=== PATIENT | male | born 1950 | race Caucasian/White ===

== ENCOUNTER 2020-04-05 10:04 | Emergency (ER) | payer MEDICARE, MEDICAID, SELFPAY ==
[2020-04-05 10:24] VITALS: BP 106/60; PULSE 81; RESP 16; TEMP 36.2; O2SAT 96; BMI 33.3
--- NOTE | 2020-04-05 10:57 | XR_ITS ---
EXAMINATION: LUMBAR SPINE 3 VIEW, HIPS BILATERAL 3 VIEW, PELVIS 1 VIEW CLINICAL INFORMATION: Back and hip pain status post fall. COMPARISON: None TECHNIQUE: 3 views of the lumbar spine, 3 views of the hip and one view of the pelvis were obtained. FINDINGS: Lumbar spine: There is normal lumbar lordosis and spinal alignment. The vertebral bodies are intact. Mild disc space narrowing is seen at L4-5. Mild to moderate multilevel marginal osteophyte formation is seen most pronounced at T11-12 and L2-3. The soft tissues are unremarkable. Pelvis/hips: The bony pelvis and hips are intact. There is no acute fracture or dislocation. The hip joints are unremarkable. The soft tissues are unremarkable. XR/XR pelvis 1-2V IMPRESSION: Multilevel degenerative changes in the lumbar spine as detailed above. No acute fracture.
--- NOTE | 2020-04-05 10:57 | CT_ITS ---
EXAMINATION: CT HEAD WITHOUT CONTRAST CLINICAL INFORMATION: Status post fall, patient on Plavix, rule out intracranial abnormality. COMPARISON: Head CT scan dated 03/12/2018. TECHNIQUE: Contiguous axial imaging was performed from the skull base to vertex without intravenous administration of contrast. This CT examination was performed using dose optimization techniques as appropriate, variously including the following: *Automated exposure control *Adjustment of mA and/or kV according to patient size (this includes techniques or standardized protocols for targeted exams where dose is matched to indication/reason for exam; i.e. extremities or head) *Use of iterative reconstruction technique DLP: 763 mGy-cm FINDINGS: There is mild widening of the cortical sulci and associated ventriculomegaly. The lateral ventricles are symmetrical. The third and fourth ventricles are in their normal midline position. The basilar and prepontine cisterns are unremarkable. There is no acute intra or extracerebral abnormality. There is no mass effect or midline shift. Sections through the bony calvarium are unremarkable. The orbits are intact. The paranasal sinuses show mild mucosal thickening in the bilateral maxillary and ethmoid sinuses. Mild nasal septal deviation, apex of the right is seen with small right apical spur. The mastoid air cells are clear. CT/CT head/brain wo con IMPRESSION: 1. Mild age-related cortical atrophy without significant change. No acute intracranial abnormality. 2. Mild inflammatory changes in the paranasal sinuses as detailed above without significant interval change.
--- NOTE | 2020-04-05 10:57 | XR_ITS ---
EXAMINATION: LUMBAR SPINE 3 VIEW, HIPS BILATERAL 3 VIEW, PELVIS 1 VIEW CLINICAL INFORMATION: Back and hip pain status post fall. COMPARISON: None TECHNIQUE: 3 views of the lumbar spine, 3 views of the hip and one view of the pelvis were obtained. FINDINGS: Lumbar spine: There is normal lumbar lordosis and spinal alignment. The vertebral bodies are intact. Mild disc space narrowing is seen at L4-5. Mild to moderate multilevel marginal osteophyte formation is seen most pronounced at T11-12 and L2-3. The soft tissues are unremarkable. Pelvis/hips: The bony pelvis and hips are intact. There is no acute fracture or dislocation. The hip joints are unremarkable. The soft tissues are unremarkable. XR/XR hips FARIDEH min 3V IMPRESSION: Multilevel degenerative changes in the lumbar spine as detailed above. No acute fracture.
--- NOTE | 2020-04-05 10:57 | XR_ITS ---
EXAMINATION: LUMBAR SPINE 3 VIEW, HIPS BILATERAL 3 VIEW, PELVIS 1 VIEW CLINICAL INFORMATION: Back and hip pain status post fall. COMPARISON: None TECHNIQUE: 3 views of the lumbar spine, 3 views of the hip and one view of the pelvis were obtained. FINDINGS: Lumbar spine: There is normal lumbar lordosis and spinal alignment. The vertebral bodies are intact. Mild disc space narrowing is seen at L4-5. Mild to moderate multilevel marginal osteophyte formation is seen most pronounced at T11-12 and L2-3. The soft tissues are unremarkable. Pelvis/hips: The bony pelvis and hips are intact. There is no acute fracture or dislocation. The hip joints are unremarkable. The soft tissues are unremarkable. XR/XR lumbar spine 2-3V IMPRESSION: Multilevel degenerative changes in the lumbar spine as detailed above. No acute fracture.
--- NOTE | 2020-04-05 10:57 | US_ITS ---
EXAMINATION: US SCROTUM CLINICAL INFORMATION: fall, testicular pain, r/o torsion. COMPARISON: None TECHNIQUE: A sonogram of the scrotum was performed assessing copeland-scale appearance and color Doppler flow. Spectral Doppler analysis of the arterial and venous flow were performed in the testes bilaterally. FINDINGS: RIGHT: Right testicle measures 5.4 x 2.5 x 3.8 cm, volume 27 mL. No focal testicular parenchymal lesions are visualized. Spectral Doppler analysis of the arterial and venous flow is normal in the right testis. Right epididymal head is normal in size. There is a 5 mm cyst in the epididymal body. Trace hydrocele, likely physiologic. No varicocele is seen. Right epididymal Doppler flow is normal. LEFT: Left testicle measures 5.4 x 2.7 x 3.5 cm, volume 27 mL. No focal testicular parenchymal lesions are visualized. Spectral Doppler analysis of the arterial and venous flow is normal in the left testis. Left epididymal head is normal in size. Trace hydrocele, likely physiologic. No varicocele is seen. Left epididymal Doppler flow is normal. US/US scrotum doppler IMPRESSION: No acute scrotal abnormalities. No evidence of torsion.
--- NOTE | 2020-04-05 11:04 | US_ITS ---
EXAMINATION: US SCROTUM CLINICAL INFORMATION: fall, testicular pain, r/o torsion. COMPARISON: None TECHNIQUE: A sonogram of the scrotum was performed assessing copeland-scale appearance and color Doppler flow. Spectral Doppler analysis of the arterial and venous flow were performed in the testes bilaterally. FINDINGS: RIGHT: Right testicle measures 5.4 x 2.5 x 3.8 cm, volume 27 mL. No focal testicular parenchymal lesions are visualized. Spectral Doppler analysis of the arterial and venous flow is normal in the right testis. Right epididymal head is normal in size. There is a 5 mm cyst in the epididymal body. Trace hydrocele, likely physiologic. No varicocele is seen. Right epididymal Doppler flow is normal. LEFT: Left testicle measures 5.4 x 2.7 x 3.5 cm, volume 27 mL. No focal testicular parenchymal lesions are visualized. Spectral Doppler analysis of the arterial and venous flow is normal in the left testis. Left epididymal head is normal in size. Trace hydrocele, likely physiologic. No varicocele is seen. Left epididymal Doppler flow is normal. US/US scrotum IMPRESSION: No acute scrotal abnormalities. No evidence of torsion.
[2020-04-05] MEDS: Acetaminophen 325 MG TABLET 975 MG PO (11:07)
--- NOTE | 2020-04-05 11:20 | ED_ITS ---
HPI - Back Pain/Injury General Chief Complaint: Fall Stated Complaint: FALL Time Seen by Provider: 04/05/20 10:57 Source: patient Mode of arrival: ambulatory Limitations: no limitations and language barrier (aerial photograph interpreter used) History of Present Illness HPI Narrative: 70 yo male with past medical history of afib on plavix, asthma, HLD, HTN, solitary kidney, seizures, cardiac stent placement here with c/o back pain, pelvic pain, testicle pain s/p fall. Patient tells me yesterday he tripped going down the stairs falling approximately 6-8 steps landing on his buttocks. Denies hitting head or LOC. Here c/o low back pain with radiation to testicles and bilateral hip pain, abrasion to LLE. No chest/abdominal/neck pain. No STEIN, vomiting, photoiphobia. tetanus UTD MD elicited complaint: back pain, back injury and fall Pertinent past history: recent trauma Onset (ago): day(s) Timing: constant Severity: mild Similar Symptoms Previously: No Quality: sharp Location: lumbar spine Radiation: groin Exacerbating factors: movement Relieving factors: immobilization Context: fall Associated symptoms: denies other symptoms Work related injury: No Related Data Previous Rx's Medication Instructions Recorded cyclobenzaprine 10 mg PO TID PRN #10 tab 04/05/20 lidocaine [Lidoderm] 1 patch TOPICAL DAILY #15 ea 04/05/20 Allergies Allergy/AdvReac Type Severity Reaction Status Date / Time aspirin [ASPIRIN] Allergy Unknown ITCHING Unverified 02/27/20 15:42 fish oil Allergy Unknown Verified 11/19/19 00:00 Shellfish Allergy Mild SWELLING Uncoded 02/27/20 15:42 Review of Systems Review of Systems: Yes all other systems are reviewed and are negative Constitutional: Constitutional: Reports no additional constitutional complaints, Denies body ache(s), Denies chills, Denies fever(s), Denies headache(s) and Denies weakness Eyes: Eyes: Reports no additional eye complaints and Denies change in vision ENT: Reports system reviewed and no additional complaints, except as documented, Denies dizziness, Denies headache(s), Denies nasal congestion, Denies nasal discharge and Denies neck pain Cardiovascular: Cardiovascular: Reports no additional cardiovascular complaints, Denies chest pain, Denies leg edema and Denies dyspnea Respiratory: Respiratory: Reports no additional respiratory complaints, Denies cough and Denies dyspnea Gastrointestinal: Gastrointestinal: Reports no additional gastrointestinal complaints, Denies abdominal pain, Denies diarrhea, Denies nausea and Denies vomiting Genitourinary: Genitourinary: Reports no additional male genitourinary complaints, Denies difficulty urinating, Denies dysuria, Denies flank pain, Denies penile discharge, Denies scrotal swelling, Reports testicular pain, Denie s urinary frequency, Denies urinary hesitancy, Denies urinary incontinence and Denies urinary urgency Musculoskeletal: Musculoskeletal: Reports no additional musculoskeletal complaints, Reports back pain, Reports arthralgias, Denies joint swelling, Denies neck pain, Denies numbness and Denies tingling Integumentary/Breasts: Skin/Breast: Reports system reviewed and no additional complaints, except as docu and Denies rash Neurologic: Reports system reviewed and no additional complaints, except as documented, Denies Abnormal speech present, Denies dizziness, Denies headache(s), Denies numbness, Denies tingling and Denies weakness PMFSH Past Medical History Attestation statement: The following information was validated with the patient. Source: obtained from family and nursing notes reviewed Medical History Afib Asthma Heart attack High cholesterol Hypertension Kidney congenitally absent, left Seizures Surgical History H/O heart artery stent Social History Social History Alcohol intake: never Smoking Status: Never smoker Use of substances other than those prescribed or required for medical reasons: No Advance Directives: No Advance Directives Information Provided: No Physical Exam Vital Signs: Vital Signs: Vital Signs Temp Pulse Resp BP Pulse Ox 04/05/20 10:24 97.1 F 81 16 106/60 96 Body Mass Index 33.3 Const: General: cooperative, healthy appearing, comfortable and no acute distress Orientation/consciousness: patient oriented x3 Limitations: no limitations HENMT: Head: Yes normal to inspection Ears: hearing grossly normal bilaterally General nose exam: Normal external nose present Face and sinus: Yes normal facial exam Mouth: Normal oral and palatal mucosa present Throat: Yes posterior oropharynx normal Eyes: General: appearance normal, both eyes and all related structures Pupils: Equal, round and reactive pupils present Neck: Other: no midline tenderness/step offs or deformities. 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 General: Yes no CVA tenderness Male General Exam: Yes normal external exam, No ecchymosis, No edema and No lacerations Penis: normal penis and uncircumcised Meatus: meatus normal Scrotum: scrotum normal, cremasteric reflex present, no ecchymosis, not edematous, testes descended bilaterally and no scrotal swelling Testes: Testes normal, testicular lie normal, no epidiymal tenderness, no testicular swelling and testicular tenderness (mild ) bilateral Back/Spine/Pelvis: Back: no CVA tenderness Thoracic/Lumbar Spine: thoracic and lumbar spine normal to inspection and lumbar spinal tenderness at L3, at L4 and at L5 Pelvis: pain with anterior-posterior compression (mild tenderness over bilateral posterior hips/pelvis. FROM), no buttock ecchymosis, no buttock tenderness and no buttock swelling Skin: Other: small abrasion to LLE anterioally with no active bleeding/tenderness/crepitus or bony abnormality General skin exam: no rashes or lesions noted Neuro: General: patient oriented x3, Normal light touch and pain sensation, no focal motor deficits and normal sensation to monofilament Cranial nerves: Yes CN's II-XII intact bilaterally and Yes Equal, round and reactive pupils present Cognition (Neuro): normal cognition Speech: No Abnormal speech present Gait exam (Neuro): Normal gait present Motor exam (neuro): 5/5 motor strength present throughout Sensory Exam: Normal double simultaneous stimulation for sensation Coordination: [id number] test normal, [id number] test normal and tandem gait normal Extrem: General: Yes normal to inspection Course Course Course Narrative: 70 yo male here with bilateral hip pain, low back pain, bilateral testicular pain, abrasion to LLE s/p mechanical fall. On arrival no neuro deficits. Denies hitting head however on plavix and d/t age will check Ct head. Has midline lumbar tenderness and mild tenderness over posterior pelvis and bilateral hips. No instability. FROM. No deformity. Will check imaging. Also c/o testicular tenderness bilateral with no obvious ecchymosis/swelling. Will check testicular US. 1300- Imaging unremarkable. Likely contusions. Reviewed findings with the patient and his family. Reviewed worrisome signs and symptoms and when to return to the emergency department. Comfortable discharge home. MDM - Back Pain/Injury MDM Narrative Medical decision making narrative: Head contusion vs ICH, Hip fracture vs dislocation vs contusion, lumbar spine contusion vs strain vs fracture, testic ular contusion vs hematoma vs torision. 1200-Less likely ICH with negative Ct head. Less likely fracture or dislocation in hip/pelvis lumbar spine with negative imaging. Less likely testicular torsion or hematoma with negative US. Medical Records Attestation: I reviewed the patient's medical records. Imaging Data CT scan - head: Attestation: I personally reviewed and interpreted this imaging study as follows: My impression: unremarkable Radiologist's impression: EXAMINATION: CT HEAD WITHOUT CONTRAST CLINICAL INFORMATION: Status post fall, patient on Plavix, rule out intracranial abnormality. COMPARISON: Head CT scan dated 03/12/2018. TECHNIQUE: Contiguous axial imaging was performed from the skull base to vertex without intravenous administration of contrast. This CT examination was performed using dose optimization techniques as appropriate, variously including the following: *Automated exposure control *Adjustment of mA and/or kV according to patient size (this includes techniques or standardized protocols for targeted exams where dose is matched to indication/reason for exam; i.e. extremities or head) *Use of iterative reconstruction technique DLP: 763 mGy-cm FINDINGS: There is mild widening of the cortical sulci and associated ventriculomegaly. The lateral ventricles are symmetrical. The third and fourth ventricles are in their normal midline position. The basilar and prepontine cisterns are unremarkable. There is no acute intra or extracerebral abnormality. There is no mass effect or midline shift. Sections through the bony calvarium are unremarkable. The orbits are intact. The paranasal sinuses show mild mucosal thickening in the bilateral maxillary and ethmoid sinuses. Mild nasal septal deviation, apex of the right is seen with small right apical spur. The mastoid air cells are clear. CT/CT head/brain wo con IMPRESSION: 1. Mild age-related cortical atrophy without significant change. No acute intracranial abnormality. 2. Mild inflammatory changes in the paranasal sinuses as detailed above without significant interval change. hip/pelvis xray: Attestation: I personally reviewed and interpreted this imaging study as follows: My impression: unremarkable Radiologist's impression: Pelvis/hips: The bony pelvis and hips are intact. There is no acute fracture or dislocation. The hip joints are unremarkable. The soft tissues are unremarkable. lumbar spine: Attestation: I personally reviewed and interpreted this imaging study as follows: Radiologist's impression: FINDINGS: Lumbar spine: There is normal lumbar lordosis and spinal alignment. The vertebral bodies are intact. Mild disc space narrowing is seen at L4-5. Mild to moderate multilevel marginal osteophyte formation is seen most pronounced at T11-12 and L2-3. The soft tissues are unremarkable. testicular US: Attestation: I personally reviewed and interpreted this imaging study as follows: Radiologist's impression: EXAMINATION: US SCROTUM CLINICAL INFORMATION: fall, testicular pain, r/o torsion. COMPARISON: None TECHNIQUE: A sonogram of the scrotum was performed assessing copeland-scale appearance and color Doppler flow. Spectral Doppler analysis of the arterial and venous flow were performed in the testes bilaterally. FINDINGS: RIGHT: Right testicle measures 5.4 x 2.5 x 3.8 cm, volume 27 mL. No focal testicular parenchymal lesions are visualized. Spectral Doppler analysis of the arterial and venous flow is normal in the right testis. Right epididymal head is normal in size. There is a 5 mm cyst in the epididymal body. Trace hydrocele, likely physiologic. No varicocele is seen. Right epididymal Doppler flow is normal. LEFT: Left testicle measures 5.4 x 2.7 x 3.5 cm, volume 27 mL. No focal testicular parenchymal lesions are visualized. Spectral Doppler analysis of the arterial and venous flow is normal in the left testis. Left epididymal head is normal in size. Trace hydrocele, likely physiologic. No varicocele is seen. Left epididymal Doppler flow is normal. US/US scrotum IMPRESSION: No acute scrotal abnormalities. No evidence of torsion. Discharge Plan Discharge Clinical Impression: Fall Contusion Qualifiers: Encounter type: initial encounter Contusion area: lower back Qualified Code(s): S30.0XXA - Contusion of lower back and pelvis, initial encounter Patient Disposition: Home, Self-Care Instructions: Contusion in Adults (ED), Fall Prevention (ED) Additional Instructions: Ice to the affected area gentle stretching Prescriptions: New cyclobenzaprine 10 mg tablet 10 mg PO TID PRN (Reason: muscle spasm) Qty: 10 RF: 0 lidocaine [Lidoderm] 5 % adhesive patch,medicated 1 patch topical DAILY Qty: 15 RF: 0 Referrals: Deidre Hunter MD [Primary Care Provider] - 2 days Interventions: ED Discharge Assessment Last Done: 04/05/20 13:38 Discharge Date/Time: 04/05/20 13:15 Print Language: Khmer
== END 2020-04-05 13:15 | disposition home or self-care (01) ==
PROVIDERS: Emergency Provider Emergency Medicine; PCP Internal Medicine
DX: S30.0XXA Contusion of lower back and pelvis, initial encounter (principal); M25.552 Pain in left hip; M25.551 Pain in right hip; N50.812 Left testicular pain; N50.811 Right testicular pain; G44.309 Post-traumatic headache, unspecified, not intractable; S09.90XA Unspecified injury of head, initial encounter; S80.812A Abrasion, left lower leg, initial encounter; S80.811A Abrasion, right lower leg, initial encounter; W10.9XXA Fall (on) (from) unspecified stairs and steps, initial encounter; Y93.01 Activity, walking, marching and hiking; Y92.009 Unspecified place in unspecified non-institutional (private) residence as the place of occurrence of the external cause; Y99.9 Unspecified external cause status; Z79.899 Other long term (current) drug therapy
CPT/HCPCS: 70450; 72100; 72170; 73522; 76870; 93975; 99284

== ENCOUNTER 2020-04-15 08:53 | Outpatient (REF) | payer MEDICARE, MEDICAID, SELFPAY ==
--- NOTE | 2020-04-15 09:01 | XR_ITS ---
EXAMINATION: XR LUMBOSACRAL SPINE CLINICAL INFORMATION: Fall with pain COMPARISON: 04/05/[address] abdomen of 01/26/2018 TECHNIQUE: Three views of the lumbosacral spine. FINDINGS: There are 5 [id number] lumbar vertebra present. There is a stable appearance compared to study of 04/05/[address] scan of 01/26/2018 there has been a mild inferior endplate compression fracture of L2 with some degenerative spurring developing anteriorly. There is some mild narrowing of the L4-L5 and L5-S1 disc spaces. There is facet arthropathy right side of L4-L5 and L5-S1. No evidence of fusion or widening of the sacroiliac joints. XR/XR lumbar spine 2-3V IMPRESSION: No acute fracture, spondylolisthesis or spondylolysis of the lumbar spine. Degenerative change as described.
== END 2020-04-15 08:54 | disposition home or self-care (01) ==
LOC: HO.XRAY 08:53
PROVIDERS: PCP Internal Medicine; Visit Provider Nurse Practitioner Family
DX: M54.5 Low back pain (principal); W10.9XXA Fall (on) (from) unspecified stairs and steps, initial encounter
CPT/HCPCS: 72100

== ENCOUNTER 2020-07-01 08:58 | Outpatient (REF) | payer MEDICARE, MEDICAID, SELFPAY ==
[2020-07-01 10:22] LABS: MANUAL DIFF FLAG NO
[2020-07-01 10:28] LABS: Basophils Percent Auto 0.6 % (0-2); Eosinophils Absolute Auto 0.2 X10*3/uL (0.0-0.4); Eosinophils Percent Auto 4.4 % (0-4); Hematocrit 41.2 % (42-52); Hemoglobin 13.8 g/dl (14.0-18.0); Imm Gran Abs Auto 0.01 X10*3/uL (0.00-0.03); Imm Gran Pct Auto 0.2 % (0.0-0.4); Lymphocytes Absolute Auto 2.1 X10*3/uL (1.2-4.9); Lymphocytes Percent Auto 43.1 % (20-40); Mean Corpuscular HGB Conc 33.5 g/dl (31.0-36.0); Mean Corpuscular Hemoglobin 31.5 pg (27.0-33.0); Mean Corpuscular Volume 94.1 fL (80-98); Mean Platelet Volume 10.6 fL (9.4-12.4); Monocytes Absolute Auto 0.3 X10*3/uL (0.1-1.2); Monocytes Percent Auto 6.9 % (2-11); Neutrophils Absolute Auto 2.1 X10*3/uL (2.0-8.3); Neutrophils Percent Auto 44.8 % (45-73); Platelet Count 182 X10*3/uL (160-400); Red Blood Count 4.38 X10*6/uL (4.60-5.80); Red Cell Distribution Width 12.8 % (11.0-16.0); White Blood Count 4.8 X10*3/uL (4.8-10.8)
[2020-07-01 10:51] LABS: Alanine Aminotransferase 31 U/L (0-40); Albumin Level 3.9 g/dL (3.5-5.0); Alkaline Phosphatase 138 U/L (39-117); Anion Gap 13 (12-20); Aspartate Amino Transferase 25 U/L (5-37); Bilirubin Total 0.3 mg/dL (0.0-1.0); Blood Urea Nitrogen 20 mg/dL (9-16); Calcium 8.7 mg/dL (8.4-10.2); Carbon Dioxide 26 mmol/L (22-29); Chloride 107 mmol/L (96-108); Cholesterol 153 mg/dL; Estimated Glomerular Filt Rate > 60; Glucose Fasting 89 mg/dL (60-99); HDL Cholesterol 51 mg/dL; LDL Cholesterol Calculated 85 mg/dl; Potassium 4.4 mmol/l (3.3-5.1); Sodium 142 mmol/L (135-145); Triglycerides 88 mg/dL
[2020-07-01 10:56] LABS: Carbamazepine Tegretol 3.7 mcg/mL (5.0-12.0)
[2020-07-01 11:13] LABS: PSA,Total (Free>4and<10) 0.49 ng/mL (0.00-4.00); Vitamin D 25-OH Total 38.5 ng/mL (>30)
[2020-07-03 12:37] LABS: Phenytoin, Free/Unbound 0.8 mg/L (1.0-2.0)
== END 2020-07-01 08:59 | disposition home or self-care (01) ==
LOC: HO.LAB 08:58
PROVIDERS: PCP Internal Medicine; Visit Provider Internal Medicine
DX: E78.5 Hyperlipidemia, unspecified (principal); I12.9 Hypertensive chronic kidney disease with stage 1 through stage 4 chronic kidney disease, or unspecified chronic kidney disease; N18.30 Chronic kidney disease, stage 3 unspecified; I25.10 Atherosclerotic heart disease of native coronary artery without angina pectoris; R56.9 Unspecified convulsions; I48.91 Unspecified atrial fibrillation; N40.0 Benign prostatic hyperplasia without lower urinary tract symptoms; Z20.822 Contact with and (suspected) exposure to COVID-19
CPT/HCPCS: 36415; 80053; 80061; 80156; 80186; 82306; 84153; 85025; C9803; U0003

== ENCOUNTER 2021-07-21 07:48 | Outpatient (REF) | payer MEDICARE, MEDICAID, SELFPAY ==
[2021-07-21 08:13] LABS: MANUAL DIFF FLAG NO
[2021-07-21 09:01] LABS: Basophils Percent Auto 0.6 % (0-2); Eosinophils Absolute Auto 0.3 X10*3/uL (0.0-0.4); Eosinophils Percent Auto 6.3 % (0-4); Hematocrit 37.6 % (42.0-52.0); Hemoglobin 12.9 g/dl (14.0-18.0); Imm Gran Abs Auto 0.01 X10*3/uL (0.00-0.03); Imm Gran Pct Auto 0.2 % (0.0-0.4); Lymphocytes Absolute Auto 2.3 X10*3/uL (1.2-4.9); Lymphocytes Percent Auto 46.7 % (20-40); Mean Corpuscular HGB Conc 34.3 g/dl (31.0-36.0); Mean Corpuscular Volume 93.3 fL (80.0-98.0); Mean Platelet Volume 11.3 fL (9.4-12.4); Monocytes Absolute Auto 0.4 X10*3/uL (0.1-1.2); Monocytes Percent Auto 7.1 % (2-11); Neutrophils Absolute Auto 1.9 x10*3/uL (2.0-8.3); Neutrophils Percent Auto 39.1 % (45-73); Platelet Count 177 X10*3/uL (160-400); Red Blood Count 4.03 X10*6/uL (4.60-5.80); Red Cell Distribution Width 12.5 % (11.0-16.0); White Blood Count 4.9 X10*3/uL (4.8-10.8)
[2021-07-21 09:35] LABS: Alanine Aminotransferase 31 U/L (0-40); Albumin Level 3.8 g/dL (3.5-5.0); Alkaline Phosphatase 128 U/L (39-117); Anion Gap 10 (12-20); Aspartate Amino Transferase 25 U/L (5-37); Bilirubin Total 0.3 mg/dL (0.0-1.0); Blood Urea Nitrogen 16 mg/dL (9-16); Calcium 8.6 mg/dL (8.4-10.2); Carbon Dioxide 24 mmol/L (22-29); Chloride 110 mmol/L (96-108); Cholesterol 139 mg/dL; Estimated Glomerular Filt Rate 57; Glucose Fasting 99 mg/dL (60-99); HDL Cholesterol 46 mg/dL; LDL Cholesterol Calculated 77 mg/dl; Potassium 4.2 mmol/L (3.3-5.1); Sodium 140 mmol/L (135-145); Total Protein 6.8 g/dL (6.5-8.0); Triglycerides 80 mg/dL
[2021-07-21 09:57] LABS: PSA,Total (Free>4and<10) 0.59 ng/mL (0.00-4.00)
[2021-07-23 14:32] LABS: Phenytoin, Free/Unbound 0.6 mg/L (1.0-2.0)
[2021-07-26 13:27] LABS: Vitamin D 25-OH, D2 <4 ng/mL; Vitamin D 25-OH, D3 35 ng/mL; Vitamin D 25-OH, Total 35 ng/mL (30-100)
== END 2021-07-21 07:49 | disposition home or self-care (01) ==
LOC: HO.LAB 07:48
PROVIDERS: PCP Internal Medicine; Visit Provider Internal Medicine
DX: Z12.5 Encounter for screening for malignant neoplasm of prostate (principal); R56.9 Unspecified convulsions; E78.5 Hyperlipidemia, unspecified; N40.0 Benign prostatic hyperplasia without lower urinary tract symptoms; I10 Essential (primary) hypertension; E55.9 Vitamin D deficiency, unspecified; D64.9 Anemia, unspecified
CPT/HCPCS: 36415; 80053; 80061; 80156; 80186; 82306; 84153; 85025

== ENCOUNTER 2021-11-02 07:16 | Day surgery (SDC) | payer MEDICARE, MEDICAID, SELFPAY ==
[2021-10-27 14:27] VITALS: BMI 35.4
--- NOTE | 2021-10-28 10:33 | HO.ANESPROP2 ---
Documented by User: Mireya Franklin NP 10/28/21 10:40 HPI - Anesthesia Eval Consult details Narrative: 71yo M for Colonoscopy Optimized per cardiology - hold plavix, continue asa PMFSH Active Problems Active Problems: All Active Problems (Updated 08/06/21 @ 14:25 by Juliann Gaona, GORGE) Fall from stairs (Acute) Screening for colon cancer (Acute) Adult general medical exam (Acute) Solitary kidney, acquired (Acute) Mild recurrent major depression (Acute) Cough (Acute) Hypertension (Acute) BPH (benign prostatic hyperplasia) (Acute) Afib (Acute) Asthma (Acute) Seizures (Acute) CAD (coronary artery disease) (Acute) Lower back pain (Acute) Past Medical History Medical History Afib Asthma BPH (benign prostatic hyperplasia) CAD (coronary artery disease) Cardiac arrest due to underlying cardiac condition Cough Heart attack High cholesterol Hypertension Lower back pain Mild recurrent major depression Seizures Solitary kidney, acquired Family History Family History Father No problems noted. Mother Cancer Diabetes Surgical History Surgical History H/O heart artery stent History of colonoscopy History of left nephrectomy Social History Social History Housing: House Alcohol intake: never Patient Tobacco Use Status: Never used Tobacco e-Cigarette/Vaping Use: Never Used Second Hand Smoke Exposure: No Use of substances other than those prescribed or required for medical reasons: No Are you DNR?: No Advance Directives: No Advance Directives Information Provided: Yes Recently lost weight without trying: No Nutrition Risks: No Nutritional Risk service: No Current occupational status: retired Meds Allergies Allergy/AdvReac Type Severity Reaction Status Date / Time aspirin [ASPIRIN] Allergy Intermediate ITCHING Verified 07/06/21 09:19 fish oil Allergy Intermediate itchiness Verified 07/06/21 09:19 shellfish derived Allergy Mild Swelling Verified 08/06/21 13:45 Home Medications Medication Instructions Recorded Confirmed Last Taken Type carbamazepine 100 mg chewable 300 mg PO BID 04/13/20 10/27/21 11/02/21 History tablet citalopram 40 mg tablet 40 mg PO DAILY 04/13/20 10/27/21 11/02/21 History clonazepam 1 mg tablet 1 mg PO TID 04/13/20 10/27/21 11/02/21 History quetiapine 100 mg tablet 100 mg PO BEDTIME 04/13/20 10/27/21 Unknown History tramadol 50 mg tablet 50 mg PO BID PRN 04/13/20 10/27/21 Unknown History aspirin 81 mg tablet,delayed 81 mg PO DAILY 08/06/21 10/27/21 Unknown History release metoprolol succinate 25 mg 25 mg PO DAILY 08/06/21 10/27/21 11/02/21 History tablet,extended release 24 hr Exam Exam Date and Time: October 28, 2021 1033 Height,Weight and Vital Signs: Height 5 ft 5 in Weight 96.615 kg Pertinent Lab Results Pertinent Lab Results: Laboratory Tests 07/21/21 07/21/21 08:11 08:11 WBC 4.9 Hgb 12.9 L Hct 37.6 L Plt Count 177 Sodium 140 Potassium 4.2 Chloride 110 H Carbon Dioxide 24 BUN 16 Creatinine 1.24 Narrative Narrative: EKG 01/2021 Sinus manuelito @ 57 Nonspecific T wave abn No significant change from 11/2018 Nuc Stress 09/2021 1. Myocardial perfusion imaging is normal without any fixed or reversible perfusion defct after regadenosen infusion 2. LV function is normal at rest and after IV admin of regadenoson with normal wall motion and thickening 3. EKG portion of stress no ischemic ekg changes with pharm stress Assessment and Plan Assessment Anesthesia Assessment: Chart Reviewed Documented by User: Ines Landers MD 11/02/21 08:31 PMFSH Active Problems Active Problems: All Active Problems (Updated 08/06/21 @ 14:25 by Juliann Gaona RN) Fall from stairs (Acute) Screening for colon cancer (Acute) Adult general medical exam (Acute) Solitary kidney, acquired (Acute) Mild recurrent major depression (Acute) Cough (Acute) Hypertension (Acute) BPH (benign prostatic hyperplasia) (Acute) Afib -Paroxysmal Asthma (Acute) Seizures (Acute) CAD (coronary artery disease) (Acute). [place] years ago. Stents. On plavix. Last dose 7 days ago Lower back pain (Acute) Snores. ?DNIESH. Not using CPAP(States was given small machine but not using) Past Medical History Medical History Afib Asthma BPH (benign prostatic hyperplasia) CAD (coronary artery disease) Cardiac arrest due to underlying cardiac condition Cough Heart attack High cholesterol Hypertension Lower back pain Mild recurrent major depression Seizures Solitary kidney, acquired Family History Family History Father No problems noted. Mother Cancer Diabetes Family history of problems with anesthesia: No Surgical History Surgical History H/O heart artery stent History of colonoscopy History of left nephrectomy History of Problems with Anesthesia: No Social History Social History Housing: House Alcohol intake: never Patient Tobacco Use Status: Never used Tobacco e-Cigarette/Vaping Use: Never Used Second Hand Smoke Exposure: No Use of substances other than those prescribed or required for medical reasons: No Are you DNR?: No Advance Directives: No Advance Directives Information Provided: Yes Recently lost weight without trying: No Nutrition Risks: No Nutritional Risk service: No Current occupational status: retired Meds Allergies Allergy/AdvReac Type Severity Reaction Status Date / Time aspirin [ASPIRIN] Allergy Intermediate ITCHING Verified 07/06/21 09:19 fish oil Allergy Intermediate itchiness Verified 07/06/21 09:19 shellfish derived Allergy Mild Swelling Verified 08/06/21 13:45 Home Medications Medication Instructions Recorded Confirmed Last Taken Type carbamazepine 100 mg chewable 300 mg PO BID 04/13/20 10/27/21 11/02/21 History tablet citalopram 40 mg tablet 40 mg PO DAILY 04/13/20 10/27/21 11/02/21 History clonazepam 1 mg tablet 1 mg PO TID 04/13/20 10/27/21 11/02/21 History quetiapine 100 mg tablet 100 mg PO BEDTIME 04/13/20 10/27/21 Unknown History tramadol 50 mg tablet 50 mg PO BID PRN 04/13/20 10/27/21 Unknown History aspirin 81 mg tablet,delayed 81 mg PO DAILY 08/06/21 10/27/21 Unknown History release metoprolol succinate 25 mg 25 mg PO DAILY 08/06/21 10/27/21 11/02/21 History tablet,extended release 24 hr Exam Height,Weight and Vital Signs: Height 5 ft 5 in Weight 96.615 kg Vital Signs Temp Pulse Resp BP Pulse Ox 11/02/21 08:21 97.3 F 57 16 119/71 96 Airway Mallampati Class: III TM Dist: >3cm (Short neck, increased circumference) Neck ROM: Full Loose/Missing/Broken Teeth: Yes (Missing bottom front) Heart: RRR Lungs: CTAB Assessment and Plan Assessment Anesthesia Assessment: Anesthesia Plan Discussed Final Anesthetic Review Family History of Problems with Anesthesia: No History of Problems with Anesthesia: No NPO: Yes ASA Class: III Final Preanesthetic Review: No Changes in Pt Med Stat, Meds/Allgs Chart Reviewed, Consent Obtained/Reviewed and Anes Risks/Benef Reviewed Patient Risk: Intermediate Procedure Risk: Low Assessment/Block/Sedation in SS: Assess/Block/Sedation-SS Anesthetic Plan Anesthetic Plan: MAC: Disposition: Standard PACU
[2021-11-02 08:06] VITALS: BMI 33.3
[2021-11-02 08:21] VITALS: BP 119/71; PULSE 57; RESP 16; TEMP 36.3; O2SAT 96
[2021-11-02] MEDS: Lactated Ringers 1,000 ML 100 ML IVCONT (08:35)
--- NOTE | 2021-11-02 09:08 | MHC.SHP ---
Pre-Procedural Eval Section A Date of Service: 11/02/21 Section B Chief Complaint: screening Details of Present Illness: see H&P no changes Relevant Family History (Specify if Yes): No Relevant Social History: None Present Medications: see Short Stay Collaborative assessment Medical History: No relevant PMH History of Previous Operations: No relevant previous surgery Allergies: Allergies Allergy/AdvReac Type Severity Reaction Status Date / Time aspirin [ASPIRIN] Allergy Intermediate ITCHING Verified 07/06/21 09:19 fish oil Allergy Intermediate itchiness Verified 07/06/21 09:19 shellfish derived Allergy Mild Swelling Verified 08/06/21 13:45 Review of Systems Sugical H&P ROS: Negative: Constitution, Cardiovascular, Respiratory, Neurological, Psychiatric, Hem-Onc, Allergic/Immunologic, Gastrointestinal, Genitourinary, Musculoskeletal, Integumentary, Endocrine and Eyes/Ears/Nose/Throat Exam Surgical H&P Exam: Normal: HEENT, Normal: Heart, Normal: Lungs, Normal: Extremities, Normal: Abdomen, Normal: Skin and Normal: Neurological Plan Diagnosis/Plan: Unchanged I have reviewed the history and physical and performed a pertinent physical examination on my patient. No changes have occurred unless specified.
--- NOTE | 2021-11-02 09:44 | P.BOP_ITS ---
Brief Operative Note Date of Service: 11/02/21 Pre-op diagnosis: screening Procedure: colono polyps Surgeon: Ravin Crow Anesthesia: MAC Was an Operations Supervisor 2Nd Shift used for this Procedure?: No Estimated blood loss (mL): 0 Pathology: other (polyps x2) Condition: stable Disposition: PACU
[2021-11-02 09:48] VITALS: BP 87/50; PULSE 57; RESP 16; TEMP 36.5; O2SAT 97
[2021-11-02 10:03] VITALS: BP 129/76; PULSE 58; RESP 18; TEMP 36.5; O2SAT 100
--- NOTE | 2021-11-02 20:28 | OP_ITS ---
SURGEON: Ravin Crow MD INDICATIONS: Colon cancer screening. PREOPERATIVE DIAGNOSIS: POSTOPERATIVE DIAGNOSIS: PROCEDURE PERFORMED: Colonoscopy to the terminal ileum with snare polypectomy. ESTIMATED BLOOD LOSS: COMPLICATIONS: ANESTHESIA: ASSISTANTS: SPECIMENS: MEDICATIONS: Monitored anesthesia care. DESCRIPTION OF PROCEDURE: History and physical were performed. The risks and benefits of the procedure were explained to the patient. Informed consent was obtained. The patient was placed in the left lateral decubitus position. A digital rectal exam was performed and was found to be normal. The Olympus pediatric video colonoscope was introduced into the rectum and advanced to the cecum without difficulty. The cecum was identified by transillumination, palpation and identification of ileocecal valve. Examination was performed. The scope was removed. He tolerated the procedure well and was taken to recovery area in stable condition. FINDINGS: The terminal ileum was normal. The visualized colonic mucosa was normal. There was some liquid stool coating the mucosa mainly in the transverse colon and sigmoid, limiting the examination for detection of small polyps. This was washed and suctioned. Two polyps were identified. The largest measured approximately 8 mm and was located in the cecum on the ileocecal valve. The 2nd was located in the right colon measuring less than 5 mm. Both were removed with a hot snare. No other polyps were identified. Retroflexed examination showed internal hemorrhoids. IMPRESSION: Colon polyps. RECOMMENDATION: Follow up the biopsy results. MD SADIA Kee/DRE / [id number]
== END 2021-11-02 10:38 | disposition home or self-care (01) ==
PROVIDERS: PCP Internal Medicine; Visit Provider Internal Medicine Gastroenterology
PROC: 0DJD8ZZ Inspection of Lower Intestinal Tract, Via Natural or Artificial Opening Endoscopic (ICD-10-PCS; CPT 45378; principal; 2021-11-02 08:50)
DX: Z12.11 Encounter for screening for malignant neoplasm of colon (principal); Z86.010 Personal history of colon polyps; D12.0 Benign neoplasm of cecum; D12.2 Benign neoplasm of ascending colon; K64.8 Other hemorrhoids; K21.9 Gastro-esophageal reflux disease without esophagitis; I10 Essential (primary) hypertension; E78.5 Hyperlipidemia, unspecified; I25.10 Atherosclerotic heart disease of native coronary artery without angina pectoris; Z98.61 Coronary angioplasty status; I25.2 Old myocardial infarction; J45.909 Unspecified asthma, uncomplicated; G40.909 Epilepsy, unspecified, not intractable, without status epilepticus; Z90.5 Acquired absence of kidney; Z87.442 Personal history of urinary calculi; Z79.51 Long term (current) use of inhaled steroids; Z79.02 Long term (current) use of antithrombotics/antiplatelets; Z79.82 Long term (current) use of aspirin; Z79.899 Other long term (current) drug therapy
CPT/HCPCS: 45385; 88305

== ENCOUNTER 2022-02-18 09:21 | Outpatient (REF) | payer MEDICARE, MEDICAID, SELFPAY | END 2022-02-18 09:22 | disposition home or self-care (01) | LOC: HO.SH 09:21 | PROVIDERS: Visit Provider Internal Medicine | DX: Z13.89 Encounter for screening for other disorder (principal) ==

== ENCOUNTER 2022-03-31 08:39 | Outpatient (REF) | payer MEDICARE, MEDICAID, SELFPAY ==
[2022-03-31 11:26] LABS: Alanine Aminotransferase 33 U/L (0-40); Albumin Level 3.9 g/dL (3.5-5.0); Alkaline Phosphatase 141 U/L (39-117); Anion Gap 15 (12-20); Aspartate Amino Transferase 29 U/L (5-37); Bilirubin Total < 0.2 mg/dL (0.0-1.0); Blood Urea Nitrogen 12 mg/dL (9-16); Calcium 8.7 mg/dL (8.4-10.2); Carbon Dioxide 24 mmol/L (22-29); Chloride 107 mmol/L (96-108); Cholesterol 155 mg/dL; Estimated Glomerular Filt Rate > 60; Glucose Fasting 94 mg/dL (60-99); HDL Cholesterol 50 mg/dL; LDL Cholesterol Calculated 89 mg/dl; Sodium 142 mmol/L (135-145); Triglycerides 84 mg/dL
[2022-03-31 11:37] LABS: Vitamin D 25-OH Total 37.1 ng/mL (>30)
[2022-03-31 12:02] LABS: Carbamazepine Tegretol 4.5 mcg/mL (5.0-12.0)
[2022-04-01 15:22] LABS: Phenytoin, Free/Unbound 0.6 mg/L (1.0-2.0)
== END 2022-03-31 08:40 | disposition home or self-care (01) ==
LOC: HO.LAB 08:39
PROVIDERS: PCP Internal Medicine; Visit Provider Internal Medicine
DX: E55.9 Vitamin D deficiency, unspecified (principal); R56.9 Unspecified convulsions; E78.5 Hyperlipidemia, unspecified
CPT/HCPCS: 36415; 80053; 80061; 80156; 80186; 82306

== ENCOUNTER 2022-04-21 09:41 | Outpatient (REF) | payer MEDICARE, MEDICAID, SELFPAY ==
--- NOTE | 2022-04-21 12:47 | MHC.AU.HAS ---
Hearing Aid Evaluation Date of Visit: 04/21/22 Administrative Aide Used: Vietnamese- In Person Historical Information: Description of Hearing: Moderate sloping to severe sensorineural hearing loss in the left ear; Profound hearing loss in the right ear - No response at the limits of the audiometer Current personal amplification information: Left STEIN described as BTE from >6 years ago - LOST Summary: Discussed option to trial BiCROS; however, Domingo reported that he would prefer only a left-sided hearing aid. He was reportedly a successful unilateral hearing aid user prior to losing it and is motivated to pursue a new hearing aid with upgraded technology. Hearing Aid Prescription: Based on the individual?s shared listening needs, communication environments, dexterity, desire for connectivity, and personal preferences, the following prescription for amplification has been made: Left ear: Presetter Operator: NewGoTos Model: Your Energyeo P70-R Battery Size: Rechargeable Color: Sand Beige Internet Marketing Intern: 1P Type of Mold: c-shell Plan of Care: Patient wishes to purchase hearing aids as prescribed Action Taken/Action Needed: Earmold Impression Taken Medical Clearance to be requested from PCP/ENT Hearing Instrument Fitting to be scheduled when materials arrive Primary Diagnosis: H90.3 Bilateral Sensorineural Hearing Loss Signature: Provider: Katia Montez, [facility]
--- NOTE | 2022-04-21 12:49 | MHC.AU.MED ---
Medical Clearance for Hearing Instrumentation Date: 04/21/22 Patient Name: Domingo Francis Date of : 1950 Primary Care Provider: Deidre Zepeda MD We have seen your patient on 04/21/22 and have determined that they are a candidate for amplification (See accompanying report). Specifically, they would benefit from: Hearing aid use in the left ear There is a statute that addresses Medical Evaluation Requirements prior to fitting a patient with a hearing aid. According to [place] statute 265 CMR:6.03(1), (a) General. Except as provided in 265 CMR 6.03(1)(b), a director of assessment shall not sell a hearing aid unless the prospective user has presented to the director of assessment a written statement signed by a licensed physician that states that the patient's hearing loss has been medically evaluated and the patient may be considered a candidate for a hearing aid. The medical evaluation must have taken place within the preceding six months. Please note: Due to the [place] Statute referenced above, we cannot accept a signature other than that of a licensed physician. LEAF SIZE PICKER and PA signatures cannot be accepted. I am in agreement with the above recommendation. There is no medical contraindication for hearing instrumentation. Physician Signature Date Physician Name (Printed)
== END 2022-04-21 09:42 | disposition home or self-care (01) ==
LOC: HO.SH 09:41
PROVIDERS: Visit Provider Internal Medicine
DX: Z01.118 Encounter for examination of ears and hearing with other abnormal findings (principal); Z46.1 Encounter for fitting and adjustment of hearing aid; H90.3 Sensorineural hearing loss, bilateral
CPT/HCPCS: 92557; 92590

== ENCOUNTER 2022-05-27 13:43 | Outpatient (REF) | payer MEDICARE, MEDICAID, SELFPAY ==
--- NOTE | 2022-05-27 14:40 | MHC.AU.HA2 ---
Hearing Instrument Fitting- Adult- Binaural Date of Visit: 05/27/22 Hearing Instruments Dispensed: Left Ear: Make, Model, Color, Serial Number: Amita Guzmán P70-R SN: [id number] Color: Sand Beige Odd Job Laborer Repair Warranty: 08/08/2025 Odd Job Laborer Loss and Damage Warranty: 08/08/2025 [facility] Service Plan: 05/27/2023 Battery Size: Rechargeable Guest Services Agent/Slim Tube: 1P Earmold/Dome/CShell/SlimTip: c-shell SN: [id number] Service Warranty: 08/08/2022 Type of Wax Guard: CeruStop Accessories/Assistive Technology: Folder Stitcher Operator case Combi Summary of Fitting: Performed feedback manager sales and marketing and real ear measurements. Comfortable at real ear settings. Discussed care, use, and rechargeability including manually turning on/off, volume control use, and changing wax guards. Domingo has had a hearing aid before so was able to insert and remove the hearing aid easily. Did not pair to cell phone at this time as Domingo reported he rarely uses it. The otr flatbed company truck driver appears a bit too short; however, Domingo would like to try the fit as is. He will make note of any discomfort or if the hearing aid falls off of his pinna and update at the follow up (may need to send cshell and otr flatbed company truck driver wire to Amita to have it switched out for a length #2). Recommendations: A hearing instrument follow-up was scheduled. Diagnosis Code(s): Primary Diagnosis: H90.3 Bilateral Sensorineural Hearing Loss Signature: Provider: Katia Montez, [facility]
== END 2022-05-27 13:44 | disposition home or self-care (01) ==
LOC: HO.HAP 13:43
PROVIDERS: Visit Provider Internal Medicine
DX: Z46.1 Encounter for fitting and adjustment of hearing aid (principal); H90.3 Sensorineural hearing loss, bilateral
CPT/HCPCS: V5011; V5020; V5241; V5257; V5264

== ENCOUNTER 2022-06-14 08:14 | Emergency (ER) | payer MEDICARE, MEDICAID, SELFPAY ==
--- NOTE | ~2022-06-14 | XR_ITS ---
EXAMINATION: XR CHEST CLINICAL INFORMATION: Cough COMPARISON: 01/26/2018 TECHNIQUE: 2 views of the chest were obtained. FINDINGS: Lungs are well expanded and without evidence of acute disease compared to prior exam from 01/26/2018. The bronchial stark appear to be chronically thickened. Query if there is a history of asthma or bronchitis. No consolidation, mass or pleural effusion. Cardiac silhouette has normal size and contour. The visualized bones are intact. Diffuse idiopathic skeletal hyperostosis as manifest by presence of flowing anterior ligament ossification of the thoracic spine. XR/XR chest 2V IMPRESSION: The bronchial stark appear to be chronically thickened. No evidence of pneumonia. No acute cardiopulmonary findings compared to 01/26/2018.
[2022-06-14 08:42] VITALS: BP 110/61; PULSE 61; RESP 20; TEMP 36.2; O2SAT 96; BMI 34.2
[2022-06-14 10:11] LABS: Influenza A PCR NEGATIVE (Negative); Influenza B PCR NEGATIVE (Negative); Resp Syncy Virus RNA Qual PCR NEGATIVE (Negative); SARS COV2 PCR INHOUSE NEGATIVE (Negative)
[2022-06-14 10:14] VITALS: BP 117/68; PULSE 58; RESP 12; O2SAT 98
--- NOTE | 2022-06-14 10:17 | ED.URI ---
HPI - URI/Sore Throat General Chief Complaint: Upper Respiratory Symptoms Stated Complaint: Cough Time Seen by Provider: 06/14/22 09:56 Source: patient Mode of arrival: ambulatory Limitations: language barrier (Turkmen-speaking director of medical staff services utilized) History of Present Illness HPI Narrative: Patient is a 72-year-old male who presents to the emergency department for evaluation of a persistent cough. Initially he reported tactile fevers but these have subsided. Cough is productive, in the beginning noticed small tinges of blood to be present, currently mucus is overall clear/light yellow. Denies chills, sore throat, ear pain, chest pain, shortness of breath, difficulty breathing, nausea, vomiting, abdominal pain. Denies any swelling of the lower extremities. Denies any dyspnea on exertion. He reports that his ?made me come here? because she was concerned about possibility of COVID or pneumonia. Patient reports symptom onset to be 10 days ago, he became ill after his was ill with a similar upper respiratory infection. Related Data Home Medications Medication Instructions Recorded Confirmed carbamazepine 100 mg chewable 300 mg PO BID 04/13/20 04/06/22 tablet citalopram 40 mg tablet 40 mg PO DAILY 04/13/20 04/06/22 clonazepam 1 mg tablet 1 mg PO TID 04/13/20 04/06/22 quetiapine 100 mg tablet 100 mg PO BEDTIME 04/13/20 04/06/22 tramadol 50 mg tablet 50 mg PO BID PRN Pain 04/13/20 04/06/22 metoprolol succinate 25 mg 25 mg PO DAILY 08/06/21 04/06/22 tablet,extended release 24 hr phenytoin sodium extended 100 mg 100 mg PO BID 04/06/22 04/06/22 capsule Previous Rx's Medication Instructions Recorded fluticasone propionate 110 2 puff PO BID #12 ea 04/24/21 mcg/actuation HFA aerosol inhaler (Flovent HFA) nitroglycerin 0.4 mg sublingual 0.4 mg sublingual ONCE 30 days #30 10/26/21 tablet tabs alfuzosin 10 mg tablet,extended 10 mg PO DAILY 90 days #90 tabs 11/10/21 release 24 hr atorvastatin 80 mg tablet 80 mg PO BEDTIME #90 tabs 04/06/22 cholecalciferol (vitamin D3) 25 25 mcg PO DAILY 90 days #90 caps 04/06/22 mcg (1,000 unit) capsule clopidogrel 75 mg tablet 75 mg PO DAILY #90 tabs 04/06/22 ezetimibe 10 mg tablet 10 mg PO DAILY 90 days #90 tabs 04/06/22 sennosides 8.6 mg-docusate sodium 1 tab-cap PO BID #180 tabs 04/06/22 50 mg tablet (Senexon-S) amoxicillin 500 mg capsule 500 mg PO Q12H #10 caps 06/14/22 benzonatate 100 mg capsule 100 mg PO BID PRN cough #14 caps 06/14/22 Allergies Allergy/AdvReac Type Severity Reaction Status Date / Time aspirin [ASPIRIN] Allergy Intermediate ITCHING Verified 04/06/22 11:31 fish oil Allergy Intermediate itchiness Verified 04/06/22 11:31 shellfish derived Allergy Mild Swelling Verified 04/06/22 11:31 Review of Systems Review of Systems: Constitutional: No fever. Positive chills. No weakness. Positive fatigue. ENT/ Mouth: No Ear Pain, no Nasal Congestion, no sore throat, No Rhinorrhea, No Swallowing Difficulty Skin: No rash or itching. Cardiovascular: No chest pain. No palpitations. No edema. Respiratory: No shortness of breath. Positive cough. Positive sputum production. Gastrointestinal: No nausea. No vomiting. No diarrhea. No abdominal pain. Genitourinary: No burning micturition. No urinary frequency. Neurologic: No headache. No dizziness. No syncope. No numbness or tingling in the extremities. Musculoskeletal: No muscle pain. No back pain. No joint pain or stiffness. Yes all other systems are reviewed and are negative [facility] Past Medical History Attestation statement: The following information was validated with the patient. Source: old records reviewed Medical History Afib Asthma BPH (benign prostatic hyperplasia) CAD (coronary artery disease) Cardiac arrest due to underlying cardiac condition Cough Encounter for Medicare annual wellness exam Hearing loss Heart attack High cholesterol Hypertension Lower back pain Mild recurrent major depression Seizures Solitary kidney, acquired Surgical History H/O heart artery stent History of colonoscopy History of left nephrectomy Family History Family History Father No problems noted. Mother Cancer Diabetes Social History Social History Housing: House Alcohol intake: never Patient Tobacco Use Status: Never used Tobacco e-Cigarette/Vaping Use: Never Used Second Hand Smoke Exposure: No Advance Directives: Yes Advance Directives Information Provided: Yes Advance Directives on File: No service: No Current occupational status: retired Cognitive needs: No Hearing needs: Yes Vision needs: Yes Physical Exam Vital Signs: Vital Signs: Last Vital Signs Temp 97.2 F 06/14/22 08:42 Pulse 58 06/14/22 10:14 Resp 12 06/14/22 10:14 BP 117/68 06/14/22 10:14 Pulse Ox 98 06/14/22 10:14 O2 Del Method 06/14/22 10:14 BMI result Body Mass Index 34.2 Vital signs have been reviewed as normal and appeared to be correct. Blood pressure normal.? Heart rate normal.? Respiration rate normal. Temperature normal.? Oxygen saturation normal. Appearance: Alert.?Oriented to person, place and time. No acute distress.?Normal affect. Eyes: Pupils equal, round and reactive to light.? ENT: TM normal bilaterally. Pharynx normal.?? Neck: Normal inspection.? Neck supple.??No cervical adenopathy CVS: Heart sounds normal. Normal heart rate and rhythm.? Pulses normal.?? Respiratory: No respiratory distress.? Lung sounds clear to auscultation bilaterally?? Abdomen: Soft and non-tender. Normoactive bowel sounds. Skin: Skin warm and dry.? Normal skin color.? ? Extremities: No lower extremity edema.? Neuro: Moves all extremities spontaneously. Sensation intact bilaterally. No motor deficits. Ambulates with normal steady gait. Medical Decision Making Medical Decision Making MDM Narrative: Patient is a 72-year-old male with past medical history of atrial fibrillation, asthma, BPH, CAD, mi s/p stent x2, HLD, hypertension, seizure, presenting for evaluation of upper respiratory symptoms. COVID-19 testing is negative. Influenza testing is negative. Review of chest x-ray obtained from initial triage, findings concerning for a bronchitis. At this time history and physical exam not consistent with ACS/PE/pneumonia. Well-appearing, nontoxic, afebrile, no tachycardia or tachypnea/hypoxia. Speaking clear full sentences, ambulatory with steady gait. Prescription for amoxicillin and Tessalon sent to patient's pharmacy. Discussed conservative treatment including rest, hydration, Tylenol/ibuprofen as needed for fever and body aches, saline nasal spray, humidifier, [id number] cold medication. Advised to follow-up with primary care provider as needed, discussed reasons to return back to the emergency department. All questions were answered. Patient discharged home in stable condition. Differential Diagnosis Differential Diagnoses: The differential diagnosis associated with the presentation includes (Viral upper respiratory infection, bronchitis, pneumonia) Lab Data MDM Lab Attestation statement: I reviewed the patient's lab results. Labs: Lab Results 06/14/22 Range/Units 08:51 Influenza Type A (PCR) NEGATIVE (Negative) Influenza Type B (PCR) NEGATIVE (Negative) RSV RNA Qual (PCR) NEGATIVE (Negative) SARS-CoV-2 RNA (RT-PCR) NEGATIVE (Negative) Independent Interpretation I performed an independent interpretation of an: Plain X-Ray Interpretation: I personally interpreted chest x-ray and agree with radiologist impression, no evidence of pneumonia, no consolidation or infiltrate. Radiology Impression Discussion of test interpretation with radiology: I have reviewed the radiologist's reading. Radiologist Impression: XR/XR chest 2V IMPRESSION: The bronchial stark appear to be chronically thickened. No evidence of pneumonia. No acute cardiopulmonary findings compared to 01/26/2018. Independent Historian Clinical information obtained from an independent historian. History obtained from or confirmed by: Spouse (Patient's is present and she confirms information as provided in HPI.) Prescription Management I considered prescription management with: Antibiotic (Prescription for amoxicillin sent to patient's pharmacy) Discharge Plan Discharge Clinical Impression: Bronchitis Patient Disposition: Home, Self-Care Instructions: Acute Bronchitis (ED) Additional Instructions: As discussed, your testing for COVID in the flu are negative today. Your chest x-ray does not show evidence of pneumonia. Your cough is related to bronchitis. A prescription for amoxicillin and Tessalon were sent to your pharmacy. As discussed the cough associated with bronchitis for some people can last up to 6 weeks. Please follow-up with your primary care provider as needed for persistent symptoms. You may return to emergency department with any new or worsening symptoms or concerns. Prescriptions: New benzonatate 100 mg capsule 100 mg PO BID PRN (Reason: cough) Qty: 14 0RF amoxicillin 500 mg capsule 500 mg PO Q12H Qty: 10 0RF No Action Flovent HFA 110 mcg/actuation HFA aerosol inhaler 2 puff PO BID Qty: 12 0RF nitroglycerin 0.4 mg tablet, sublingual 0.4 mg sublingual ONCE 30 Days Qty: 30 5RF metoprolol succinate 25 mg tablet extended release 24 hr 25 mg PO DAILY alfuzosin 10 mg tablet extended release 24 hr 10 mg PO DAILY 90 Days Qty: 90 2RF carbamazepine 100 mg tablet,chewable 300 mg PO BID tramadol 50 mg tablet 50 mg PO BID PRN (Reason: Pain) clonazepam 1 mg tablet 1 mg PO TID quetiapine 100 mg tablet 100 mg PO BEDTIME citalopram 40 mg tablet 40 mg PO DAILY sennosides-docusate sodium [Senexon-S] 8.6-50 mg tablet 1 tab-cap PO BID Qty: 180 0RF atorvastatin 80 mg tablet 80 mg PO BEDTIME Qty: 90 3RF cholecalciferol (vitamin D3) 25 mcg (1,000 unit) capsule 25 mcg PO DAILY 90 Days Qty: 90 1RF clopidogrel 75 mg tablet 75 mg PO DAILY Qty: 90 1RF phenytoin sodium extended 100 mg capsule 100 mg PO BID ezetimibe 10 mg tablet 10 mg PO DAILY 90 Days Qty: 90 1RF Referrals: Deidre Hunetr MD [Primary Care Provider] -
== END 2022-06-14 10:49 | disposition home or self-care (01) ==
PROVIDERS: Emergency Provider Emergency Medicine; PCP Internal Medicine
DX: J40 Bronchitis, not specified as acute or chronic (principal); Z20.828 Contact with and (suspected) exposure to other viral communicable diseases; I10 Essential (primary) hypertension; E78.5 Hyperlipidemia, unspecified; I48.91 Unspecified atrial fibrillation; Z79.899 Other long term (current) drug therapy; Z79.02 Long term (current) use of antithrombotics/antiplatelets
CPT/HCPCS: 0241U; 71046; 99283

== ENCOUNTER 2022-06-24 11:01 | Outpatient (REF) | payer MEDICARE, MEDICAID, SELFPAY ==
--- NOTE | 2022-06-24 15:01 | MHC.AU.HA3 ---
Hearing Instrument Follow-Up- Binaural Date of Visit: 06/24/22 Left Ear: Make, Model, Color, Serial Number: Amita Guzmán [id number]-[id number] SN: [id number] Color: Sand Beige Respiratory Supervisor Repair Warranty: 08/08/2025 Respiratory Supervisor Loss and Damage Warranty: 08/08/2025 [facility] Service Plan: 05/27/2023 Battery Size: Rechargeable Time Piece Repairer/Slim Tube: 1P Earmold/Dome/CShell/SlimTip: c-shell SN: [id number] Service Warranty: 08/08/2022 Type of Wax Guard: CeruStop Dispensed By: [facility] Date of Fittin05/27/2022 Follow-Up Summary: Domingo reported that overall the sound quality of the hearing aid has been great and the cshell is comfortable. However, the case loader operator wire is too short causing the hearing aid to fall forward off his pinna or pulling the mold out of his ear causing feedback. Sent case loader operator and cshell to [facility] to be remade with length 2 wire. Domingo is using a 2P case loader operator with a large power dome connected to his hearing aid in the meantime. Comfortable and no feedback in office. Recommendations: Domingo will be contacted to schedule an appointment when his ear mold arrives. Diagnosis Code(s): Primary Diagnosis: H90.3 Bilateral Sensorineural Hearing Loss Signature: Provider: Katia Montez, [facility]
== END 2022-06-24 11:02 | disposition home or self-care (01) ==
LOC: HO.HAP 11:01
PROVIDERS: Visit Provider Internal Medicine
DX: Z13.89 Encounter for screening for other disorder (principal)

== ENCOUNTER 2022-07-08 09:15 | Outpatient (REF) | payer MEDICARE, MEDICAID, SELFPAY ==
--- NOTE | 2022-07-08 09:47 | MHC.AU.HA3 ---
Hearing Instrument Follow-Up- Binaural Date of Visit: 07/08/22 Left Ear: Make, Model, Color, Serial Number: Amita Ellisono P70-R SN: [id number] Color: Sand Beige Securities Counselor Repair Warranty: 08/08/2025 Securities Counselor Loss and Damage Warranty: 08/08/2025 [facility] Service Plan: 05/27/2023 Battery Size: Rechargeable Tax Intern/Slim Tube: 2P Earmold/Dome/CShell/SlimTip: c-shell SN: [id number] Service Warranty: 08/08/2022 Type of Wax Guard: CeruStop Dispensed By: [facility] Date of Fittin05/27/2022 Follow-Up Summary: Fit new cshell with longer cushion builder wire. Great improvement in comfort and fit of hearing aid on pinna. Reran feedback manager publishing. Domingo reported that he has no other issues or concerns with the hearing aid at this time. Recommendations: Hearing instrument maintenance in 6 months, or sooner if needed. Please contact our clinic with any questions or concerns. Diagnosis Code(s): Primary Diagnosis: H90.3 Bilateral Sensorineural Hearing Loss Signature: Provider: Katia Montez, [facility]
== END 2022-07-08 09:16 | disposition home or self-care (01) ==
LOC: HO.HAP 09:15
PROVIDERS: Visit Provider Internal Medicine
DX: Z13.89 Encounter for screening for other disorder (principal)

== ENCOUNTER 2022-12-29 10:35 | Outpatient (AMB) | payer MEDICARE, MEDICAID, SELFPAY ==
--- NOTE | 2022-12-29 10:42 | A.OFFPC_ITS ---
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 Required: No Accompanied by: Spouse Allergies aspirin [ASPIRIN] Allergy (Intermediate, Verified 12/29/22 10:53) ITCHING fish oil Allergy (Intermediate, Verified 12/29/22 10:53) itchiness shellfish derived Allergy (Mild, Verified 12/29/22 10:53) Swelling Medication List - Last Reconciled 12/29/22 by Deidre Zepeda MD alfuzosin ER 10 mg PO DAILY 90 days atorvastatin 80 mg PO BEDTIME carbamazepine 300 mg PO BID cholecalciferol (vitamin D3) 25 mcg PO DAILY 90 days citalopram 40 mg PO DAILY clonazepam 1 mg PO TID clopidogrel 75 mg PO DAILY ezetimibe 10 mg PO DAILY 90 days fluticasone propionate 110 mcg/actuation (Flovent HFA) 2 puffs PO BID metoprolol succinate ER 25 mg PO DAILY 90 days nitroglycerin 0.4 mg sublingual ONCE 30 days phenytoin sodium extended 100 mg PO BID quetiapine 100 mg PO BEDTIME sennosides-docusate sodium 8.6-50 mg (Senexon-S) 1 tab-cap PO BID tramadol 50 mg PO BID PRN Tobacco use date assessed: 08/11/22 Fall risk assessment: No Falls in past year Last assessed Fall Risk: 12/29/22 Dental Screening Dental Screen Date: 12/29/22 Did you have a dental visit in the last 12 months?: No Did you have a dental problem in the last 6 months where you did not have access to dental care?: No Was dental information given to patient?: Patient declined HPI HPI Comments History of Present Illness Details This is a 72-year-old male with atrial fibrillation, seizures, mild recurrent major depression and dyslipidemia that comes today for follow-up on his conditions. He is accompanied by partner. Atrial fibrillation is follow by cardiology and has been stable. Has had very mild seizures in the last 3 months and this is follow by Neurology. Depression stable on citalopram. Lipid panel was reorder and his compliant with medications. Has occasional chest pain relieved by nitroglycerin and this is follow by cardiology. [facility] Medical History (Updated 12/29/22 @ 11:06 by Deidre Zepeda MD) Afib Asthma BPH (benign prostatic hyperplasia) CAD (coronary artery disease) Cardiac arrest due to underlying cardiac condition Cough Encounter for Medicare annual wellness exam Hearing loss Heart attack High cholesterol Hypertension Lower back pain Mild recurrent major depression Seizures Solitary kidney, acquired Surgical History H/O heart artery stent History of colonoscopy History of left nephrectomy Family History Father No problems noted. Mother Cancer Diabetes Social History Housing: House Alcohol intake: never Patient Tobacco Use Status: Never used Tobacco e-Cigarette/Vaping Use: Never Used Second Hand Smoke Exposure: No service: No Current occupational status: retired Cognitive needs: No Hearing needs: Yes Vision needs: Yes Questionnaire Thrive Questionnaire Date Thrive assessed: 08/11/22 CARLOS A-7 AMB Questionnaire CARLOS A-7 Date CARLOS A - 7 assessed: 08/11/22 Source: Developed by Drs. Tony Sun, Shivani Diez, Anup Florez and colleagues, with an educational edwina from [employer]. Review of Systems Const All systems reviewed & are unremarkable except as noted in HPI and below Eyes Reports no additional complaints, Denies change in vision and Denies other visual disturbances Card Reports chest pain at rest, Reports chest pain with activity, Denies edema, Denies irregular heart rhythm, Denies claudication, Denies dyspnea, Denies dyspnea on exertion, Denies orthopnea, Denies paroxysmal nocturnal dyspnea and Denies slow heart rate Resp Denies cough, Denies dyspnea and Denies dyspnea on exertion GI Denies abdominal pain, Denies change in bowel habits, Denies excessive flatus, Denies nausea and Denies vomiting Denies urinary hesitancy, Denies urinary incontinence and Denies urinary urgency Musc Denies abnormal gait, Denies atrophy, Denies deformity and Denies limited range of motion Skin/Breast Denies bleeding lesions, Denies changing lesions and Denies rash Neuro Denies abnormal gait and Denies lack of coordination Physical exam (Primary Care) Vital Signs: Last Vital Signs BP 124/70 12/29/22 10:43 BMI result Body Mass Index 33.9 Tobacco/Smoking Status: Tobacco use Status Tobacco use date assessed 08/11/22 12/29/22 10:47 Patient Tobacco Use Status Never used Tobacco 12/29/22 10:47 e-Cigarette/Vaping Use Never Used 12/29/22 10:47 Thrive Assessment: Date of Thrive Assessment Date Thrive assessed 08/11/22 12/29/22 10:47 Eyes General: appearance normal, both eyes and all related structures Eyelids: Yes eyelids normal Conjunctivae: conjunctivae normal Neck Neck: Yes normal visual inspection and Yes supple Resp Effort & Inspection: normal respiratory effort Auscultation: clear to auscultation bilaterally Cardio Jugular venous distension: no JVD Rate: regular rate Rhythm: regular rhythm Heart sounds: S1 normal heart sound present and S2 normal heart sound present Extrem General: Yes full ROM Assessment and Plan Assessment & Plan (1) Mild recurrent major depression: Code(s): F33.0 - Major depressive disorder, recurrent, mild Plan: Continue citalopram. (2) Afib: Code(s): I48.91 - Unspecified atrial fibrillation Qualifiers: Atrial fibrillation type: longstanding persistent Qualified Code(s): I48.11 - Longstanding persistent atrial fibrillation Plan: Continue metoprolol. (3) Seizures: Comment: last 2020-sees Dr. Poole Code(s): R56.9 - Unspecified convulsions Plan: Continue phenytoin and carbamazepine. Follow-up with Neurology. (4) Dyslipidemia: Code(s): E78.5 - Hyperlipidemia, unspecified Plan: Continue statins and Zetia. Due to history of coronary artery disease his LDL goal is 70. Orders: Orders Comprehensive Prompton. Panel Fast Today R56.9 - Unspecified convulsions Lipid Panel Today E78.5 - Hyperlipidemia, unspecified Vitamin D 25-OH Total Today E55.9 - Vitamin D deficiency, unspecified Complete Blood Count Auto Diff Today D64.9 - Anemia, unspecified, R56.9 - Unspecified convulsions Medications: Refilled cholecalciferol (vitamin D3) 25 mcg PO DAILY 90 caps 1RF 90 days sennosides-docusate sodium 8.6-50 mg (Senexon-S) 1 tab-cap PO BID 180 tabs 0RF ezetimibe 10 mg PO DAILY 90 tabs 1RF 90 days clopidogrel 75 mg PO DAILY 90 tabs 1RF Coding Level of Care Code Est Pt Level 4 (17933) Diagnoses Mild recurrent major depression F33.0 Afib I48.11 Atrial fibrillation type: longstanding persistent Seizures R56.9 Dyslipidemia E78.5 Time Spent (min) 24
[2022-12-29 10:43] VITALS: BP 124/70; BMI 33.9
== END 2022-12-29 11:03 | disposition home or self-care (01) ==
PROVIDERS: Visit Provider Internal Medicine
DX: F33.0 Major depressive disorder, recurrent, mild (principal); I48.11 Longstanding persistent atrial fibrillation; R56.9 Unspecified convulsions; E78.5 Hyperlipidemia, unspecified
CPT/HCPCS: 99214

== ENCOUNTER 2023-01-12 08:33 | Outpatient (REF) | payer MEDICARE, MEDICAID, SELFPAY ==
[2023-01-12 08:56] LABS: MANUAL DIFF FLAG NO
[2023-01-12 09:43] LABS: Basophils Absolute Auto 0.1 X10*3/uL (0.0-0.2); Basophils Percent Auto 0.8 % (0-2); Eosinophils Absolute Auto 0.4 X10*3/uL (0.0-0.4); Eosinophils Percent Auto 5.9 % (0-4); Hematocrit 42.2 % (42.0-52.0); Imm Gran Abs Auto 0.01 X10*3/uL (0.00-0.03); Imm Gran Pct Auto 0.2 % (0.0-0.4); Lymphocytes Absolute Auto 3.4 X10*3/uL (1.2-4.9); Lymphocytes Percent Auto 52.4 % (20-40); Mean Corpuscular HGB Conc 33.2 g/dl (31.0-36.0); Mean Corpuscular Volume 96.3 fL (80.0-98.0); Mean Platelet Volume 11.4 fL (9.4-12.4); Monocytes Absolute Auto 0.5 X10*3/uL (0.1-1.2); Monocytes Percent Auto 7.2 % (2-11); Neutrophils Absolute Auto 2.2 x10*3/uL (2.0-8.3); Neutrophils Percent Auto 33.5 % (45-73); Platelet Count 183 X10*3/uL (160-400); Red Blood Count 4.38 X10*6/uL (4.60-5.80); Red Cell Distribution Width 12.8 % (11.0-16.0); White Blood Count 6.4 X10*3/uL (4.8-10.8)
[2023-01-12 10:30] LABS: Alanine Aminotransferase 41 U/L (0-40); Albumin Level 3.9 g/dL (3.5-5.0); Alkaline Phosphatase 141 U/L (39-117); Anion Gap 15 (12-20); Aspartate Amino Transferase 34 U/L (5-37); Bilirubin Total 0.3 mg/dL (0.0-1.0); Blood Urea Nitrogen 19 mg/dL (9-16); Carbon Dioxide 24 mmol/L (22-29); Chloride 108 mmol/L (96-108); Cholesterol 141 mg/dL; Estimated Glomerular Filt Rate 58; Glucose Fasting 86 mg/dL (60-99); HDL Cholesterol 56 mg/dL; LDL Cholesterol Calculated 71 mg/dl; Potassium 4.5 mmol/L (3.3-5.1); Sodium 142 mmol/L (135-145); Total Protein 7.3 g/dL (6.5-8.0); Triglycerides 71 mg/dL
[2023-01-12 10:36] LABS: Vitamin D 25-OH Total 48.4 ng/mL (>30)
== END 2023-01-12 08:34 | disposition home or self-care (01) ==
LOC: HO.LAB 08:33
PROVIDERS: PCP Internal Medicine; Visit Provider Internal Medicine
DX: E55.9 Vitamin D deficiency, unspecified (principal); R56.9 Unspecified convulsions; D64.9 Anemia, unspecified; E78.5 Hyperlipidemia, unspecified; I10 Essential (primary) hypertension
CPT/HCPCS: 36415; 80053; 80061; 80156; 80185; 82306; 85025

== ENCOUNTER 2023-07-03 10:39 | Outpatient (AMB) | payer MEDICARE, MEDICAID, SELFPAY ==
[2023-07-03 10:47] VITALS: BP 120/70; BMI 34.4
--- NOTE | 2023-07-03 10:47 | A.OFFPC_ITS ---
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 Accompanied by: Spouse Allergies aspirin [ASPIRIN] Allergy (Intermediate, Verified 07/03/23 11:01) ITCHING fish oil Allergy (Intermediate, Verified 07/03/23 11:01) itchiness shellfish derived Allergy (Mild, Verified 07/03/23 11:01) Swelling Medication List - Last Reconciled 07/03/23 by Deidre Zepeda MD albuterol sulfate 2.5 mg (3 mL) inhalation Q6H PRN 30 days alfuzosin ER 10 mg PO DAILY 90 days atorvastatin 80 mg PO BEDTIME carbamazepine 300 mg PO BID cholecalciferol (vitamin D3) 25 mcg PO DAILY 90 days citalopram 40 mg PO DAILY clonazepam 1 mg PO TID clopidogrel 75 mg PO DAILY ezetimibe 10 mg PO DAILY 90 days fluticasone propionate 110 mcg/actuation (Flovent HFA) 2 puffs PO BID 30 days metoprolol succinate ER 25 mg PO DAILY 90 days nitroglycerin 0.4 mg sublingual ONCE 30 days phenytoin sodium extended 100 mg PO BID quetiapine 100 mg PO BEDTIME sennosides-docusate sodium 8.6-50 mg (Senexon-S) 1 tab-cap PO BID Tobacco use date assessed: 07/03/23 Fall risk assessment: No Falls in past year Last assessed Fall Risk: 07/03/23 Dental Screening Dental Screen Date: 07/03/23 Did you have a dental visit in the last 12 months?: No Did you have a dental problem in the last 6 months where you did not have access to dental care?: No Was dental information given to patient?: Patient declined HPI HPI Comments History of Present Illness Details This is a 73-year-old male with seizures, chronic idiopathic constipation, mild recurrent major depression, atrial fibrillation and dyslipidemia that comes today accompanied by for follow-up on his conditions. Has not had a seizure in over a month and this is follow by Neurology. Last cholesterol was stable. Constipation well control with medications as needed. Depression stable with citalopram and he does not have a psychiatrist. Atrial fibrillation stable with metoprolol and this is follow by cardiology. No chest pain or shortness of breath. Complains of skin lesion in the back that has to different colors and irregular borders. Will be referred to Dermatology. [facility] Medical History (Updated 07/03/23 @ 11:58 by Deidre Zepeda MD) Hearing loss Encounter for Medicare annual wellness exam Cardiac arrest due to underlying cardiac condition Solitary kidney, acquired Mild recurrent major depression Cough BPH (benign prostatic hyperplasia) CAD (coronary artery disease) Lower back pain Asthma Hypertension Seizures Heart attack Afib High cholesterol Surgical History History of left nephrectomy History of colonoscopy H/O heart artery stent Family History Father No problems noted. Mother Cancer Diabetes Social History Housing: House Alcohol intake: never Patient Tobacco Use Status: Never used Tobacco e-Cigarette/Vaping Use: Never Used Second Hand Smoke Exposure: No service: No Current occupational status: retired Cognitive needs: No Hearing needs: Yes Vision needs: Yes Questionnaire PHQ-9 Over the last 2 weeks, how often have you been bothered by any of the following problems? 1. Little interest or pleasure in doing things: several days 2. Feeling down, depressed, or hopeless: several days 3. Trouble falling or staying asleep, or sleeping too much: several days 4. Feeling tired or having little energy: not at all 5. Poor appetite or overeating: several days 6. Feeling bad about yourself - or that you are a failure or have let yourself or your family down: not at all 7. Trouble concentrating on things, such as reading the newspaper or watching television: several days 8. Moving or speaking so slowly that other people could have noticed. Or the op posite - being so fidgety or restless that you have been moving around a lot more than usual: several days 9. Thoughts that you would be better off or of hurting yourself in some way: not at all Total score: 6 Depression Screening Interpretation: Positive Depression Screening Follow-up: Existing condition and In treatment Depression Screening Done: Yes 29015 - PHQ-9 Billing: Yes Source: Developed by Drs. Tony Sun, Shivani Diez, Anup Florez and colleagues, with an educational edwina from [employer]. Thrive Questionnaire Date Thrive assessed: 08/11/22 CARLOS A-7 AMB Questionnaire CARLOS A-7 Date CARLOS A - 7 assessed: 07/03/23 Feeling nervous, anxious, or on edge: 1 = Several days Not being able to stop or control worryin = Not at all Worrying too much about different things: 0 = Not at all Trouble relaxin = Not at all Being so restless that it is hard to sit still: 1 = Several days Becoming easily annoyed or irritable: 0 = Not at all Feeling afraid as if something awful might happen: 0 = Not at all Total CARLOS A-7 score (0-4 normal; 5-9 mild; 10-14 moderate; 15-21 severe): 2 Source: Developed by Drs. Tony Sun, Shivani Diez, Anup Florez and colleagues, with an educational edwina from [employer]. CARLOS A-7 Assessment Billing CARLOS A-7 Assessment Tool: CARLOS A-7 Assessment 89299 Review of Systems Const All systems reviewed & are unremarkable except as noted in HPI and below Eyes Reports no additional complaints, Denies change in vision and Denies other visual disturbances Card Denies chest pain at rest, Denies chest pain with activity, Denies edema, Denies irregular heart rhythm, Denies claudication, Denies dyspnea, Denies dyspnea on exertion, Denies orthopnea, Denies paroxysmal nocturnal dyspnea and Denies slow heart rate Resp Denies cough, Denies dyspnea and Denies dyspnea on exertion GI Denies abdominal pain, Denies change in bowel habits, Denies excessive flatus, Denies nausea and Denies vomiting Denies urinary hesitancy, Denies urinary incontinence and Denies urinary urgency Musc Denies abnormal gait, Denies atrophy, Denies deformity and Denies limited range of motion Skin/Breast Reports bleeding lesions and Reports lesions Neuro Denies abnormal gait, Denies behavioral changes, Denies confusion and Denies lack of coordination Psych Denies behavioral changes and Denies confusion Physical exam (Primary Care) Vital Signs: Last Vital Signs BP 120/70 07/03/23 10:47 BMI result Body Mass Index 34.4 Tobacco/Smoking Status: Tobacco use Status Tobacco use date assessed 07/03/23 07/03/23 10:58 Patient Tobacco Use Status Never used Tobacco 07/03/23 10:58 e-Cigarette/Vaping Use Never Used 07/03/23 10:58 PHQ-9: PHQ-9 Score PHQ-9: Total score 6 07/03/23 11:15 Depression Screening Interpretation: Positive Depression Screening Follow-up: Existing condition and In treatment Thrive Assessment: Date of Thrive Assessment Date Thrive assessed 08/11/22 07/03/23 10:58 Const General: No confusion Orientation/consciousness: patient oriented x3 and No confusion Neck Neck: Yes normal visual inspection and Yes supple Resp Effort & Inspection: normal respiratory effort Auscultation: clear to auscultation bilaterally Cardio Jugular venous distension: no JVD Rate: regular rate Rhythm: regular rhythm Heart sounds: S1 normal heart sound present and S2 normal heart sound present Skin Other: Macular skin lesions in back with 2 different colors and irregular borders Neuro General: patient oriented x3, no focal motor deficits and No confusion Extrem General: Yes full ROM Psych Appearance: grossly normal Office Procedures Flu Questionnaire Does the patient have a severe egg allergy?: No Does the patient have severe life threatening allergies?: No Does the patient have a fever or illness today?: No Has the patient ever had Guillain-[place] Syndrome?: No Has the patient ever had any past reaction to a flu shot?: No Immunizations flu vacc [id number] 6mos up(PF) 60 mcg(15 mcgx4)/0.5 mL IM syringe Performing Provider: Deidre Zepeda MD Performing Location: [facility] Administered by: MARK Zelaya on 07/03/23 11:20 Dose Route Admin Location Dispensed Lot Number Expiration Date NDC Armature Straightener 0.5 mL IM Left Deltoid 0.5 mL [id number] 12/10/23 32423-577-04 [employer] VIS Given Date VIS Provided VIS Publication Date 07/03/23 Single Vaccine 21 Eligibility Eligibility Date Funding Source Not [facility] Eligible 07/03/23 Private Assessment and Plan Assessment & Plan (1) Dyslipidemia: Code(s): E78.5 - Hyperlipidemia, unspecified Plan: Continue statins. (2) Mild recurrent major depression: Code(s): F33.0 - Major depressive disorder, recurrent, mild Plan: Continue citalopram. (3) Afib: Code(s): I48.91 - Unspecified atrial fibrillation Qualifiers: Atrial fibrillation type: longstanding persistent Qualified Code(s): I48.11 - Longstanding persistent atrial fibrillation Plan: Continue metoprolol. (4) Seizures: Comment: last 2020-sees Dr. Poole Code(s): R56.9 - Unspecified convulsions Plan: Continue Fycompa. (5) Chronic idiopathic constipation: Code(s): K59.04 - Chronic idiopathic constipation Plan: Continue senna as needed. Orders: Orders Influenza [id number] Immunization Today Z23 - Encounter for immunization Vitamin D 25-OH Total 6 Months E55.9 - Vitamin D deficiency, unspecified Comprehensive [place]. Panel Fast 6 Months E78.5 - Hyperlipidemia, unspecified Lipid Panel 6 Months E78.5 - Hyperlipidemia, unspecified Referrals Dermatology Referral L98.9 - Disorder of the skin and subcutaneous tissue, unspecified Medications: New fluticasone furoate 50 mcg/actuation (Arnuity Ellipta) 1 inh inhalation DAILY 30 days 30 ea 2RF J45.909 - Unspecified asthma, uncomplicated Refilled clopidogrel 75 mg PO DAILY 90 tabs 1RF sennosides-docusate sodium 8.6-50 mg (Senexon-S) 1 tab-cap PO BID 180 tabs 0RF atorvastatin 80 mg PO BEDTIME 90 tabs 3RF metoprolol succinate ER 25 mg PO DAILY 90 days 90 tabs 3RF ezetimibe 10 mg PO DAILY 90 days 90 tabs 1RF cholecalciferol (vitamin D3) 25 mcg PO DAILY 90 days 90 caps 1RF Coding Level of Care Code Est Pt Level 4 (70656) Diagnoses Dyslipidemia E78.5 Mild recurrent major depression F33.0 Longstanding persistent atrial fibrillation I48.11 Atrial fibrillation type: longstanding persistent Seizures R56.9 Chronic idiopathic constipation K59.04 Additional Codes CARLOS A-7 Assessment Billing - CARLOS A-7 Assessment Tool: CARLOS A-7 Assessment 61304 ([id number]) Time Spent (min) 23
== END 2023-07-03 11:24 | disposition home or self-care (01) ==
PROVIDERS: PCP Internal Medicine; Visit Provider Internal Medicine
DX: Z23 Encounter for immunization (principal); E78.5 Hyperlipidemia, unspecified; F33.0 Major depressive disorder, recurrent, mild; I48.11 Longstanding persistent atrial fibrillation; R56.9 Unspecified convulsions; K59.04 Chronic idiopathic constipation
CPT/HCPCS: 90471; 90686; 99214

== ENCOUNTER 2023-12-28 08:40 | Outpatient (REF) | payer MEDICARE, MEDICAID, SELFPAY ==
[2023-12-28 08:52] LABS: MANUAL DIFF FLAG NO
[2023-12-28 09:40] LABS: Basophils Percent Auto 0.6 % (0-2); Eosinophils Absolute Auto 0.5 X10*3/uL (0.0-0.4); Eosinophils Percent Auto 7.1 % (0-4); Hematocrit 39.3 % (42.0-52.0); Hemoglobin 13.3 g/dl (14.0-18.0); Imm Gran Abs Auto 0.02 X10*3/uL (0.00-0.03); Imm Gran Pct Auto 0.3 % (0.0-0.4); Lymphocytes Percent Auto 46.4 % (20-40); Mean Corpuscular HGB Conc 33.8 g/dl (31.0-36.0); Mean Corpuscular Hemoglobin 31.7 pg (27.0-33.0); Mean Corpuscular Volume 93.8 fL (80.0-98.0); Mean Platelet Volume 11.3 fL (9.4-12.4); Monocytes Absolute Auto 0.5 X10*3/uL (0.1-1.2); Monocytes Percent Auto 6.9 % (2-11); Neutrophils Absolute Auto 2.5 x10*3/uL (2.0-8.3); Neutrophils Percent Auto 38.7 % (45-73); Platelet Count 180 X10*3/uL (160-400); Red Blood Count 4.19 X10*6/uL (4.60-5.80); Red Cell Distribution Width 13.2 % (11.0-16.0); White Blood Count 6.5 X10*3/uL (4.8-10.8)
[2023-12-28 10:31] LABS: Alanine Aminotransferase 34 U/L (0-40); Albumin Level 3.8 g/dL (3.5-5.0); Alkaline Phosphatase 145 U/L (39-117); Anion Gap 14 (12-20); Aspartate Amino Transferase 28 U/L (5-37); Bilirubin Total 0.3 mg/dL (0.0-1.0); Blood Urea Nitrogen 18 mg/dL (9-16); Calcium 8.6 mg/dL (8.4-10.2); Carbon Dioxide 22 mmol/L (22-29); Chloride 109 mmol/L (96-108); Cholesterol 140 mg/dL (<200); Estimated Glomerular Filt Rate 59; Glucose Fasting 103 mg/dL (60-99); HDL Cholesterol 56 mg/dL (>40); LDL Cholesterol Calculated 70 mg/dL (<100); Potassium 4.1 mmol/L (3.3-5.1); Sodium 141 mmol/L (135-145); Triglycerides 74 mg/dL (<150); Vitamin D 25-OH Total 41.6 ng/mL (>30)
== END 2023-12-28 08:41 | disposition home or self-care (01) ==
LOC: HO.LAB 08:40
PROVIDERS: PCP Internal Medicine; Visit Provider Internal Medicine
DX: E55.9 Vitamin D deficiency, unspecified (principal); E78.5 Hyperlipidemia, unspecified; D64.9 Anemia, unspecified
CPT/HCPCS: 36415; 80053; 80061; 82306; 85025

== ENCOUNTER 2024-01-01 09:35 | Outpatient (AMB) | payer MEDICARE, MEDICAID, SELFPAY ==
[2024-01-01 09:55] VITALS: BP 110/60; BMI 33.4
--- NOTE | 2024-01-01 09:55 | MHC.PC.OV ---
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 Accompanied by: Spouse Allergies aspirin [ASPIRIN] Allergy (Intermediate, Verified 01/01/24 10:10) ITCHING fish oil Allergy (Intermediate, Verified 01/01/24 10:10) itchiness shellfish derived Allergy (Mild, Verified 01/01/24 10:10) Swelling Medication List - Last Reconciled 01/01/24 by Deidre Zepeda MD albuterol sulfate 2.5 mg (3 mL) inhalation Q6H PRN 30 days alfuzosin ER 10 mg PO DAILY 90 days atorvastatin 80 mg PO BEDTIME carbamazepine 300 mg PO BID cholecalciferol (vitamin D3) 25 mcg PO DAILY 90 days citalopram 40 mg PO DAILY clonazepam 1 mg PO TID clopidogrel 75 mg PO DAILY ezetimibe 10 mg PO DAILY 90 days fluticasone furoate 50 mcg/actuation (Arnuity Ellipta) 1 inh inhalation DAILY 30 days metoprolol succinate ER 25 mg PO DAILY 90 days nitroglycerin 0.4 mg sublingual ONCE 30 days phenytoin sodium extended 100 mg PO BID quetiapine 100 mg PO BEDTIME sennosides-docusate sodium 8.6-50 mg (Senexon-S) 1 tab-cap PO BID Tobacco use date assessed: 07/03/23 Fall risk assessment: No Falls in past year Last assessed Fall Risk: 01/01/24 Dental Screening Dental Screen Date: 07/03/23 HPI HPI Comments History of Present Illness Details This is a 73-year-old male with dyslipidemia, atrial fibrillation, seizures and mild recurrent major depression that comes today accompanied by for follow-up on his conditions. Cholesterol stable with statins. On metoprolol for atrial fibrillation. Depression well controlled with citalopram. As per patient had a seizure about a month ago and he follows with neurologist. Complains of wheezing and cough that started about 2 weeks ago. Will start him on prednisone and order antibiotic. [facility] Medical History Hearing loss Encounter for Medicare annual wellness exam Cardiac arrest due to underlying cardiac condition Solitary kidney, acquired Mild recurrent major depression Cough BPH (benign prostatic hyperplasia) CAD (coronary artery disease) Lower back pain Asthma Hypertension Seizures Heart attack Afib High cholesterol Surgical History History of left nephrectomy History of colonoscopy H/O heart artery stent Family History Father No problems noted. Mother Cancer Diabetes Social History Housing: House Alcohol intake: never Patient Tobacco Use Status: Never used Tobacco e-Cigarette/Vaping Use: Never Used Second Hand Smoke Exposure: No service: No Current occupational status: retired Cognitive needs: No Hearing needs: Yes Vision needs: Yes Questionnaire Thrive Questionnaire Date Thrive assessed: 08/11/22 CARLOS A-7 AMB Questionnaire CARLOS A-7 Date CARLOS A - 7 assessed: 07/03/23 Source: Developed by Drs. Tony Sun, Shivani Diez, Anup Florez and colleagues, with an educational edwina from [employer]. Review of Systems Const All systems reviewed & are unremarkable except as noted in HPI and below Card Denies chest pain at rest, Denies chest pain with activity, Denies edema, Denies irregular heart rhythm, Denies claudication, Denies dyspnea, Denies dyspnea on exertion, Denies orthopnea, Denies paroxysmal nocturnal dyspnea and Denies slow heart rate Resp Reports cough, Denies dyspnea, Denies dyspnea on exertion and Reports wheezing GI Denies abdominal pain, Denies change in bowel habits, Denies excessive flatus, Denies nausea and Denies vomiting Aller/Immun Reports wheezing Physical exam (Primary Care) Vital Signs: Last Vital Signs BP 110/60 01/01/24 09:55 BMI result Body Mass Index 33.4 BMI Assessment/Plan discussion: High BMI High, discussed plan: lifestyle, weight reduction, dietary and physical activity Tobacco/Smoking Status: Tobacco use Status Tobacco use date assessed 07/03/23 01/01/24 10:04 Patient Tobacco Use Status Never used Tobacco 01/01/24 10:04 e-Cigarette/Vaping Use Never Used 01/01/24 10:04 Thrive Assessment: Date of Thrive Assessment Date Thrive assessed 08/11/22 01/01/24 10:04 Resp Effort & Inspection: normal respiratory effort Auscultation: wheezes scattered wheezes Cardio Jugular venous distension: no JVD Rate: regular rate Rhythm: regular rhythm Heart sounds: S1 normal heart sound present and S2 normal heart sound present Extrem General: Yes full ROM Assessment and Plan Assessment & Plan (1) Dyslipidemia: Code(s): E78.5 - Hyperlipidemia, unspecified Plan: Continue statins and Zetia. (2) Mild recurrent major depression: Code(s): F33.0 - Major depressive disorder, recurrent, mild Plan: Continue citalopram. (3) Seizures: Comment: last 2020-sees Dr. Poole Code(s): R56.9 - Unspecified convulsions Plan: Continue phenytoin. Follow-up with Neurology. (4) Afib: Code(s): I48.91 - Unspecified atrial fibrillation Qualifiers: Atrial fibrillation type: longstanding persistent Qualified Code(s): I48.11 - Longstanding persistent atrial fibrillation Plan: Continue metoprolol. The goal is heart rate control. Medications: New doxycycline hyclate 100 mg PO BID 10 caps 0RF 5 days prednisone Take 4 tabs for 2 days, then 3 tabs for 2 days, then 2 tabs for 2 days, then 1 tab for 2 days 10 mg PO DIRECTED 20 tabs 0RF 8 days Refilled cholecalciferol (vitamin D3) 25 mcg PO DAILY 90 caps 1RF 90 days clopidogrel 75 mg PO DAILY 90 tabs 1RF sennosides-docusate sodium 8.6-50 mg (Senexon-S) 1 tab-cap PO BID 180 tabs 0RF ezetimibe 10 mg PO DAILY 90 tabs 1RF 90 days Coding Level of Care Code Est Pt Level 4 (32629) Complex EM visit Add On G2211 Diagnoses Dyslipidemia E78.5 Mild recurrent major depression F33.0 Seizures R56.9 Longstanding persistent atrial fibrillation I48.11 Atrial fibrillation type: longstanding persistent Time Spent (min) 23
== END 2024-01-01 10:20 | disposition home or self-care (01) ==
PROVIDERS: PCP Internal Medicine; Visit Provider Internal Medicine
DX: E78.5 Hyperlipidemia, unspecified (principal); F33.0 Major depressive disorder, recurrent, mild; R56.9 Unspecified convulsions; I48.11 Longstanding persistent atrial fibrillation
CPT/HCPCS: 99214; G2211

== ENCOUNTER 2024-02-18 06:06 | Emergency (ER) | payer MEDICARE, MEDICAID, SELFPAY ==
[2024-02-18] VITALS (7 sets, daily range): BP systolic 100–117; BP diastolic 53–84; PULSE 60–75; RESP 14–20; TEMP 36.7–36.8; O2SAT 94–98; BMI 35.2
--- NOTE | ~2024-02-18 | XR_ITS ---
EXAMINATION: XR CHEST CLINICAL INFORMATION: Cough. Shortness of breath. COMPARISON: Chest x-rays of 06/14/2022, 01/26/2018 TECHNIQUE: Frontal view of the chest was obtained. FINDINGS: Cardiomediastinal silhouette is stable and normal. No abnormal tracheal deviation. Lungs are symmetrically adequately expanded. No focal consolidation, changes of congestion or pleural effusions. No pneumothorax. XR/XR chest 1V IMPRESSION: No radiographic evidence of pneumonia or pulmonary edema. No acute pulmonary process. Electronically signed by: Devonte Abdul MD 02/18/2024 07:17 AM EDT RP
[2024-02-18 06:54] LABS: Basophils Absolute Auto 0.1 X10*3/uL (0.0-0.2); Basophils Percent Auto 0.9 % (0-2); Eosinophils Absolute Auto 0.5 X10*3/uL (0.0-0.4); Hemoglobin 11.9 g/dl (14.0-18.0); Imm Gran Abs Auto 0.01 X10*3/uL (0.00-0.03); Imm Gran Pct Auto 0.2 % (0.0-0.4); Lymphocytes Absolute Auto 2.3 X10*3/uL (1.2-4.9); Lymphocytes Percent Auto 43.6 % (20-40); MANUAL DIFF FLAG NO; Mean Corpuscular Hemoglobin 31.6 pg (27.0-33.0); Mean Corpuscular Volume 92.8 fL (80.0-98.0); Mean Platelet Volume 10.4 fL (9.4-12.4); Monocytes Absolute Auto 0.4 X10*3/uL (0.1-1.2); Monocytes Percent Auto 8.3 % (2-11); Platelet Count 175 X10*3/uL (160-400); Red Blood Count 3.77 X10*6/uL (4.60-5.80); Red Cell Distribution Width 12.9 % (11.0-16.0); White Blood Count 5.3 X10*3/uL (4.8-10.8)
[2024-02-18 07:10] LABS: Alanine Aminotransferase 32 U/L (0-40); Albumin Level 3.4 g/dL (3.5-5.0); Alkaline Phosphatase 130 U/L (39-117); Anion Gap 14 (12-20); Aspartate Amino Transferase 26 U/L (5-37); Bilirubin Total 0.1 mg/dL (0.0-1.0); Blood Urea Nitrogen 14 mg/dL (9-16); Calcium 8.4 mg/dL (8.4-10.2); Carbon Dioxide 20 mmol/L (22-29); Chloride 112 mmol/L (96-108); Creatinine Clr Calc Pharmacy 61.2; Estimated Glomerular Filt Rate > 60; Glucose Random 92 mg/dL (60-115); Sodium 142 mmol/L (135-145); Total Protein 6.4 g/dL (6.5-8.0)
[2024-02-18 07:30] LABS: Influenza A PCR NEGATIVE (Negative); Influenza B PCR NEGATIVE (Negative); Resp Syncy Virus RNA Qual PCR NEGATIVE (Negative); SARS COV2 PCR INHOUSE NEGATIVE (Negative)
[2024-02-18] MEDS: Albuterol Sulfate 2.5 MG, Albuterol/Iprat 2.5/0.5MG 3 ML 3 ML INHALE (07:41)
[2024-02-18 07:45] LABS: B Type Natriuretic Peptide 145 pg/mL (<100)
[2024-02-18] MEDS: Albuterol Sulfate 2.5 MG, Albuterol Sulfate (0.083%) 2.5 MG 5 MG INHALE (07:53)
[2024-02-18] MEDS: methylPREDNISolone Sod Succ 125 MG/2 ML VIAL 60 MG IVPUSH (08:07)
[2024-02-18] MEDS: Magnesium Sulfate/H2O 2 GM/50 ML PIGGYBACK IV (08:24)
--- NOTE | 2024-02-18 10:03 | ED.GENADULT ---
HPI - General Adult General Chief complaint: Upper Respiratory Symptoms Stated complaint: coughing fit led to seizure previous day Time Seen by Provider: 02/18/24 06:36 Source: patient and RN notes reviewed Mode of arrival: ambulatory Limitations: no limitations History of Present Illness ED Provider: Esmer Lees PA-C HPI narrative: This is a 73-year-old male, with a history of CAD, hypertension, BPH, AFib on plavix, asthma, seizure disorder, who presents emergency department with complaints of productive cough, shortness for breath, wheezing for the last month. Patient was seen by Dr. Vega approximately 1 month ago who prescribed him prednisone and amoxicillin. He states that he finished these courses however states that his symptoms did not resolve. He does admit that his symptoms did improve while he was on the prednisone and amoxicillin. Pt denies any fevers or chills. Family reports that several days ago he had a coughing fit which led to a seizure. He was seizing for approximately 1 minute, did not seek medical care at that time. He has been taking all of his medications as prescribed. He has been using his nebulizer and inhaler at home which has provided him with some relief. He states that he has not been wearing his hearing aids as the wheezing that he can hear in his chest keeps him up at night. He does report he gets intermittent chest pain, states that this has been occurring for the last 2 months. He does not have any active chest pain at this time. He denies any other complaints or concerns at this time. MD complaint: SOB, Cough Onset (ago): month(s) Relieving factors: none Exacerbating factors: none Associated symptoms: denies other symptoms Treatments prior to arrival: none Related Data Home Medications ?Medication ?Instructions ?Recorded ?Confirmed carbamazepine 100 mg chewable 300 mg PO BID 04/13/20 01/01/24 tablet citalopram 40 mg tablet 40 mg PO DAILY 04/13/20 01/01/24 clonazepam 1 mg tablet 1 mg PO TID 04/13/20 01/01/24 quetiapine 100 mg tablet 100 mg PO BEDTIME 04/13/20 01/01/24 phenytoin sodium extended 100 mg 200 mg PO BID 04/06/22 01/01/24 capsule nitroglycerin 0.4 mg sublingual 0.4 mg sublingual DAILY 02/18/24 tablet tramadol 50 mg tablet 50 mg PO Q8H PRN Pain 02/18/24 Previous Rx's ?Medication ?Instructions ?Recorded fluticasone furoate 50 1 inh inhalation DAILY 30 days #30 07/03/23 mcg/actuation blister powder for ea inhalation (Arnuity Ellipta) metoprolol succinate 25 mg 25 mg PO DAILY 90 days #90 tabs 07/03/23 tablet,extended release 24 hr alfuzosin 10 mg tablet,extended 10 mg PO DAILY 90 days #90 tabs 09/22/23 release 24 hr albuterol sulfate 2.5 mg/3 mL 2.5 mg (3 mL) inhalation Q6H PRN 10/05/23 (0.083 %) solution for nebulization shortness of breath or wheezing 30 days #180 mL atorvastatin 80 mg tablet 80 mg PO BEDTIME #90 tabs 10/08/23 sennosides 8.6 mg-docusate sodium 1 tab-cap PO BID #180 tabs 01/01/24 50 mg tablet (Senexon-S) cholecalciferol (vitamin D3) 25 25 mcg PO DAILY 90 days #90 caps 01/09/24 mcg (1,000 unit) capsule clopidogrel 75 mg tablet 75 mg PO DAILY #90 tabs 01/09/24 ezetimibe 10 mg tablet 10 mg PO DAILY 90 days #90 tabs 01/09/24 benzonatate 100 mg capsule 100 mg PO TID PRN cough #14 caps 02/18/24 doxycycline hyclate 100 mg capsule 100 mg PO BID 5 days #10 caps 02/18/24 prednisone 20 mg tablet 40 mg (2 x 20 mg) PO DAILY 4 days 02/18/24 #8 tabs Allergies Allergy/AdvReac Type Severity Reaction Status Date / Time aspirin [ASPIRIN] Allergy Intermediate ITCHING Verified 02/18/24 06:11 fish oil Allergy Intermediate itchiness Verified 02/18/24 06:11 shellfish derived Allergy Mild Swelling Verified 02/18/24 06:11 Review of Systems Review of Systems: Yes all other systems are reviewed and are negative Constitutional: Constitutional: Reports as per [facility] Past Medical History Attestation statement: The following information was validated with the patient. Medical History Hearing loss Encounter for Medicare annual wellness exam Cardiac arrest due to underlying cardiac condition Solitary kidney, acquired Mild recurrent major depression Cough BPH (benign prostatic hyperplasia) CAD (coronary artery disease) Lower back pain Asthma Hypertension Seizures Heart attack Afib High cholesterol Surgical History History of left nephrectomy History of colonoscopy H/O heart artery stent Family History Family History Father No problems noted. Mother Cancer Diabetes Social History Social History Housing: House Alcohol intake: former Patient Tobacco Use Status: Never used Tobacco Smoked in Last 30 Days: No e-Cigarette/Vaping Use: Never Used Second Hand Smoke Exposure: No Use of substances other than those prescribed or required for medical reasons: No Advance Directives: No Advance Directives Information Provided: No Do you have a plan to hurt others: No Plan service: No Current occupational status: retired Cognitive needs: No Hearing needs: Yes Vision needs: Yes Physical Exam ED Vital Signs: Vital Signs - 24 hr 02/18/24 06:11 02/18/24 07:42 02/18/24 07:53 Temperature 98.3 F Pulse Rate 62 60 63 Respiratory Rate 20 18 18 Blood Pressure 117/60 Pulse Oximetry 96 Oxygen Delivery Method Room Air 02/18/24 08:17 02/18/24 10:04 02/18/24 13:55 Temperature Pulse Rate 75 72 73 Respiratory Rate 20 14 18 Blood Pressure 100/53 L 100/56 L 108/54 L Pulse Oximetry 95 94 96 Oxygen Delivery Method Room Air Room Air Room Air 02/18/24 15:32 Temperature 98.1 F Pulse Rate 75 Respiratory Rate 18 Blood Pressure 108/84 Pulse Oximetry 98 Oxygen Delivery Method Room Air BMI result Body Mass Index 35.2 Const General: cooperative, comfortable and no acute distress Orientation/consciousness: patient oriented x3 Limitations: no limitations HENMT Head: Yes normal to inspection, Yes normocephalic and Yes atraumatic Ears: hearing grossly normal bilaterally General nose exam: Normal external nose present Face and sinus: Yes normal facial exam Mouth: Normal oral and palatal mucosa present, oropharynx normal and moist mucous membranes Throat: Yes posterior oropharynx normal Eyes General: appearance normal, both eyes and all related structures Eyelids: Yes eyelids normal Conjunctivae: conjunctivae normal Sclerae: sclerae normal Pupils: Equal, round and reactive pupils present EOM: EOMs intact bilaterally Neck Neck: Yes normal visual inspection, Yes full ROM and Yes no lymphadenopathy Lymphatic: no lymphadenopathy noted Chest Chest palpation & inspection: normal inspection of the chest Resp Other: Tight, inspiratory and expiratory wheezes noted throughout all lung mcallister Effort & Inspection: normal respiratory effort and able to speak in complete sentences Cardio Rate: regular rate Rhythm: regular rhythm Heart sounds: S1 normal heart sound present and S2 normal heart sound present GI Inspection: Yes normal to inspection Skin General skin exam: no rashes or lesions noted Trauma: no lacerations or abrasions Wounds: no wounds Neuro General: patient oriented x3 and moves all extremities Cranial nerves: Yes Equal, round and reactive pupils present Extrem General: Yes normal to inspection Right upper extremity: normal to inspection Left upper extremity: normal to inspection Right lower extremity: normal to inspection Left lower extremity: normal to inspection Course Reevaluation(s) Reevaluation #1: Workup returns, patient has no leukocytosis, slight normocytic anemia with an H&H of 11.9/35, lower than previous however around baseline. No evidence of DADA, chemistry revealing elevated alk phos, which is chronic for him, as well as a slightly elevated BNP at 145. Negative viral swabs. Patient had an episode where he coughed, turned bright red, and had a difficult time catching his breath this lasted for approximately 3 seconds. Partner and son report that this is what happened several days ago. Walking O2 saturation remained stable at 96-98%. Lungs diminished in bilateral lower lung mcallister however inspiratory and expiratory wheezes noted throughout. His symptoms have improved however family is concerned given apneic episode. Time: 12:25 Reevaluation #2: Patient re-evaluated after completing magnesium, he overall has had slight improvement however would benefit from hospital admission for continued treatments. Hospitalist saw patient, patient is feeling much better, lung sounds greatly improve, patient re-evaluated and feeling much better. Discharged on prednisone, doxycycline, and Tessalon. Time: 14:27 Medications Administered Discontinued Medications Generic Name Dose Route Start Last Admin Trade Name Freq PRN Reason Stop Dose Admin Albuterol Sulfate 2.5 mg/ 5 mg 02/18/24 07:49 02/18/24 07:53 Albuterol Sulfate 2.5 mg INHALE 02/18/24 07:50 5 mg ONCE ONE Administration Albuterol Sulfate 2.5 mg/ 0 mg 02/18/24 07:37 02/18/24 07:41 Albuterol/Ipratropium 3 ml INHALE 02/18/24 07:38 5 dose ONCE ONE Administration Magnesium Sulfate 2 gm in 50 mls @ 25 mls/hr 02/18/24 08:00 02/18/24 10:30 Magnesium Sulfate/H2o IV 02/18/24 09:59 Infused ONCE ONE Infusion Methylprednisolone Sodium Succinate 60 mg 02/18/24 07:37 02/18/24 08:07 Methylprednisolone Sod Succ 125 Mg/2 Ml Vial IVPUSH 02/18/24 07:38 60 mg ONCE ONE Administration Medical Decision Making Medical Decision Making [facility] Narrative: This is a 73-year-old male, with a history of CAD, hypertension, BPH, AFib on plavix, asthma, seizure disorder, who presents emergency department with complaints of productive cough, shortness for breath, wheezing for the last month. On arrival, vital signs within normal limits. Lungs are tight, with inspiratory and expiratory wheezes noted throughout all lung mcallister. Audible wheezing auscultated. Differential diagnoses include URI, asthma exacerbation, CHF, acute respiratory failure, bronchitis, pneumonia. Less likely pneumothorax, ACS. Plan: Labs, EKG, chest x-ray, ED bronch protocol Differential Diagnosis Differential Diagnoses: The differential diagnosis associated with the presentation includes Lab Data [facility] Lab Attestation statement: I reviewed the patient's lab results. See course comment 02/18/24 06:48 02/18/24 06:48 Labs: Lab Results 02/18/24 02/18/24 02/18/24 Range/Units 06:43 06:48 14:36 WBC 5.3 (4.8-10.8) X10*3/uL RBC 3.77 L (4.60-5.80) X10*6/uL Hgb 11.9 L (14.0-18.0) g/dl Hct 35.0 L (42.0-52.0) % MCV 92.8 (80.0-98.0) fL MCH 31.6 (27.0-33.0) pg MCHC 34.0 (31.0-36.0) g/dl RDW 12.9 (11.0-16.0) % Plt Count 175 (160-400) X10*3/uL MPV 10.4 (9.4-12.4) fL Immature Gran % (Auto) 0.2 (0.0-0.4) % Neut % (Auto) 37.0 L (45-73) % Lymph % (Auto) 43.6 H (20-40) % Greenlee % (Auto) 8.3 (2-11) % Eos % (Auto) 10.0 H (0-4) % Baso % (Auto) 0.9 (0-2) % Lymph # (Auto) 2.3 (1.2-4.9) X10*3/uL Greenlee # (Auto) 0.4 (0.1-1.2) X10*3/uL Eos # (Auto) 0.5 H (0.0-0.4) X10*3/uL Baso # (Auto) 0.1 (0.0-0.2) X10*3/uL Abs Immat Gran (auto) 0.01 (0.00-0.03) X10*3/uL Absolute Neuts (auto) 2.0 (2.0-8.3) x10*3/uL Absolute Nucleated RBC 0.000 (0.0-0.012) X10*3/uL Nucleated RBC % (auto) 0.0 (0.0-0.2) /100WBC Sodium 142 (135-145) mmol/L Potassium 4.0 (3.3-5.1) mmol/L Chloride 112 H (96-108) mmol/L Carbon Dioxide 20 L (22-29) mmol/L Anion Gap 14 (12-20) BUN 14 (9-16) mg/dL Creatinine 1.11 (0.5-1.4) mg/dL Estim Creat Clear Calc 61.2 Estimated GFR > 60 Random Glucose 92 (60-115) mg/dL Calcium 8.4 (8.4-10.2) mg/dL Total Bilirubin 0.1 (0.0-1.0) mg/dL AST 26 (5-37) U/L ALT 32 (0-40) U/L Alkaline Phosphatase 130 H (39-117) U/L Troponin I High Sens < 2.7 < 2.7 (<3.5-35.0) ng/L B-Natriuretic Peptide 145 H (<100) pg/mL Total Protein 6.4 L (6.5-8.0) g/dL Albumin 3.4 L (3.5-5.0) g/dL Influenza Type A (PCR) NEGATIVE (Negative) Influenza Type B (PCR) NEGATIVE (Negative) RSV RNA Qual (PCR) NEGATIVE (Negative) SARS-CoV-2 RNA (RT-PCR) NEGATIVE (Negative) Independent Interpretation I performed an independent interpretation of an: EKG Radiology Impression Discussion of test interpretation with radiology: I have reviewed the radiologist's reading. Radiologist Impression: XR/XR chest 1V IMPRESSION: No radiographic evidence of pneumonia or pulmonary edema. No acute pulmonary process. Electronically signed by: Devonte Abdul MD 02/18/2024 07:17 AM EDT RP Dictated By: Devonte Abdul MD Discharge Plan Discharge Clinical Impression: Asthma exacerbation, Bronchitis Patient Disposition: Home, Self-Care Instructions: Asthma (ED) Additional Instructions: You were seen in the emergency department due to ongoing cough. Please take prednisone at home as prescribed. Finish the entire course even if your symptoms improve. I am also prescribing you a medication to help with the cough, this is listed as benzonate. You may also take doxycycline, this is an antibiotic, finish the entire course even if your symptoms improve. Prednisone is a steroid, please take as prescribed, you already received your 1st dose today, please start this tomorrow. If any new or worsening symptoms occur including but not limited to worsening shortness of breath or chest pain, please return for re-evaluation. Please call your primary care physician, call tomorrow to make an appointment. Prescriptions: New prednisone 20 mg tablet 40 mg PO DAILY 4 Days Qty: 8 0RF benzonatate 100 mg capsule 100 mg PO TID PRN (Reason: cough) Qty: 14 0RF doxycycline hyclate 100 mg capsule 100 mg PO BID 5 Days Qty: 10 0RF No Action alfuzosin 10 mg tablet extended release 24 hr 10 mg PO DAILY 90 Days Qty: 90 2RF albuterol sulfate 2.5 mg /3 mL (0.083 %) solution for nebulization 2.5 mg inhalation Q6H PRN (Reason: shortness of breath or wheezing) 30 Days Qty: 180 0RF atorvastatin 80 mg tablet 80 mg PO BEDTIME Qty: 90 3RF ezetimibe 10 mg tablet 10 mg PO DAILY 90 Days Qty: 90 1RF clopidogrel 75 mg tablet 75 mg PO DAILY Qty: 90 1RF cholecalciferol (vitamin D3) 25 mcg (1,000 unit) capsule 25 mcg PO DAILY 90 Days Qty: 90 1RF tramadol 50 mg tablet 50 mg PO Q8H PRN (Reason: Pain) nitroglycerin 0.4 mg tablet, sublingual 0.4 mg sublingual DAILY carbamazepine 100 mg tablet,chewable 300 mg PO BID clonazepam 1 mg tablet 1 mg PO TID quetiapine 100 mg tablet 100 mg PO BEDTIME citalopram 40 mg tablet 40 mg PO DAILY phenytoin sodium extended 100 mg capsule 200 mg PO BID sennosides-docusate sodium [Senexon-S] 8.6-50 mg tablet 1 tab-cap PO BID Qty: 180 0RF metoprolol succinate 25 mg tablet extended release 24 hr 25 mg PO DAILY 90 Days Qty: 90 3RF Arnuity Ellipta 50 mcg/actuation blister with device 1 inh inhalation DAILY 30 Days Qty: 30 2RF Interventions: ED Discharge Assessment Last Done: 02/18/24 15:32 Print Language: Montserratian
--- NOTE | 2024-02-18 12:37 | ECG_ITS ---
Test Reason : DYSPNEA Blood Pressure : / mmHG Vent. Rate : 073 BPM Atrial Rate : 073 BPM P-R Int : 208 ms QRS Dur : 078 ms QT Int : 406 ms P-R-T Axes : 037 024 022 degrees QTc Int : 447 ms Normal sinus rhythm Nonspecific T wave abnormality Abnormal ECG When compared with ECG of 04-JUL-2017 23:17, No significant change was found Referred By: Esmer Lees Electronically Signed By:MARY BALL
[2024-02-18 13:04] LABS: Troponin-I High Sensitivity < 2.7 ng/L (<3.5-35.0)
[2024-02-18 15:05] LABS: Troponin-I High Sensitivity < 2.7 ng/L (<3.5-35.0)
== END 2024-02-18 16:00 | disposition home or self-care (01) ==
PROVIDERS: Physician Assistant Medical; Emergency Provider Emergency Medicine Emergency Medical Services; PCP Internal Medicine
DX: J40 Bronchitis, not specified as acute or chronic (principal); R06.02 Shortness of breath; I25.10 Atherosclerotic heart disease of native coronary artery without angina pectoris; R05.9 Cough, unspecified; I48.91 Unspecified atrial fibrillation; Z79.01 Long term (current) use of anticoagulants; Z79.899 Other long term (current) drug therapy; Z03.818 Encounter for observation for suspected exposure to other biological agents ruled out
CPT/HCPCS: 0241U; 36415; 71045; 80053; 83880; 84484; 85025; 93005; 94640; 96365; 99284; 99285; J2919; J3475

== ENCOUNTER 2024-03-10 00:55 | Emergency (ER) | payer MEDICARE, MEDICAID, SELFPAY ==
--- NOTE | ~2024-03-10 | XR_ITS ---
EXAMINATION: XR CHEST CLINICAL INFORMATION: Cough. COMPARISON: February 18, 2024. TECHNIQUE: 2 views of the chest were obtained. FINDINGS: The cardiomediastinal silhouette is stable. There is no focal lung consolidation or pleural effusion. The bony structures and the soft tissues are unremarkable. XR/XR chest 2V IMPRESSION: No acute cardiopulmonary process. Electronically signed by: Lam Garcia MD 03/10/2024 01:58 AM EDT
[2024-03-10 01:03] VITALS: BP 107/56; PULSE 73; RESP 18; TEMP 37.2; O2SAT 95; BMI 36.6
[2024-03-10 01:52] LABS: Basophils Percent Auto 0.4 % (0-2); Eosinophils Absolute Auto 0.3 X10*3/uL (0.0-0.4); Eosinophils Percent Auto 3.1 % (0-4); Hematocrit 35.7 % (42.0-52.0); Hemoglobin 12.5 g/dl (14.0-18.0); Imm Gran Abs Auto 0.01 X10*3/uL (0.00-0.03); Imm Gran Pct Auto 0.1 % (0.0-0.4); Lymphocytes Absolute Auto 2.5 X10*3/uL (1.2-4.9); Lymphocytes Percent Auto 28.9 % (20-40); MANUAL DIFF FLAG NO; Mean Corpuscular Hemoglobin 31.6 pg (27.0-33.0); Mean Corpuscular Volume 90.4 fL (80.0-98.0); Mean Platelet Volume 10.5 fL (9.4-12.4); Monocytes Absolute Auto 0.9 X10*3/uL (0.1-1.2); Monocytes Percent Auto 10.2 % (2-11); Neutrophils Absolute Auto 4.9 x10*3/uL (2.0-8.3); Neutrophils Percent Auto 57.3 % (45-73); Platelet Count 164 X10*3/uL (160-400); Red Blood Count 3.95 X10*6/uL (4.60-5.80); Red Cell Distribution Width 12.8 % (11.0-16.0); White Blood Count 8.5 X10*3/uL (4.8-10.8)
--- NOTE | 2024-03-10 01:59 | ED_ITS ---
HPI - General Adult General Chief complaint: Upper Respiratory Symptoms Stated complaint: coughing, asthma, fever Time Seen by Provider: 03/10/24 01:59 History of Present Illness ED Provider: Isabel RIVERS narrative: The patient is a 73-year-old male who lives at home with his . He has a history of asthma. He also has a history of a seizure disorder. The patient has been having problems with a cough for the last 2 months. The patient was seen here 3 weeks ago on February 17 and diagnosed with an asthma exacerbation. The patient was treated with prednisone and doxycycline and benzonatate. The patient's says that despite treatment he continues to have episodes of bad cough and that sometimes he seems like he will stop breathing because of an episode of severe coughing. He had such an episode tonight and so she drove him to the emergency room. She says that he had taken a sleeping pill so was hard to move him around because he seemed under the effects of the sleeping pill. No definite fever. Related Data Home Medications ?Medication ?Instructions ?Recorded ?Confirmed carbamazepine 100 mg chewable 300 mg PO BID 04/13/20 01/01/24 tablet citalopram 40 mg tablet 40 mg PO DAILY 04/13/20 01/01/24 clonazepam 1 mg tablet 1 mg PO TID 04/13/20 01/01/24 quetiapine 100 mg tablet 100 mg PO BEDTIME 04/13/20 01/01/24 phenytoin sodium extended 100 mg 200 mg PO BID 04/06/22 01/01/24 capsule nitroglycerin 0.4 mg sublingual 0.4 mg sublingual DAILY 02/18/24 tablet tramadol 50 mg tablet 50 mg PO Q8H PRN Pain 02/18/24 Previous Rx's ?Medication ?Instructions ?Recorded fluticasone furoate 50 1 inh inhalation DAILY 30 days #30 07/03/23 mcg/actuation blister powder for ea inhalation (Arnuity Ellipta) metoprolol succinate 25 mg 25 mg PO DAILY 90 days #90 tabs 07/03/23 tablet,extended release 24 hr alfuzosin 10 mg tablet,extended 10 mg PO DAILY 90 days #90 tabs 09/22/23 release 24 hr albuterol sulfate 2.5 mg/3 mL 2.5 mg (3 mL) inhalation Q6H PRN 10/05/23 (0.083 %) solution for nebulization shortness of breath or wheezing 30 days #180 mL atorvastatin 80 mg tablet 80 mg PO BEDTIME #90 tabs 10/08/23 sennosides 8.6 mg-docusate sodium 1 tab-cap PO BID #180 tabs 01/01/24 50 mg tablet (Senexon-S) cholecalciferol (vitamin D3) 25 25 mcg PO DAILY 90 days #90 caps 01/09/24 mcg (1,000 unit) capsule clopidogrel 75 mg tablet 75 mg PO DAILY #90 tabs 01/09/24 ezetimibe 10 mg tablet 10 mg PO DAILY 90 days #90 tabs 01/09/24 benzonatate 100 mg capsule 100 mg PO TID PRN cough #14 caps 02/18/24 doxycycline hyclate 100 mg capsule 100 mg PO BID 5 days #10 caps 02/18/24 prednisone 20 mg tablet 40 mg (2 x 20 mg) PO DAILY 4 days 02/18/24 #8 tabs azithromycin 250 mg tablet 250 mg PO DAILY 4 days #4 tabs 03/10/24 prednisone 20 mg tablet 20 mg PO DAILY #12 tabs 03/10/24 Allergies Allergy/AdvReac Type Severity Reaction Status Date / Time aspirin [ASPIRIN] Allergy Intermediate ITCHING Verified 03/10/24 01:04 fish oil Allergy Intermediate itchiness Verified 03/10/24 01:04 shellfish derived Allergy Mild Swelling Verified 03/10/24 01:04 [facility] Past Medical History Medical History Hearing loss Encounter for Medicare annual wellness exam Cardiac arrest due to underlying cardiac condition Solitary kidney, acquired Mild recurrent major depression Cough BPH (benign prostatic hyperplasia) CAD (coronary artery disease) Lower back pain Asthma Hypertension Seizures Heart attack Afib High cholesterol Surgical History History of left nephrectomy History of colonoscopy H/O heart artery stent Family History Family History Father No problems noted. Mother Cancer Diabetes Social History Social History Housing: House Alcohol intake: former Patient Tobacco Use Status: Never used Tobacco Smoked in Last 30 Days: No e-Cigarette/Vaping Use: Never Used Second Hand Smoke Exposure: No Use of substances other than those prescribed or required for medical reasons: No Advance Directives: No Advance Directives Information Provided: No Do you have a plan to hurt others: No Plan service: No Current occupational status: retired Cognitive needs: No Hearing needs: Yes Vision needs: Yes Physical Exam ED Vital Signs: Vital Signs - 24 hr 03/10/24 01:03 03/10/24 02:30 03/10/24 02:38 Temperature 98.9 F Pulse Rate 73 66 Respiratory Rate 18 20 Blood Pressure 107/56 L Pulse Oximetry 95 92 Oxygen Delivery Method Room Air Room Air 03/10/24 02:38 03/10/24 03:23 03/10/24 03:50 Temperature 97.9 F 97.9 F Pulse Rate 70 68 68 Respiratory Rate 20 13 13 Blood Pressure 120/81 111/67 111/67 Pulse Oximetry 92 94 94 Oxygen Delivery Method Room Air Room Air Room Air BMI result Body Mass Index 36.6 Const Other: The patient is a chronically ill 73-year-old male. He looks tired but not in distress. For the most part he was not coughing but he had one fit of coughing where he turned red and looked uncomfortable but this did not last very long. HENMT Other: Face is symmetrical. Mucous membranes moist. Eyes General: appearance normal, both eyes and all related structures Neck Neck: Yes no JVD Resp Other: No increased work of breathing. Slight wheezing bilaterally. Cardio Rate: regular rate Rhythm: regular rhythm Heart sounds: S1 normal heart sound present and S2 normal heart sound present GI Other: Abdomen is soft and nontender Skin Other: skin is pale and dry Neuro Other: the patient is awake but seems mildly sleepy. Face is symmetrical. speech is clear. Eye movements normal. He moves his extremities symmetrically. No focal findings. Extrem Other: No calf swelling or tenderness. No asymmetry. No edema. Medications Administered Discontinued Medications Generic Name Dose Route Start Last Admin Trade Name Christoph PRN Reason Stop Dose Admin Albuterol/Ipratropium 3 ml 03/10/24 02:22 03/10/24 02:29 Albuterol/Iprat 2.5/0.5mg 3 Ml Ampul.Neb INHALE 03/10/24 02:23 3 ml ONCE ONE Administration Azithromycin 500 mg 03/10/24 03:15 03/10/24 03:36 Azithromycin 500 Mg Tablet PO 03/10/24 03:16 500 mg ONCE ONE Administration Prednisone 60 mg 03/10/24 03:15 03/10/24 03:36 Prednisone 20 Mg Tablet PO 03/10/24 03:16 60 mg ONCE ONE Administration Medical Decision Making Medical Decision Making [facility] Narrative: The patient is a 73-year-old male with a history of asthma who returns to the emergency room because of coughing. I think he is having occasional fits of coughing during which he looks like he has some in distress and I imagine this is difficult for his . He does not seem particularly ill otherwise. Vital signs are stable and he did not seem uncomfortable when he was not coughing. he was given a bronchodilator treatment in the emergency room. I think another course of prednisone and An antibiotic might be helpful in this case. he was previously given a course of doxycycline with prednisone. I will prescribe azithromycin with prednisone. He does not seem to require hospitalization. Lab Data 03/10/24 01:45 03/10/24 01:45 Labs: Lab Results 03/10/24 Range/Units 01:45 WBC 8.5 (4.8-10.8) X10*3/uL RBC 3.95 L (4.60-5.80) X10*6/uL Hgb 12.5 L (14.0-18.0) g/dl Hct 35.7 L (42.0-52.0) % MCV 90.4 (80.0-98.0) fL MCH 31.6 (27.0-33.0) pg MCHC 35.0 (31.0-36.0) g/dl RDW 12.8 (11.0-16.0) % Plt Count 164 (160-400) X10*3/uL MPV 10.5 (9.4-12.4) fL Immature Gran % (Auto) 0.1 (0.0-0.4) % Neut % (Auto) 57.3 (45-73) % Lymph % (Auto) 28.9 (20-40) % [place] % (Auto) 10.2 (2-11) % Eos % (Auto) 3.1 (0-4) % Baso % (Auto) 0.4 (0-2) % Lymph # (Auto) 2.5 (1.2-4.9) X10*3/uL [place] # (Auto) 0.9 (0.1-1.2) X10*3/uL Eos # (Auto) 0.3 (0.0-0.4) X10*3/uL Baso # (Auto) 0.0 (0.0-0.2) X10*3/uL Abs Immat Gran (auto) 0.01 (0.00-0.03) X10*3/uL Absolute Neuts (auto) 4.9 (2.0-8.3) x10*3/uL Absolute Nucleated RBC 0.000 (0.0-0.012) X10*3/uL Nucleated RBC % (auto) 0.0 (0.0-0.2) /100WBC Sodium 139 (135-145) mmol/L Potassium 3.6 (3.3-5.1) mmol/L Chloride 108 (96-108) mmol/L Carbon Dioxide 21 L (22-29) mmol/L Anion Gap 14 (12-20) BUN 15 (9-16) mg/dL Creatinine 1.20 (0.5-1.4) mg/dL Estim Creat Clear Calc 57.7 Estimated GFR 59 Random Glucose 112 (60-115) mg/dL Calcium 9.0 D (8.4-10.2) mg/dL Total Bilirubin 0.4 (0.0-1.0) mg/dL AST 21 (5-37) U/L ALT 31 (0-40) U/L Alkaline Phosphatase 123 H (39-117) U/L Total Protein 7.2 (6.5-8.0) g/dL Albumin 3.7 (3.5-5.0) g/dL Influenza Type A (PCR) NEGATIVE (Negative) Influenza Type B (PCR) NEGATIVE (Negative) RSV RNA Qual (PCR) NEGATIVE (Negative) SARS-CoV-2 RNA (RT-PCR) NEGATIVE (Negative) Discharge Plan Discharge Clinical Impression: Acute asthmatic bronchitis, Cough Patient Disposition: Home, Self-Care Additional Instructions: His testing in the emergency room today is reassuring. I have prescribed another course of prednisone which I hope will help with his symptoms. I have also prescribed an antibiotic, azithromycin, which I also hope will help with his symptoms. Please take each of these medications once a day as prescribed. Continue albuterol at home. Please follow up with Dr. Gary pryor. Call on Monday morning for an appointment. Return to the emergency room if significantly worse. Prescriptions: New prednisone 20 mg tablet 20 mg PO DAILY Qty: 12 0RF Rx Instructions: Take 3 tablets by mouth daily for 2 days then 2 tablets daily by mouth for 3 days. azithromycin 250 mg tablet 250 mg PO DAILY 4 Days Qty: 4 0RF Rx Instructions: start on day 2 of therapy No Action alfuzosin 10 mg tablet extended release 24 hr 10 mg PO DAILY 90 Days Qty: 90 2RF albuterol sulfate 2.5 mg /3 mL (0.083 %) solution for nebulization 2.5 mg inhalation Q6H PRN (Reason: shortness of breath or wheezing) 30 Days Qty: 180 0RF atorvastatin 80 mg tablet 80 mg PO BEDTIME Qty: 90 3RF ezetimibe 10 mg tablet 10 mg PO DAILY 90 Days Qty: 90 1RF clopidogrel 75 mg tablet 75 mg PO DAILY Qty: 90 1RF cholecalciferol (vitamin D3) 25 mcg (1,000 unit) capsule 25 mcg PO DAILY 90 Days Qty: 90 1RF prednisone 20 mg tablet 40 mg PO DAILY 4 Days Qty: 8 0RF benzonatate 100 mg capsule 100 mg PO TID PRN (Reason: cough) Qty: 14 0RF doxycycline hyclate 100 mg capsule 100 mg PO BID 5 Days Qty: 10 0RF tramadol 50 mg tablet 50 mg PO Q8H PRN (Reason: Pain) nitroglycerin 0.4 mg tablet, sublingual 0.4 mg sublingual DAILY carbamazepine 100 mg tablet,chewable 300 mg PO BID clonazepam 1 mg tablet 1 mg PO TID quetiapine 100 mg tablet 100 mg PO BEDTIME citalopram 40 mg tablet 40 mg PO DAILY phenytoin sodium extended 100 mg capsule 200 mg PO BID sennosides-docusate sodium [Senexon-S] 8.6-50 mg tablet 1 tab-cap PO BID Qty: 180 0RF metoprolol succinate 25 mg tablet extended release 24 hr 25 mg PO DAILY 90 Days Qty: 90 3RF Arnuity Ellipta 50 mcg/actuation blister with device 1 inh inhalation DAILY 30 Days Qty: 30 2RF Interventions: ED Discharge Assessment Last Done: 03/10/24 03:50 Discharge Date/Time: 03/10/24 03:52 Print Language: Persian
[2024-03-10 02:09] LABS: Alanine Aminotransferase 31 U/L (0-40); Albumin Level 3.7 g/dL (3.5-5.0); Alkaline Phosphatase 123 U/L (39-117); Anion Gap 14 (12-20); Aspartate Amino Transferase 21 U/L (5-37); Bilirubin Total 0.4 mg/dL (0.0-1.0); Blood Urea Nitrogen 15 mg/dL (9-16); Carbon Dioxide 21 mmol/L (22-29); Chloride 108 mmol/L (96-108); Creatinine Clr Calc Pharmacy 57.7; Estimated Glomerular Filt Rate 59; Glucose Random 112 mg/dL (60-115); Potassium 3.6 mmol/L (3.3-5.1); Sodium 139 mmol/L (135-145); Total Protein 7.2 g/dL (6.5-8.0)
--- NOTE | 2024-03-10 02:21 | ECG_ITS ---
Test Reason : SOB Blood Pressure : / mmHG Vent. Rate : 068 BPM Atrial Rate : 068 BPM P-R Int : 186 ms QRS Dur : 082 ms QT Int : 392 ms P-R-T Axes : -09 042 018 degrees QTc Int : 416 ms Normal sinus rhythm T wave abnormality, consider lateral ischemia Abnormal ECG When compared with ECG of 18-FEB-2024 13:30, Inverted T waves have replaced nonspecific T wave abnormality in Anterolateral leads Referred By: Donavan Hall Electronically Signed By:MARY BALL
[2024-03-10 02:28] LABS: Influenza A PCR NEGATIVE (Negative); Influenza B PCR NEGATIVE (Negative); Resp Syncy Virus RNA Qual PCR NEGATIVE (Negative); SARS COV2 PCR INHOUSE NEGATIVE (Negative)
[2024-03-10] MEDS: Albuterol/Iprat 2.5/0.5MG 3 ML AMPUL.NEB INHALE (02:29)
[2024-03-10 02:30] VITALS: PULSE 66; RESP 20; O2SAT 94
[2024-03-10 02:38] VITALS: BP 120/81; PULSE 70; RESP 20; O2SAT 92
[2024-03-10 03:23] VITALS: BP 111/67; PULSE 68; RESP 13; TEMP 36.6; O2SAT 94
[2024-03-10] MEDS: predniSONE 20 MG TABLET 60 MG PO (03:36)
[2024-03-10] MEDS: Azithromycin 500 MG TABLET PO (03:36)
[2024-03-10 03:50] VITALS: BP 111/67; PULSE 68; RESP 13; TEMP 36.6; O2SAT 94
== END 2024-03-10 03:52 | disposition home or self-care (01) ==
PROVIDERS: Emergency Provider Emergency Medicine; PCP Internal Medicine
DX: J20.9 Acute bronchitis, unspecified (principal); R05.9 Cough, unspecified; J45.909 Unspecified asthma, uncomplicated; R50.9 Fever, unspecified; Z03.818 Encounter for observation for suspected exposure to other biological agents ruled out; Z79.899 Other long term (current) drug therapy
CPT/HCPCS: 0241U; 36415; 71046; 80053; 85025; 93005; 94640; 99284; 99285

== ENCOUNTER 2024-03-13 08:28 | Emergency (ER) | payer MEDICARE, MEDICAID, SELFPAY ==
--- NOTE | ~2024-03-13 | XR_ITS ---
EXAMINATION: XR CHEST CLINICAL INFORMATION: Cough COMPARISON: Prior chest radiograph 03/10/2024 TECHNIQUE: 2 views of the chest were obtained. FINDINGS: Lungs clear. No pleural effusions. Heart and pulmonary vessels normal. XR/XR chest 2V IMPRESSION: No active disease. Electronically signed by: Mikael Dooley MD 03/13/2024 11:37 AM EDT
--- NOTE | 2024-03-13 08:31 | ECG_ITS ---
Test Reason : sob cp Blood Pressure : / mmHG Vent. Rate : 073 BPM Atrial Rate : 073 BPM P-R Int : 166 ms QRS Dur : 082 ms QT Int : 388 ms P-R-T Axes : 014 017 -26 degrees QTc Int : 427 ms Normal sinus rhythm ST & T wave abnormality, consider anterolateral ischemia Abnormal ECG When compared with ECG of 10-MAR-2024 02:19, T wave inversion more evident in Anterior leads Referred By: Generic ED Physician Electronically Signed By:MARY BALL
--- NOTE | 2024-03-13 08:37 | ED_ITS ---
HPI - SOB/Dyspnea General Chief Complaint: Upper Respiratory Symptoms Stated Complaint: [id number] Time Seen by Provider: 03/13/24 08:36 Source: patient and family Mode of arrival: ambulatory Limitations: no limitations History of Present Illness HPI Narrative: 73 year old male PMH: Seizures, asthma vs COPD, CAD status post stent, nephrectomy o the left, afib, HLD, HTN who was here 03/10 treated with prednisone and azithromycin. He was non toxic at that time and here for coughing fits. He returns today with complaints of shortness of breath cough. Patient is here with his and son who are speaking for him. They have rapid almost pressured speech and changing all the time stating that he is not sleeping that he has a cough cough is worse at night and he coughs all night. They also state that he is not eating because he has a sore throat this is his 3rd visit but they have not seen the primary care doctor if you do have an appointment on the . MD elicited complaint: shortness of breath, cough and chest pain Related Data Home Medications ?Medication ?Instructions ?Recorded ?Confirmed carbamazepine 100 mg chewable 300 mg PO BID 04/13/20 01/01/24 tablet citalopram 40 mg tablet 40 mg PO DAILY 04/13/20 01/01/24 clonazepam 1 mg tablet 1 mg PO TID 04/13/20 01/01/24 quetiapine 100 mg tablet 100 mg PO BEDTIME 04/13/20 01/01/24 phenytoin sodium extended 100 mg 200 mg PO BID 04/06/22 01/01/24 capsule nitroglycerin 0.4 mg sublingual 0.4 mg sublingual DAILY 02/18/24 tablet tramadol 50 mg tablet 50 mg PO Q8H PRN Pain 02/18/24 Previous Rx's ?Medication ?Instructions ?Recorded fluticasone furoate 50 1 inh inhalation DAILY 30 days #30 07/03/23 mcg/actuation blister powder for ea inhalation (Arnuity Ellipta) metoprolol succinate 25 mg 25 mg PO DAILY 90 days #90 tabs 07/03/23 tablet,extended release 24 hr alfuzosin 10 mg tablet,extended 10 mg PO DAILY 90 days #90 tabs 09/22/23 release 24 hr albuterol sulfate 2.5 mg/3 mL 2.5 mg (3 mL) inhalation Q6H PRN 10/05/23 (0.083 %) solution for nebulization shortness of breath or wheezing 30 days #180 mL atorvastatin 80 mg tablet 80 mg PO BEDTIME #90 tabs 10/08/23 sennosides 8.6 mg-docusate sodium 1 tab-cap PO BID #180 tabs 01/01/24 50 mg tablet (Senexon-S) cholecalciferol (vitamin D3) 25 25 mcg PO DAILY 90 days #90 caps 01/09/24 mcg (1,000 unit) capsule clopidogrel 75 mg tablet 75 mg PO DAILY #90 tabs 01/09/24 ezetimibe 10 mg tablet 10 mg PO DAILY 90 days #90 tabs 01/09/24 benzonatate 100 mg capsule 100 mg PO TID PRN cough #14 caps 02/18/24 doxycycline hyclate 100 mg capsule 100 mg PO BID 5 days #10 caps 02/18/24 prednisone 20 mg tablet 40 mg (2 x 20 mg) PO DAILY 4 days 02/18/24 #8 tabs azithromycin 250 mg tablet 250 mg PO DAILY 4 days #4 tabs 03/10/24 prednisone 20 mg tablet 20 mg PO DAILY #12 tabs 03/10/24 benzonatate 100 mg capsule 100 mg PO BID PRN cough #20 caps 03/13/24 Allergies Allergy/AdvReac Type Severity Reaction Status Date / Time aspirin [ASPIRIN] Allergy Intermediate ITCHING Verified 03/13/24 08:48 fish oil Allergy Intermediate itchiness Verified 03/13/24 08:48 shellfish derived Allergy Mild Swelling Verified 03/13/24 08:48 Review of Systems 2 Review of Systems: Review of systems: General: Patient denies any fever chills recent illness or falls Musculoskeletal: Denies back pain or body aches or other injuries HEENT: sore throat denies headache, runny nose, ear pain Respiratory: shortness of breath, cough Cardiovascular: no chest pain or palpitations : denies dysuria, frequency Abdomen: no nausea vomiting denies abdominal pain Extremities: no swelling, no pain Skin: no diaphoresis Yes all other systems are reviewed and are negative PMFSH Past Medical History Medical History Hearing loss Encounter for Medicare annual wellness exam Cardiac arrest due to underlying cardiac condition Solitary kidney, acquired Mild recurrent major depression Cough BPH (benign prostatic hyperplasia) CAD (coronary artery disease) Lower back pain Asthma Hypertension Seizures Heart attack Afib High cholesterol Surgical History History of left nephrectomy History of colonoscopy H/O heart artery stent Family History Family History Father No problems noted. Mother Cancer Diabetes Social History Social History Housing: House Alcohol intake: former Patient Tobacco Use Status: Never used Tobacco e-Cigarette/Vaping Use: Never Used Second Hand Smoke Exposure: No Advance Directives: No Advance Directives Information Provided: No service: No Current occupational status: retired Cognitive needs: No Hearing needs: Yes Vision needs: Yes Physical Exam 2 Vital Signs: Vital Signs: Last Vital Signs Temp 98 F 03/13/24 08:42 Pulse 82 03/13/24 08:42 Resp 14 03/13/24 08:42 BP 124/55 L 03/13/24 08:42 Pulse Ox 97 03/13/24 08:42 O2 Del Method Room Air 03/13/24 08:42 BMI result Body Mass Index 32.3 Neurological exam: CN II- XII tested. Patient is alert and oriented to person place and time. Patient has no dysphagia or dysarthia, denies good vision in all four vision mcallister no nystagmus on exam, good strength to upper and lower extremities with normal reflexes to brachioradialis, wrist, patella and achilles. Negative romberg, good finger to nose and heel to chambers. General: Well-appearing well-nourished in no signs of distress HEENT: Normocephalic atraumatic Neck: No signs of JVD, no masses no tenderness or lymphadenopathy Cardiovascular: Regular rate and rhythm Respiratory: Clear to auscultation bilaterally Abdomen: Soft nontender no masses Extremities: Normal pedal pulses no signs of edema Skin: Dry warm no rashes Back: No tenderness full ROM Course Reevaluation(s) Reevaluation #1: Family is at the bedside excellent labs and negative strep test still waiting for COVID flu RSV and chest x-ray. Patient looks well he states he is feeling better he is much more animated and talking to me I will wait for his x-ray I do think the patient likely safe to go home. Time: 10:05 Reevaluation #2: X-ray COVID flu RSV are all negative. Patient was again educated on the need to continue eating I will discharge home at this time. Time: 11:12 Medications Administered Discontinued Medications Generic Name Dose Route Start Last Admin Trade Name Christoph PRN Reason Stop Dose Admin Benzonatate 100 mg 03/13/24 08:50 03/13/24 09:08 Benzonatate 100 Mg Capsule PO 03/13/24 08:51 100 mg ONCE ONE Administration Sodium Chloride 1,000 mls @ 999 mls/hr 03/13/24 09:00 03/13/24 09:08 Ns IV 03/13/24 10:00 999 mls/hr .Q1H1M KATIE Administration Ketorolac Tromethamine 15 mg 03/13/24 08:50 03/13/24 09:08 Ketorolac Tromethamine 15 Mg/Ml Vial IVPUSH 03/13/24 08:51 15 mg ONCE ONE Administration Medical Decision Making Medical Decision Making [facility] Narrative: I think the patient looks well I will give prednisone benzonatate repeat x-ray and labs give the patient some fluids and reassess Differential Diagnosis Differential Diagnoses: The differential diagnosis associated with the presentation includes In the here with multiple complaints including dizziness cough shortness of breath and insomnia patient is able to ambulate here has no signs of dizziness has no chest pain in his lungs are clear concern for pneumonia COPD exacerbation bronchitis Lab Data [facility] Lab Attestation statement: I reviewed the patient's lab results. 03/13/24 09:06 03/13/24 09:07 Labs: Lab Results 03/13/24 03/13/24 Range/Units 09:06 09:07 WBC 6.7 (4.8-10.8) X10*3/uL RBC 3.88 L (4.60-5.80) X10*6/uL Hgb 12.3 L (14.0-18.0) g/dl Hct 35.4 L (42.0-52.0) % MCV 91.2 (80.0-98.0) fL MCH 31.7 (27.0-33.0) pg MCHC 34.7 (31.0-36.0) g/dl RDW 12.5 (11.0-16.0) % Plt Count 208 D (160-400) X10*3/uL MPV 10.6 (9.4-12.4) fL Immature Gran % (Auto) 0.1 (0.0-0.4) % Neut % (Auto) 54.1 (45-73) % Lymph % (Auto) 35.1 (20-40) % Corson % (Auto) 9.6 (2-11) % Eos % (Auto) 0.7 (0-4) % Baso % (Auto) 0.4 (0-2) % Lymph # (Auto) 2.3 (1.2-4.9) X10*3/uL Corson # (Auto) 0.6 (0.1-1.2) X10*3/uL Eos # (Auto) 0.1 (0.0-0.4) X10*3/uL Baso # (Auto) 0.0 (0.0-0.2) X10*3/uL Abs Immat Gran (auto) 0.01 (0.00-0.03) X10*3/uL Absolute Neuts (auto) 3.6 (2.0-8.3) x10*3/uL Absolute Nucleated RBC 0.000 (0.0-0.012) X10*3/uL Nucleated RBC % (auto) 0.0 (0.0-0.2) /100WBC Sodium 141 (135-145) mmol/L Potassium 3.5 (3.3-5.1) mmol/L Chloride 109 H (96-108) mmol/L Carbon Dioxide 20 L (22-29) mmol/L Anion Gap 16 (12-20) BUN 14 (9-16) mg/dL Creatinine 1.19 (0.5-1.4) mg/dL Estim Creat Clear Calc 54.7 Estimated GFR 60 Random Glucose 111 (60-115) mg/dL Calcium 9.4 (8.4-10.2) mg/dL Magnesium 2.1 (1.6-2.6) mg/dL Total Bilirubin 0.3 (0.0-1.0) mg/dL Direct Bilirubin 0.2 (0.0-0.5) mg/dL AST 32 (5-37) U/L ALT 33 (0-40) U/L Alkaline Phosphatase 109 (39-117) U/L Total Protein 7.5 (6.5-8.0) g/dL Albumin 3.8 (3.5-5.0) g/dL Lipase 38 (8-78) U/L Influenza Type A (PCR) NEGATIVE (Negative) Influenza Type B (PCR) NEGATIVE (Negative) RSV RNA Qual (PCR) NEGATIVE (Negative) SARS-CoV-2 RNA (RT-PCR) NEGATIVE (Negative) S. pyogenes GrpA NEELA Negative (Negative) Independent Interpretation I performed an independent interpretation of an: EKG and Plain X-Ray Radiology Impression Discussion of test interpretation with radiology: I discussed test interpretation with the radiologist and I have reviewed the radiologist's reading. Independent Historian Clinical information obtained from an independent historian. History obtained from or confirmed by: Spouse and Other External Record Review External record reviewed: Inpatient record, Office record, Outpatient record, Prior outpatient labs and Prior outpatient radiology Prescription Management I will add tessalon perles to other medications they have been giving. Chronic Conditions Patient?s care impacted by: Hypertension CAD, HLD and seizures Core Measures AMI core measures followed: Yes Discharge Plan Discharge Clinical Impression: Anorexia, Cough, Bronchitis Patient Disposition: Home, Self-Care Instructions: Dehydration (ED), Acute Bronchitis (ED), Chronic Cough (ED) Additional Instructions: You were seen today for cough and not eating. You had x-ray and labs as well as swabs for COVID flu RSV and strep which were all negative. Please call follow up with your doctor you do need to eat and drink plenty of fluids. Prescriptions: New benzonatate 100 mg capsule 100 mg PO BID PRN (Reason: cough) Qty: 20 0RF No Action alfuzosin 10 mg tablet extended release 24 hr 10 mg PO DAILY 90 Days Qty: 90 2RF albuterol sulfate 2.5 mg /3 mL (0.083 %) solution for nebulization 2.5 mg inhalation Q6H PRN (Reason: shortness of breath or wheezing) 30 Days Qty: 180 0RF atorvastatin 80 mg tablet 80 mg PO BEDTIME Qty: 90 3RF ezetimibe 10 mg tablet 10 mg PO DAILY 90 Days Qty: 90 1RF clopidogrel 75 mg tablet 75 mg PO DAILY Qty: 90 1RF cholecalciferol (vitamin D3) 25 mcg (1,000 unit) capsule 25 mcg PO DAILY 90 Days Qty: 90 1RF prednisone 20 mg tablet 40 mg PO DAILY 4 Days Qty: 8 0RF benzonatate 100 mg capsule 100 mg PO TID PRN (Reason: cough) Qty: 14 0RF doxycycline hyclate 100 mg capsule 100 mg PO BID 5 Days Qty: 10 0RF tramadol 50 mg tablet 50 mg PO Q8H PRN (Reason: Pain) nitroglycerin 0.4 mg tablet, sublingual 0.4 mg sublingual DAILY prednisone 20 mg tablet 20 mg PO DAILY Qty: 12 0RF Rx Instructions: Take 3 tablets by mouth daily for 2 days then 2 tablets daily by mouth for 3 days. azithromycin 250 mg tablet 250 mg PO DAILY 4 Days Qty: 4 0RF Rx Instructions: start on day 2 of therapy carbamazepine 100 mg tablet,chewable 300 mg PO BID clonazepam 1 mg tablet 1 mg PO TID quetiapine 100 mg tablet 100 mg PO BEDTIME citalopram 40 mg tablet 40 mg PO DAILY phenytoin sodium extended 100 mg capsule 200 mg PO BID sennosides-docusate sodium [Senexon-S] 8.6-50 mg tablet 1 tab-cap PO BID Qty: 180 0RF metoprolol succinate 25 mg tablet extended release 24 hr 25 mg PO DAILY 90 Days Qty: 90 3RF Arnuity Ellipta 50 mcg/actuation blister with device 1 inh inhalation DAILY 30 Days Qty: 30 2RF Print Language: Burkinan
[2024-03-13 08:42] VITALS: BP 124/55; PULSE 82; RESP 14; TEMP 36.6; O2SAT 97; BMI 32.3
[2024-03-13] MEDS: Ketorolac Tromethamine 15 MG/ML VIAL IVPUSH (09:08)
[2024-03-13] MEDS: Benzonatate 100 MG CAPSULE PO (09:08)
[2024-03-13] MEDS: 0.9 % Sodium Chloride 1,000 ML 999 ML IV (09:08)
[2024-03-13 09:11] LABS: MANUAL DIFF FLAG NO
[2024-03-13 09:20] LABS: Basophils Percent Auto 0.4 % (0-2); Eosinophils Absolute Auto 0.1 X10*3/uL (0.0-0.4); Eosinophils Percent Auto 0.7 % (0-4); Hematocrit 35.4 % (42.0-52.0); Hemoglobin 12.3 g/dl (14.0-18.0); Imm Gran Abs Auto 0.01 X10*3/uL (0.00-0.03); Imm Gran Pct Auto 0.1 % (0.0-0.4); Lymphocytes Absolute Auto 2.3 X10*3/uL (1.2-4.9); Lymphocytes Percent Auto 35.1 % (20-40); Mean Corpuscular HGB Conc 34.7 g/dl (31.0-36.0); Mean Corpuscular Hemoglobin 31.7 pg (27.0-33.0); Mean Corpuscular Volume 91.2 fL (80.0-98.0); Mean Platelet Volume 10.6 fL (9.4-12.4); Monocytes Absolute Auto 0.6 X10*3/uL (0.1-1.2); Monocytes Percent Auto 9.6 % (2-11); Neutrophils Absolute Auto 3.6 x10*3/uL (2.0-8.3); Neutrophils Percent Auto 54.1 % (45-73); Platelet Count 208 X10*3/uL (160-400); Red Blood Count 3.88 X10*6/uL (4.60-5.80); Red Cell Distribution Width 12.5 % (11.0-16.0); White Blood Count 6.7 X10*3/uL (4.8-10.8)
[2024-03-13 09:31] LABS: IDNOW Serial# 08D9AD1C; Strep A Nucleic Acid Negative (Negative)
[2024-03-13 09:33] LABS: Alanine Aminotransferase 33 U/L (0-40); Albumin Level 3.8 g/dL (3.5-5.0); Alkaline Phosphatase 109 U/L (39-117); Anion Gap 16 (12-20); Aspartate Amino Transferase 32 U/L (5-37); Bilirubin Direct 0.2 mg/dL (0.0-0.5); Bilirubin Total 0.3 mg/dL (0.0-1.0); Blood Urea Nitrogen 14 mg/dL (9-16); Calcium 9.4 mg/dL (8.4-10.2); Carbon Dioxide 20 mmol/L (22-29); Chloride 109 mmol/L (96-108); Creatinine Clr Calc Pharmacy 54.7; Estimated Glomerular Filt Rate 60; Glucose Random 111 mg/dL (60-115); Lipase 38 U/L (8-78); Magnesium 2.1 mg/dL (1.6-2.6); Potassium 3.5 mmol/L (3.3-5.1); Sodium 141 mmol/L (135-145); Total Protein 7.5 g/dL (6.5-8.0)
[2024-03-13 10:00] VITALS: BP 117/49; PULSE 70; RESP 16; TEMP 37.1; O2SAT 96
[2024-03-13 10:04] LABS: Influenza A PCR NEGATIVE (Negative); Influenza B PCR NEGATIVE (Negative); Resp Syncy Virus RNA Qual PCR NEGATIVE (Negative); SARS COV2 PCR INHOUSE NEGATIVE (Negative)
[2024-03-13 11:46] VITALS: BP 126/62; PULSE 67; RESP 20; TEMP 37; O2SAT 97
== END 2024-03-13 11:46 | disposition home or self-care (01) ==
PROVIDERS: Emergency Provider Student in an Organized Health Care Education/Training Program; PCP Internal Medicine
DX: J40 Bronchitis, not specified as acute or chronic (principal); R05.9 Cough, unspecified; R63.0 Anorexia; Z68.32 Body mass index [BMI] 32.0-32.9, adult; R07.9 Chest pain, unspecified; R06.02 Shortness of breath; Z03.818 Encounter for observation for suspected exposure to other biological agents ruled out; I10 Essential (primary) hypertension; E78.5 Hyperlipidemia, unspecified; I48.0 Paroxysmal atrial fibrillation; Z79.02 Long term (current) use of antithrombotics/antiplatelets; Z79.899 Other long term (current) drug therapy
CPT/HCPCS: 0241U; 36415; 71046; 80048; 80076; 83690; 83735; 85025; 87651; 93005; 96361; 96374; 99284; J1885

== ENCOUNTER 2024-03-22 09:36 | Outpatient (AMB) | payer MEDICARE, MEDICAID, SELFPAY ==
[2024-03-22 09:46] VITALS: BP 132/60; PULSE 67; O2SAT 95; BMI 33.6
--- NOTE | 2024-03-22 09:46 | A.OFFPC_ITS ---
Vital Signs 03/22/24 09:46 Height 5 ft 5 in Weight 202 lb BMI 33.6 BP 132/60 Blood Pressure Location Lt brachial Position Sitting Pulse 67 Pulse Source Pulse Oximeter Pulse Oximetry (%) 95 Oxygen Delivery Method Room Air Intake Visit Reasons: EDF 03/10 Bronchitis Intake Note: Pt reports that he did not finish taking the antibiotics prescribed to him at the ED because they made him not feel good. Docket Clerk Required: No Accompanied by: Self / Same As Patient Allergies aspirin [ASPIRIN] Allergy (Intermediate, Verified 03/22/24 09:48) ITCHING fish oil Allergy (Intermediate, Verified 03/22/24 09:48) itchiness shellfish derived Allergy (Mild, Verified 03/22/24 09:48) Swelling Tobacco use date assessed: 07/03/23 Fall risk assessment: No Falls in past year Last assessed Fall Risk: 03/22/24 Dental Screening Dental Screen Date: 07/03/23 HPI HPI Comments History of Present Illness Details 74 y/o male patient who presents to the clinic for EDF. he was admitted at [facility] [place] [place] on 03/13/24 for URI symptoms. He was discharged home the same day on stable condition. Chest Xray and SARs results negative. Today denies Fevers, chills, nausea or vomiting. He does endorse some coughing still. Patient asking for Flu Vaccine today. [facility] Medical History Hearing loss Encounter for Medicare annual wellness exam Cardiac arrest due to underlying cardiac condition Solitary kidney, acquired Mild recurrent major depression Cough BPH (benign prostatic hyperplasia) CAD (coronary artery disease) Lower back pain Asthma Hypertension Seizures Heart attack Afib High cholesterol Surgical History History of left nephrectomy History of colonoscopy H/O heart artery stent Family History Father No problems noted. Mother Cancer Diabetes Social History Housing: House Alcohol intake: former Patient Tobacco Use Status: Never used Tobacco Tobacco use type: Cigarette e-Cigarette/Vaping Use: Never Used Second Hand Smoke Exposure: No service: No Current occupational status: retired Cognitive needs: No Hearing needs: Yes Vision needs: Yes Questionnaire PHQ-9 Over the last 2 weeks, how often have you been bothered by any of the following problems? 1. Little interest or pleasure in doing things: several days 2. Feeling down, depressed, or hopeless: several days 3. Trouble falling or staying asleep, or sleeping too much: several days 4. Feeling tired or having little energy: not at all 5. Poor appetite or overeating: several days 6. Feeling bad about yourself - or that you are a failure or have let yourself or your family down: not at all 7. Trouble concentrating on things, such as reading the newspaper or watching television: several days 8. Moving or speaking so slowly that other people could have noticed. Or the opposite - being so fidgety or restless that you have been moving around a lot more than usual: several days 9. Thoughts that you would be better off or of hurting yourself in some way: not at all Total score: 6 Depression Screening Interpretation: Positive Depression Screening Follow-up: Existing condition and In treatment Depression Screening Done: Yes 36757 - PHQ-9 Billing: Yes Source: Developed by Drs. Tony Sun, Shivani Diez, Anup Florez and colleagues, with an educational edwina from [employer] Thrive Questionnaire Date Thrive assessed: 03/22/24 I am a: Patient What is your living situation today?: I have a steady place to live Within the past 12 months, did the food you bought not last and you didn't have the money to get more?: Never true Within the past 12 months, did you worry whether your food would run out before you got money to buy more?: Never true THRIVE Score: 0 AUDIT C Alcohol Use Questionnaire (AUDIT-C) 1. How often do you have a drink containing alcohol?: Never Total Score: 0 CARLOS A-7 AMB Questionnaire CARLOS A-7 Date CARLOS A - 7 assessed: 07/03/23 Source: Developed by Drs. Tony Sun, Shivani Diez, Anup Florez and colleagues, with an educational edwina from [employer]. Review of Systems Const All systems reviewed & are unremarkable except as noted in HPI and below Physical exam (Primary Care) Vital Signs: Last Vital Signs Pulse 67 03/22/24 09:46 BP 132/60 03/22/24 09:46 Pulse Ox 95 03/22/24 09:46 Oxygen Delivery Method Room Air 03/22/24 09:46 BMI result Body Mass Index 33.6 Tobacco/Smoking Status: Tobacco use Status Tobacco use date assessed 07/03/23 03/22/24 09:48 Patient Tobacco Use Status Never used Tobacco 03/22/24 09:48 Tobacco use type Cigarette 03/22/24 09:53 e-Cigarette/Vaping Use Never Used 03/22/24 09:48 PHQ-9: PHQ-9 Score PHQ-9: Total score 6 03/22/24 09:53 Depression Screening Interpretation: Positive Depression Screening Follow-up: Existing condition and In treatment Thrive Assessment: Date of Thrive Assessment Date Thrive assessed 03/22/24 03/22/24 09:53 Const General: cooperative and no acute distress Nutritional Appearance: obese Orientation/consciousness: patient oriented x3 Resp Effort & Inspection: normal respiratory effort, able to speak in complete sentences, no audible wheezes and no cough Auscultation: clear to auscultation bilaterally, no crackles, no rales, no rhonchi and no wheezes Cardio Heart sounds: S1 normal heart sound present and S2 normal heart sound present Neuro General: patient oriented x3 Coding Level of Care Code Est Pt Level 4 (51497) Diagnoses Acute cough R05.1 Cough type: acute Time Spent (min) 20 Comment Spent reviewing Hospital notes Assessment & Plan Assessment & Plan (1) Cough: Code(s): R05 - Cough Category: Medical Qualifiers: Cough type: acute Qualified Code(s): R05.1 - Acute cough Plan: Cough improved. RTC if symptoms return. Pt received Flu Vaccine in office.
== END 2024-03-22 10:45 | disposition home or self-care (01) ==
PROVIDERS: PCP Internal Medicine; Visit Provider Nurse Practitioner Family
DX: R05.1 Acute cough (principal)

== ENCOUNTER → 2024-03-22 09:36 | Outpatient (BNVA) | payer MEDICARE, MEDICAID, SELFPAY | PROVIDERS: PCP Internal Medicine; Visit Provider Nurse Practitioner Family | DX: R05.1 Acute cough (principal) | CPT/HCPCS: 96127; 99212 ==

== ENCOUNTER 2024-04-22 04:45 | Inpatient (IN) | payer MEDICARE, MEDICAID, SELFPAY ==
[2024-04-22] VITALS (8 sets, daily range): BP systolic 115–139; BP diastolic 54–73; PULSE 60–68; RESP 16–20; TEMP 36.3–37.1; O2SAT 94–98; BMI 33.4
--- NOTE | 2024-04-22 | ECG_ITS ---
Test Reason : EPIGASTRIC PAIN Blood Pressure : / mmHG Vent. Rate : 060 BPM Atrial Rate : 060 BPM P-R Int : 200 ms QRS Dur : 076 ms QT Int : 428 ms P-R-T Axes : 028 032 048 degrees QTc Int : 428 ms Normal sinus rhythm Nonspecific T wave abnormality Abnormal ECG When compared with ECG of 13-MAR-2024 08:26, Nonspecific T wave abnormality no longer evident in Inferior leads T wave inversion no longer evident in Anterior leads Referred By: Generic ED Physician Electronically Signed By:Rm Pinto
--- NOTE | ~2024-04-22 | CT_ITS ---
EXAMINATION: CT ABDOMEN AND PELVIS WITH CONTRAST CLINICAL INFORMATION: Abdominal pain COMPARISON: CT abdomen pelvis 01/26/2018 TECHNIQUE: Multidetector volumetric imaging was performed from the superior aspect of the liver through the pubic symphysis with intravenous contrast. A total of 85 mL of Omnipaque 350 was utilized for the study. Sagittal and coronal reformatted images were obtained on the technologist's workstation. This CT examination was performed using dose optimization techniques as appropriate, variously including the following: *Automated exposure control *Adjustment of mA and/or kV according to patient size (this includes techniques or standardized protocols for targeted exams where dose is matched to indication/reason for exam; i.e. extremities or head) *Use of iterative reconstruction technique DLP: 654 mGy-cm FINDINGS: LUNG BASES: The visualized lung bases are unremarkable. LIVER, GALLBLADDER, AND BILIARY TREE: The liver is normal in size, shape, and attenuation. No focal hepatic lesion or biliary ductal dilatation is present. The gallbladder is unremarkable with no evidence of radiopaque gallstones, gallbladder wall thickening, or obvious pericholecystic inflammatory changes. PANCREAS: Unremarkable. SPLEEN: Unremarkable. ADRENAL GLANDS: Unremarkable. KIDNEYS AND URETERS: The right kidney appears normal. The left kidney is absent BLADDER: There is a symmetrically thickened bladder wall. GASTROINTESTINAL TRACT: There is a high-grade small bowel obstruction with dilatation of the proximal small bowel beginning at the level of the ligament of Treitz with a transition point noted in the left mid to lower abdomen (3:52 and 8:41) where there is marked fecalization. The distal small bowel is completely decompressed. The colon is decompressed and unremarkable. The appendix is normal. At the time of the prior 01/26/2018 study, small bowel obstruction was seen in a similar location. Again seen is an irregular rim calcified mass in the left lower quadrant measuring 3.7 x 3.4 x 2.1 cm (3:69), unchanged from 01/26/2018. ABDOMINAL WALL: No significant hernia is appreciated. LYMPH NODES: No retroperitoneal lymphadenopathy. There is some collette changes seen in the mesentery, unchanged from prior with no adenopathy. VASCULAR: Unremarkable. PELVIC VISCERA: There is mild BPH. Seminal vesicles appear normal. No free pelvic fluid is seen. OSSEOUS STRUCTURES: Some mild degenerative changes are seen in the spine. There is mild compression fracture of the inferior endplate of L2. No bony destructive lesions. Again seen are changes in the right iliac bone consistent with Paget's disease. CT/CT abdomen pelvis w IV con IMPRESSION: 1. Recurrent High-grade small bowel obstruction with transition point in the left mid to lower abdomen. 2. Other incidental findings as described above including a stable rim calcified mass in the left lower quadrant, absent left kidney, Paget's disease right iliac bone and mild BPH. Fleischner guidelines were followed. Electronically signed by: Luis Manuel Valdes MD 04/22/2024 02:52 PM [facility]
--- NOTE | ~2024-04-22 | XR_ITS ---
EXAMINATION: XR ABDOMEN KUB CLINICAL INDICATION: PSBO COMPARISON: CT abdomen/pelvis 04/22/2024 TECHNIQUE: AP view of the abdomen. FINDINGS: There are mildly dilated loops of small bowel in the left mid abdomen measuring up to 3 cm, improving from prior. The redundant sigmoid colon overlying the pelvis is normal in caliber. No unusual soft tissue calcifications are noted. The bones are unremarkable. The visualized lung bases are clear. XR/XR KUB IMPRESSION: Mildly dilated loops of small bowel in the left mid abdomen measuring up to 3 cm, improving from prior. Electronically signed by: Mckenna Cole DO 04/23/2024 09:47 AM [facility] [place]
[2024-04-22 05:18] LABS: MANUAL DIFF FLAG NO
[2024-04-22 05:19] LABS: Basophils Percent Auto 0.5 % (0-2); Eosinophils Absolute Auto 0.3 X10*3/uL (0.0-0.4); Eosinophils Percent Auto 4.3 % (0-4); Hematocrit 38.8 % (42.0-52.0); Hemoglobin 13.5 g/dl (14.0-18.0); Imm Gran Abs Auto 0.01 X10*3/uL (0.00-0.03); Imm Gran Pct Auto 0.1 % (0.0-0.4); Lymphocytes Absolute Auto 2.6 X10*3/uL (1.2-4.9); Lymphocytes Percent Auto 34.7 % (20-40); Mean Corpuscular HGB Conc 34.8 g/dl (31.0-36.0); Mean Corpuscular Hemoglobin 31.7 pg (27.0-33.0); Mean Corpuscular Volume 91.1 fL (80.0-98.0); Mean Platelet Volume 10.4 fL (9.4-12.4); Monocytes Absolute Auto 0.5 X10*3/uL (0.1-1.2); Monocytes Percent Auto 6.7 % (2-11); Neutrophils Percent Auto 53.7 % (45-73); Platelet Count 183 X10*3/uL (160-400); Red Blood Count 4.26 X10*6/uL (4.60-5.80); Red Cell Distribution Width 12.7 % (11.0-16.0); White Blood Count 7.4 X10*3/uL (4.8-10.8)
[2024-04-22 05:21] LABS: Appearance Urine Clear; Color Urine Yellow; Glucose Urine UA Negative (Negative); Leukocyte Esterase Urine Negative (Negative); Nitrite Urine Negative (Negative); Urine Blood Negative (Negative); Urine Ketones Negative (Negative); Urine Protein Negative (Neg-Trace)
[2024-04-22 05:41] LABS: Albumin Level 3.9 g/dL (3.5-5.0); Alkaline Phosphatase 163 U/L (39-117); Anion Gap 13 (12-20); Aspartate Amino Transferase 33 U/L (5-37); Bilirubin Direct 0.1 mg/dL (0.0-0.5); Bilirubin Total 0.3 mg/dL (0.0-1.0); Blood Urea Nitrogen 15 mg/dL (9-16); Calcium 8.6 mg/dL (8.4-10.2); Carbon Dioxide 23 mmol/L (22-29); Chloride 106 mmol/L (96-108); Creatinine Clr Calc Pharmacy 55.2; Estimated Glomerular Filt Rate > 60; Glucose Random 121 mg/dL (60-115); Lipase 49 U/L (8-78); Potassium 4.3 mmol/L (3.3-5.1); Sodium 138 mmol/L (135-145); Total Protein 7.4 g/dL (6.5-8.0); Troponin-I High Sensitivity < 2.7 ng/L (<3.5-35.0)
[2024-04-22 05:59] LABS: Alanine Aminotransferase 41 U/L (0-40)
--- NOTE | 2024-04-22 09:51 | ED_ITS ---
HPI - Abdominal Pain General Chief Complaint: Abdominal Pain Stated Complaint: abd pain Time Seen by Provider: 04/22/24 09:47 Source: patient Limitations: no limitations History of Present Illness HPI narrative: This is a 74 years old male presented to the emergency department with a chief complaint of abdominal pain pain is localized in the upper abdomen without any radiation pain started yesterday. Patient as history of left nephrectomy in the past, he has history of CAD MD elicited complaint: abdominal pain Pertinent past history: myocardial infarction Onset (ago): day(s) (1) Pain Consistency: constant Location: periumbilical Severity: moderate Quality: aching Exacerbating factors: nothing Relieving factors: nothing Associated symptoms: denies other symptoms Related Data Home Medications ?Medication ?Instructions ?Recorded ?Confirmed carbamazepine 100 mg chewable 300 mg PO BID 04/13/20 01/01/24 tablet citalopram 40 mg tablet 40 mg PO DAILY 04/13/20 01/01/24 clonazepam 1 mg tablet 1 mg PO TID 04/13/20 01/01/24 quetiapine 100 mg tablet 100 mg PO BEDTIME 04/13/20 01/01/24 phenytoin sodium extended 100 mg 200 mg PO BID 04/06/22 01/01/24 capsule nitroglycerin 0.4 mg sublingual 0.4 mg sublingual DAILY 02/18/24 tablet tramadol 50 mg tablet 50 mg PO Q8H PRN Pain 02/18/24 Previous Rx's ?Medication ?Instructions ?Recorded fluticasone furoate 50 1 inh inhalation DAILY 30 days #30 07/03/23 mcg/actuation blister powder for ea inhalation (Arnuity Ellipta) albuterol sulfate 2.5 mg/3 mL 2.5 mg (3 mL) inhalation Q6H PRN 10/05/23 (0.083 %) solution for nebulization shortness of breath or wheezing 30 days #180 mL atorvastatin 80 mg tablet 80 mg PO BEDTIME #90 tabs 10/08/23 cholecalciferol (vitamin D3) 25 25 mcg PO DAILY 90 days #90 caps 01/09/24 mcg (1,000 unit) capsule clopidogrel 75 mg tablet 75 mg PO DAILY #90 tabs 01/09/24 ezetimibe 10 mg tablet 10 mg PO DAILY 90 days #90 tabs 01/09/24 metoprolol succinate 25 mg 25 mg PO DAILY 90 days #90 tabs 04/03/24 tablet,extended release 24 hr alfuzosin 10 mg tablet,extended 10 mg PO DAILY 90 days #90 tabs 04/17/24 release 24 hr sennosides 8.6 mg-docusate sodium 1 tab-cap PO BID #180 tabs 04/17/24 50 mg tablet (Senexon-S) Allergies Allergy/AdvReac Type Severity Reaction Status Date / Time aspirin [ASPIRIN] Allergy Intermediate ITCHING Verified 04/22/24 05:00 fish oil Allergy Intermediate itchiness Verified 04/22/24 05:00 shellfish derived Allergy Mild Swelling Verified 04/22/24 05:00 Review of Systems Eyes: Reports no additional eye complaints Cardiovascular: Reports no additional cardiovascular complaints Reports system reviewed and no additional complaints, except as documented PMFSH Past Medical History Attestation statement: The following information was validated with the patient. Medical History Hearing loss Encounter for Medicare annual wellness exam Cardiac arrest due to underlying cardiac condition Solitary kidney, acquired Mild recurrent major depression Cough BPH (benign prostatic hyperplasia) CAD (coronary artery disease) Lower back pain Asthma Hypertension Seizures Heart attack Afib High cholesterol Surgical History History of left nephrectomy History of colonoscopy H/O heart artery stent Family History Family History Father No problems noted. Mother Cancer Diabetes Social History Social History Housing: House Alcohol intake: former Patient Tobacco Use Status: Never used Tobacco Tobacco use type: Cigarette Smoked in Last 30 Days: No e-Cigarette/Vaping Use: Never Used Second Hand Smoke Exposure: No Use of substances other than those prescribed or required for medical reasons: No Advance Directives: No Advance Directives Information Provided: Yes Do you have a plan to hurt others: No Plan service: No Current occupational status: retired Cognitive needs: No Hearing needs: Yes Vision needs: Yes Physical Exam ED Vital Signs: Vital Signs - 24 hr 04/22/24 04:59 04/22/24 07:21 04/22/24 10:16 Temperature 97.3 F 97.7 F 98.8 F Pulse Rate 61 62 60 Respiratory Rate 20 18 18 Blood Pressure 122/63 139/66 120/64 Pulse Oximetry 97 98 96 Oxygen Delivery Method Room Air Room Air Room Air 04/22/24 10:17 04/22/24 14:21 04/22/24 14:22 Temperature Pulse Rate 68 Respiratory Rate 19 16 16 Blood Pressure 135/73 Pulse Oximetry 95 Oxygen Delivery Method Room Air BMI result Body Mass Index 33.4 Const General: cooperative, well developed and alert Nutritional Appearance: average body habitus Orientation/consciousness: patient oriented x3 Limitations: no limitations HENMT Head: Yes normal to inspection General nose exam: Normal external nose present Face and sinus: Yes normal facial exam Mouth: Normal oral and palatal mucosa present Neck Neck: Yes normal visual inspection Chest Chest palpation & inspection: normal inspection of the chest Resp Effort & Inspection: normal respiratory effort Auscultation: clear to auscultation bilaterally Cardio Jugular venous distension: no JVD Rate: regular rate Rhythm: regular rhythm GI Inspection: Yes normal to inspection Palpation (GI): Soft to palpation and Tenderness to palpation present (GI) Auscultation: normal bowel sounds Skin General skin exam: no rashes or lesions noted Lesions: no lesions Rashes: no rashes Neuro General: patient oriented x3 Cranial nerves: Yes CN's II-XII intact bilaterally Course Reevaluation(s) Reevaluation #1: WORKUP SHOWED SMALL BOWEL OBSTRUCTION, CASE WAS DISCUSSED WITH SURGERY PATIENT WILL BE ADMITTED TO THE SURGICAL SERVICE Time: 15:31 Medical Decision Making Medical Decision Making [facility] Narrative: he presented complaining of abdominal pain, will obtain labs CT provide analgesia Differential Diagnosis Differential Diagnoses: The differential diagnosis associated with the presentation includes Acute pancreatitis/small bowel obstruction/colitis/diverticulitis Admission/Observation Consideration of admission/observation: Escalation of care including admission/observation considered Consult Healthcare Provider Management of the patient was discussed with: Physics Instructor dR CASTILLO Lab Data [facility] Lab Attestation statement: I reviewed the patient's lab results. 04/22/24 05:13 04/22/24 05:13 Labs: Lab Results 04/22/24 Range/Units 05:13 WBC 7.4 (4.8-10.8) X10*3/uL RBC 4.26 L (4.60-5.80) X10*6/uL Hgb 13.5 L (14.0-18.0) g/dl Hct 38.8 L (42.0-52.0) % MCV 91.1 (80.0-98.0) fL MCH 31.7 (27.0-33.0) pg MCHC 34.8 (31.0-36.0) g/dl RDW 12.7 (11.0-16.0) % Plt Count 183 (160-400) X10*3/uL MPV 10.4 (9.4-12.4) fL Immature Gran % (Auto) 0.1 (0.0-0.4) % Neut % (Auto) 53.7 (45-73) % Lymph % (Auto) 34.7 (20-40) % [place] % (Auto) 6.7 (2-11) % Eos % (Auto) 4.3 H (0-4) % Baso % (Auto) 0.5 (0-2) % Lymph # (Auto) 2.6 (1.2-4.9) X10*3/uL [place] # (Auto) 0.5 (0.1-1.2) X10*3/uL Eos # (Auto) 0.3 (0.0-0.4) X10*3/uL Baso # (Auto) 0.0 (0.0-0.2) X10*3/uL Abs Immat Gran (auto) 0.01 (0.00-0.03) X10*3/uL Absolute Neuts (auto) 4.0 (2.0-8.3) x10*3/uL Absolute Nucleated RBC 0.000 (0.0-0.012) X10*3/uL Nucleated RBC % (auto) 0.0 (0.0-0.2) /100WBC Sodium 138 (135-145) mmol/L Potassium 4.3 D (3.3-5.1) mmol/L Chloride 106 (96-108) mmol/L Carbon Dioxide 23 (22-29) mmol/L Anion Gap 13 (12-20) BUN 15 (9-16) mg/dL Creatinine 1.18 (0.5-1.4) mg/dL Estim Creat Clear Calc 55.2 Estimated GFR > 60 Random Glucose 121 H (60-115) mg/dL Calcium 8.6 D (8.4-10.2) mg/dL Total Bilirubin 0.3 (0.0-1.0) mg/dL Direct Bilirubin 0.1 (0.0-0.5) mg/dL AST 33 (5-37) U/L ALT 41 H (0-40) U/L Alkaline Phosphatase 163 H (39-117) U/L Troponin I High Sens < 2.7 (<3.5-35.0) ng/L Total Protein 7.4 (6.5-8.0) g/dL Albumin 3.9 (3.5-5.0) g/dL Lipase 49 (8-78) U/L Urine Color Yellow Urine Appearance Clear Urine pH 6.0 (5.0-9.0) Ur Specific [place] 1.020 (1.005-1.025) Urine Protein Negative (Neg-Trace) mg/dL Urine Glucose (UA) Negative (Negative) mg/dL Urine Ketones Negative (Negative) mg/dL Urine Blood Negative (Negative) Urine Nitrite Negative (Negative) Ur Leukocyte Esterase Negative (Negative) Independent Interpretation I performed an independent interpretation of an: CT Scan Interpretation: CT WAS REVIEWED INTERPRETED BY ME SBO Radiology Impression Discussion of test interpretation with radiology: I have reviewed the radiologist's reading. External Record Review External record reviewed: Inpatient record Prescription Management I considered prescription management with: Pain Medication Medications Administered Discontinued Medications Generic Name Dose Route Start Last Admin Trade Name Christoph PRN Reason Stop Dose Admin Fentanyl 50 mcg 04/22/24 09:54 04/22/24 10:17 Fentanyl Citrate/Pf 100 Mcg/2 Ml Vial IVPUSH 04/22/24 09:55 50 mcg ONCE ONE Administration Protocol Hydromorphone HCl 0.5 mg 04/22/24 14:12 04/22/24 14:22 Hydromorphone Hcl 0.5 Mg/0.5 Ml Syringe IVPUSH 04/22/24 14:13 0.5 mg ONCE ONE Administration Protocol Sodium Chloride 1,000 mls @ 999 mls/hr 04/22/24 10:00 04/22/24 11:11 Ns IVCONT 04/22/24 11:00 Infused .Q1H1M KATIE Infusion Iohexol 85 ml 04/22/24 10:31 04/22/24 10:31 Iohexol 350 Mg/Ml 100 Ml Infus..Btl IV 04/22/24 10:32 85 ml ONCE ONE Administration Ondansetron HCl 4 mg 04/22/24 09:54 04/22/24 10:17 Ondansetron Hcl 4 Mg/2 Ml Vial IVPUSH 04/22/24 09:55 4 mg ONCE ONE Administration Discharge Plan Discharge Clinical Impression: SBO (small bowel obstruction) Patient Disposition: Admitted As Inpatient Print Language: Eritrean
--- NOTE | 2024-04-22 10:07 | PC.NURSE ---
20G to L wrist. Tolerated well
[2024-04-22] MEDS: 0.9 % Sodium Chloride 1,000 ML 999 ML IVCONT ×2 (10:09→15:35)
[2024-04-22] MEDS: fentaNYL citrate/PF 100 MCG/2 ML VIAL 50 MCG IVPUSH (10:17)
[2024-04-22] MEDS: ondansetron HCL 4 MG/2 ML VIAL IVPUSH ×2 (10:17→19:39)
[2024-04-22] MEDS: iohexoL 350 MG/ML 100 ML INFUS..BTL 85 ML IV (10:31)
[2024-04-22] MEDS: HYDROmorphone HCl 0.5 MG/0.5 ML SYRINGE IVPUSH (14:22)
--- NOTE | 2024-04-22 15:38 | PM.HPGS ---
History of Present Illness History of Present Illness Date of Service: 04/24/24 Chief complaint: partial small bowel obstruction Narrative: Domingo Francis is a 74 year old male here in the ER for abdominal pain. He says that this started around after dinner last night. He describes this as all over his abdomen bowels mostly on the left side. He denies any vomiting He says he had a bowel movement yesterday and does not recall having flatus or bowel movements today Review of his records show that he had been admitted in 2018 for a similar episode. At that time, he had high-grade small-bowel obstruction and had an NG tube placed. He was discharged after 2 days. He is only abdominal surgery is for left nephrectomy for kidney stones about 15 years ago. This was apparently done as a transabdominal approach. He had a history of an OK more than 10 years ago and had stenting at that time. He has been on Plavix since then. Review of Systems Constitutional: Constitutional: Denies chills and Denies fever(s) Cardiovascular: Cardiovascular: Denies chest pain, Denies dyspnea and Denies dyspnea on exertion Respiratory: Respiratory: Denies cough, Denies dyspnea and Denies dyspnea on exertion Gastrointestinal: Gastrointestinal: Denies hematochezia and Denies change in bowel habits Genitourinary: Genitourinary: Denies hematuria and Denies difficulty urinating Musculoskeletal: Musculoskeletal: Denies back pain and Denies limited range of motion Neurologic: Denies focal weakness and Denies convulsions Psychiatric: Psychiatric: Denies depression and Denies mood swings PMFSH Past Medical History Medical History Partial small bowel obstruction Hearing loss Encounter for Medicare annual wellness exam Cardiac arrest due to underlying cardiac condition Solitary kidney, acquired Mild recurrent major depression Cough BPH (benign prostatic hyperplasia) CAD (coronary artery disease) Lower back pain Asthma Hypertension Seizures Heart attack Afib High cholesterol Family History Family History Father No problems noted. Mother Cancer Diabetes Surgical History Surgical History History of left nephrectomy History of colonoscopy H/O heart artery stent Social History Social History Household Members: Spouse and Children Housing: Apartment Do you presently have visiting nurse or other home services: No Alcohol intake: former Patient Tobacco Use Status: Never used Tobacco Tobacco use type: Cigarette e-Cigarette/Vaping Use: Never Used Second Hand Smoke Exposure: No service: No Current occupational status: retired Cognitive needs: No Hearing needs: Yes Vision needs: Yes Meds Allergies Allergy/AdvReac Type Severity Reaction Status Date / Time aspirin [ASPIRIN] Allergy Intermediate ITCHING Verified 04/22/24 05:00 fish oil Allergy Intermediate itchiness Verified 04/22/24 05:00 shellfish derived Allergy Mild Swelling Verified 04/22/24 05:00 Active Medications: Current Medications Sodium Chloride (Ns) 1,000 mls @ 999 mls/hr IVCONT .Q1H1M KATIE Stop: 04/22/24 16:30 Last Admin: 04/22/24 15:35 Dose: 999 mls/hr Home Medications ?Medication ?Instructions ?Recorded ?Confirmed ?Last Taken ?Type carbamazepine 100 mg chewable 300 mg PO BID 04/13/20 04/22/24 04/21/24 History tablet citalopram 40 mg tablet 40 mg PO DAILY 04/13/20 04/22/24 04/21/24 History clonazepam 1 mg tablet 1 mg PO TID 04/13/20 04/22/24 04/21/24 History quetiapine 100 mg tablet 100 mg PO BEDTIME 04/13/20 04/22/24 04/21/24 History phenytoin sodium extended 100 mg 200 mg PO BID 04/06/22 04/22/24 04/21/24 History capsule nitroglycerin 0.4 mg sublingual 0.4 - 0.8 mg sublingual DAILY PRN 02/18/24 04/22/24 04/21/24 History tablet Chest Pain tramadol 50 mg tablet 50 mg PO Q8H PRN Pain 02/18/24 04/22/24 04/21/24 History Physical Exam Vital Signs: Vital Signs: Last Vital Signs Temp 98.8 F 04/22/24 10:16 Pulse 68 04/22/24 14:21 Resp 16 04/22/24 14:22 BP 135/73 04/22/24 14:21 Pulse Ox 95 04/22/24 14:21 O2 Del Method Room Air 04/22/24 14:21 BMI result Body Mass Index 33.4 Const: General: comfortable and no acute distress Orientation/consciousness: patient oriented x3 Neck: Neck: Yes no lymphadenopathy Resp: Auscultation: clear to auscultation bilaterally Cardio: Rhythm: regular rhythm GI: Other: Some [id number] tenderness diffusely, mostly on the left side, with no guarding or rebound Palpation (GI): Soft to palpation, Tenderness to palpation present (GI) and no guarding Neuro: General: patient oriented x3 Results Results Labs: Short CBC 04/22/24 Range/Units 05:13 WBC 7.4 (4.8-10.8) X10*3/uL Hgb 13.5 L (14.0-18.0) g/dl Hct 38.8 L (42.0-52.0) % Plt Count 183 (160-400) X10*3/uL BMP 04/22/24 05:13 Sodium 138 Potassium 4.3 D Chloride 106 Carbon Dioxide 23 BUN 15 Creatinine 1.18 Calcium 8.6 D Liver Function 04/22/24 Range/Units 05:13 Total Bilirubin 0.3 (0.0-1.0) mg/dL Direct Bilirubin 0.1 (0.0-0.5) mg/dL AST 33 (5-37) U/L ALT 41 H (0-40) U/L Alkaline Phosphatase 163 H (39-117) U/L Albumin 3.9 (3.5-5.0) g/dL Urine 04/22/24 Range/Units 05:13 Urine Color Yellow Urine Appearance Clear Urine pH 6.0 (5.0-9.0) Ur Specific [place] 1.020 (1.005-1.025) Urine Protein Negative (Neg-Trace) mg/dL Urine Glucose (UA) Negative (Negative) mg/dL Assessment and Plan (1) Partial small bowel obstruction: Status: Acute He has had abdominal pain since last night. His CAT scan shows what appears to be a high-grade small-bowel obstruction on the left lower abdomen. He had a history of left nephrectomy via transabdominal approach in the past He has had similar episodes of this. He was admitted by Dr. Albrecht in 2018 and had an NG tube placed at that time but his symptoms had resolved quickly. I will admit him because of this CT scan findings of partial small-bowel obstruction. He will be kept NPO. I will hold off on an NG tube placement as he has had no vomiting. His abdominal exam is otherwise benign. I repeat a KUB tomorrow. His Plavix should be held in case he will require surgery. I will therefore consult the hospitalist service in view of his history of coronary disease His exam is otherwise benign. He is hemodynamically stable. His family was with him during the discussion. Quality Stroke Does the patient have a stroke diagnosis?: No VTE Prior VTE?: No VTE Risk Level:: Medical - moderate - high VTE Device Contraindication: N/A - Device Ordered VTE Drug Contraindication: N/A - Med Ordered Procedures Date of Service Date of Service: 04/24/24
[2024-04-22] MEDS: Lactated Ringers 1,000 ML 100 ML IVCONT (16:47)
[2024-04-22] MEDS: Phenytoin Sodium Extended 100 MG CAPSULE 200 MG PO ×2 (16:47→22:54)
--- NOTE | 2024-04-22 16:52 | PHA.MEDREC ---
Addendum entered by Chyna Walsh [facility] 04/22/24 18:13: Med rec reviewed by this [facility]. Addendum entered by Chinedu Miller 04/22/24 17:53: Went and confirmed Nitroglycerin 0.4mg tabs and the confirmed the patient is taking 1-2 tabs daily as needed for his chest pain and states he does not take more then 2 tablets or they know to take him to the hospital. Addendum entered by Lynne Maza [facility] 04/22/24 17:05: reviewed by [facility]. Original Note: Pharmacy Consult ? Medication Reconciliation Pharmacy has completed the medication reconciliation. Spoke with patient and daughter at bedside and patient daughter was able to translate. Patient confirmed his medications by reading down my list and confirmed that her husbands stopped the Clopidogrel 75mg tab today and states he is no longer taking the Fluticasone Furoate. They were able to confirm the patient last took his medications yesterday.
--- NOTE | 2024-04-22 17:56 | PM.IMCN ---
History of Present Illness Data of Consult Service Date: 04/22/24 Primary Care Provider: Deidre Zepeda MD HPI Reason for consult: abd pain 74M PMH epilepsy, CAD, hld, bph, pafib, mild intermittent asthma, s/p left nephrectomy, presented with abd pain. started about 1 day ptp, left sided, no vomiting, in ED CT showed SBO. admitted to surgical service. medical consult requested to manage comorbidities. Review of Systems Review of Systems: Yes all other systems are reviewed and are negative [facility], [facility] Medical History Partial small bowel obstruction Hearing loss Encounter for Medicare annual wellness exam Cardiac arrest due to underlying cardiac condition Solitary kidney, acquired Mild recurrent major depression Cough BPH (benign prostatic hyperplasia) CAD (coronary artery disease) Lower back pain Asthma Hypertension Seizures Heart attack Afib High cholesterol Family History Father No problems noted. Mother Cancer Diabetes Surgical History History of left nephrectomy History of colonoscopy H/O heart artery stent Social History Housing: House Alcohol intake: former Patient Tobacco Use Status: Never used Tobacco Tobacco use type: Cigarette Smoked in Last 30 Days: No e-Cigarette/Vaping Use: Never Used Second Hand Smoke Exposure: No Use of substances other than those prescribed or required for medical reasons: No Advance Directives: No Advance Directives Information Provided: Yes Do you have a plan to hurt others: No Plan service: No Current occupational status: retired Cognitive needs: No Hearing needs: Yes Vision needs: Yes Meds Allergies Allergy/AdvReac Type Severity Reaction Status Date / Time aspirin [ASPIRIN] Allergy Intermediate ITCHING Verified 04/22/24 05:00 fish oil Allergy Intermediate itchiness Verified 04/22/24 05:00 shellfish derived Allergy Mild Swelling Verified 04/22/24 05:00 Active Medications: Current Medications Acetaminophen (Acetaminophen 325 Mg Tablet) 650 mg PO Q6H PRN PRN Reason: Pain, Mild (Pain Scale 1-3), fever or headache Heparin Sodium (Porcine) (Heparin Sodium,Porcine 5,000 Unit/Ml Vial) 5,000 unit SUBCUT Q8H [facility] Lactated Ringer's (Lr) 1,000 mls @ 100 mls/hr IVCONT .Q10H [facility] Last Admin: 04/22/24 16:47 Dose: 100 mls/hr Metoprolol Succinate (Metoprolol Succinate Er 25 Mg Tab.Er.24h) 25 mg PO DAILY [facility]; Protocol Morphine Sulfate (Morphine Sulfate 4 Mg/Ml Cartridge) 3 mg IVPUSH Q4H PRN; Protocol PRN Reason: Pain, Severe (Pain Scale 7-10) Ondansetron HCl (Ondansetron Hcl 4 Mg/2 Ml Vial) 4 mg IVPUSH Q8H PRN PRN Reason: Nausea and Vomiting Phenytoin Sodium (Phenytoin Sodium Extended 100 Mg Capsule) 200 mg PO BID [facility] Last Admin: 04/22/24 16:47 Dose: 200 mg Sodium Chloride (0.9 % Sodium Chloride Flush 3 Ml Syringe) 3 ml IVFLUSH QSHIFT [facility] Last Admin: 04/22/24 17:00 Dose: Not Given Home Medications ?Medication ?Instructions ?Recorded ?Confirmed ?Last Taken ?Type carbamazepine 100 mg chewable 300 mg PO BID 04/13/20 04/22/24 04/21/24 History tablet citalopram 40 mg tablet 40 mg PO DAILY 04/13/20 04/22/24 04/21/24 History clonazepam 1 mg tablet 1 mg PO TID 04/13/20 04/22/24 04/21/24 History quetiapine 100 mg tablet 100 mg PO BEDTIME 04/13/20 04/22/24 04/21/24 History phenytoin sodium extended 100 mg 200 mg PO BID 04/06/22 04/22/24 04/21/24 History capsule nitroglycerin 0.4 mg sublingual 0.4 - 0.8 mg sublingual DAILY PRN 02/18/24 04/22/24 04/21/24 History tablet Chest Pain tramadol 50 mg tablet 50 mg PO Q8H PRN Pain 02/18/24 04/22/24 04/21/24 History Physical Exam Vital Signs and Narrative: Vital Signs: Last Vital Signs Temp 98.8 F 04/22/24 10:16 Pulse 68 04/22/24 14:21 Resp 16 04/22/24 14:22 BP 135/73 04/22/24 14:21 Pulse Ox 95 04/22/24 14:21 O2 Del Method Room Air 04/22/24 14:21 BMI result Body Mass Index 33.4 General: AO X 3, no acute distress Resp: CTA bilateral, no accessory muscles used CVS: S1,S2,RRR GI: soft, distended Neuro: motor grossly intact, alert Psych: appropriate affect, appropriate insight Results Labs 04/22/24 05:13 04/22/24 05:13 Labs: Laboratory Results - last 24 hr 04/22/24 04/22/24 05:13 17:44 MCV 91.1 MCH 31.7 MCHC 34.8 RDW 12.7 Plt Count 183 MPV 10.4 Immature Gran % (Auto) 0.1 Neut % (Auto) 53.7 Lymph % (Auto) 34.7 [place] % (Auto) 6.7 Eos % (Auto) 4.3 H Baso % (Auto) 0.5 Lymph # (Auto) 2.6 [place] # (Auto) 0.5 Eos # (Auto) 0.3 Baso # (Auto) 0.0 Abs Immat Gran (auto) 0.01 Absolute Neuts (auto) 4.0 Absolute Nucleated RBC 0.000 Nucleated RBC % (auto) 0.0 Hold Purple Top SEE NOTE Anion Gap 13 Estim Creat Clear Calc 55.2 Estimated GFR > 60 Random Glucose 121 H Calcium 8.6 D Total Bilirubin 0.3 Direct Bilirubin 0.1 AST 33 ALT 41 H Alkaline Phosphatase 163 H Troponin I High Sens < 2.7 Total Protein 7.4 Albumin 3.9 Lipase 49 Hold Yellow Top See Note Urine Color Yellow Urine Appearance Clear Urine pH 6.0 Ur Specific [place] 1.020 Urine Protein Negative Urine Glucose (UA) Negative Urine Ketones Negative Urine Blood Negative Urine Nitrite Negative Ur Leukocyte Esterase Negative Imaging Radiologist's Impressions: Impressions Abdomen/Pelvis CT 04/22/24 10:25 IMPRESSION: 1. Recurrent High-grade small bowel obstruction with transition point in the left mid to lower abdomen. 2. Other incidental findings as described above including a stable rim calcified mass in the left lower quadrant, absent left kidney, Paget's disease right iliac bone and mild BPH. Fleischner guidelines were followed. Electronically signed by: Luis Manuel Valdes MD 04/22/2024 02:52 PM [facility] [place] and Plan (1) CAD (coronary artery disease): Qualifiers: Associated angina: angina presence unspecified Coronary Disease-Associated Artery/Lesion type: [place] artery [place] vs. transplanted heart: [place] heart Qualified Code(s): I25.10 - Atherosclerotic heart disease of [place] coronary artery without angina pectoris Status: Acute Plan 74M PMH epilepsy, CAD, hld, bph, pafib, mild intermittent asthma, s/p left nephrectomy, presented with abd pain found to have SBO SBO management per surgery CAD holding antiplatelet continue statin epilepsy carbamazepime, phenytoin bph alpha judith pafib metoprolol mild intermittent asthma albuterol prn dvt prophylaxis - hep sq full code
[2024-04-22 19:02] LABS: Phenytoin Dilantin 7.5 ug/mL (10.0-20.0)
[2024-04-22] MEDS: Morphine Sulfate 4 MG/ML CARTRIDGE 3 MG IVPUSH ×2 (19:39→22:55)
[2024-04-22] MEDS: Atorvastatin Calcium 80 MG TABLET PO (22:54)
[2024-04-22] MEDS: QUEtiapine Fumarate 100 MG TABLET PO (22:55)
[2024-04-22] MEDS: carBAMazepine 100 MG TAB.CHEW 300 MG PO (22:55)
[2024-04-22] MEDS: clonazePAM 1 MG TABLET PO (22:55)
[2024-04-22] MEDS: 0.9 % Sodium Chloride Flush 3 ML SYRINGE IVFLUSH (22:56)
[2024-04-23] MEDS: Lactated Ringers 1,000 ML 100 ML IVCONT ×3 (02:30→19:33)
[2024-04-23 04:00] VITALS: BP 102/54; PULSE 71; RESP 16; TEMP 37.1; O2SAT 91
[2024-04-23 06:17] LABS: Hematocrit 40.3 % (42.0-52.0); Hemoglobin 13.4 g/dl (14.0-18.0); Mean Corpuscular HGB Conc 33.3 g/dl (31.0-36.0); Mean Corpuscular Hemoglobin 32.1 pg (27.0-33.0); Mean Corpuscular Volume 96.6 fL (80.0-98.0); Mean Platelet Volume 10.9 fL (9.4-12.4); Platelet Count 179 X10*3/uL (160-400); Red Blood Count 4.17 X10*6/uL (4.60-5.80); White Blood Count 9.4 X10*3/uL (4.8-10.8)
[2024-04-23 06:32] LABS: Anion Gap 13 (12-20); Blood Urea Nitrogen 10 mg/dL (9-16); Calcium 9.1 mg/dL (8.4-10.2); Carbon Dioxide 25 mmol/L (22-29); Chloride 106 mmol/L (96-108); Creatinine Clr Calc Pharmacy 67.1; Estimated Glomerular Filt Rate > 60; Glucose Random 128 mg/dL (60-115); Potassium 4.4 mmol/L (3.3-5.1); Sodium 140 mmol/L (135-145)
[2024-04-23 07:00] VITALS: BP 114/59; PULSE 71; RESP 16; TEMP 37; O2SAT 92
--- NOTE | 2024-04-23 08:19 | PM.PNGS ---
Subjective Subjective Date of Service: 04/23/24 <Mary Robles PA-C - Last Filed: 04/23/24 08:21> 04/23/24 <John Rao MD - Last Filed: 04/23/24 08:35> Interval history: Feels improved this morning. No further nausea, vomiting, abd pain. Passing flatus. Feels hungry. <Mary Robles PA-C - Last Filed: 04/23/24 08:21> Physical Exam Vital Signs: Vital Signs: Last Vital Signs Temp 98.6 F 04/23/24 07:00 Pulse 71 04/23/24 07:00 Resp 16 04/23/24 07:00 BP 114/59 L 04/23/24 07:00 Pulse Ox 92 04/23/24 07:00 O2 Del Method Room Air 04/23/24 07:00 BMI result Body Mass Index 33.4 <Mary Robles PA-C - Last Filed: 04/23/24 08:21> Const: General: comfortable, no acute distress and alert <Mary Robles PA-C - Last Filed: 04/23/24 08:21> Orientation/consciousness: patient oriented x3 <MATTHEW Robles Last Filed: 04/23/24 08:21> Resp: Effort & Inspection: normal respiratory effort <MATTHEW Robles Last Filed: 04/23/24 08:21> GI: Inspection: Yes distended (softly) <Mary Robles PA-C - Last Filed: 04/23/24 08:21> Palpation (GI): Soft to palpation, nontender and no guarding <Mary Robles PA-C - Last Filed: 04/23/24 08:21> Skin: General skin exam: no rashes or lesions noted <AMTTHEW Robles Last Filed: 04/23/24 08:21> Neuro: General: patient oriented x3 and moves all extremities <MATTHEW Robles Last Filed: 04/23/24 08:21> Objective Data Active Medications Acetaminophen (Acetaminophen 325 Mg Tablet) 650 mg PO Q6H PRN PRN Reason: Pain, Mild (Pain Scale 1-3), fever or headache Albuterol Sulfate (Albuterol Sulfate (0.083%) 2.5 Mg/3 Ml Vial.Neb) 2.5 mg INHALE Q6H PRN PRN Reason: shortness of breath or wheezing Atorvastatin Calcium (Atorvastatin Calcium 80 Mg Tablet) 80 mg PO BEDTIME [facility] Last Admin: 04/22/24 22:54 Dose: 80 mg Documented By: SAIRA Carbamazepine (Carbamazepine 100 Mg Tab.Chew) 300 mg PO BID [facility] Last Admin: 04/22/24 22:55 Dose: 300 mg Documented By: SAIRA Clonazepam (Clonazepam 1 Mg Tablet) 1 mg PO TID [facility] Last Admin: 04/22/24 22:55 Dose: 1 mg Documented By: SAIRA Ezetimibe (Ezetimibe 10 Mg Tablet) 10 mg PO DAILY [facility] Escitalopram Oxalate (Escitalopram Oxalate 20 Mg Tablet) 20 mg PO DAILY [facility] Heparin Sodium (Porcine) (Heparin Sodium,Porcine 5,000 Unit/Ml Vial) 5,000 unit SUBCUT Q8H [facility] Lactated Ringer's (Lr) 1,000 mls @ 100 mls/hr IVCONT .Q10H [facility] Last Admin: 04/23/24 02:30 Dose: 100 mls/hr Documented By: SAIRA Metoprolol Succinate (Metoprolol Succinate Er 25 Mg Tab.Er.24h) 25 mg PO DAILY [facility]; Protocol Morphine Sulfate (Morphine Sulfate 4 Mg/Ml Cartridge) 3 mg IVPUSH Q4H PRN; Protocol PRN Reason: Pain, Severe (Pain Scale 7-10) Last Admin: 04/22/24 22:55 Dose: 3 mg Documented By: SAIRA Ondansetron HCl (Ondansetron Hcl 4 Mg/2 Ml Vial) 4 mg IVPUSH Q8H PRN PRN Reason: Nausea and Vomiting Last Admin: 04/22/24 19:39 Dose: 4 mg Documented By: RENETTA Phenytoin Sodium (Phenytoin Sodium Extended 100 Mg Capsule) 200 mg PO BID [facility] Last Admin: 04/22/24 22:54 Dose: 200 mg Documented By: SAIRA Quetiapine Fumarate (Quetiapine Fumarate 100 Mg Tablet) 100 mg PO BEDTIME [facility] Last Admin: 04/22/24 22:55 Dose: 100 mg Documented By: SAIRA Sodium Chloride (0.9 % Sodium Chloride Flush 3 Ml Syringe) 3 ml IVFLUSH QSHIFT [facility] Last Admin: 04/23/24 07:17 Dose: Not Given Documented By: EMETERIO Non-Admin Reason: Previously Administered Tamsulosin HCl (Tamsulosin Hcl 0.4 Mg Capsule) 0.4 mg PO DAILY [facility] Vitamin D (Cholecalciferol (Vitamin D3) 25 Mcg Tablet) 25 mcg PO DAILY [facility] <Mary Robles PA-C - Last Filed: 04/23/24 08:21> Labs CBC & Chem 7: 04/23/24 05:46 04/23/24 05:45 <Mary Robles PA-C - Last Filed: 04/23/24 08:21> Labs: Laboratory Results - last 24 hr 04/22/24 04/23/24 04/23/24 17:44 05:45 05:46 MCV 96.6 D MCH 32.1 MCHC 33.3 RDW 13.0 Plt Count 179 MPV 10.9 Absolute Nucleated RBC 0.000 Nucleated RBC % (auto) 0.0 Hold Purple Top SEE NOTE Anion Gap 13 Estim Creat Clear Calc 67.1 Estimated GFR > 60 Random Glucose 128 H Calcium 9.1 Hold Yellow Top See Note Phenytoin 7.5 L* <Mary Robles PA-C - Last Filed: 04/23/24 08:21> Procedures Date of Service Date of Service: 04/23/24 <Mary Robles PA-C - Last Filed: 04/23/24 08:21> 04/23/24 <John Rao MD - Last Filed: 04/23/24 08:35> Progress Note: A&P Assessment and plan (1) Partial small bowel obstruction: Status: Acute <Mary Robles PA-C - Last Filed: 04/23/24 08:21> Assessment and Plan: Feels much better this morning Says he is passing flatus Abdomen is soft and benign Looks well and comfortable Okay to have clear liquids and advance as tolerated Seen and examined independently <John Rao MD - Last Filed: 04/23/24 08:35> Assessment and Plan: Improved with supportive measures. Abd benign, soft and nontender. Will advance to clear liquids and then further as tolerated. Encouraged to ambulate. Home when tolerating solid diet. <Mary Robles PA-C - Last Filed: 04/23/24 08:21> Time Spent With Patient Time: Total time managing care of this patient today ____ minutes. <Mary Robles PA-C - Last Filed: 04/23/24 08:21> Quality Stroke Does the patient have a stroke diagnosis?: No <Mary Robles PA-C - Last Filed: 04/23/24 08:21> VTE Prior VTE?: No <Mary Robles PA-C - Last Filed: 04/23/24 08:21> VTE Risk Level:: Medical - moderate - high <Mary Robles PA-C - Last Filed: 04/23/24 08:21> VTE Device Contraindication: N/A - Device Ordered <MATTHEW Robles Last Filed: 04/23/24 08:21> VTE Drug Contraindication: N/A - Med Ordered <Mary Robles PA-C - Last Filed: 04/23/24 08:21>
[2024-04-23] MEDS: carBAMazepine 100 MG TAB.CHEW 300 MG PO ×2 (09:22→21:22)
[2024-04-23] MEDS: Phenytoin Sodium Extended 100 MG CAPSULE 200 MG PO ×2 (09:22→21:22)
[2024-04-23] MEDS: Ezetimibe 10 MG TABLET PO (09:22)
[2024-04-23] MEDS: Metoprolol Succinate ER 25 MG TAB.ER.24H PO (09:23)
[2024-04-23] MEDS: Heparin Sodium,Porcine 5,000 UNIT/ML VIAL 5000 UNIT SUBCUT ×2 (09:23→17:45)
[2024-04-23] MEDS: Cholecalciferol (Vitamin D3) 25 MCG TABLET PO (09:23)
[2024-04-23] MEDS: clonazePAM 1 MG TABLET PO ×3 (09:23→21:22)
[2024-04-23] MEDS: Tamsulosin HCL 0.4 MG CAPSULE PO (09:23)
[2024-04-23] MEDS: Escitalopram Oxalate 20 MG TABLET PO (09:23)
--- NOTE | 2024-04-23 12:53 | MHC.CM.PN ---
IMM DELIVERED CM MET WITH PT AND FAMILY WITH [employer]. PT LIVES WITH SPOUSE/FAMILY. INDEPENDENT WITH MOBILITY. PT HAS [employer] (33.5 EVERY 2 WEEKS) THROUGH [facility]. +HCP AT HOME, COPY REQUESTED. PT BELIEVES HE HAS NAMED HIS DAUGHTER GIOVANNI. PCP DR. DENIS AT [facility]. DP: HOME WITH RESUMPTION OF [employer] SERVICES IS THE GOAL. FAMILY WILL TRANSPORT. CM WILL CONTINUE TO FOLLOW FOR ANY CHANGE TO DC PLAN/NEEDS
--- NOTE | 2024-04-23 14:00 | PM.EVENT ---
Event Note Date of Service: 04/23/24 Event Note: He says he continues to feel better No abdominal pain at this time No nausea or vomiting Abdomen soft, nontender Tolerating clear liquids We will start on regular diet in the morning If tolerating, possible DC home Time Spent With Patient Time: Total time managing care of this patient today ____ minutes.
[2024-04-23 15:14] VITALS: BP 110/58; PULSE 61; RESP 16; TEMP 36.7; O2SAT 96
[2024-04-23 19:33] VITALS: BP 126/58; PULSE 67; RESP 14; TEMP 36.2; O2SAT 97
[2024-04-23] MEDS: Atorvastatin Calcium 80 MG TABLET PO (21:22)
[2024-04-23] MEDS: QUEtiapine Fumarate 100 MG TABLET PO (21:22)
[2024-04-24] MEDS: Heparin Sodium,Porcine 5,000 UNIT/ML VIAL 5000 UNIT SUBCUT ×2 (02:17→10:30)
[2024-04-24 04:00] VITALS: BP 142/63; PULSE 62; RESP 20; TEMP 36.8; O2SAT 95
[2024-04-24] MEDS: Lactated Ringers 1,000 ML 100 ML IVCONT (05:35)
[2024-04-24 07:31] VITALS: BP 130/61; PULSE 65; RESP 16; TEMP 36.2; O2SAT 96
[2024-04-24] MEDS: Escitalopram Oxalate 20 MG TABLET PO (08:59)
[2024-04-24] MEDS: Tamsulosin HCL 0.4 MG CAPSULE PO (08:59)
[2024-04-24] MEDS: Cholecalciferol (Vitamin D3) 25 MCG TABLET PO (08:59)
[2024-04-24] MEDS: carBAMazepine 100 MG TAB.CHEW 300 MG PO (08:59)
[2024-04-24] MEDS: Ezetimibe 10 MG TABLET PO (08:59)
[2024-04-24] MEDS: Phenytoin Sodium Extended 100 MG CAPSULE 200 MG PO (09:00)
[2024-04-24] MEDS: clonazePAM 1 MG TABLET PO (09:00)
[2024-04-24 09:02] VITALS: BP 132/60
[2024-04-24] MEDS: Metoprolol Succinate ER 25 MG TAB.ER.24H PO (09:02)
[2024-04-24] MEDS: 0.9 % Sodium Chloride Flush 3 ML SYRINGE IVFLUSH (09:02)
--- NOTE | 2024-04-24 09:25 | P.PNGS_ITS ---
Subjective Subjective Date of Service: 04/24/24 Interval history: He says he feels well this morning Very minimal abdominal pain Passing flatus and has had BMs No events overnight No nausea or vomiting Physical Exam 2 Vital Signs: Vital Signs: Last Vital Signs Temp 97.2 F 04/24/24 07:31 Pulse 65 04/24/24 07:31 Resp 16 04/24/24 07:31 BP 132/60 04/24/24 09:02 Pulse Ox 96 04/24/24 07:31 O2 Del Method Room Air 04/24/24 07:31 BMI result Body Mass Index 33.4 Const: General: comfortable and no acute distress Resp: Effort & Inspection: normal respiratory effort Cardio: Rate: regular rate GI: Palpation (GI): Soft to palpation, not firm, nontender and no guarding Objective Data Active Medications Acetaminophen (Acetaminophen 325 Mg Tablet) 650 mg PO Q6H PRN PRN Reason: Pain, Mild (Pain Scale 1-3), fever or headache Albuterol Sulfate (Albuterol Sulfate (0.083%) 2.5 Mg/3 Ml Vial.Neb) 2.5 mg INHALE Q6H PRN PRN Reason: shortness of breath or wheezing Atorvastatin Calcium (Atorvastatin Calcium 80 Mg Tablet) 80 mg PO BEDTIME [facility] Last Admin: 04/23/24 21:22 Dose: 80 mg Documented By: DARIN Carbamazepine (Carbamazepine 100 Mg Tab.Chew) 300 mg PO BID [facility] Last Admin: 04/24/24 08:59 Dose: 300 mg Documented By: YENI Clonazepam (Clonazepam 1 Mg Tablet) 1 mg PO TID [facility] Last Admin: 04/24/24 09:00 Dose: 1 mg Documented By: YENI Ezetimibe (Ezetimibe 10 Mg Tablet) 10 mg PO DAILY [facility] Last Admin: 04/24/24 08:59 Dose: 10 mg Documented By: YENI Escitalopram Oxalate (Escitalopram Oxalate 20 Mg Tablet) 20 mg PO DAILY [facility] Last Admin: 04/24/24 08:59 Dose: 20 mg Documented By: YENI Heparin Sodium (Porcine) (Heparin Sodium,Porcine 5,000 Unit/Ml Vial) 5,000 unit SUBCUT Q8H [facility] Last Admin: 04/24/24 02:17 Dose: 5,000 unit Documented By: DARIN Lactated Ringer's (Lr) 1,000 mls @ 100 mls/hr IVCONT .Q10H [facility] Last Admin: 04/24/24 05:35 Dose: 100 mls/hr Documented By: DARIN Metoprolol Succinate (Metoprolol Succinate Er 25 Mg Tab.Er.24h) 25 mg PO DAILY [facility]; Protocol Last Admin: 04/24/24 09:02 Dose: 25 mg Documented By: YENI Morphine Sulfate (Morphine Sulfate 4 Mg/Ml Cartridge) 3 mg IVPUSH Q4H PRN; Protocol PRN Reason: Pain, Severe (Pain Scale 7-10) Last Admin: 04/22/24 22:55 Dose: 3 mg Documented By: SAIRA Ondansetron HCl (Ondansetron Hcl 4 Mg/2 Ml Vial) 4 mg IVPUSH Q8H PRN PRN Reason: Nausea and Vomiting Last Admin: 04/22/24 19:39 Dose: 4 mg Documented By: RENETTA Phenytoin Sodium (Phenytoin Sodium Extended 100 Mg Capsule) 200 mg PO BID [facility] Last Admin: 04/24/24 09:00 Dose: 200 mg Documented By: YENI Quetiapine Fumarate (Quetiapine Fumarate 100 Mg Tablet) 100 mg PO BEDTIME [facility] Last Admin: 04/23/24 21:22 Dose: 100 mg Documented By: DARIN Sodium Chloride (0.9 % Sodium Chloride Flush 3 Ml Syringe) 3 ml IVFLUSH QSHIFT [facility] Last Admin: 04/24/24 09:02 Dose: 3 ml Documented By: YENI Tamsulosin HCl (Tamsulosin Hcl 0.4 Mg Capsule) 0.4 mg PO DAILY [facility] Last Admin: 04/24/24 08:59 Dose: 0.4 mg Documented By: YENI Vitamin D (Cholecalciferol (Vitamin D3) 25 Mcg Tablet) 25 mcg PO DAILY [facility] Last Admin: 04/24/24 08:59 Dose: 25 mcg Documented By: YENI Labs 04/23/24 05:46 04/23/24 05:45 Procedures Date of Service Date of Service: 04/24/24 Progress Note: A&P Assessment and plan (1) Partial small bowel obstruction: Status: Acute Assessment and Plan: Symptoms seem resolved He looks well Abdomen is soft and benign Has flatus and BMs Started on regular diet this morning We will re-evaluate later on - if he continues to do well, possible DC home Time Spent With Patient Time: Total time managing care of this patient today ____ minutes. Quality Stroke Does the patient have a stroke diagnosis?: No VTE Prior VTE?: No VTE Risk Level:: Medical - moderate - high VTE Device Contraindication: N/A - Device Ordered VTE Drug Contraindication: N/A - Med Ordered
--- NOTE | 2024-04-24 12:29 | P.DS_ITS ---
DS: Providers Provider Date of Service: 04/24/24 Date of admission: 04/22/24 15:52 Date of discharge: 04/24/24 Primary care physician: Deidre Zepeda MD Attending physician on admission: John Rao Consults: 04/22/24 15:43 Consult to Hospitalist Routine Comment: Consulting Provider: Hospitalist Reason For Exam: hx of CAD, stenting Attending physician on discharge: John Rao DS: Diagnosis Discharge Diagnosis (1) Partial small bowel obstruction: Status: Acute DS: Summary Hospital Course Hospital Course: HPI AT ADMISSION: Domingo Francis is a 74 year old male here in the ER for abdominal pain. He says that this started around after dinner last night. He describes this as all over his abdomen bowels mostly on the left side. He denies any vomiting. He says he had a bowel movement yesterday and does not recall having flatus or bowel movements today. His CAT scan shows what appears to be a high-grade small-bowel obstruction on the left lower abdomen. Review of his records show that he had been admitted in 2018 for a similar episode. At that time, he had high-grade small-bowel obstruction and had an NG tube placed. He was discharged after 2 days. He is only abdominal surgery is for left nephrectomy for kidney stones about 15 years ago. This was apparently done as a transabdominal approach. He had a history of an OH more than 10 years ago and had stenting at that time. He has been on Plavix since then. HOSPITAL COURSE: He was admitted to the surgical service for further treatment of the SBO. He has had similar episodes of this. with previous admission in 2018 with NG tube placement at that time and quick resolution of his symptoms. His abdominal exam was otherwise benign. He will be kept NPO, on IVF. NG tube placement was helf as he has had no vomiting. His Plavix should be held in case he will require surgery. Hospitalist service was consulted in view of his history of coronary disease. His symptoms resolved. He began to pass flatus. His diet was slowly advanced to clear liquids and then solids as tolerated. He began to have bowel movements. On the day of discharge, he was tolerating a solid diet without any abd pain, nausea or vomiting. He had good GI function. He was discharged to home on 04/24/24 in stable condition. He is to follow up with his PCP upon discharge. Status at Discharge Functional status at discharge: independent ambulation Overall status at discharge: patient is progressing back to baseline Time Attestation Discharge Coordination Time (in mins): 30 Quality: Safe Use of Opioids Does Pt have an Active Cancer Diagnosis on the Problem List?: No Quality: Stroke Does the patient have a stroke diagnosis?: No Physical Exam Vital Signs: Vital Signs: Last Vital Signs Temp 97.2 F 04/24/24 07:31 Pulse 65 04/24/24 07:31 Resp 16 04/24/24 07:31 BP 132/60 04/24/24 09:02 Pulse Ox 96 04/24/24 07:31 O2 Del Method Room Air 04/24/24 07:31 BMI result Body Mass Index 33.4 Const: General: comfortable, no acute distress and alert Orientation/consciousness: patient oriented x3 Resp: Effort & Inspection: normal respiratory effort GI: Inspection: No distended Palpation (GI): Soft to palpation and nontender Skin: General skin exam: no rashes or lesions noted Neuro: General: patient oriented x3 and moves all extremities Discharge Plan Discharge Anticipated Discharge Date/Time: 04/24/24 10:40 Patient Disposition: Home, Self-Care Discharge Diagnosis: PSBO Referrals: Deidre Hunter MD [Primary Care Provider] - 1 Week Discharge Medications: Continued albuterol sulfate 2.5 mg /3 mL (0.083 %) solution for nebulization 2.5 mg inhalation Q6H PRN (Reason: shortness of breath or wheezing) 30 Days Qty: 180 0RF atorvastatin 80 mg tablet 80 mg PO BEDTIME Qty: 90 3RF ezetimibe 10 mg tablet 10 mg PO DAILY 90 Days Qty: 90 1RF cholecalciferol (vitamin D3) 25 mcg (1,000 unit) capsule 25 mcg PO DAILY 90 Days Qty: 90 1RF metoprolol succinate 25 mg tablet extended release 24 hr 25 mg PO DAILY 90 Days Qty: 90 3RF sennosides-docusate sodium [Senexon-S] 8.6-50 mg tablet 1 tab-cap PO BID Qty: 180 0RF alfuzosin 10 mg tablet extended release 24 hr 10 mg PO DAILY 90 Days Qty: 90 2RF tramadol 50 mg tablet 50 mg PO Q8H PRN (Reason: Pain) nitroglycerin 0.4 mg tablet, sublingual 0.4 - 0.8 mg sublingual DAILY PRN (Reason: Chest Pain) carbamazepine 100 mg tablet,chewable 300 mg PO BID clonazepam 1 mg tablet 1 mg PO TID quetiapine 100 mg tablet 100 mg PO BEDTIME citalopram 40 mg tablet 40 mg PO DAILY phenytoin sodium extended 100 mg capsule 200 mg PO BID Discharge Orders: Discharge Order (Routine); Ordered 04/24/24 Ordered By: John Rao Diet: Advance to usual diet Activity on Discharge: As tolerated Stand Alone Forms: Patient Portal Discharge page Print Language: Citizen Of [place] Activity Restrictions/Additional Instructions: Follow up with your PCP. Call Your Doctor If: ? ? -Your temperature exceeds 101.5? F? ? ? -You experience excessive pain or swelling ? ? -You have an unexpected reaction to medication ? ? -You experience continued vomiting/nausea Care Plan Goals: Return to baseline health and resume normal activities. Health Concerns: PSBO Plan of Treatment: supportive with IVF, bowel rest, pain management f/u with PCP Assessment: Improved. Discharge Date/Time: 04/24/24 14:15
--- NOTE | 2024-04-24 13:44 | MHC.CM.PN ---
DP: PT HAS BEEN MEDICALLY CLEARED FOR DC HOME, NO SERVICES. FAMILY WILL TRANSPORT.
--- NOTE | 2024-04-24 14:09 | PM.EVENT ---
Event Note Date of Service: 04/24/24 Event Note: Seen on afternoon rounds He tolerated breakfast and lunch Feels well No nausea or vomiting Denies abdominal pain Passing flatus Abdomen is soft and very benign Okay to DC home Time Spent With Patient Time: Total time managing care of this patient today ____ minutes.
== END 2024-04-24 14:15 | disposition home or self-care (01) | DRG 390 ==
LOC: HO.ED 15:30 → HO.EDOVER 15:52 → HO.S3 19:42
PROVIDERS: Admitting Provider Surgery; Emergency Provider Emergency Medicine; PCP Internal Medicine; Visit Provider Surgery
DX: K56.600 Partial intestinal obstruction, unspecified as to cause (principal); I25.10 Atherosclerotic heart disease of native coronary artery without angina pectoris; I48.0 Paroxysmal atrial fibrillation; J45.20 Mild intermittent asthma, uncomplicated; G40.909 Epilepsy, unspecified, not intractable, without status epilepticus; N40.0 Benign prostatic hyperplasia without lower urinary tract symptoms; Z90.5 Acquired absence of kidney; Z79.899 Other long term (current) drug therapy
CPT/HCPCS: 36415; 74018; 74177; 80048; 80076; 80185; 81003; 83690; 84484; 85025; 85027; 93005; 99285; J1171; J1644; J2270; J2405; J3010; J7120; Q9967

== ENCOUNTER → 2024-04-22 05:11 | Outpatient (BNV) | payer MEDICARE, MEDICAID, SELFPAY | PROVIDERS: Admitting Provider Surgery; Emergency Provider Emergency Medicine; PCP Internal Medicine; Visit Provider Internal Medicine Cardiovascular Disease | DX: R94.31 Abnormal electrocardiogram [ECG] [EKG] (principal) | CPT/HCPCS: 93010 ==

== ENCOUNTER → 2024-04-22 15:52 | Outpatient (BNV) | payer MEDICARE, MEDICAID, SELFPAY | PROVIDERS: Admitting Provider Surgery; Emergency Provider Emergency Medicine; PCP Internal Medicine; Visit Provider Internal Medicine | DX: I25.10 Atherosclerotic heart disease of native coronary artery without angina pectoris (principal) | CPT/HCPCS: 99222 ==

== ENCOUNTER → 2024-04-22 15:52 | Outpatient (BNV) | payer MEDICARE, MEDICAID, SELFPAY | PROVIDERS: Admitting Provider Surgery; Emergency Provider Emergency Medicine; PCP Internal Medicine; Visit Provider Physician Assistant Surgical | DX: K56.600 Partial intestinal obstruction, unspecified as to cause (principal) | CPT/HCPCS: 99222; 99232; 99238; 99499 ==

== ENCOUNTER 2024-05-01 10:32 | Outpatient (AMB) | payer MEDICARE, MEDICAID, SELFPAY ==
[2024-05-01 10:48] VITALS: BP 110/60; BMI 33.6
--- NOTE | 2024-05-01 10:48 | MHC.PC.OV ---
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: No Accompanied by: Self / Same As Patient Allergies aspirin [ASPIRIN] Allergy (Intermediate, Verified 05/01/24 11:01) ITCHING fish oil Allergy (Intermediate, Verified 05/01/24 11:01) itchiness shellfish derived Allergy (Mild, Verified 05/01/24 11:01) Swelling Medication List - Last Reconciled 05/01/24 by Deidre Zepeda MD albuterol sulfate 2.5 mg (3 mL) inhalation Q6H PRN 30 days alfuzosin ER 10 mg PO DAILY 90 days atorvastatin 80 mg PO BEDTIME carbamazepine 300 mg PO BID cholecalciferol (vitamin D3) 25 mcg PO DAILY 90 days citalopram 40 mg PO DAILY clonazepam 1 mg PO TID clopidogrel 75 mg PO DAILY ezetimibe 10 mg PO DAILY 90 days metoprolol succinate ER 25 mg PO DAILY 90 days nitroglycerin 0.4 - 0.8 mg sublingual DAILY PRN phenytoin sodium extended 200 mg PO BID quetiapine 100 mg PO BEDTIME sennosides-docusate sodium 8.6-50 mg (Senexon-S) 1 tab-cap PO BID tramadol 50 mg PO Q8H PRN Tobacco use date assessed: 07/03/23 Fall risk assessment: No Falls in past year Last assessed Fall Risk: 05/01/24 Dental Screening Dental Screen Date: 05/01/24 Did you have a dental visit in the last 12 months?: No Did you have a dental problem in the last 6 months where you did not have access to dental care?: No Was dental information given to patient?: Patient has dentist HPI TCM TCM Information Date of Discharge 04/24/24 Discharged From [facility] Interactive Contact Date (Reference documentation from this date) 04/25/24 HPI Comments History of Present Illness Details The patient is a 74-year-old male presenting with a follow-up consultation after being discharged from the hospital due to abdominal pain and a diagnosis of a small bowel obstruction on April 22. The symptoms began with severe abdominal pain, which prompted emergency care. Imaging studies revealed a small bowel obstruction. This condition was managed conservatively without surgery, and no nasogastric tube was placed during the recent hospitalization. The patient has a history of similar abdominal episodes, with hospitalization in 2018, during which a nasogastric tube was utilized to relieve symptoms effectively without requiring surgical intervention. The patient reports symptom amelioration following the recent hospital discharge and experiences bowel movements without complications. During his hospital stay, it was noted that he has a history of coronary artery disease with two stent placements in 2006 and 2007, and he does not consume alcohol presently after cessation many years ago. On Plavix for secondary prophylaxis of coronary artery disease due to being allergic to aspirin. He does have history of seizures that has been stable with phenytoin and is follow by Neurology. Constipation has also been well control with medications and was advised a high-fiber diet. Also has dyslipidemia and lipid panel will be order for the next office visit. He also has mild major depression and anxiety well controlled with citalopram and today is accompanied by . [facility] Medical History Partial small bowel obstruction Hearing loss Encounter for Medicare annual wellness exam Cardiac arrest due to underlying cardiac condition Solitary kidney, acquired Mild recurrent major depression Cough BPH (benign prostatic hyperplasia) CAD (coronary artery disease) Lower back pain Asthma Hypertension Seizures Heart attack Afib High cholesterol Surgical History History of left nephrectomy History of colonoscopy H/O heart artery stent Family History Father No problems noted. Mother Cancer Diabetes Social History Household Members: Spouse and Children Housing: Apartment Do you presently have visiting nurse or other home services: No Alcohol intake: former Patient Tobacco Use Status: Never used Tobacco Tobacco use type: Cigarette e-Cigarette/Vaping Use: Never Used Second Hand Smoke Exposure: No service: No Current occupational status: retired Cognitive needs: No Hearing needs: Yes Vision needs: Yes Questionnaire Thrive Questionnaire Date Thrive assessed: 04/23/24 CARLOS A-7 AMB Questionnaire CARLOS A-7 Date CARLOS A - 7 assessed: 07/03/23 Source: Developed by Drs. Tony Sun, Shivani Diez, Anup Florez and colleagues, with an educational edwina from [employer]. Review of Systems Const All systems reviewed & are unremarkable except as noted in HPI and below Card Denies chest pain at rest, Denies chest pain with activity, Denies edema, Denies irregular heart rhythm, Denies claudication, Denies dyspnea, Denies dyspnea on exertion, Denies orthopnea, Denies paroxysmal nocturnal dyspnea and Denies slow heart rate Resp Denies cough, Denies dyspnea and Denies dyspnea on exertion GI Denies abdominal pain, Denies change in bowel habits, Denies excessive flatus, Denies nausea and Denies vomiting Neuro Denies behavioral changes, Denies confusion and Denies lack of coordination Psych Denies behavioral changes and Denies confusion Physical exam (Primary Care) Vital Signs: Last Vital Signs BP 110/60 05/01/24 10:48 BMI result Body Mass Index 33.6 BMI Assessment/Plan discussion: High BMI High, discussed plan: lifestyle, weight reduction, dietary and physical activity Tobacco/Smoking Status: Tobacco use Status Tobacco use date assessed 07/03/23 05/01/24 10:53 Patient Tobacco Use Status Never used Tobacco 05/01/24 10:53 Tobacco use type Cigarette 05/01/24 10:53 e-Cigarette/Vaping Use Never Used 05/01/24 10:53 Thrive Assessment: Date of Thrive Assessment Date Thrive assessed 04/23/24 05/01/24 10:53 Const General: No confusion Orientation/consciousness: No confusion Resp Effort & Inspection: normal respiratory effort Auscultation: clear to auscultation bilaterally Cardio Jugular venous distension: no JVD Rate: regular rate Rhythm: regular rhythm Heart sounds: S1 normal heart sound present and S2 normal heart sound present GI Inspection: Yes normal to inspection Palpation (GI): Soft to palpation and nontender Auscultation: normal bowel sounds Neuro General: no focal motor deficits and No confusion Extrem General: Yes full ROM Psych Appearance: grossly normal Coding Level of Care Code TCM Mod MDM <= 14 Days Diagnoses Partial small bowel obstruction K56.600 Dyslipidemia E78.5 CAD (coronary artery disease) I25.10 Mild recurrent major depression F33.0 Seizures R56.9 Chronic idiopathic constipation K59.04 Time Spent (min) 26 Assessment & Plan Assessment & Plan (1) Partial small bowel obstruction: Code(s): K56.600 - Partial intestinal obstruction, unspecified as to cause Category: Medical (2) Dyslipidemia: Code(s): E78.5 - Hyperlipidemia, unspecified Category: Medical (3) CAD (coronary artery disease): Code(s): I25.10 - Atherosclerotic heart disease of [place] coronary artery without angina pectoris Category: Medical (4) Mild recurrent major depression: Code(s): F33.0 - Major depressive disorder, recurrent, mild Category: Medical (5) Seizures: Comment: last 2020-sees Dr. Poole Code(s): R56.9 - Unspecified convulsions Category: Medical (6) Chronic idiopathic constipation: Code(s): K59.04 - Chronic idiopathic constipation Category: Medical Plan - Address allergic reactions by avoiding aspirin, fish oil, and shellfish. - Continue prescribed inhaler for respiratory support. - Monitor for recurrence of small bowel obstruction; recommend returning to emergency care if severe abdominal pain occurs. - Maintain current seizure prophylaxis regimen as convulsions have not occurred while on medication. - No immediate intervention for coronary artery disease indicated; monitor cardiovascular status. - Scheduled follow-up appointment in June, with lab work planned to assess general health and monitor existing conditions. Patient was informed and verbally consented to the use of an ambient scribe for clinic note documentation during this visit. I thoroughly discussed with the patient the management options for small bowel obstruction, emphasizing that surgery was deemed unnecessary based on the improvement seen after conservative treatment. I explained the importance of closely monitoring for any recurrent abdominal pain or change in bowel habits due to the historical propensity for obstruction without surgical intervention. The benefits and risks of avoiding invasive procedures are noted, particularly given the patient?s age and history. Follow-up care is scheduled, with emphasis on preventative care and ongoing management of existing conditions, including cardiovascular and neurological monitoring. Orders: Orders Lipid Panel Today E78.5 - Hyperlipidemia, unspecified Comprehensive [place]. Panel Fast Today I25.10 - Atherosclerotic heart disease of [place] coronary artery without angina pectoris Medications: New clopidogrel 75 mg PO DAILY 90 tabs 0RF 90 days I25.10 - Atherosclerotic heart disease of [place] coronary artery without angina pectoris Refilled sennosides-docusate sodium 8.6-50 mg (Senexon-S) 1 tab-cap PO BID 180 tabs 0RF metoprolol succinate ER 25 mg PO DAILY 90 tabs 3RF 90 days cholecalciferol (vitamin D3) 25 mcg PO DAILY 90 caps 1RF 90 days alfuzosin ER 10 mg PO DAILY 90 tabs 2RF 90 days ezetimibe 10 mg PO DAILY 90 tabs 1RF 90 days Patient Instructions: - Avoid substances that trigger allergic reactions such as aspirin, fish oil, and shellfish. - Utilize prescribed inhalers as needed to manage respiratory symptoms. - Seek immediate medical attention if severe abdominal pain recurs. - Continue current medications for seizure management. - Attend the scheduled follow-up appointment in June for further evaluation and lab tests.
== END 2024-05-01 11:17 | disposition home or self-care (01) ==
PROVIDERS: PCP Internal Medicine; Visit Provider Internal Medicine
DX: K56.600 Partial intestinal obstruction, unspecified as to cause (principal); F33.0 Major depressive disorder, recurrent, mild; R56.9 Unspecified convulsions; E78.5 Hyperlipidemia, unspecified; I25.10 Atherosclerotic heart disease of native coronary artery without angina pectoris; K59.04 Chronic idiopathic constipation

== ENCOUNTER → 2024-05-01 10:32 | Outpatient (BNVA) | payer MEDICARE, MEDICAID, SELFPAY | PROVIDERS: PCP Internal Medicine; Visit Provider Internal Medicine | DX: K56.600 Partial intestinal obstruction, unspecified as to cause (principal); E78.5 Hyperlipidemia, unspecified; I25.10 Atherosclerotic heart disease of native coronary artery without angina pectoris; F33.0 Major depressive disorder, recurrent, mild; R56.9 Unspecified convulsions; K59.04 Chronic idiopathic constipation | CPT/HCPCS: 99495 ==

== ENCOUNTER 2024-07-02 09:38 | Outpatient (REF) | payer MEDICARE, MEDICAID, SELFPAY ==
--- OUTSIDE RECORDS SUMMARY | 2024-07-02 10:33 | XMS_ITS | Clinical Summary ---
Author Organization [facility] Facility Address [address] [place] [id number] Care Team Providers Care Quality Improvement Specialist Name Role Phone Deidre Hunter MD Primary Care Provider [phone] Allergies Active Allergy Reactions Criticality Noted Date Comments Aspirin 08/03/2020 Iodine 08/03/2020 Medications albuterol HFA (PROVENTIL HFA;VENTOLIN HFA) 108 (90 Base) MCG/ACT inhaler Inhale 2 puffs every 4 (four) hours 4 Active alfuzosin (UROXATRAL) 10 MG 24 hr tablet Take 1 tablet by mouth 1 (one) time each day 0 Active atorvastatin (LIPITOR) 80 MG tablet Take 1 tablet by mouth at bed time 5 Active carBAMazepine (TEGretol) 100 MG chewable tablet Chew 3 tablets 2 (two) times a day 4 Active cholecalciferol (VITAMIN D-3) 25 MCG (1000 UT) capsule Take 1 capsule by mouth 1 (one) time each day Active citalopram (CeleXA) 40 MG tablet Take 1 tablet by mouth 1 (one) time each day 4 Active clonazePAM (KlonoPIN) 1 MG dispersible tablet Take 1 tablet by mouth 3 (three) times a day Active clopidogrel (PLAVIX) 75 MG tablet Take 1 tablet by mouth 1 (one) time each day Active Flovent HFA 110 MCG/ACT inhaler Inhale 2 puffs twice a day 0 Active metoprolol tartrate (LOPRESSOR) 25 MG tablet Take 1 tablet by mouth 1 (one) time each day 4 Active nitroglycerin (NITROSTAT) 0.[address] 1 tablet under the tongue if needed For chest pain 10/11/201 4 Active phenytoin (DILANTIN) 100 MG ER capsule Take 2 capsules by mouth 2 (two) times a day 4 Active QUEtiapine (SEROquel) 100 MG tablet Take 1 tablet by mouth at bed time Active senna-docusate (PERICOLACE) 8.6-50 MG per tablet Take 1 tablet by mouth 2 (two) times a day 5 Active traMADol (ULTRAM) 50 MG tablet Take 1 tablet by mouth Active ezetimibe (ZETIA) 10 MG tablet Take 10 mg by mouth 1 (one) time each day Active Active Problems Problem Noted Date Diagnosed Date Chronic kidney disease stage 2 08/03/2020 Compensatory hypertrophy of single kidney 2020 History of calculus of kidney 08/03/2020 Low blood pressure 08/03/2020 Resolved Problems Problem Noted Date Diagnosed Date Resolved Date Chronic glomerulonephritis 08/03/2020 1 Immunizations Name Administration Dates Next Due Pneumococcal Polysaccharide 04/06/2014 Family History Medical History Relation Comments Heart disease Child Heart disease Father Cancer Mother ovarian Diabetes Mother Heart disease Mother Kidney disease Mother Heart disease Sibling 1 Cancer Sibling 2 sister(chest) Diabetes Sibling 3 sisters and brot her Relation Status Comments Child Father Mother Sibling 1 Sibling 2 Sibling 3 Social History Tobacco Use Types Packs/Day Years Used Date Smoking Tobacco: Never Smokeless Tobacco: Never Alcohol Use Standard Drinks/Week Comments No 0 (1 standard drink = 0.6 oz pur e alcohol) Sex and Gender Information Value Date Recorded Sex Assigned at Not on file Legal Sex Male 5:15 PM EST Gender Identity Not on file Sexual Orientation Not on file Last Filed Vital Signs Vital Sign Reading Time Taken Comments Blood Pressure 120/60 11/07/2023 11:28 AM EDT Pulse 55 11/07/2023 11:28 AM EDT Temperature - - Respiratory Rate - - Oxygen Saturation 94% 11/02/2022 3:00 PM EDT Inhaled Oxygen Concentration - - Weight 92.5 kg (204 lb) 11/07/2023 11:28 AM EDT Height 165.1 cm (5' 5 ) 11/02/2022 3:00 PM EDT Body Mass Index 33.95 11/02/2022 3:00 PM EDT Plan of Treatment Upcoming Encounters Date Type Department Care Team (Late st Contact Info) Description 11/06/2024 11:30 AM EDT Office Visit [facility] P.CAmanda [address] [facility] [address] [place] [address] Denise Moreno ARNP [address] [place] [phone] Health Maintenance Due Date Last Done Comments Pneumococcal Vaccine: 65+ Years (3 of 3 - PCV) 04/06/2015 04/06/2014, 12/31/2006 Influenza Vaccine (#1) 2024 03/26/2014 Hepatitis B Vaccine Aged Out No longe r eligible based on patient's age to complete this topic Insurance [place] Care Teams Quality Improvement Specialist Relationship Specialty Start Date End Date Deidre Hunter MD [address] [place], [place] PCP - General 06/22/20
[2024-07-02 11:48] LABS: Alanine Aminotransferase 42 U/L (0-40); Albumin Level 3.8 g/dL (3.5-5.0); Alkaline Phosphatase 143 U/L (39-117); Anion Gap 10 (12-20); Aspartate Amino Transferase 34 U/L (5-37); Bilirubin Total 0.2 mg/dL (0.0-1.0); Blood Urea Nitrogen 17 mg/dL (9-16); Calcium 8.4 mg/dL (8.4-10.2); Carbon Dioxide 26 mmol/L (22-29); Chloride 109 mmol/L (96-108); Cholesterol 141 mg/dL (<200); Estimated Glomerular Filt Rate > 60; Glucose Fasting 93 mg/dL (60-99); HDL Cholesterol 61 mg/dL (>40); LDL Cholesterol Calculated 67 mg/dL (<100); Potassium 4.3 mmol/L (3.3-5.1); Sodium 141 mmol/L (135-145); Total Protein 7.4 g/dL (6.5-8.0); Triglycerides 66 mg/dL (<150); Vitamin D 25-OH Total 44.7 ng/mL (>30)
== END 2024-07-02 09:39 | disposition home or self-care (01) ==
LOC: HO.LAB 09:38
PROVIDERS: PCP Internal Medicine; Visit Provider Internal Medicine
DX: I25.10 Atherosclerotic heart disease of native coronary artery without angina pectoris (principal); I10 Essential (primary) hypertension; R56.9 Unspecified convulsions; E78.5 Hyperlipidemia, unspecified; E55.9 Vitamin D deficiency, unspecified
CPT/HCPCS: 36415; 80053; 80061; 82306

== ENCOUNTER 2024-07-04 09:48 | Outpatient (AMB) | payer MEDICARE, MEDICAID, SELFPAY ==
--- NOTE | 2024-07-04 09:51 | A.OFFPC_ITS ---
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 Casting Machine Setter Language: Hadoop Java Developer Name: Deidre Zepeda MD Information Interpreted: non-clinical & clinical Accompanied by: Spouse Allergies aspirin [ASPIRIN] Allergy (Intermediate, Verified 07/04/24 10:16) ITCHING fish oil Allergy (Intermediate, Verified 07/04/24 10:16) itchiness shellfish derived Allergy (Mild, Verified 07/04/24 10:16) Swelling Medication List - Last Reconciled 07/04/24 by Deidre Zepeda MD albuterol sulfate 2.5 mg (3 mL) inhalation Q6H PRN 30 days alfuzosin ER 10 mg PO DAILY 90 days atorvastatin 80 mg PO BEDTIME carbamazepine 300 mg PO BID cholecalciferol (vitamin D3) 25 mcg PO DAILY 90 days citalopram 40 mg PO DAILY clonazepam 1 mg PO TID clopidogrel 75 mg PO DAILY 90 days ezetimibe 10 mg PO DAILY 90 days metoprolol succinate ER 25 mg PO DAILY 90 days nitroglycerin 0.4 - 0.8 mg sublingual DAILY PRN phenytoin sodium extended 200 mg PO BID quetiapine 100 mg PO BEDTIME sennosides-docusate sodium 8.6-50 mg (Senexon-S) 1 tab-cap PO BID tramadol 50 mg PO Q8H PRN Tobacco use date assessed: 07/04/24 Fall risk assessment: 1 Fall in past year Last assessed Fall Risk: 07/04/24 Dental Screening Dental Screen Date: 07/04/24 Did you have a dental visit in the last 12 months?: No Did you have a dental problem in the last 6 months where you did not have access to dental care?: No Was dental information given to patient?: Patient has dentist HPI HPI Comments History of Present Illness Details The patient is a 74-year-old male presenting with multiple chronic conditions for follow-up. He has a history of well-controlled hypertension with current management being effective. His hyperlipidemia is managed with atorvastatin 80 mg, which is reportedly effective at maintaining cholesterol levels. He reports a history of epilepsy, with past episodes being notably strong, but recently he has not experienced seizures. The neurologist is aware and had previously conducted an examination that indicated nerve issues in the right arm. The patient suffers from depression, currently under treatment with citalopram 40 mg. The PHQ-9 score was 5, indicating minimal depressive symptoms, and he is not under the care of a psychiatrist. Furthermore, he reports allergies to aspirin and fish oil. Also has some chronic idiopathic cons tipation stable with medications. He has been having asthma and declines the use of rescue inhaler. He does not know how to use it and handle it. He has always wheezing and will be referred to pulmonology. I will add Anoro and give him nebulizer solution also prn. [facility] Medical History (Updated 07/04/24 @ 12:45 by Deidre Zepeda MD) Partial small bowel obstruction Hearing loss Encounter for Medicare annual wellness exam Cardiac arrest due to underlying cardiac condition Solitary kidney, acquired Mild recurrent major depression Cough BPH (benign prostatic hyperplasia) CAD (coronary artery disease) Lower back pain Asthma Hypertension Seizures Heart attack Afib High cholesterol Surgical History History of left nephrectomy History of colonoscopy H/O heart artery stent Family History Father No problems noted. Mother Cancer Diabetes Social History Household Members: Spouse and Children Housing: Apartment Do you presently have visiting nurse or other home services: No Alcohol intake: former Patient Tobacco Use Status: Never used Tobacco Tobacco use type: Cigarette e-Cigarette/Vaping Use: Never Used Second Hand Smoke Exposure: No service: No Current occupational status: retired Cognitive needs: No Hearing needs: Yes Vision needs: Yes Questionnaire PHQ-9 Over the last 2 weeks, how often have you been bothered by any of the following problems? 1. Little interest or pleasure in doing things: several days 2. Feeling down, depressed, or hopeless: several days 3. Trouble falling or staying asleep, or sleeping too much: several days 4. Feeling tired or having little energy: several days 5. Poor appetite or overeating: several days 6. Feeling bad about yourself - or that you are a failure or have let yourself or your family down: not at all 7. Trouble concentrating on things, such as reading the newspaper or watching television: not at all 8. Moving or speaking so slowly that other people could have noticed. Or the opposite - being so fidgety or restless that you have been moving around a lot more than usual: not at all 9. Thoughts that you would be better off or of hurting yourself in some way: not at all Total score: 5 Depression Screening Interpretation: Positive Depression Screening Follow-up: Existing condition and Follow-up Visit Requested Depression Screening Done: Yes 88980 - PHQ-9 Billing: Yes Source: Developed by Drs. Tony Sun, Shivani Diez, Anup Florez and colleagues, with an educational edwina from [employer]. Thrive Questionnaire Date Thrive assessed: 07/04/24 I am a: Patient What is your living situation today?: I have a steady place to live Within the past 12 months, did the food you bought not last and you didn't have the money to get more?: Never true Within the past 12 months, did you worry whether your food would run out before you got money to buy more?: Never true Do you have trouble paying for medicines?: No Do you have trouble getting transportation to medical appointments?: No Do you have trouble paying your heating and electricity bill?: No Do you have trouble taking care of your child, family member or friend?: No Do you have trouble with day-to-day activities such as bathing, preparing meals, shopping, managing finances, etc.?: No Are you currently unemployed and looking for a job?: No Are you interested in more education?: No Please select the resources that you would like help with: None Currently or been in a relationship where the following occur: No concerns reported THRIVE Score: 0 AUDIT C Alcohol Use Questionnaire (AUDIT-C) 1. How often do you have a drink containing alcohol?: Never Total Score: 0 Score Reviewed/Action Taken: No CARLOS A-7 AMB Questionnaire CARLOS A-7 Date CARLOS A - 7 assessed: 07/04/24 Feeling nervous, anxious, or on edge: 1 = Several days Not being able to stop or control worryin = Not at all Worrying too much about different things: 1 = Several days Trouble relaxin = Several days Being so restless that it is hard to sit still: 0 = Not at all Becoming easily annoyed or irritable: 0 = Not at all Feeling afraid as if something awful might happen: 0 = Not at all Total CARLOS A-7 score (0-4 normal; 5-9 mild; 10-14 moderate; 15-21 severe): 3 Source: Developed by Drs. Tony Sun, Shivani Diez, Anup Florez and colleagues, with an educational edwina from [employer]. CARLOS A-7 Assessment Billing CARLOS A-7 Assessment Tool: CARLOS A-7 Assessment 32438 Review of Systems Const All systems reviewed & are unremarkable except as noted in HPI and below Card Denies chest pain at rest, Denies chest pain with activity, Denies edema, Denies irregular heart rhythm, Denies claudication, Denies dyspnea, Denies dyspnea on exertion, Denies orthopnea, Denies paroxysmal nocturnal dyspnea and Denies slow heart rate Resp Denies cough, Denies dyspnea and Denies dyspnea on exertion GI Denies abdominal pain, Denies change in bowel habits, Denies excessive flatus, Denies nausea and Denies vomiting Physical exam (Primary Care) Vital Signs: Last Vital Signs BP 110/80 07/04/24 09:54 BMI result Body Mass Index 34.1 BMI Assessment/Plan discussion: High BMI High, discussed plan: lifestyle, weight reduction, dietary and physical activity Tobacco/Smoking Status: Tobacco use Status Tobacco use date assessed 07/04/24 07/04/24 09:59 Patient Tobacco Use Status Never used Tobacco 07/04/24 09:59 Tobacco use type Cigarette 07/04/24 09:59 e-Cigarette/Vaping Use Never Used 07/04/24 09:59 PHQ-9: PHQ-9 Score PHQ-9: Total score 5 07/04/24 10:56 Depression Screening Interpretation: Positive Depression Screening Follow-up: Existing condition and Follow-up Visit Requested Thrive Assessment: Date of Thrive Assessment Date Thrive assessed 07/04/24 07/04/24 09:59 Currently or been in a relationship where the following occur: No concerns reported Resp Effort & Inspection: normal respiratory effort Auscultation: clear to auscultation bilaterally Cardio Jugular venous distension: no JVD Rate: regular rate Rhythm: regular rhythm Heart sounds: S1 normal heart sound present and S2 normal heart sound present Extrem General: Yes full ROM Office Procedures Flu Questionnaire Does the patient have a severe egg allergy?: No Immunizations Fluarix Triv [id number] (PF) 45 mcg (15 mcg x 3)/0.5 mL IM syringe Performing Provider: Deidre Zepeda MD [facility] Documented (not given) by: Deidregalileaharris Wagoner MARK on 07/04/24 10:56 Reason Not Given: Patient Refused Coding Level of Care Code Est Pt Level 4 (93559) Complex EM visit Add On G2211 Diagnoses Moderate asthma J45.909 Chronic idiopathic constipation K59.04 Mild recurrent major depression F33.0 Seizures R56.9 Additional Codes CARLOS A-7 Assessment Billing - CARLOS A-7 Assessment Tool: CARLOS A-7 Assessment 68647 ([id number]) PHQ-9 - 51375 - PHQ-9 Billing: Yes ([id number]) Time Spent (min) 23 Assessment & Plan Assessment & Plan (1) Moderate asthma: Code(s): J45.909 - Unspecified asthma, uncomplicated Category: Medical (2) Chronic idiopathic constipation: Code(s): K59.04 - Chronic idiopathic constipation Category: Medical (3) Mild recurrent major depression: Code(s): F33.0 - Major depressive disorder, recurrent, mild Category: Medical (4) Seizures: Comment: last 2020-sees Dr. Poole Code(s): R56.9 - Unspecified convulsions Category: Medical Plan - Hypertension and Hyperlipidemia remain under control, continue current medication regimen. - Follow-up with neurologist for epilepsy and nerve issues; continue current antiseizure medication. - Continue citalopram 40 mg for depression; monitor symptoms. - Allergy management to avoid aspirin and fish oil products. Patient was informed and verbally consented to the use of an ambient scribe for clinic note documentation during this visit. During the visit, we discussed the management of the patient's chronic conditions, including hypertension, cholesterol, and epilepsy. I emphasized the importance of continuing current medications that have been effective in maintaining control over these conditions. We addressed the patient's allergy concerns, specifically avoiding aspirin and fish oil. The patient was reminded to utilize the rescue inhaler sparingly and to follow up with any necessary specialists, particularly the neurologist regarding the nerve issues in his arm. Health maintenance strategies were reinforced, with the patient being instructed to continue regular medication usage. Orders: Orders Lipid Panel 5 Months E78.5 - Hyperlipidemia, unspecified Comprehensive [place]. Panel Fast 5 Months J4590 - Unspecified asthma, uncomplicated Influenza [id number] Immunization Today Z23 - Encounter for immunization Vitamin D 25-OH Total 5 Months E55.9 - Vitamin D deficiency, unspecified Referrals Pulmonology Referral J45.90 - Unspecified asthma, uncomplicated Medications: New nebulizers (AeroEclipse II Nebulizer) As directed 1 ea 0RF J45 - Unspecified asthma, uncomplicated umeclidinium-vilanterol 62.5-25 mcg/actuation (Anoro Ellipta) 1 inh inhalation DAILY 60 ea 0RF 60 days Refilled clopidogrel 75 mg PO DAILY 90 tabs 0RF 90 days I25.10 - Atherosclerotic heart disease of [place] coronary artery without angina pectoris alfuzosin ER 10 mg PO DAILY 90 tabs 2RF 90 days sennosides-docusate sodium 8.6-50 mg (Senexon-S) 1 tab-cap PO BID 180 tabs 0RF albuterol sulfate 2.5 mg (3 mL) inhalation Q6H PRN 180 mL 0RF shortness of breath or wheezing 30 days J45 - Unspecified asthma, uncomplicated ezetimibe 10 mg PO DAILY 90 tabs 1RF 90 days cholecalciferol (vitamin D3) 25 mcg PO DAILY 90 caps 1RF 90 days atorvastatin 80 mg PO BEDTIME 90 tabs 3RF Patient Instructions: - Continue taking prescribed medications including atorvastatin and citalopram. - Avoid substances you are allergic to, particularly aspirin and fish oil. - Use the rescue inhaler as needed, but aim to minimize usage to once monthly. - Return for follow-up or contact if experiencing any significant changes in seizure activity, breathing difficulties, or mood disturbances.
[2024-07-04 09:54] VITALS: BP 110/80; BMI 34.1
== END 2024-07-04 10:31 | disposition home or self-care (01) ==
PROVIDERS: PCP Internal Medicine; Visit Provider Internal Medicine
DX: J45.909 Unspecified asthma, uncomplicated (principal); K59.04 Chronic idiopathic constipation; F33.0 Major depressive disorder, recurrent, mild; R56.9 Unspecified convulsions; Z23 Encounter for immunization

== ENCOUNTER → 2024-07-04 09:48 | Outpatient (BNVA) | payer MEDICARE, MEDICAID, SELFPAY | PROVIDERS: PCP Internal Medicine; Visit Provider Internal Medicine | DX: J45.909 Unspecified asthma, uncomplicated (principal); K59.04 Chronic idiopathic constipation; F33.0 Major depressive disorder, recurrent, mild; R56.9 Unspecified convulsions | CPT/HCPCS: 90471; 96127; 99212 ==

== ENCOUNTER 2024-08-08 08:19 | Outpatient (REF) | payer MEDICARE, MEDICAID, SELFPAY ==
[2024-08-08 09:25] LABS: MANUAL DIFF FLAG NO
[2024-08-08 09:58] LABS: Basophils Percent Auto 0.7 % (0-2); Eosinophils Absolute Auto 0.3 X10*3/uL (0.0-0.4); Hemoglobin 14.1 g/dl (14.0-18.0); Imm Gran Abs Auto 0.01 X10*3/uL (0.00-0.03); Imm Gran Pct Auto 0.2 % (0.0-0.4); Lymphocytes Absolute Auto 2.4 X10*3/uL (1.2-4.9); Lymphocytes Percent Auto 43.9 % (20-40); Mean Corpuscular HGB Conc 35.3 g/dl (31.0-36.0); Mean Corpuscular Hemoglobin 31.8 pg (27.0-33.0); Mean Corpuscular Volume 90.3 fL (80.0-98.0); Mean Platelet Volume 10.7 fL (9.4-12.4); Monocytes Absolute Auto 0.4 X10*3/uL (0.1-1.2); Monocytes Percent Auto 7.6 % (2-11); Neutrophils Absolute Auto 2.3 x10*3/uL (2.0-8.3); Neutrophils Percent Auto 41.6 % (45-73); Platelet Count 192 X10*3/uL (160-400); Red Blood Count 4.43 X10*6/uL (4.60-5.80); Red Cell Distribution Width 12.7 % (11.0-16.0); White Blood Count 5.5 X10*3/uL (4.8-10.8)
[2024-08-08 10:42] LABS: Erythrocyte Sedimentation Rate 7 MM/HR (0-15)
[2024-08-09 19:18] LABS: IgA 316 mg/dL (70-320); IgG 1387 mg/dL (600-1540); IgM 93 mg/dL (50-300)
[2024-08-14 01:03] LABS: Class Alternaria alternata 0; Class Aspergillus fumigatus 0; Class Bermuda Grass 0; Class Birch 0; Class Cat Dander 0; Class Cladosporium herbarum 0; Class Cockroach 0/1; Class Common Ragweed 0; Class Cottonwood 0; Class Derm. pterony 0; Class Dermatophagoides farinae 0; Class Dog Dander 0; Class Elm 0; Class Maple Box Elder 0; Class Mountain Cedar 0; Class Mouse Urine Protein 0; Class Mugwort 0; Class Oak 0; Class Penicillium crysogenum 0; Class Rough Pigweed 0; Class Sheep Sorrel 0; Class Sycamore 0; Class Timothy Grass 0; Class Walnut Tree 0; Class White Ash 0; Class White Mulberry 0; D001 IgE D pteronyssinus <0.10 kU/L; D002 - IgE D farinae <0.10 kU/L; E001 - IgE Cat Dander <0.10 kU/L; E005 - IgE Dog Dander <0.10 kU/L; E072-IgE Mouse Urine <0.10 kU/L; G002 IgE Bermuda Grass <0.10 kU/L; G006 - IgE Timothy Grass <0.10 kU/L; I006-IgE Cockroach, German 0.12 kU/L; Immunoglobulin E 61 kU/L (<OR=114); M001 IgE Penicillium chrysogen <0.10 kU/L; M002 - IgE Cladosporium herbar <0.10 kU/L; M003 - IgE Aspergillus fumigat <0.10 kU/L; M006 - IgE Alternaria alternat <0.10 kU/L; T001 IgE Maple/Box Elder <0.10 kU/L; T003 IgE Common Silver Birch <0.10 kU/L; T006 - IgE Cedar, Mountain <0.10 kU/L; T007 - IgE Oak, White <0.10 kU/L; T008 IgE Elm, American <0.10 kU/L; T010 - IgE Walnut <0.10 kU/L; T011 - IgE Maple Leaf Sycamore <0.10 kU/L; T014 - IgE Cottonwood <0.10 kU/L; T015 - IgE Ash, White <0.10 kU/L; T070 - IgE White Mulberry <0.10 kU/L; W001 - IgE Ragweed, Short <0.10 kU/L; W006 - IgE Mugwort <0.10 kU/L; W014 IgE Pigweed, Common <0.10 kU/L; W018 IgE Sheep Sorrel <0.10 kU/L
[2024-08-15 14:18] LABS: Asperg fumigatus Precip Abs NEGATIVE (NEGATIVE); Micropoly faeni Abs NEGATIVE (NEGATIVE); Pigeon serum Abs NEGATIVE (NEGATIVE); Saccharo pora viridis Abs NEGATIVE (NEGATIVE); Thermo candidus Abs NEGATIVE (NEGATIVE); Thermoa vulgaris #1 NEGATIVE (NEGATIVE)
== END 2024-08-08 08:20 | disposition home or self-care (01) ==
LOC: HO.LAB 08:19
PROVIDERS: PCP Internal Medicine; Visit Provider Hospitalist
DX: R91.8 Other nonspecific abnormal finding of lung field (principal); R91.1 Solitary pulmonary nodule; J45.50 Severe persistent asthma, uncomplicated
CPT/HCPCS: 36415; 82784; 82785; 85025; 85652; 86003; 86331; 86606; 86609; 99202

== ENCOUNTER 2024-08-08 08:19 | Outpatient (AMB) | payer MEDICARE, MEDICAID, SELFPAY ==
[2024-08-08 08:23] VITALS: BP 118/62; PULSE 61; O2SAT 96; BMI 34.3
--- NOTE | 2024-08-08 08:23 | A.OFFVIS_ITS ---
Vital Signs 08/08/24 08:23 Height 5 ft 5 in Weight 206 lb 2.115 oz BMI 34.3 BP 118/62 Blood Pressure Location Lt brachial Position Sitting Pulse 61 Pulse Source Pulse Oximeter Pulse Oximetry (%) 96 Oxygen Delivery Method Room Air Intake Visit Reasons: asthma Allergies aspirin [ASPIRIN] Allergy (Intermediate, Verified 08/08/24 08:28) ITCHING fish oil Allergy (Intermediate, Verified 08/08/24 08:28) itchiness shellfish derived Allergy (Mild, Verified 08/08/24 08:28) Swelling HPI Comments Details: The patient is here for pulmonary evaluation. The patient is a 74-year-old gentleman with the cardiac history status post PCI presenting with worsening respiratory symptoms. A few years ago she was given a diagnosis of asthma. He has been on multiple inhalers. He has had multiple evaluations in the ER and also at urgent care for his asthma symptoms. The been hard to control. He has a nebulizer machine that he uses daily for symptoms. Was also placed on Anoro. He has never had allergy testing. He has a dog at home. Denies any other allergic exposures that he is aware of. The patient does have some ongoing wheezing right now on exam. In addition to the wheezing he does have cough. The cough episodes can be dramatic to the point of syncope. Moderate to severe. Right now he is feeling a little better after going to an urgent care and getting a prescription for prednisone. The patient also been having sleep apnea symptoms. Significant daytime drowsiness with an Delaplaine score 11/24. His is concerned because of significant snoring. He needs to have a sleep study. Specially with cardiac history. He will undergo PFTs sleep study and blood work including allergy testing. Will follow-up after the studies. [facility] Medical History (Updated 08/08/24 @ 08:57 by Brandon Lopez MD) Partial small bowel obstruction Hearing loss Encounter for Medicare annual wellness exam Cardiac arrest due to underlying cardiac condition Solitary kidney, acquired Mild recurrent major depression Cough BPH (benign prostatic hyperplasia) CAD (coronary artery disease) Lower back pain Asthma Hypertension Seizures Heart attack Afib High cholesterol Surgical History History of left nephrectomy History of colonoscopy H/O heart artery stent Family History Father No problems noted. Mother Cancer Diabetes Social History Household Members: Spouse and Children Housing: Apartment Do you presently have visiting nurse or other home services: No Alcohol intake: former Patient Tobacco Use Status: Never used Tobacco Tobacco use type: Cigarette e-Cigarette/Vaping Use: Never Used Second Hand Smoke Exposure: No service: No Current occupational status: retired Cognitive needs: No Hearing needs: Yes Vision needs: Yes Review of Systems Const Reports daytime sleepiness, Denies fever(s), Reports snoring and Reports stops breathing during sleep Eyes Reports no additional complaints ENT Reports nasal congestion Card Reports chest pain Resp Reports cough, Reports snoring and Reports wheezing GI Denies abdominal pain, Denies change in bowel habits, Denies excessive flatus, Denies nausea and Denies vomiting Musc Reports myalgias Skin/Breast Denies rash Endo Reports no additional complaints Melvin/Lymph Reports no additional complaints Aller/Immun Reports wheezing Physical Exam Vital Signs: Last Vital Signs Pulse 61 08/08/24 08:23 BP 118/62 08/08/24 08:23 Pulse Ox 96 08/08/24 08:23 Oxygen Delivery Method Room Air 08/08/24 08:23 BMI result Body Mass Index 34.3 Last Vital Signs Temp 97.2 F 04/24/24 07:31 Pulse 65 04/24/24 07:31 Resp 16 04/24/24 07:31 BP 132/60 04/24/24 09:02 Pulse Ox 96 04/24/24 07:31 O2 Del Method Room Air 04/24/24 07:31 BMI result Body Mass Index 33.4 Const General: comfortable, no acute distress and alert Orientation/consciousness: patient oriented x3 HEENT Head: Yes normocephalic Neck Neck: Yes supple Chest Chest palpation & inspection: normal inspection of the chest Resp Effort & Inspection: normal respiratory effort Auscultation: wheezes and diminished lung sounds Cardio Heart sounds: S1 normal heart sound present and S2 normal heart sound present GI Palpation (GI): Soft to palpation Skin General skin exam: no rashes or lesions noted Neuro General: patient oriented x3 and moves all extremities Extrem General: No cyanosis Assessment & Plan Assessment & Plan (1) Asthma: Code(s): J45.909 - Unspecified asthma, uncomplicated Category: Medical Qualifiers: Asthma complication type: uncomplicated Asthma persistence: persistent Asthma severity: severe Qualified Code(s): J45.50 - Severe persistent asthma, uncomplicated (2) DINESH (obstructive sleep apnea): Code(s): G47.33 - Obstructive sleep apnea (adult) (pediatric) Category: Medical Plan Stop Anoro, needs Trelegy 200 daily CEE as needed switched Albuterol to Xopenex nebs start Singulair at night Bloodwork/allergy testing PFTs home PSG F/U 2-3 months Orders: Orders Immunoglobulins,IgG IgA IgM Today J45.909 - Unspecified asthma, uncomplicated Immunoglobulin E Today J45.909 - Unspecified asthma, uncomplicated Hypersensitive Pneumonitis Prf Today J45.909 - Unspecified asthma, uncomplicated, R91.8 - Other nonspecific abnormal finding of lung field Complete Blood Count Auto Diff Today J45.909 - Unspecified asthma, uncomplicated Resp Allergy Profile Region I Today J45.909 - Unspecified asthma, uncomplicated, R91.1 - Solitary pulmonary nodule Erythrocyte Sedimentation Rate Today J45.909 - Unspecified asthma, uncomplicated PFT pulmonary function test Today J45.909 - Unspecified asthma, uncomplicated RT home sleep study Today G47.33 - Obstructive sleep apnea (adult) (pediatric) Medications: New levalbuterol HCl 1.25 mg (3 mL) inhalation BID 180 mL 0RF 30 days J44.9 - Chronic obstructive pulmonary disease, unspecified montelukast (Singulair) 10 mg PO BEDTIME 30 tabs 11RF 30 days J45.909 - Unspecified asthma, uncomplicated tmxvvanpvcd-dwiltpcsc-fxuqepgn 200-62.5-25 mcg (Trelegy Ellipta) 1 inh inhalation DAILY 60 ea 12RF 30 days Coding Level of Care Code New Pt Level 4 (85888) Diagnoses Severe persistent asthma without complication J45.50 Asthma complication type: uncomplicated Asthma persistence: persistent Asthma severity: severe DINESH (obstructive sleep apnea) G47.33 Time Spent (min) 40
--- OUTSIDE RECORDS SUMMARY | 2024-08-08 08:45 | XMS_ITS | Clinical Summary ---
Author Organization [facility] Facility Address [address] [place] [id number] Care Team Providers Care Button Maker Name Role Phone Deidre Hunter MD Primary Care Provider Allergies Active Allergy Reactions Criticality Noted Date [...] Visit [facility] P.CAmanda [address] [facility] [address] [place] [address] Denise Moreno ARNP [address] [facility] [address] [place] [id number] Health Maintenance Due Date Last Done Comments Pneumococcal Vaccine: 65+ Years (3 of 3 - PCV) 04/06/2015 04/06/2014, 12/31/2006 Influenza Vaccine (#1) 2024 03/26/2014 Hepatitis B Vaccine Aged Out No longe r eligible based on patient's age to complete this topic [place] Care Teams Button Maker Relationship Specialty Start Date End Date Deidre Hunter MD [address] [place], [place] PCP - General 06/22/20
--- OUTSIDE RECORDS SUMMARY | 2024-08-08 08:45 | XMS_ITS | Patient Health Record ---
Author Organization [facility] Address [address] [place] [address] Care Team Providers Care Route Sales Representative Name Role Phone Deidre Hunter Primary Care Provider Ravin Bañuelos Jr Unavailable [phone] ALLERGIES Allergen (clinical drug ingredient) Drug/Non Drug Allergy documented on EMR Reaction Allergy Type Onset Date Status Fish Oil Unknown Drug Allergy Active aspirin Aspirin Unknown Drug Allergy Active REASON FOR REFERRAL No Information MEDICATIONS Medication SIG (Take, Route, Frequency, Duration) Notes Start Date End Date Status Vitamin D 1000 UNIT TOME PETER TABLETA POR VIA ORAL A DIARIO Oral for 30 Active carBAMazepine 100 MG CHEW 3 TABLETS BY M OUTH TWICE A DAY Oral for 30 Active Metoprolol Tartrate 25 MG 1 TABLET TWICE A DAY ORALLY 30 DAYS Oral for 30 Active ProAir HFA 108 (90 Base) MCG/ACT TAKE 2 PUFFS BY MOUTH EVERY 4 HOURS INHALED Inhalation for 17 Active traMADol HCl 50 MG TOME PETER TABLETA POR VIA ORAL CADA DOCE HORAS CUANDO SEA NECESARIO FOR HEADACHE Oral for 15 Active Atorvastatin Calcium 80 MG 1 TABLET BY M OUTH DAILY AT BEDTIME,X30 DAYS Oral for 30 Active Phenytoin Sodium Extended 100 MG TAKE 2 CAPSULES BY MOUTH TWICE A DAY ORALLY 30 DAYS Oral for 30 Active Aspirin 81 MG TAKE 1 TABLET ONCE A DAY ORALLY 30 DAYS Oral for 30 Active levoFLOXacin 500 MG TOME PETER TABLETA POR VIA ORAL ONCE A DAY FOR 7 DAYS Oral for 7 Active QUEtiapine Fumarate 100 MG 1 TABLET AT B EDTIME ONCE A DAY ORALLY 30 DAY(S) Oral for 30 Active Flovent HFA 44 MCG/ACT 2 puffs Inhalatio n Twice a day Active MiraLax (colon prep) 17 GM/SCOOP mixed with Gatorade or Crystal Light Orally begin at 5:00 p.m. the day before the procedure for 1 day 07/19/2021 Active Nitroglycerin 0.4 MG as directed Sublingual Active Senexon-S 8.6-50 MG 1 tablet in the even ing as needed Orally Once a day for 30 day(s) Active [facility] Senna Plus 8.6-50 MG TAKE 1 TABLET I N THE EVENING NEEDED TWICE A DAY ORALLY 30 DAY(S) Oral for 30 Active clonazePAM 1 MG TOME DOS TABLETAS PO R VIA ORAL DOS VECES AL NICOLE Oral for 30 Active Alfuzosin HCl ER 10 MG 1 tablet immediat anderson after the same meal Orally Once a day for 30 day(s) Active Omeprazole 20 MG 1 capsule Orally Onc e a day Active Qvar 40 MCG/ACT 1 puff Inhalation Tw ice a day Active Mapap Arthritis Pain 650 MG TAKE 1 TABLE T NEEDED EVERY 8 HRS ORALLY 30 DAYS Oral for 30 Active Fluticasone Propionate (Inhal) 50 MCG/BLIST 1 puff Inhalation Twice a day Active Furosemide 20 MG TAKE 1 TABLET BY CARMEN TH DAILY,X30 DAYS,INSTR:TAKE ONLY WHEN HANDS, LEGS SWOLLEN Oral for 30 Active Clopidogrel Bisulfate 75 MG TAKE 1 TABLE T ONCE A DAY ORALLY Oral for 30 Active Nitrostat 0.4 MG TOME PETER TABLETA POR VIA ORAL UNDER TONGUE EVERY 3 MINUTES NEEDED FOR CHEST PAIN Sublingual for 7 Active Citalopram Hydrobromide 40 MG TOME PETER TABLETA POR VIA ORAL TODOS LOS JUSTIN Oral for 30 Active Tylenol 8 Hour 650 MG 1 tablet as needed Orally every 8 hrs Active IMMUNIZATIONS Vaccine Route Administration Date Status Comme nts Flu vaccine no Preserv 3 and > Unknown 03/26/2014 Admin istered Influenza Unknown 07/15/2021 Administered SOCIAL HISTORY Sex Assigned At : Social History Observation Description Sex Assigned At Unknown PROBLEMS Problem Type ICD Code Onset Dates Problem Status W/U Status Risk SNOMED Code Notes Problem Colon cancer screening (Z12.11) Active confirmed 184671097 Problem Encounter for current long term care administrator use of antiplatelet drug (Z79.02) Active confirmed [id number] PLAN OF TREATMENT Future Test Test Name Order Date COLONOSCOPY 10/08/2014 COLONOSCOPY 07/19/2021 Insurance Providers Payer Name Payer Address Payer Phone Subscriber Number Group Number Insured Name Patient Relationship to Insured Coverage Start Date Coverage End Date MEDICARE OF [place] [address] [place] [id number] FORMANERYN MONTEMAYORNATALYYORDAN Self - patient is the insured MEDICAID OF [facility] [address] [place] [phone] [id number] YORDAN MAKI Self - patient is the insured MEDICAL (GENERAL) HISTORY Medical History History ICD Code coronary artery disease with history of OR 2006 and stent placement. Chronic kidney disease, left nephrectomy for nonfunctioning left kidney due to stones asthma hypertension seizure disorder anxiety/depression esophageal reflux hyperlipidemia Surgical History Surgery Date(Month/Year) left nephrectomy stent placement
== END 2024-08-08 09:12 | disposition home or self-care (01) ==
PROVIDERS: PCP Internal Medicine; Visit Provider Hospitalist
DX: J45.50 Severe persistent asthma, uncomplicated (principal); G47.33 Obstructive sleep apnea (adult) (pediatric)
CPT/HCPCS: 99204

== ENCOUNTER 2024-09-04 07:52 | Emergency (ER) | payer MEDICARE, MEDICAID, SELFPAY ==
--- NOTE | ~2024-09-04 | XR_ITS ---
EXAMINATION: XR CHEST CLINICAL INFORMATION: flu like sxs COMPARISON: March 2024. TECHNIQUE: 2 views of the chest were obtained. FINDINGS: Pulmonary reticular pattern. Patchy opacity right lower lung lobe extending from the posterior pulmonary hilum. No pleural effusion. No pneumothorax. No hyperinflation. Cardiomediastinal silhouette size is mildly prominent. Multilevel thoracic and upper lumbar spondylosis. XR/XR chest 2V IMPRESSION: Acute on chronic airspace disease with likely acute airspace disease in the right lung base. Electronically signed by: Carmelo Small MD 09/04/2024 08:43 AM EDT
[2024-09-04 07:56] VITALS: BP 126/32; PULSE 75; RESP 18; TEMP 36.6; O2SAT 96; BMI 33.7
--- NOTE | 2024-09-04 08:08 | ECG_ITS ---
Test Reason : sob, afib hx Blood Pressure : */* mmHG Vent. Rate : 71 BPM Atrial Rate : 71 BPM P-R Int : 162 ms QRS Dur : 86 ms QT Int : 394 ms P-R-T Axes : * 30 -21 degrees QTcB Int : 428 ms Normal sinus rhythm T wave abnormality, consider anterolateral ischemia Abnormal ECG When compared with ECG of 22-Apr-2024 05:11, T wave inversion now evident in Inferior leads T wave inversion now evident in Lateral leads Referred By: Generic ED Physician Electronically Signed By: RUCHI SIHN MD
--- NOTE | 2024-09-04 08:33 | ED.GENADULT ---
HPI - General Adult General Chief complaint: Upper Respiratory Symptoms Stated complaint: cough, difficulty Breathing Time Seen by Provider: 09/04/24 08:32 Source: patient, RN notes reviewed and old records reviewed Mode of arrival: ambulatory Limitations: no limitations History of Present Illness ED Provider: Eli HPI narrative: Patient is a 74-year-old Mongolian speaking male with history of asthma, CAD, seizures, HTN, BPH, dyslipidemia, DINESH presenting to the emergency department complaining of worsening productive cough and shortness of breath over the past 2 days as well as headache, generalized body aches. states that initially they are grandchildren were sick, then her son, then she became sick at the same time as the patient. States that the patient had started to feel better, then became worse again. She reports subjective fevers but did not check with temperature. Patient denies any hemoptysis. Denies any chest or abdominal pain. Patient currently denies any depression or suicidal ideation. MD complaint: cough Onset (ago): day(s) Related Data Home Medications ?Medication ?Instructions ?Recorded ?Confirmed carbamazepine 100 mg chewable 300 mg PO BID 04/13/20 07/04/24 tablet citalopram 40 mg tablet 40 mg PO DAILY 04/13/20 07/04/24 clonazepam 1 mg tablet 1 mg PO TID 04/13/20 07/04/24 quetiapine 100 mg tablet 100 mg PO BEDTIME 04/13/20 07/04/24 phenytoin sodium extended 100 mg 200 mg PO BID 04/06/22 07/04/24 capsule nitroglycerin 0.4 mg sublingual 0.4 - 0.8 mg sublingual DAILY PRN 02/18/24 07/04/24 tablet Chest Pain tramadol 50 mg tablet 50 mg PO Q8H PRN Pain 02/18/24 07/04/24 Previous Rx's ?Medication ?Instructions ?Recorded metoprolol succinate 25 mg 25 mg PO DAILY 90 days #90 tabs 05/01/24 tablet,extended release 24 hr albuterol sulfate 2.5 mg/3 mL 2.5 mg (3 mL) inhalation Q6H PRN 07/04/24 (0.083 %) solution for nebulization shortness of breath or wheezing 30 days #180 mL alfuzosin 10 mg tablet,extended 10 mg PO DAILY 90 days #90 tabs 07/04/24 release 24 hr clopidogrel 75 mg tablet 75 mg PO DAILY 90 days #90 tabs 07/04/24 ezetimibe 10 mg tablet 10 mg PO DAILY 90 days #90 tabs 07/04/24 sennosides 8.6 mg-docusate sodium 1 tab-cap PO BID #180 tabs 07/04/24 50 mg tablet (Senexon-S) Aeromist Nebulizer #1 ea 07/17/24 nebulizers (AeroEclipse II #1 ea 07/19/24 Nebulizer) umeclidinium 62.5 mcg-vilanterol 1 inh inhalation DAILY 60 days #60 08/01/24 25 mcg/actuation powdr for ea inhalation (Anoro Ellipta) fluticasone fur. 200 mcg-umeclid 1 inh inhalation DAILY 30 days #60 08/08/24 62.5 mcg-vilant 25 mcg ea inhalat.powder (Trelegy Ellipta) montelukast 10 mg tablet 10 mg PO BEDTIME 30 days #30 tabs 08/08/24 (Singulair) levalbuterol HCl 1.25 mg/3 mL 1.25 mg (3 mL) inhalation BID 90 08/30/24 solution for nebulization days #540 mL atorvastatin 80 mg tablet 80 mg PO BEDTIME #90 tabs 09/02/24 cholecalciferol (vitamin D3) 25 25 mcg PO DAILY 90 days #90 caps 09/02/24 mcg (1,000 unit) capsule amoxicillin 875 mg-potassium 1 tab PO BID #13 tabs 09/04/24 clavulanate 125 mg tablet azithromycin 250 mg tablet 250 mg PO DAILY 4 days #4 tabs 09/04/24 Allergies Allergy/AdvReac Type Severity Reaction Status Date / Time aspirin [ASPIRIN] Allergy Intermediate ITCHING Verified 09/04/24 07:57 fish oil Allergy Intermediate itchiness Verified 09/04/24 07:57 shellfish derived Allergy Mild Swelling Verified 09/04/24 07:57 Review of Systems Review of Systems: As per HPI Yes all other systems are reviewed and are negative Constitutional: Constitutional: Reports as per HPI [facility] Past Medical History Medical History (Updated 09/04/24 @ 12:59 by Mary Benitez NP) Partial small bowel obstruction Hearing loss Encounter for Medicare annual wellness exam Cardiac arrest due to underlying cardiac condition Solitary kidney, acquired Mild recurrent major depression Cough BPH (benign prostatic hyperplasia) CAD (coronary artery disease) Lower back pain Asthma Hypertension Seizures Heart attack Afib High cholesterol Surgical History History of left nephrectomy History of colonoscopy H/O heart artery stent Family History Family History Father No problems noted. Mother Cancer Diabetes Social History Social History Household Members: Spouse and Children Housing: Apartment Do you presently have visiting nurse or other home services: No Alcohol intake: former Patient Tobacco Use Status: Never used Tobacco Tobacco use type: Cigarette Smoked in Last 30 Days: No e-Cigarette/Vaping Use: Never Used Second Hand Smoke Exposure: No Use of substances other than those prescribed or required for medical reasons: No Advance Directives: No Advance Directives Information Provided: Yes Do you have a plan to hurt others: No Plan service: No Current occupational status: retired Cognitive needs: No Hearing needs: Yes Vision needs: Yes Physical Exam ED Vital Signs: Vital Signs - 24 hr 09/04/24 07:56 09/04/24 09:47 09/04/24 09:47 Temperature 98 F 98.3 F Pulse Rate 75 69 Respiratory Rate 18 18 Blood Pressure 126/32 L 124/62 Pulse Oximetry 96 94 94 Oxygen Delivery Method Room Air Room Air Room Air 09/04/24 11:32 Temperature 98.1 F Pulse Rate 66 Respiratory Rate 18 Blood Pressure Pulse Oximetry 95 Oxygen Delivery Method Room Air BMI result Body Mass Index 33.7 Vital signs have been reviewed and appear to be correct. Blood pressure normal. Heart rate normal. Respiratory rate normal. Temperature normal. Oxygen saturation normal. Const General: cooperative, healthy appearing and no acute distress Orientation/consciousness: oriented to person, oriented to place, oriented to time and patient oriented x3 Limitations: no limitations HENMT Head: Yes normocephalic and Yes atraumatic Ears: external ears normal General nose exam: Normal external nose present Face and sinus: Yes face symmetric Mouth: oropharynx normal and moist mucous membranes Throat: Yes uvula midline Eyes Pupils: Equal, round and reactive pupils present Neck Neck: Yes normal visual inspection and Yes supple Resp Effort & Inspection: normal respiratory effort and able to speak in complete sentences Auscultation: clear to auscultation bilaterally and wheezes inspiratory wheezes and right lower Cardio Rate: regular rate Rhythm: regular rhythm Heart sounds: S1 normal heart sound present and S2 normal heart sound present GI Palpation (GI): Soft to palpation and nontender Auscultation: normoactive bowel sounds General: Yes no CVA tenderness Back/Spine/Pelvis Back: no CVA tenderness Skin General skin exam: elasticity normal and turgor normal Neuro General: oriented to person, oriented to place, oriented to time, patient oriented x3, moves all extremities, no focal motor deficits and CN's II-XI intact bilaterally Cranial nerves: Yes Equal, round and reactive pupils present Cognition (Neuro): normal cognition Extrem General: Yes full ROM, Yes no pedal edema and Yes no calf tenderness Psych Mental Status: mental status grossly normal Affect: normal affect Thought process: Normal thought process present Course Reevaluation(s) Reevaluation #1: Patient now complaining of chest pain, troponin ordered. Time: 09:31 Reevaluation #2: Initial troponin of 10.2, no delta on repeat trop. Feel patient is stable for discharge home. Will discharge on Augmentin and azithromycin. Instructed patient to follow up with PCP for repeat CXR. Return precautions discussed with patient and . Patient verbalized understanding of and agreement with plan. In-person historic interpreter was utilized for all interactions, assessments, and discussions. Time: 12:39 Medications Administered Discontinued Medications Generic Name Dose Route Start Last Admin Trade Name Freq PRN Reason Stop Dose Admin Amoxicillin/Clavulanate Potassium 875 mg 09/04/24 09:22 09/04/24 09:47 Amoxicillin/Potassium Clav 875 Mg Tablet PO 09/04/24 09:23 875 mg ONCE ONE Administration Azithromycin 500 mg 09/04/24 09:22 09/04/24 09:47 Azithromycin 500 Mg Tablet PO 09/04/24 09:23 500 mg ONCE ONE Administration Medical Decision Making Medical Decision Making [facility] Narrative: Patient is a 74-year-old Mongolian speaking male with history of asthma, CAD, seizures, HTN, BPH, dyslipidemia, DINESH presenting to the emergency department complaining of worsening productive cough and shortness of breath over the past 2 days as well as headache, generalized body aches. On exam patient is awake, A+Ox3, VS WNL, afebrile, normal neurological exam without focal deficits, physical exam findings as above. Given reported symptoms and physical exam findings, initial differential includes but is not limited to viral illness, covid, flu, bronchitis, pneumonia, asthma exacerbation. Labs notable for no leukocytosis, slight anemia. Viral panel negative. EKG shows normal sinus rhythm with T-wave inversion in leads v1-v6 which are present on previous EKGs. X-ray chest notable for right lower lobe pneumonia. My interpretation is in agreement with the radiologist's interpretation. See course for remaining clinical decision making. Differential Diagnosis Differential Diagnoses: The differential diagnosis associated with the presentation includes As per [facility] Admission/Observation Consideration of admission/observation: Escalation of care including admission/observation considered Patient would have been admitted to the hospital had their work up had any findings where hospital admission was appropriate and their clinical presentation warranted hospital admission. Lab Data [facility] Lab Attestation statement: I reviewed the patient's lab results. As per [facility] 09/04/24 08:16 09/04/24 08:16 Labs: Lab Results 09/04/24 09/04/24 Range/Units 08:16 11:31 WBC 5.0 (4.8-10.8) X10*3/uL RBC 3.74 L (4.60-5.80) X10*6/uL Hgb 12.3 L (14.0-18.0) g/dl Hct 34.4 L (42.0-52.0) % MCV 92.0 (80.0-98.0) fL MCH 32.9 (27.0-33.0) pg MCHC 35.8 (31.0-36.0) g/dl RDW 13.1 (11.0-16.0) % Plt Count 151 L (160-400) X10*3/uL MPV 11.1 (9.4-12.4) fL Immature Gran % (Auto) 0.2 (0.0-0.4) % Neut % (Auto) 58.9 (45-73) % Lymph % (Auto) 22.8 (20-40) % Harper % (Auto) 15.7 H (2-11) % Eos % (Auto) 1.8 (0-4) % Baso % (Auto) 0.6 (0-2) % Lymph # (Auto) 1.1 L (1.2-4.9) X10*3/uL Harper # (Auto) 0.8 (0.1-1.2) X10*3/uL Eos # (Auto) 0.1 (0.0-0.4) X10*3/uL Baso # (Auto) 0.0 (0.0-0.2) X10*3/uL Abs Immat Gran (auto) 0.01 (0.00-0.03) X10*3/uL Absolute Neuts (auto) 2.9 (2.0-8.3) x10*3/uL Absolute Nucleated RBC 0.000 (0.0-0.012) X10*3/uL Nucleated RBC % (auto) 0.0 (0.0-0.2) /100WBC Sodium 138 (135-145) mmol/L Potassium 3.3 D (3.3-5.1) mmol/L Chloride 113 H (96-108) mmol/L Carbon Dioxide 20 L (22-29) mmol/L Anion Gap 8 L (12-20) BUN 14 (9-16) mg/dL Creatinine 1.15 (0.5-1.4) mg/dL Estim Creat Clear Calc 56.9 Estimated GFR > 60 Random Glucose 156 H (60-115) mg/dL Calcium 8.3 L (8.4-10.2) mg/dL Total Bilirubin 0.2 (0.0-1.0) mg/dL AST 34 (5-37) U/L ALT 35 (0-40) U/L Alkaline Phosphatase 146 H (39-117) U/L Troponin I High Sens 10.2 D 10.6 (<3.5-35.0) ng/L Total Protein 6.7 (6.5-8.0) g/dL Albumin 3.6 (3.5-5.0) g/dL Influenza Type A (PCR) NEGATIVE (Negative) Influenza Type B (PCR) NEGATIVE (Negative) RSV RNA Qual (PCR) NEGATIVE (Negative) SARS-CoV-2 RNA (RT-PCR) NEGATIVE (Negative) Independent Interpretation I performed an independent interpretation of an: EKG (normal sinus rhythm with T wave inversion in leads V1-V6, rate 71bpm, normal ME interval, no significant change from prior) and Plain X-Ray Interpretation: chest xray notable for RLL pneumonia Radiology Impression Discussion of test interpretation with radiology: I have reviewed the radiologist's reading. Radiologist Impression: XR/XR chest 2V IMPRESSION: Acute on chronic airspace disease with likely acute airspace disease in the right lung base. External Record Review External record reviewed: Inpatient record, Office record and Outpatient record Prescription Management I considered prescription management with: Antibiotic Discharge Plan Discharge Clinical Impression: Right lower lobe pneumonia Patient Disposition: Home, Self-Care Instructions: Amoxicillin/Clavulanate Potassium (By mouth), Azithromycin (By mouth), Community Acquired Pneumonia (DC) Additional Instructions: You were evaluated in the emergency department today for cough and shortness of breath. Your chest x-ray shows evidence of pneumonia. You are being treated with two different antibiotics, please complete the full course of both as prescribed. For the Augmentin (amoxicillin-clavulanate potassium), take another dose tonight. The azithromycin is once daily so your next dose is due tomorrow. Please call your primary care provider within the next 2-3 days to schedule a follow-up appointment. You will need a repeat chest x-ray to confirm resolution of your pneumonia. Return to the emergency department if you develop worsening shortness of breath, chest pain, palpitations, fever 100.4? F or greater, or any other concerning symptoms. Prescriptions: New amoxicillin-pot clavulanate 875-125 mg tablet 1 tab PO BID Qty: 13 0RF azithromycin 250 mg tablet 250 mg PO DAILY 4 Days Qty: 4 0RF No Action (DME) Aeromist Nebulizer See Rx Instructions .Route .MEDSUPPLY Qty: 1 0RF Rx Instructions: As directed (DME) nebulizers [AeroEclipse II Nebulizer] [facility] [place] Rx Instructions .Route Qty: 1 0RF Rx Instructions: As directed Anoro Ellipta 62.5-25 mcg/actuation blister with device 1 inh inhalation DAILY 60 Days Qty: 60 0RF levalbuterol HCl 1.25 mg/3 mL solution for nebulization 1.25 mg inhalation BID 90 Days Qty: 540 0RF atorvastatin 80 mg tablet 80 mg PO BEDTIME Qty: 90 3RF cholecalciferol (vitamin D3) 25 mcg (1,000 unit) capsule 25 mcg PO DAILY 90 Days Qty: 90 1RF tramadol 50 mg tablet 50 mg PO Q8H PRN (Reason: Pain) nitroglycerin 0.4 mg tablet, sublingual 0.4 - 0.8 mg sublingual DAILY PRN (Reason: Chest Pain) carbamazepine 100 mg tablet,chewable 300 mg PO BID clonazepam 1 mg tablet 1 mg PO TID quetiapine 100 mg tablet 100 mg PO BEDTIME citalopram 40 mg tablet 40 mg PO DAILY phenytoin sodium extended 100 mg capsule 200 mg PO BID ezetimibe 10 mg tablet 10 mg PO DAILY 90 Days Qty: 90 1RF clopidogrel 75 mg tablet 75 mg PO DAILY 90 Days Qty: 90 0RF alfuzosin 10 mg tablet extended release 24 hr 10 mg PO DAILY 90 Days Qty: 90 2RF sennosides-docusate sodium [Senexon-S] 8.6-50 mg tablet 1 tab-cap PO BID Qty: 180 0RF albuterol sulfate 2.5 mg /3 mL (0.083 %) solution for nebulization 2.5 mg inhalation Q6H PRN (Reason: shortness of breath or wheezing) 30 Days Qty: 180 0RF Trelegy Ellipta 200-62.5-25 mcg blister with device 1 inh inhalation DAILY 30 Days Qty: 60 12RF montelukast [Singulair] 10 mg tablet 10 mg PO BEDTIME 30 Days Qty: 30 11RF metoprolol succinate 25 mg tablet extended release 24 hr 25 mg PO DAILY 90 Days Qty: 90 3RF Print Language: Mongolian
[2024-09-04 08:47] LABS: MANUAL DIFF FLAG NO
[2024-09-04 08:56] LABS: Basophils Percent Auto 0.6 % (0-2); Eosinophils Absolute Auto 0.1 X10*3/uL (0.0-0.4); Eosinophils Percent Auto 1.8 % (0-4); Hematocrit 34.4 % (42.0-52.0); Hemoglobin 12.3 g/dl (14.0-18.0); Imm Gran Abs Auto 0.01 X10*3/uL (0.00-0.03); Imm Gran Pct Auto 0.2 % (0.0-0.4); Lymphocytes Absolute Auto 1.1 X10*3/uL (1.2-4.9); Lymphocytes Percent Auto 22.8 % (20-40); Mean Corpuscular HGB Conc 35.8 g/dl (31.0-36.0); Mean Corpuscular Hemoglobin 32.9 pg (27.0-33.0); Mean Platelet Volume 11.1 fL (9.4-12.4); Monocytes Absolute Auto 0.8 X10*3/uL (0.1-1.2); Monocytes Percent Auto 15.7 % (2-11); Neutrophils Absolute Auto 2.9 x10*3/uL (2.0-8.3); Neutrophils Percent Auto 58.9 % (45-73); Platelet Count 151 X10*3/uL (160-400); Red Blood Count 3.74 X10*6/uL (4.60-5.80); Red Cell Distribution Width 13.1 % (11.0-16.0)
[2024-09-04 09:03] LABS: Alanine Aminotransferase 35 U/L (0-40); Albumin Level 3.6 g/dL (3.5-5.0); Alkaline Phosphatase 146 U/L (39-117); Anion Gap 8 (12-20); Aspartate Amino Transferase 34 U/L (5-37); Bilirubin Total 0.2 mg/dL (0.0-1.0); Blood Urea Nitrogen 14 mg/dL (9-16); Calcium 8.3 mg/dL (8.4-10.2); Carbon Dioxide 20 mmol/L (22-29); Chloride 113 mmol/L (96-108); Creatinine Clr Calc Pharmacy 56.9; Estimated Glomerular Filt Rate > 60; Glucose Random 156 mg/dL (60-115); Potassium 3.3 mmol/L (3.3-5.1); Sodium 138 mmol/L (135-145); Total Protein 6.7 g/dL (6.5-8.0)
--- NOTE | 2024-09-04 09:06 | PC.NURSE ---
Pt denying SI or HI. at bedside. Alert and oriented, breathing even and unlabored with frequent episodes of coughing. Reporting headache.
[2024-09-04 09:46] LABS: Influenza A PCR NEGATIVE (Negative); Influenza B PCR NEGATIVE (Negative); Resp Syncy Virus RNA Qual PCR NEGATIVE (Negative); SARS COV2 PCR INHOUSE NEGATIVE (Negative)
[2024-09-04 09:47] VITALS: BP 124/62; PULSE 69; RESP 18; TEMP 36.8; O2SAT 94
[2024-09-04] MEDS: Azithromycin 500 MG TABLET PO (09:47)
[2024-09-04] MEDS: Amoxicillin/Potassium Clav 875 MG TABLET PO (09:47)
[2024-09-04 09:58] LABS: Troponin-I High Sensitivity 10.2 ng/L (<3.5-35.0)
--- NOTE | 2024-09-04 10:52 | PC.NURSE ---
Report received from GORGE Jara.
[2024-09-04 11:32] VITALS: PULSE 66; RESP 18; TEMP 36.7; O2SAT 95
[2024-09-04 12:06] LABS: Troponin-I High Sensitivity 10.6 ng/L (<3.5-35.0)
[2024-09-04 13:23] VITALS: BP 130/80; PULSE 85; RESP 18; TEMP 36.9; O2SAT 95
== END 2024-09-04 13:24 | disposition home or self-care (01) ==
PROVIDERS: Registered Nurse Emergency; Emergency Provider Emergency Medicine; PCP Internal Medicine
DX: J18.8 Other pneumonia, unspecified organism (principal); R06.02 Shortness of breath; Z03.818 Encounter for observation for suspected exposure to other biological agents ruled out; J45.909 Unspecified asthma, uncomplicated; Z79.899 Other long term (current) drug therapy
CPT/HCPCS: 0241U; 36415; 71046; 80053; 84484; 85025; 93005; 99283; 99285

== ENCOUNTER → 2024-09-04 08:05 | Outpatient (BNV) | payer MEDICARE, MEDICAID, SELFPAY | PROVIDERS: Emergency Provider Emergency Medicine; PCP Internal Medicine; Visit Provider Radiology Diagnostic Radiology | DX: J96.20 Acute and chronic respiratory failure, unspecified whether with hypoxia or hypercapnia (principal) | CPT/HCPCS: 71046 ==

== ENCOUNTER → 2024-09-04 08:08 | Outpatient (BNV) | payer MEDICARE, MEDICAID, SELFPAY | PROVIDERS: Emergency Provider Emergency Medicine; PCP Internal Medicine; Visit Provider Internal Medicine Cardiovascular Disease | DX: R94.31 Abnormal electrocardiogram [ECG] [EKG] (principal); R06.02 Shortness of breath | CPT/HCPCS: 93010 ==

== ENCOUNTER 2024-09-11 09:02 | Outpatient (REF) | payer MEDICARE, MEDICAID, SELFPAY ==
--- NOTE | 2024-09-11 09:04 | PFT_ITS ---
Flows: FEV1: 80 % of predicted at 2.03 L FVC: 71 % of predicted at 2.39 L FEV1/FVC: 85 % Bronchodilator response: Present Volumes: Total lung capacity: 75 % of predicted at 4.50 L Residual volume: 100 % of predicted at 2.28 L Slow vital capacity: 62 % of predicted at 2.21 L Expiratory reserve volume: 0 % of predicted at 0 L Diffusion capacity: Normal Impression: [id number]-[id number] restrictive ventilatory defect with positive bronchodilator response. Decreased expiratory reserve volume suggests extrathoracic restriction likely secondary to abdominal obesity. MTDD
[2024-09-11 09:47] VITALS: PULSE 63; O2SAT 97
--- OUTSIDE RECORDS SUMMARY | 2024-09-11 09:52 | XMS_ITS | Clinical Summary ---
Author Organization [facility] Facility Address [address] [place] [address] Care Team Providers Care Shop Steward Name Role Phone Deidre Hunter MD Primary Care Provider [phone] Allergies Active Allergy Reactions Criticality Noted Date [...] Visit [facility] P.CAmanda [address] [facility] [address] [place] [address] Denise Moreno ARNP [address] [facility] [address] [place] [id number] Health Maintenance Due Date Last Done Comments Pneumococcal Vaccine: 65+ Years (3 of 3 - PCV) 04/06/2015 04/06/2014, 12/31/2006 Influenza Vaccine (#1) 2024 03/26/2014 Hepatitis B Vaccine Aged Out No longe r eligible based on patient's age to complete this topic [place] Care Teams Shop Steward Relationship Specialty Start Date End Date Deidre Hunter MD [address] [place], [place] PCP - General 06/22/20
--- OUTSIDE RECORDS SUMMARY | 2024-09-11 09:52 | XMS_ITS | Patient Health Record ---
Author Organization [facility] Address [address] [place] [address] Care Team Providers Care Pin Machine Operator Name Role Phone Deidre Hunter Primary Care Provider Ravin Bañuelos Jr Unavailable Allergies Allergen (clinical drug ingredient) Drug/Non Drug Allergy documented on EMR Reaction Allergy Type Onset Date Status Fish Oil Unknown Drug Allergy Active aspirin Aspirin Unknown Drug Allergy Active Reason For Referral No Information Medications Medication SIG (Take, Route, Frequency, Duration) Notes [...] as needed Orally every 8 hrs Active Immunizations Vaccine Route Administration Date Status Comme nts Flu vaccine no Preserv 3 and > Unknown 03/26/2014 Admin istered Influenza Unknown 07/15/2021 Administered Problems Problem Type SNOMED Code ICD Code Onset Dates Problem Status W/U Status Risk Notes Problem [id number] Colon cancer screening (Z12.11) Active confirmed Problem [id number] 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 (Z79.02) Active confirmed Plan Of Treatment Future Test Test Name Order Date COLONOSCOPY 10/08/2014 COLONOSCOPY 07/19/2021 Insurance Providers Payer Name Payer Address Payer Phone Subscriber Number Group Number Insured Name Patient Relationship to Insured Coverage Start Date Coverage End Date MEDICARE OF [place] [address] [place] [id number] YORDAN MAKI Self - patient is the insured MEDICAID OF [facility] [address] [place] [phone] [id number] YORDAN MAKI Self - patient is the insured Medical (General) History Medical History History ICD Code coronary artery disease with history of [place] 2006 and stent placement. Chronic kidney disease, left nephrectomy for nonfunctioning left kidney due to stones asthma hypertension seizure disorder anxiety/depression esophageal reflux hyperlipidemia Surgical History Surgery Date(Month/Year) left nephrectomy stent placement
== END 2024-09-11 09:03 | disposition home or self-care (01) ==
LOC: HO.RESP 09:02
PROVIDERS: PCP Internal Medicine; Visit Provider Hospitalist
DX: J45.909 Unspecified asthma, uncomplicated (principal)
CPT/HCPCS: 94010; 94640; 94727; 94729

== ENCOUNTER → 2024-09-11 09:04 | Outpatient (BNV) | payer MEDICARE, MEDICAID, SELFPAY | PROVIDERS: PCP Internal Medicine; Visit Provider Internal Medicine Pulmonary Disease | DX: J45.909 Unspecified asthma, uncomplicated (principal) | CPT/HCPCS: 94060; 94727; 94729 ==

== ENCOUNTER 2024-10-04 09:00 | Outpatient (AMB) | payer MEDICARE, MEDICAID, SELFPAY ==
--- NOTE | 2024-10-04 09:05 | A.OFFVIS_ITS ---
Vital Signs 10/04/24 09:06 Height 5 ft 5 in Weight 206 lb 2.115 oz BMI 34.3 BP 110/52 L Blood Pressure Location Rt brachial Position Sitting Pulse 58 Pulse Source Pulse Oximeter Pulse Oximetry (%) 96 Oxygen Delivery Method Room Air Intake Visit Reasons: 2mo F/U Asthma Allergies aspirin [ASPIRIN] Allergy (Intermediate, Verified 10/04/24 09:08) ITCHING fish oil Allergy (Intermediate, Verified 10/04/24 09:08) itchiness shellfish derived Allergy (Mild, Verified 10/04/24 09:08) Swelling HPI Comments Details: The patient is a 74-year-old gentleman with the cardiac history status post PCI presenting with worsening respiratory symptoms. A few years ago she was given a diagnosis of asthma. He has been on multiple inhalers. He has had multiple evaluations in the ER and also at urgent care for his asthma symptoms. The been hard to control. He has a nebulizer machine that he uses daily for symptoms. Was also placed on Anoro. He has never had allergy testing. He has a dog at home. Denies any other allergic exposures that he is aware of. The patient does have some ongoing wheezing right now on exam. In addition to the wheezing he does have cough. The cough episodes can be dramatic to the point of syncope. Moderate to severe. Right now he is feeling a little better after going to an urgent care and getting a prescription for prednisone. The patient also been having sleep apnea symptoms. Significant daytime drowsiness with an [place] score 11/24. His is concerned because of significant snoring. He needs to have a sleep study. Specially with cardiac history. He will undergo PFTs sleep study and blood work including allergy testing. Will follow-up after the studies. 10/04/2024 the patient is here for pulmonary follow-up visit. Overall the patient is doing better. He did have a chest x-ray demonstrating a opacity in the right lung suggesting bronchopneumonia. He was treated with antibiotics. He also switch Trelegy. The patient overall is feeling better. He is no longer requiring his rescue inhaler. He is still having some sleep apnea symptoms. Has an elevated [place] score of 11/24 we daytime drowsiness. Positive snoring. He is scheduled to undergo a sleep study soon. Will follow-up with the results. For now he will continue with current therapy. We did review vaccines which she will have to update. In the meantime he will return in 4-6 months with a chest x-ray and also if he does have sleep apnea and needs to be treated he will bring CPAP with him. 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 Mother Cancer Diabetes Social History Household Members: Spouse and Children Housing: Apartment Do you presently have visiting nurse or other home services: No Alcohol intake: former Patient Tobacco Use Status: Never used Tobacco Tobacco use type: Cigarette e-Cigarette/Vaping Use: Never Used Second Hand Smoke Exposure: No service: No Current occupational status: retired Cognitive needs: No Hearing needs: Yes Vision needs: Yes Review of Systems Const Denies chills, Denies fatigue, Denies fever(s), Denies weight gain and Denies weight loss Eyes Reports no additional complaints ENT Denies dizziness Card Denies chest pain, Denies leg edema, Denies lightheadedness, Denies palpitations, Denies dyspnea on exertion, Denies orthopnea and Denies other Resp Denies cough, Denies dyspnea on exertion and Reports wheezing GI Denies hematochezia and Denies change in stool character Musc Denies muscle weakness, Denies numbness, Denies radiating pain into limb and Denies tingling Skin/Breast Denies rash Neuro Denies dizziness, Denies numbness and Denies tingling Endo Denies fatigue and Denies palpitations Melvin/Lymph Reports no additional complaints Aller/Immun Reports wheezing Physical Exam Vital Signs: Last Vital Signs Pulse 58 10/04/24 09:06 BP 110/52 L 10/04/24 09:06 Pulse Ox 96 10/04/24 09:06 Oxygen Delivery Method Room Air 10/04/24 09:06 BMI result Body Mass Index 34.3 Last Vital Signs Temp 97.2 F 04/24/24 07:31 Pulse 65 04/24/24 07:31 Resp 16 04/24/24 07:31 BP 132/60 04/24/24 09:02 Pulse Ox 96 04/24/24 07:31 O2 Del Method Room Air 04/24/24 07:31 BMI result Body Mass Index 33.4 Const General: comfortable, no acute distress and alert Orientation/consciousness: patient oriented x3 HEENT Head: Yes normocephalic Neck Neck: Yes supple Chest Chest palpation & inspection: normal inspection of the chest Resp Effort & Inspection: normal respiratory effort Auscultation: no wheezes and diminished lung sounds Cardio Heart sounds: S1 normal heart sound present and S2 normal heart sound present GI Palpation (GI): Soft to palpation Skin General skin exam: no rashes or lesions noted Neuro General: patient oriented x3 and moves all extremities Extrem General: No cyanosis Assessment & Plan Assessment & Plan (1) Asthma: Code(s): J45.909 - Unspecified asthma, uncomplicated Category: Medical Qualifiers: Asthma complication type: uncomplicated Asthma persistence: persistent Asthma severity: severe Qualified Code(s): J45.50 - Severe persistent asthma, uncomplicated (2) DINESH (obstructive sleep apnea): Code(s): G47.33 - Obstructive sleep apnea (adult) (pediatric) Category: Medical (3) Bronchopneumonia: Comment: better Code(s): J18.0 - Bronchopneumonia, unspecified organism Category: Medical Plan Trelegy 200 daily CEE as needed Xopenex nebs Singulair at night home PSG pending CXR F/U 6 months Orders: Orders XR chest 2V 10/04/24 J18.0 - Bronchopneumonia, unspecified organism Coding Level of Care Code Est Pt Level 4 (84108) Complex EM visit Add On G2211 Diagnoses Severe persistent asthma without complication J45.50 Asthma complication type: uncomplicated Asthma persistence: persistent Asthma severity: severe DINESH (obstructive sleep apnea) G47.33 Bronchopneumonia J18.0 Time Spent (min) 17
[2024-10-04 09:06] VITALS: BP 110/52; PULSE 58; O2SAT 96; BMI 34.3
--- OUTSIDE RECORDS SUMMARY | 2024-10-04 09:09 | XMS_ITS | Clinical Summary ---
Author Organization [facility] Address [address] [place] [address] Care Team Providers Care Kennel Hand Name Role Phone Deidre Hunter MD Primary Care Provider [phone] Allergies Active Allergy Reactions Criticality Noted Date [...] Resolved Date Chronic glomerulonephritis 08/03/2020 1 Immunizations Immunization Administration Dates Next Due Pneumococcal Polysaccharide 04/06/2014 [...] Visit [facility] P.CAmanda [address] [place] [phone] Denise Moreno ARNP [address] [place] [address] Health Maintenance Due Date Last Done Comments Pneumococcal Vaccine: 50+ Years (3 of 3 - PCV) 04/06/2015 04/06/2014, 12/31/2006 Influenza Vaccine (Season Ended) 2025 03/26/2014 Pneumococcal Vaccine: Peds (0 to 5 Years) and At-Risk Patients (6 to 49 Years) Discontinued 04/06/2014, 12/31/2006 Hepatitis B Vaccine Aged Out No longe r eligible based on patient's age to complete this topic Insurance Medicaid [place] Medicare Medicaid [place] Medicare Care Teams Kennel Hand Relationship Specialty Start Date End Date Deidre Hunter MD [address] [place] PCP - General 06/22/20
== END 2024-10-04 09:23 | disposition home or self-care (01) ==
LOC: HO.HPS 09:01
PROVIDERS: PCP Internal Medicine; Visit Provider Hospitalist
DX: J45.50 Severe persistent asthma, uncomplicated (principal); G47.33 Obstructive sleep apnea (adult) (pediatric); J18.0 Bronchopneumonia, unspecified organism
CPT/HCPCS: 99214; G2211

== ENCOUNTER → 2024-10-04 09:00 | Outpatient (BNVA) | payer MEDICARE, MEDICAID, SELFPAY | PROVIDERS: PCP Internal Medicine; Visit Provider Hospitalist | DX: J45.50 Severe persistent asthma, uncomplicated (principal); J18.0 Bronchopneumonia, unspecified organism; G47.33 Obstructive sleep apnea (adult) (pediatric) | CPT/HCPCS: 99212 ==

== ENCOUNTER → 2024-10-07 08:48 | Outpatient (REF) | payer MEDICARE, MEDICAID, SELFPAY ==
--- OUTSIDE RECORDS SUMMARY | 2024-10-07 09:26 | XMS_ITS | Clinical Summary ---
Author Organization [facility] Address [address] [place] [address] Care Team Providers Care Applications System Analyst Name Role Phone Deidre Hunter MD Primary Care Provider [phone] Allergies Active Allergy Reactions Criticality Noted Date [...] Visit [facility] P.CAmanda [address] [place] [phone] Denise Moreno ARNP [address] [place] [address] Health Maintenance Due Date Last [...] this topic Insurance Medicaid [place] Medicare Medicaid [place] Medicare Care Teams Applications System Analyst Relationship Specialty Start Date End Date Deidre Hunter MD [address] [place] PCP - General 06/22/20
== END ==
LOC: HO.SL 08:48
PROVIDERS: PCP Internal Medicine; Visit Provider Hospitalist
DX: G47.33 Obstructive sleep apnea (adult) (pediatric) (principal)
CPT/HCPCS: 95806

== ENCOUNTER → 2024-10-07 09:00 | Outpatient (BNV) | payer MEDICARE, MEDICAID, SELFPAY | PROVIDERS: PCP Internal Medicine; Visit Provider Internal Medicine | DX: G47.33 Obstructive sleep apnea (adult) (pediatric) (principal) | CPT/HCPCS: 95806 ==

== ENCOUNTER 2024-12-03 10:18 | Outpatient (REF) | payer MEDICARE, MEDICAID, SELFPAY ==
[2024-12-03 11:13] LABS: Alanine Aminotransferase 52 U/L (0-40); Albumin Level 3.9 g/dL (3.5-5.0); Alkaline Phosphatase 148 U/L (39-117); Anion Gap 11 (12-20); Aspartate Amino Transferase 41 U/L (5-37); Bilirubin Total 0.3 mg/dL (0.0-1.0); Blood Urea Nitrogen 28 mg/dL (9-16); Calcium 8.8 mg/dL (8.4-10.2); Carbon Dioxide 23 mmol/L (22-29); Chloride 112 mmol/L (96-108); Cholesterol 149 mg/dL (<200); Estimated Glomerular Filt Rate 59; Glucose Fasting 109 mg/dL (60-99); HDL Cholesterol 56 mg/dL (>40); LDL Cholesterol Calculated 79 mg/dL (<100); Potassium 4.2 mmol/L (3.3-5.1); Sodium 142 mmol/L (135-145); Triglycerides 70 mg/dL (<150)
--- OUTSIDE RECORDS SUMMARY | 2024-12-03 11:26 | XMS_ITS | Clinical Summary ---
Author Organization [facility] Address [address] [address] Phone Care Team Providers Care Mower Operator Name Role Phone Deidre Hunter MD Primary Care Provider [phone] Allergies Active Allergy Reactions Criticality Noted Date [...] the tongue if needed For chest pain 4 Active phenytoin (DILANTIN) 100 MG ER [...] Date Resolved Date Chronic glomerulonephritis 08/03/2020 1 Encounters Date Type Department Care Team Description 11/06/2024 11:30 AM EDT Office Visit [facility] [address] [address] Denise Moreno ARNP Chronic kidney disease stage 2 (Primary Dx); History of calculus of kidney from Last 3 Months Immunizations Immunization Administration Dates Next Due Pneumococcal [...] Sign Reading Time Taken Comments Blood Pressure 108/62 11/06/2024 11:18 AM EDT Pulse 59 11/06/2024 11:18 AM EDT Temperature - - Respiratory Rate - - Oxygen Saturation 94% 11/02/2022 3:00 PM EDT Inhaled Oxygen Concentration - - Weight 93.9 kg (207 lb) 11/06/2024 11:18 AM EDT Height 165.1 cm (5' 5 ) 11/02/2022 3:00 PM EDT Body Mass Index 34.45 11/02/2022 3:00 PM EDT Plan of Treatment Upcoming Encounters Date Type Department Care Team (Late st Contact Info) Description 11/06/2025 10:00 AM EDT Office Visit [facility] [address] [address] Denise Moreno ARNP [address] [address] Health Maintenance Due Date Last Done Comments Pneumococcal Vaccine: 50+ Years (3 of 3 - PCV) 04/06/2015 04/06/2014, 12/31/2006 Influenza Vaccine (Season Ended) 2025 03/26/2014 Pneumococcal Vaccine: Peds (0 to 5 Years) and At-Risk Patients (6 to 49 Years) Discontinued 04/06/2014, 12/31/2006 Hepatitis B Vaccine Aged Out No longe r eligible based on patient's age to complete this topic Procedures Procedure Name Priority Date/Time Associated Diagnosis Comments CBC Routine 11/08/2024 9:00 AM EDT PROTEIN / CREATININE RATIO, URINE Routine 11/08/2024 9:00 AM EDT Chronic kidney disease stage 2 History of calculus of kidney URINE ALBUMIN / CREATININE RATIO Routine 11/08/2024 9:00 AM EDT Chronic kidney disease stage 2 History of calculus of kidney RENAL FUNCTION PANEL Routine 11/08/2024 9:00 AM EDT Chronic kidney disease stage 2 History of calculus of kidney PTH, INTACT Routine 11/08/2024 9:00 AM EDT Chronic kidney disease stage 2 History of calculus of kidney from Last 3 Months Results * Urine Protein / creatinine ratio (11/08/2024 9:00 AM EDT) Creatinine, Ur 99.1 Not Estab. mg/dL [facility] Protein, Ur 16.2 Not Estab. mg/dL [facility] Urine Protein/Creatin ine Ratio 163 0 - 200 mg/g creat [facility] Urine Urine specimen obtained by clean catch procedure / Unknown 11/08/2024 9:00 AM EDT 11/08/2024 [facility] Moreno [facility] LAB URINE ORDERABLES Final Result Performing Organization Address City/[facility] Co de Phone Number [facility] [address] [place] [address] * Urine Albumin / Creatinine Ratio (11/08/2024 9:00 AM EDT) Albumin, Urine <3.0 Not Estab. ug/mL [facility] Albumin/Creatin ine Ratio <3 0 - 29 mg/g creat [facility] Comment: Normal: 0 - 29 Moderately increased: 30 - 300 Severely increased: >300 Urine Urine specimen obtained by clean catch procedure / Unknown 11/08/2024 9:00 AM EDT 11/08/2024 Denise Moreno [facility] LAB URINE ORDERABLES Final Result Performing Organization Address City/[facility]/ZIP Co de Phone Number [facility] [address] [place] [address] * (ABNORMAL) CBC (11/08/2024 9:00 AM EDT) WBC 5.8 3.4 - 10.8 x10E3/uL [facility] RBC 4.11(L) 4.14 - 5.80 x10E6/uL [facility] Hemoglobin 12.9(L) 13.0 - 17.7 g/dL [facility] Hematocrit 39.2 37.5 - 51.0 % [facility] MCV 95 79 - 97 fL [facility] MCH 31.4 26.6 - 33.0 pg [facility] MCHC 32.9 31.5 - 35.7 g/dL [facility] RDW 13.6 11.6 - 15.4 % [facility] Platelets 162 150 - 450 x10E3/uL [facility] 11/08/2024 9:00 AM EDT 11/08/2024 [facility] LAB BLOOD ORDERABLES Final Result [facility] [address] [place] [address] * PTH, intact (11/08/2024 9:00 AM EDT) PTH 50 15 - 65 pg/mL [facility] Blood Venous blood / Unknown 11/08/2024 9:00 AM EDT 11/08/20[facility] Final Result [facility] [address] [place] [address] * (ABNORMAL) Renal function panel (11/08/2024 9:00 AM EDT) Glucose 98 70 - 99 mg/dL [facility] BUN 27 8 - 27 mg/dL [facility] Creatinine 1.18 0.76 - 1.27 mg/dL [facility] eGFR CKD-EPI CR 2020 64 >59 mL/min/1.7 3 [facility] BUN/Creatinine Ratio 23 10 - 24 [facility] Sodium 140 134 - 144 mmol/L [facility] Potassium 4.4 3.5 - 5.2 mmol/L [facility] Chloride 108(H) 96 - 106 mmol/L [facility] Bicarbonate (CO2) 18(L) 20 - 29 mmol/L [facility] Calcium 8.5(L) 8.6 - 10.2 mg/dL [facility] Albumin 4.0 3.8 - 4.8 g/dL [facility] Phosphorus 4.0 2.8 - 4.1 mg/dL [facility] Blood Venous blood / Unknown 11/08/2024 9:00 AM EDT 11/08/2024 Denise Moreno [facility] LAB BLOOD ORDERABLES Final Result [facility] [address] [place] [address] from Last 3 Months [place] [id number] Medicaid [place] Medicare Care Teams Mower Operator Relationship Specialty Start Date End Date Deidre Hunter MD [address] [place], [place] PCP - General 06/22/20
[2024-12-03 11:30] LABS: Vitamin D 25-OH Total 42.3 ng/mL (>30)
[2024-12-06 02:28] LABS: Immunoglobulin E 53 kU/L (<OR=114)
== END 2024-12-03 10:19 | disposition home or self-care (01) ==
LOC: HO.LAB 10:18
PROVIDERS: Hospitalist; PCP Internal Medicine; Visit Provider Internal Medicine
DX: E55.9 Vitamin D deficiency, unspecified (principal); R56.9 Unspecified convulsions; E78.5 Hyperlipidemia, unspecified; J45.909 Unspecified asthma, uncomplicated
CPT/HCPCS: 36415; 80053; 80061; 82306; 82785

== ENCOUNTER 2024-12-12 10:03 | Outpatient (AMB) | payer MEDICARE, MEDICAID, SELFPAY ==
[2024-12-12 10:09] VITALS: BP 112/68; BMI 33.9
--- NOTE | 2024-12-12 10:09 | A.OFFPC_ITS ---
Vital Signs 12/12/24 10:09 Height 5 ft 5 in Weight 204 lb BMI 33.9 BP 112/68 Blood Pressure Location Lt brachial Position Sitting Intake Visit Reasons: seizures Charge Hand Required: No Accompanied by: Spouse Allergies aspirin (ASPIRIN) Allergy (Intermediate, Verified 12/12/24 10:20) ITCHING fish oil Allergy (Intermediate, Verified 12/12/24 10:20) itchiness shellfish derived Allergy (Mild, Verified 12/12/24 10:20) Swelling Medication List - Last Reconciled 12/12/24 by Deidre Zepeda MD [Aeromist Nebulizer As directed] albuterol sulfate 2.5 mg (3 mL) inhalation Q6H PRN 30 days alfuzosin ER 10 mg PO DAILY 90 days atorvastatin 80 mg PO BEDTIME carbamazepine 300 mg PO BID cholecalciferol (vitamin D3) 25 mcg PO DAILY 90 days citalopram 40 mg PO DAILY clonazepam 1 mg PO TID clopidogrel 75 mg PO DAILY 90 days ezetimibe 10 mg PO DAILY 90 days jklgypwkopt-wbubulfsq-sjwvjrdk 200-62.5-25 mcg (Trelegy Ellipta) 1 inh inhalation DAILY 30 days levalbuterol HCl 1.25 mg (3 mL) inhalation BID 90 days metoprolol succinate ER 25 mg PO DAILY 90 days montelukast (Singulair) 10 mg PO BEDTIME 30 days nebulizers (AeroEclipse II Nebulizer) As directed nitroglycerin 0.4 - 0.8 mg sublingual DAILY PRN phenytoin sodium extended 200 mg PO BID quetiapine 100 mg PO BEDTIME sennosides-docusate sodium 8.6-50 mg (Senexon-S) 1 tab-cap PO BID tramadol 50 mg PO Q8H PRN umeclidinium-vilanterol 62.5-25 mcg/actuation (Anoro Ellipta) 1 inh inhalation DAILY 60 days Tobacco use date assessed: 07/04/24 Dental Screening Dental Screen Date: 07/04/24 HPI HPI Comments History of Present Illness Details The patient is a 74-year-old male presenting for follow-up on chronic conditions. He has a history of seizure disorder, with no seizures reported in the past six months, and this condition is managed by neurology. The patient has coronary artery disease and is currently on atorvastatin for hypercholesterolemia, which is well controlled. He also has transaminitis, likely due to statin use, and this will be monitored with repeat labs in six months. He suffers from major depressive disorder, which is stable on citalopram, and also experiences anxiety. The patient has moderate asthma and is advised to follow up with pulmonology for management. He has impaired glucose tolerance and is following a low carbohydrate diet. [facility] Medical History (Updated 12/12/24 @ 10:39 by Deidre Zepeda MD) Partial small bowel obstruction Hearing loss Encounter for Medicare annual wellness exam Cardiac arrest due to underlying cardiac condition Solitary kidney, acquired Mild recurrent major depression Cough BPH (benign prostatic hyperplasia) CAD (coronary artery disease) Lower back pain Asthma Hypertension Seizures Heart attack Afib High cholesterol Surgical History History of left nephrectomy History of colonoscopy H/O heart artery stent Family History Father No problems noted. Mother Cancer Diabetes Social History Household Members: Spouse and Children Housing: Apartment Do you presently have visiting nurse or other home services: No Alcohol intake: former Patient Tobacco Use Status: Never used Tobacco e-Cigarette/Vaping Use: Never Used Second Hand Smoke Exposure: No service: No Current occupational status: retired Cognitive needs: No Hearing needs: Yes Vision needs: Yes Questionnaire PHQ-9 Over the last 2 weeks, how often have you been bothered by any of the following problems? 1. Little interest or pleasure in doing things: not at all 2. Feeling down, depressed, or hopeless: not at all 3. Trouble falling or staying asleep, or sleeping too much: not at all 4. Feeling tired or having little energy: not at all 5. Poor appetite or overeating: not at all 6. Feeling bad about yourself - or that you are a failure or have let yourself or your family down: not at all 7. Trouble concentrating on things, such as reading the newspaper or watching television: not at all 8. Moving or speaking so slowly that other people could have noticed. Or the opposite - being so fidgety or restless that you have been moving around a lot more than usual: not at all 9. Thoughts that you would be better off or of hurting yourself in some way: not at all Total score: 0 Depression Screening Interpretation: Negative Depression Screening Done: Yes 06513 - PHQ-9 Billing: Yes Source: Developed by Drs. Tony Sun, Shivani Diez, Anup Florez and colleagues, with an educational edwina from [employer]. Thrive Questionnaire Date Thrive assessed: 07/04/24 I am a: Patient What is your living situation today?: I have a steady place to live Within the past 12 months, did the food you bought not last and you didn't have the money to get more?: I choose not to answer this question Within the past 12 months, did you worry whether your food would run out before you got money to buy more?: I choose not to answer this question Do you have trouble paying for medicines?: No Do you have trouble getting transportation to medical appointments?: No Do you have trouble paying your heating and electricity bill?: No Do you have trouble taking care of your child, family member or friend?: No Do you have trouble with day-to-day activities such as bathing, preparing meals, shopping, managing finances, etc.?: No Are you currently unemployed and looking for a job?: I choose not to answer this question Are you interested in more education?: I choose not to answer this question Please select the resources that you would like help with: None Currently or been in a relationship where the following occur: I choose not to answer THRIVE Score: 0 AUDIT C Alcohol Use Questionnaire (AUDIT-C) 1. How often do you have a drink containing alcohol?: Never Total Score: 0 Score Reviewed/Action Taken: No CARLOS A-7 AMB Questionnaire CARLOS A-7 Date CARLOS A - 7 assessed: 07/04/24 Feeling nervous, anxious, or on edge: 0 = Not at all Not being able to stop or control worryin = Not at all Worrying too much about different things: 0 = Not at all Trouble relaxin = Not at all Being so restless that it is hard to sit still: 0 = Not at all Becoming easily annoyed or irritable: 0 = Not at all Feeling afraid as if something awful might happen: 0 = Not at all Total CARLOS A-7 score (0-4 normal; 5-9 mild; 10-14 moderate; 15-21 severe): 0 Source: Developed by Drs. Tony Sun, Shivani Diez, Anup Florez and colleagues, with an educational edwina from [employer]. CARLOS A-7 Assessment Billing CARLOS A-7 Assessment Tool: CARLOS A-7 Assessment 07377 Review of Systems Const All systems reviewed & are unremarkable except as noted in HPI and below Card Denies chest pain at rest, Denies chest pain with activity, Denies edema, Denies irregular heart rhythm, Denies claudication, Denies dyspnea, Denies dyspnea on exertion, Denies orthopnea, Denies paroxysmal nocturnal dyspnea and Denies slow heart rate Resp Denies cough, Denies dyspnea and Denies dyspnea on exertion Neuro Denies confusion Psych Denies confusion Physical exam (Primary Care) Vital Signs: Last Vital Signs BP 112/68 12/12/24 10:09 BMI result Body Mass Index 33.9 BMI Assessment/Plan discussion: High BMI High, discussed plan: lifestyle, weight reduction, dietary and physical activity Tobacco/Smoking Status: Tobacco use Status Tobacco use date assessed 07/04/24 12/12/24 10:15 Patient Tobacco Use Status Never used Tobacco 12/12/24 10:15 Tobacco use type 12/12/24 10:15 e-Cigarette/Vaping Use Never Used 12/12/24 10:15 PHQ-9: PHQ-9 Score PHQ-9: Total score 0 12/12/24 10:15 Depression Screening Interpretation: Negative Thrive Assessment: Date of Thrive Assessment Date Thrive assessed 07/04/24 12/12/24 10:15 Currently or been in a relationship where the following occur: I choose not to answer Const General: No confusion Orientation/consciousness: patient oriented x3 and No confusion Resp Effort & Inspection: normal respiratory effort Auscultation: clear to auscultation bilaterally Cardio Jugular venous distension: no JVD Rate: regular rate Rhythm: regular rhythm Heart sounds: S1 normal heart sound present and S2 normal heart sound present Neuro General: patient oriented x3, no focal motor deficits and No confusion Extrem General: Yes full ROM Psych Appearance: grossly normal Coding Level of Care Code Est Pt Level 4 (77522) Complex EM visit Add On G2211 Diagnoses Mild recurrent major depression F33.0 Coronary artery disease involving sh[place]necock coronary artery of sh[place]necock heart, angina presence unspecified I25.10 Coronary Disease-Associated Artery/Lesion type: sh[place]cock artery [place] vs. transplanted heart: sh[place]necock heart Associated angina: angina presence unspecified Dyslipidemia E78.5 Impaired glucose tolerance R73.02 Seizures R56.9 Moderate asthma J45.909 Transaminitis R74.01 Additional Codes PHQ-9 - 85026 - PHQ-9 Billing: Yes ([id number]) CARLOS A-7 Assessment Billing - CARLOS A-7 Assessment Tool: CARLOS A-7 Assessment 15321 ([id number]) Time Spent (min) 24 Assessment & Plan Assessment & Plan (1) Mild recurrent major depression: Code(s): F33.0 - Major depressive disorder, recurrent, mild Category: Medical (2) CAD (coronary artery disease): Comment: sees BS Cardiology Code(s): I25.10 - Atherosclerotic heart disease of sh[place]necock coronary artery without angina pectoris Category: Medical Qualifiers: Coronary Disease-Associated Artery/Lesion type: sh[place] artery [place] vs. transplanted heart: shinnecock heart Associated angina: angina presence unspecified Qualified Code(s): I25.10 - Atherosclerotic heart disease of [place] coronary artery without angina pectoris (3) Dyslipidemia: Code(s): E78.5 - Hyperlipidemia, unspecified Category: Medical (4) Impaired glucose tolerance: Code(s): R73.02 - Impaired glucose tolerance (oral) Category: Medical (5) Seizures: Comment: last 2020-sees Dr. Poole Code(s): R56.9 - Unspecified convulsions Category: Medical (6) Moderate asthma: Code(s): J45.909 - Unspecified asthma, uncomplicated Category: Medical (7) Transaminitis: Code(s): R74.01 - Elevation of levels of liver transaminase levels Category: Medical Plan The patient will continue to follow up with neurology for his seizure disorder, as he has not experienced any seizures in the past six months. For coronary artery disease and hypercholesterolemia, the patient will remain on atorvastatin, and liver function tests will be repeated in six months to monitor transaminitis. His major depressive disorder remains stable on citalopram, and no changes to his medication are planned. The patient is advised to continue following a low carbohydrate diet for impaired glucose tolerance, and blood work will be repeated in six months. Asthma management will be coordinated with pulmonology, and regular follow-ups are recommended. Patient was informed and verbally consented to the use of an ambient scribe for clinic note documentation during this visit. Orders: Orders Comprehensive [place]. Panel Fast 6 Months R73.02 - Impaired glucose tolerance (oral) Medications: Refilled clopidogrel 75 mg PO DAILY 90 tabs 0RF 90 days I25.10 - Atherosclerotic heart disease of shinnecock coronary artery without angina pectoris cholecalciferol (vitamin D3) 25 mcg PO DAILY 90 caps 1RF 90 days ezetimibe 10 mg PO DAILY 90 tabs 1RF 90 days sennosides-docusate sodium 8.6-50 mg (Senexon-S) 1 tab-cap PO BID 180 tabs 0RF
--- OUTSIDE RECORDS SUMMARY | 2024-12-12 10:43 | XMS_ITS | Clinical Summary ---
Author Organization [facility] Address [address] [address] Phone Care Team Providers Care Stem Lead Former Name Role Phone Deidre Hunter MD Primary Care Provider [phone] Allergies Active Allergy Reactions Criticality Noted Date [...] Office Visit [facility] [address] [address] Denise Moreno ARNP Chronic kidney [...] Office Visit [facility] [address] [address] Denise Moreno ARNP [address] [address] Health Maintenance Due Date Last [...] Creatinine, Ur 99.1 Not Estab. mg/dL [facility] Protein, Ur 16.2 Not Estab. mg/dL [facility] Urine Protein/Creatin ine Ratio 163 0 - 200 mg/g creat [facility] Urine Urine specimen obtained by clean catch procedure / Unknown 11/08/2024 9:00 AM EDT 11/08/2024 [facility] Moreno [facility] LAB URINE ORDERABLES Final Result Performing Organization Address City/[facility] Co de Phone Number [facility] [facility] [address] [place] [address] * Urine Albumin / Creatinine Ratio (11/08/2024 9:00 AM EDT) Albumin, Urine <3.0 Not Estab. ug/mL [facility] Albumin/Creatin ine Ratio <3 0 - 29 mg/g creat [facility] Comment: Normal: 0 - 29 Moderately increased: 30 - 300 Severely increased: >300 Urine Urine specimen obtained by clean catch procedure / Unknown 11/08/2024 9:00 AM EDT 11/08/2024 Denise Moreno [facility] LAB URINE ORDERABLES Final Result Performing Organization Address City/[facility]/ZIP Co de Phone Number [facility] [address] [place] [address] * (ABNORMAL) CBC (11/08/2024 9:00 AM EDT) WBC 5.8 3.4 - 10.8 x10E3/uL [facility] RBC 4.11(L) 4.14 - 5.80 x10E6/uL [facility] Hemoglobin 12.9(L) 13.0 - 17.7 g/dL [facility] Hematocrit 39.2 37.5 - 51.0 % [facility] MCV 95 79 - 97 fL [facility] MCH 31.4 26.6 - 33.0 pg [facility] MCHC 32.9 31.5 - 35.7 g/dL [facility] RDW 13.6 11.6 - 15.4 % [facility] Platelets 162 150 - 450 x10E3/uL [facility] 11/08/2024 9:00 AM EDT 11/08/2024 [facility] LAB BLOOD ORDERABLES Final Result [facility] [place] [address] [place] [address] * PTH, intact (11/08/2024 9:00 AM EDT) PTH 50 15 - 65 pg/mL [facility] Blood Venous blood / Unknown 11/08/2024 9:00 AM EDT [facility] [address] [place] [address] * (ABNORMAL) Renal function panel (11/08/2024 9:00 AM EDT) Glucose 98 70 - 99 mg/dL [facility] BUN 27 8 - 27 mg/dL [facility] Creatinine 1.18 0.76 - 1.27 mg/dL [facility] eGFR CKD-EPI CR 2020 64 >59 mL/min/1.7 3 [facility] BUN/Creatinine Ratio 23 10 - 24 [facility] Sodium 140 134 - 144 mmol/L [facility] Potassium 4.4 3.5 - 5.2 mmol/L [facility] Chloride 108(H) 96 - 106 mmol/L [facility] Bicarbonate (CO2) 18(L) 20 - 29 mmol/L [facility] Calcium 8.5(L) 8.6 - 10.2 mg/dL [facility] Albumin 4.0 3.8 - 4.8 g/dL [facility] Phosphorus 4.0 2.8 - 4.1 mg/dL [facility] Blood Venous blood / Unknown 11/08/2024 9:00 AM EDT 11/08/2024 Denise Moreno [facility] LAB BLOOD ORDERABLES Final Result [facility] [address] [place] [address] from Last 3 Months Insurance [place] [id number] [place] Medicare Care Teams Stem Lead Former Relationship Specialty Start Date End Date Deidre Hunter MD [address] [place], [place] PCP - General 06/22/20
== END 2024-12-12 10:35 | disposition home or self-care (01) ==
LOC: HO.HMCH 10:04
PROVIDERS: PCP Internal Medicine; Visit Provider Internal Medicine
DX: R56.9 Unspecified convulsions (principal); F33.0 Major depressive disorder, recurrent, mild; I25.10 Atherosclerotic heart disease of native coronary artery without angina pectoris; E78.5 Hyperlipidemia, unspecified; R73.02 Impaired glucose tolerance (oral); J45.909 Unspecified asthma, uncomplicated; R74.01 Elevation of levels of liver transaminase levels

== ENCOUNTER → 2024-12-12 10:03 | Outpatient (BNVA) | payer MEDICARE, MEDICAID, SELFPAY | PROVIDERS: PCP Internal Medicine; Visit Provider Internal Medicine | DX: F33.0 Major depressive disorder, recurrent, mild (principal); I25.10 Atherosclerotic heart disease of native coronary artery without angina pectoris; E78.5 Hyperlipidemia, unspecified; R73.02 Impaired glucose tolerance (oral); R74.01 Elevation of levels of liver transaminase levels; R56.9 Unspecified convulsions; J45.909 Unspecified asthma, uncomplicated | CPT/HCPCS: 96127; 99212 ==

== ENCOUNTER 2024-12-17 10:56 | Emergency (ER) | payer MEDICARE, MEDICAID, SELFPAY ==
--- NOTE | ~2024-12-17 | XR_ITS ---
EXAMINATION: XR CHEST CLINICAL INFORMATION: chest pain COMPARISON: 09/04/2024, 03/13/2024. TECHNIQUE: Frontal view of the chest was obtained. FINDINGS: Borderline cardiac enlargement. Mediastinal and hilar contours are normal. The lungs are clear bilaterally. No pneumothorax or effusion. No focal osseous or soft tissue abnormality. There are degenerative changes in the right greater than left shoulder joints and spine. XR/XR chest 1V IMPRESSION: No active pulmonary disease. Electronically signed by: Marcial Mills MD 12/17/2024 12:09 PM EDT
--- NOTE | 2024-12-17 10:59 | ECG_ITS ---
Test Reason : chest pain Blood Pressure : */* mmHG Vent. Rate : 60 BPM Atrial Rate : 60 BPM P-R Int : 196 ms QRS Dur : 80 ms QT Int : 418 ms P-R-T Axes : 34 29 42 degrees QTcB Int : 418 ms Normal sinus rhythm Nonspecific T wave abnormality Abnormal ECG When compared with ECG of 04-Sep-2024 08:10, T wave inversion no longer evident in Inferior leads T wave inversion no longer evident in Lateral leads Referred By: Generic ED Physician Electronically Signed By: Rm Pinto
[2024-12-17 11:05] VITALS: BP 114/69; PULSE 64; O2SAT 96
--- NOTE | 2024-12-17 11:09 | ED.CHESTPAIN ---
HPI - Chest Pain General Chief Complaint: Chest Pain Stated Complaint: CP RAD BOTH ARMS,TOOK 1 HOME NITRO PER EMS Time Seen by Provider: 12/17/24 11:07 History of Present Illness ED Provider: Dmitry Mathur MD HPI narrative: 74-year-old male presents with chest pain. Relevant medical history: Coronary disease, Bare metal stent LAD 2006, STEMI 2010 with patent LAD and RCA stents. Mild nonobstructive LAD disease 50% at that time. Nuclear perfusion December 2012 no perfusion defects, EF at that time 67%, solitary kidney, hypertension hyperlipidemia kidney stones seizure disorder TBI Related Data Home Medications ?Medication ?Instructions ?Recorded ?Confirmed carbamazepine 100 mg chewable 300 mg PO BID 04/13/20 12/12/24 tablet citalopram 40 mg tablet 40 mg PO DAILY 04/13/20 12/12/24 clonazepam 1 mg tablet 1 mg PO TID 04/13/20 12/12/24 quetiapine 100 mg tablet 100 mg PO BEDTIME 04/13/20 12/12/24 phenytoin sodium extended 100 mg 200 mg PO BID 04/06/22 12/12/24 capsule nitroglycerin 0.4 mg sublingual 0.4 - 0.8 mg sublingual DAILY PRN 02/18/24 12/12/24 tablet Chest Pain tramadol 50 mg tablet 50 mg PO Q8H PRN Pain 02/18/24 12/12/24 Previous Rx's ?Medication ?Instructions ?Recorded metoprolol succinate 25 mg 25 mg PO DAILY 90 days #90 tabs 05/01/24 tablet,extended release 24 hr alfuzosin 10 mg tablet,extended 10 mg PO DAILY 90 days #90 tabs 07/04/24 release 24 hr Aeromist Nebulizer #1 ea 07/17/24 nebulizers (AeroEclipse II #1 ea 07/19/24 Nebulizer) montelukast 10 mg tablet 10 mg PO BEDTIME 30 days #30 tabs 08/08/24 (Singulair) atorvastatin 80 mg tablet 80 mg PO BEDTIME #90 tabs 09/02/24 albuterol sulfate 2.5 mg/3 mL 2.5 mg (3 mL) inhalation Q6H PRN 09/17/24 (0.083 %) solution for nebulization shortness of breath or wheezing 30 days #180 mL levalbuterol HCl 1.25 mg/3 mL 1.25 mg (3 mL) inhalation BID 90 09/18/24 solution for nebulization days #540 mL fluticasone fur. 200 mcg-umeclid 1 inh inhalation DAILY 30 days #60 10/07/24 62.5 mcg-vilant 25 mcg ea inhalat.powder (Trelegy Ellipta) umeclidinium 62.5 mcg-vilanterol 1 inh inhalation DAILY 60 days #60 11/14/24 25 mcg/actuation powdr for ea inhalation (Anoro Ellipta) cholecalciferol (vitamin D3) 25 25 mcg PO DAILY 90 days #90 caps 12/12/24 mcg (1,000 unit) capsule clopidogrel 75 mg tablet 75 mg PO DAILY 90 days #90 tabs 12/12/24 ezetimibe 10 mg tablet 10 mg PO DAILY 90 days #90 tabs 12/12/24 sennosides 8.6 mg-docusate sodium 1 tab-cap PO BID #180 tabs 12/12/24 50 mg tablet (Senexon-S) Allergies Allergy/AdvReac Type Severity Reaction Status Date / Time aspirin (ASPIRIN) Allergy Intermediate ITCHING Verified 12/17/24 11:19 fish oil Allergy Intermediate itchiness Verified 12/17/24 11:19 [facility] Past Medical History Medical History Partial small bowel obstruction Hearing loss Encounter for Medicare annual wellness exam Cardiac arrest due to underlying cardiac condition Solitary kidney, acquired Mild recurrent major depression Cough BPH (benign prostatic hyperplasia) CAD (coronary artery disease) Lower back pain Asthma Hypertension Seizures Heart attack Afib High cholesterol Surgical History History of left nephrectomy History of colonoscopy H/O heart artery stent Family History Family History Father No problems noted. Mother Cancer Diabetes Social History Social History Household Members: Spouse and Children Housing: Apartment Do you presently have visiting nurse or other home services: No Alcohol intake: former Patient Tobacco Use Status: Never used Tobacco e-Cigarette/Vaping Use: Never Used Second Hand Smoke Exposure: No service: No Current occupational status: retired Cognitive needs: No Hearing needs: Yes Vision needs: Yes Physical Exam Vital Signs: Vital Signs: Last Vital Signs Temp 98.1 F 12/17/24 19:05 Pulse 64 12/17/24 19:05 Resp 16 12/17/24 19:05 BP 120/60 12/17/24 19:05 Pulse Ox 96 12/17/24 19:05 O2 Del Method Room Air 12/17/24 19:05 BMI result Body Mass Index 33.3 EXAM: Gen: Alert, awake, well appearing, well hydrated. Head: Atraumatic Eyes: Anicteric, Normal conjunctiva. ENT: Moist mucosa, no pallor. ? Neck: Supple. Skin: ?No observable rash or bruising on exposed or examined skin Respiratory: Breathing comfortably, No distress.Clear to auscultation bilaterally, symmetric chest expansion, No wheeze, rales, ronchi. Cardiovascular: Regular rate and rhythm. No murmurs or rub. Well perfused periphery, warm extremities. No edema. ? Abdominal: No focal tenderness. Soft, no objective distension. No palpable masses or obvious organomegaly. ?No guarding, no rebound tenderness or other peritoneal findings. : No flank tenderness. Neuro: Alert. Gross movement of all extremities intact. ? Psych: Calm. Cooperative. MSK: No grossly visible deformity. Vital signs: See flowsheet Medications Administered Discontinued Medications Generic Name Dose Route Start Last Admin Trade Name Freq PRN Reason Stop Dose Admin Acetaminophen 975 mg 12/17/24 14:24 12/17/24 15:04 Acetaminophen 325 Mg Tablet PO 12/17/24 14:25 975 mg ONCE ONE Administration Heparin Sodium (Porcine) 4,000 unit 12/17/24 13:01 12/17/24 13:58 Heparin Sodium,Porcine 5,000 Unit/Ml Vial IVPUSH 12/17/24 13:02 4,000 unit ONCE ONE Administration Heparin Sodium/Sodium Chloride 25,000 unit in 250 mls @ 0 mls/hr 12/17/24 13:15 12/17/24 14:03 Heparin Sodium,Porcine/1/2ns IVCONT 10.69 units/kg/hr .Q0M KATIE 10 mls/hr Protocol Administration Per Protocol Medical Decision Making Medical Decision Making MDM Narrative: Medical Decision Makin-year-old male with significant coronary artery disease last previous stent in 2006 with his 1st AL, STEMI in 2010 does not sound like any interventions were done at that time with patent stents nonobstructive CAD, classical chest pain starting at 01:00 last night with jaw chest and arm pain about 3 hours. He is pain-free at this time. ECGs without ischemic changes see interpretation below. Clinically he looks well in his pain-free vitals stable. Preliminary Favored Differential Diagnosis: ACS, pericarditis, less likely dissection or PE given the character and the patient's vital signs on presentation/history. among additional considered etiologies Testing Interpreted Independently: ECG: Sinus rhythm rate 60 QTC 418. No ischemic changes. Low voltage. Suddenly flat T-waves throughout the precordium. Compared to most recent in August 2024 at that time the patient had T-wave inversions inferiorly those have flattened and inverted. Radiology or Lab testing Results Reviewed: Not Applicable Consults: Dr. Pinto consulted in the ED feels the patient needs transfer to [facility] for urgent catheterization, heparinization recommended. I called and discussed the case with complex decision-making discussion with the putty remover at [facility] through the transfer line they have accepted the patient for admission for non emergent left heart catheterization recommend heparin Independent Historians/External Chart Reviews: Not Applicable Social Determinants of Health Impacting MDM/Planning: Not Applicable Lab Data 12/17/24 13:52 12/17/24 11:36 Labs: Lab Results 12/17/24 12/17/24 12/17/24 Range/Units 11:36 13:07 13:52 WBC 6.1 6.1 (4.8-10.8) X10*3/uL RBC 4.00 L 4.14 L (4.60-5.80) X10*6/uL Hgb 12.6 L 12.9 L (14.0-18.0) g/dl Hct 36.4 L 37.9 L (42.0-52.0) % MCV 91.0 91.5 (80.0-98.0) fL MCH 31.5 31.2 (27.0-33.0) pg MCHC 34.6 34.0 (31.0-36.0) g/dl RDW 12.9 13.0 (11.0-16.0) % Plt Count 142 L 146 L (160-400) X10*3/uL MPV 10.6 10.5 (9.4-12.4) fL Immature Gran % (Auto) 0.3 (0.0-0.4) % Neut % (Auto) 65.2 (45-73) % Lymph % (Auto) 21.8 (20-40) % [place] % (Auto) 7.8 (2-11) % Eos % (Auto) 4.4 H (0-4) % Baso % (Auto) 0.5 (0-2) % Lymph # (Auto) 1.3 (1.2-4.9) X10*3/uL [place] # (Auto) 0.5 (0.1-1.2) X10*3/uL Eos # (Auto) 0.3 (0.0-0.4) X10*3/uL Baso # (Auto) 0.0 (0.0-0.2) X10*3/uL Abs Immat Gran (auto) 0.02 (0.00-0.03) X10*3/uL Absolute Neuts (auto) 4.0 (2.0-8.3) x10*3/uL Absolute Nucleated RBC 0.000 0.000 (0.0-0.012) X10*3/uL Nucleated RBC % (auto) 0.0 0.0 (0.0-0.2) /100WBC PT 11.5 (10.9-12.4) SEC INR 1.0 (0.9-1.1) aPTT Heparin Protocol 26.7 L (53-77.9) SEC Sodium 139 (135-145) mmol/L Potassium 4.5 (3.3-5.1) mmol/L Chloride 109 H (96-108) mmol/L Carbon Dioxide 24 (22-29) mmol/L Anion Gap 11 L (12-20) BUN 18 H (9-16) mg/dL Creatinine 1.24 (0.5-1.4) mg/dL Estim Creat Clear Calc 54.2 Estimated GFR 57 Random Glucose 124 H (60-115) mg/dL Calcium 8.3 L (8.4-10.2) mg/dL Troponin I High Sens < 2.7 D < 2.7 (<3.5-35.0) ng/L B-Natriuretic Peptide 111 H (<100) pg/mL Critical Care Time Critical Care Time Critical Care Time: Yes Total Critical Care Time: 30 Attestation: ED Critical Care: Highly concerning chest pain, ACS considered, discussion with [facility] Cardiology and oracle ascp consultant. Authorized and Performed by: Dmitry Mathur MD Total critical care time: Approximately 30 Due to a high probability of clinically significant, life threatening deterioration, the patient required my highest level of preparedness to intervene emergently and I personally spent this critical care time directly and personally managing the patient. This critical care time included obtaining a history; examining the patient; pulse oximetry; ordering and review of studies; arranging urgent treatment with development of a management plan; evaluation of patient's response to treatment; frequent reassessment; and, discussions with other providers. This critical care time was performed to assess and manage the high probability of imminent, life-threatening deterioration that could result in multi-organ failure. It was exclusive of separately billable procedures and treating other patients and teaching time. Discharge Plan Discharge Clinical Impression: Chest pain Patient Disposition: [facility] Transfer Details: TRANSFER TO [facility] Prescriptions: No Action (DME) Aeromist Nebulizer See Rx Instructions .Route .MEDSUPPLY Qty: 1 0RF Rx Instructions: As directed (DME) nebulizers [AeroEclipse II Nebulizer] [facility] See Rx Instructions .Route Qty: 1 0RF Rx Instructions: As directed atorvastatin 80 mg tablet 80 mg PO BEDTIME Qty: 90 3RF albuterol sulfate 2.5 mg /3 mL (0.083 %) solution for nebulization 2.5 mg inhalation Q6H PRN (Reason: shortness of breath or wheezing) 30 Days Qty: 180 0RF levalbuterol HCl 1.25 mg/3 mL solution for nebulization 1.25 mg inhalation BID 90 Days Qty: 540 3RF Trelegy Ellipta 200-62.5-25 mcg blister with device 1 inh inhalation DAILY 30 Days Qty: 60 12RF umeclidinium-vilanterol [Anoro Ellipta] 62.5-25 mcg/actuation blister with device 1 inh inhalation DAILY 60 Days Qty: 60 0RF tramadol 50 mg tablet 50 mg PO Q8H PRN (Reason: Pain) nitroglycerin 0.4 mg tablet, sublingual 0.4 - 0.8 mg sublingual DAILY PRN (Reason: Chest Pain) carbamazepine 100 mg tablet,chewable 300 mg PO BID clonazepam 1 mg tablet 1 mg PO TID quetiapine 100 mg tablet 100 mg PO BEDTIME citalopram 40 mg tablet 40 mg PO DAILY phenytoin sodium extended 100 mg capsule 200 mg PO BID alfuzosin 10 mg tablet extended release 24 hr 10 mg PO DAILY 90 Days Qty: 90 2RF montelukast [Singulair] 10 mg tablet 10 mg PO BEDTIME 30 Days Qty: 30 11RF metoprolol succinate 25 mg tablet extended release 24 hr 25 mg PO DAILY 90 Days Qty: 90 3RF cholecalciferol (vitamin D3) 25 mcg (1,000 unit) capsule 25 mcg PO DAILY 90 Days Qty: 90 1RF clopidogrel 75 mg tablet 75 mg PO DAILY 90 Days Qty: 90 0RF ezetimibe 10 mg tablet 10 mg PO DAILY 90 Days Qty: 90 1RF sennosides-docusate sodium [Senexon-S] 8.6-50 mg tablet 1 tab-cap PO BID Qty: 180 0RF Interventions: Acute Care Transfer Worksheet (ED) Last Done: 12/17/24 19:05 Discharge Date/Time: 12/17/24 19:07 Print Language: Armenian
[2024-12-17 11:16] VITALS: BP 108/54; PULSE 60; RESP 16; O2SAT 96; BMI 33.3
[2024-12-17 11:41] LABS: MANUAL DIFF FLAG NO
[2024-12-17 11:44] LABS: Hematocrit 36.4 % (42.0-52.0); Hemoglobin 12.6 g/dl (14.0-18.0); Imm Gran Abs Auto 0.02 X10*3/uL (0.00-0.03); Imm Gran Pct Auto 0.3 % (0.0-0.4); Lymphocytes Absolute Auto 1.3 X10*3/uL (1.2-4.9); Mean Corpuscular HGB Conc 34.6 g/dl (31.0-36.0); Mean Corpuscular Hemoglobin 31.5 pg (27.0-33.0); Mean Corpuscular Volume 91.0 fL (80.0-98.0); NRBC Abs Auto 0.000 X10*3/uL (0.0-0.012); NRBC Pct Auto 0.0 /100WBC (0.0-0.2); Platelet Count 142 X10*3/uL (160-400); Red Blood Count 4.00 X10*6/uL (4.60-5.80); White Blood Count 6.1 X10*3/uL (4.8-10.8)
[2024-12-17 12:01] LABS: Anion Gap 11 (12-20); Blood Urea Nitrogen 18 mg/dL (9-16); Calcium 8.3 mg/dL (8.4-10.2); Carbon Dioxide 24 mmol/L (22-29); Chloride 109 mmol/L (96-108); Creatinine Clr Calc Pharmacy 54.2; Estimated Glomerular Filt Rate 57; Potassium 4.5 mmol/L (3.3-5.1); Sodium 139 mmol/L (135-145)
[2024-12-17 12:08] LABS: B Type Natriuretic Peptide 111 pg/mL (<100)
[2024-12-17 12:12] LABS: Troponin-I High Sensitivity < 2.7 ng/L (<3.5-35.0)
--- OUTSIDE RECORDS SUMMARY | 2024-12-17 12:44 | XMS_ITS | Clinical Summary ---
Author Organization [facility] Address [address] [address] Phone Care Team Providers Care Track Equipment Operator Name Role Phone Deidre Hunter MD Primary Care Provider [phone] Allergies Active Allergy Reactions Criticality Noted Date [...] Office Visit [facility] [address] [address] Denise Moreno ARNP Chronic kidney [...] Office Visit [facility] [address] [address] Denise Moreno ARNP [address] [address] Health Maintenance Due Date Last Done Comments Pneumococcal Vaccine: 50+ Years (3 of 3 - PCV) 04/06/2015 04/06/2014, 12/31/2006 Influenza Vaccine (#1) 2025 03/26/2014 Pneumococcal Vaccine: Peds (0 to [...] Creatinine, Ur 99.1 Not Estab. mg/dL [facility] Protein, Ur 16.2 Not Estab. mg/dL [facility] Urine Protein/Creatin ine Ratio 163 0 - 200 mg/g creat [facility] Urine Urine specimen obtained by clean catch procedure / Unknown 11/08/2024 9:00 AM EDT 11/08/2024 [facility] Moreno [facility] LAB URINE ORDERABLES Final Result Performing Organization Address City/[facility] Co de Phone Number [employer] [facility] [address] [place] [address] * Urine Albumin / Creatinine Ratio (11/08/2024 9:00 AM EDT) Albumin, Urine <3.0 Not Estab. ug/mL [facility] Albumin/Creatin ine Ratio <3 0 - 29 mg/g creat [facility] Comment: Normal: 0 - 29 Moderately increased: 30 - 300 Severely increased: >300 Urine Urine specimen obtained by clean catch procedure / Unknown 11/08/2024 9:00 AM EDT 11/08/2024 Denise Moreno [facility] LAB URINE ORDERABLES Final Result Performing Organization Address City/[facility]/ZIP Co de Phone Number [employer] [facility] [address] [place] [address] * (ABNORMAL) CBC (11/08/2024 9:00 AM EDT) WBC 5.8 3.4 - 10.8 x10E3/uL [facility] RBC 4.11(L) 4.14 - 5.80 x10E6/uL [facility] Hemoglobin 12.9(L) 13.0 - 17.7 g/dL [facility] Hematocrit 39.2 37.5 - 51.0 % [facility] MCV 95 79 - 97 fL [facility] MCH 31.4 26.6 - 33.0 pg [facility] MCHC 32.9 31.5 - 35.7 g/dL [facility] RDW 13.6 11.6 - 15.4 % [facility] Platelets 162 150 - 450 x10E3/uL [facility] 11/08/2024 9:00 AM EDT 11/08/2024 [facility] LAB BLOOD ORDERABLES Final Result [facility] [address] [place] [address] * PTH, intact (11/08/2024 9:00 AM EDT) PTH 50 15 - 65 pg/mL [facility] Blood Venous blood / Unknown 11/08/2024 9:00 AM EDT 11/08/20[facility] Final Result [facility] [address] [place] [address] * (ABNORMAL) Renal function panel (11/08/2024 9:00 AM EDT) Glucose 98 70 - 99 mg/dL [facility] BUN 27 8 - 27 mg/dL [facility] Creatinine 1.18 0.76 - 1.27 mg/dL [facility] eGFR CKD-EPI CR 2020 64 >59 mL/min/1.7 3 [facility] BUN/Creatinine Ratio 23 10 - 24 [facility] Sodium 140 134 - 144 mmol/L [facility] Potassium 4.4 3.5 - 5.2 mmol/L [facility] Chloride 108(H) 96 - 106 mmol/L [facility] Bicarbonate (CO2) 18(L) 20 - 29 mmol/L [facility] Calcium 8.5(L) 8.6 - 10.2 mg/dL [facility] Albumin 4.0 3.8 - 4.8 g/dL [facility] Phosphorus 4.0 2.8 - 4.1 mg/dL [facility] Blood Venous blood / Unknown 11/08/2024 9:00 AM EDT 11/08/2024 Denise Moreno [facility] LAB BLOOD ORDERABLES Final Result [facility] [address] [place] [address] from Last 3 Months Insurance Medicaid [place] [id number] [place] Medicare Care Teams Track Equipment Operator Relationship Specialty Start Date End Date Deidre Hunter MD [address] [place], [place] PCP - General 06/22/20
--- NOTE | 2024-12-17 13:18 | PM.CNCAR ---
History of Present Illness History of Present Illness Date of Service: 12/17/24 Requesting physician: Dmitry Mathur Chief complaint: Unstable angina Narrative: Pleasant 74-year-old gentleman who is presenting with bilateral arm discomfort and chest discomfort which happened at rest. He has known history of coronary disease and underwent LAD PCI for acute coronary syndrome in 2006. His angiography at that time showed proximal to mid segment LAD plaque rupture which was treated with primary PCI. He has known history of aspirin allergy with itching and he said that he has been on Plavix since then. He has not seen a dumb waiter operator for couple of years at this point. He also has seizure disorder and takes phenytoin and carbamazepine. He took nitroglycerin and is complaining of a headache at this point. EKGs showing nonspecific changes. His biomarkers are negative. [facility] Past Medical History Medical History Partial small bowel obstruction Hearing loss Encounter for Medicare annual wellness exam Cardiac arrest due to underlying cardiac condition Solitary kidney, acquired Mild recurrent major depression Cough BPH (benign prostatic hyperplasia) CAD (coronary artery disease) Lower back pain Asthma Hypertension Seizures Heart attack Afib High cholesterol Family History Family History Father No problems noted. Mother Cancer Diabetes Surgical History Surgical History History of left nephrectomy History of colonoscopy H/O heart artery stent Social History Social History Household Members: Spouse and Children Housing: Apartment Do you presently have visiting nurse or other home services: No Alcohol intake: former Patient Tobacco Use Status: Never used Tobacco Smoked in Last 30 Days: No e-Cigarette/Vaping Use: Never Used Second Hand Smoke Exposure: No Use of substances other than those prescribed or required for medical reasons: No Advance Directives: No Advance Directives Information Provided: Yes Do you have a plan to hurt others: No Plan service: No Current occupational status: retired Cognitive needs: No Hearing needs: Yes Vision needs: Yes Meds Allergies Allergy/AdvReac Type Severity Reaction Status Date / Time aspirin (ASPIRIN) Allergy Intermediate ITCHING Verified 12/17/24 11:19 fish oil Allergy Intermediate itchiness Verified 12/17/24 11:19 Active Medications: Current Medications Heparin Sodium (Porcine) (Heparin Sodium,Porcine 5,000 Unit/Ml Vial) 3,700 unit 40 unit/kg (3700 unit) IVPUSH PROTOCOL BOLUS PRN; Protocol PRN Reason: 40 unit/kg - Heparin Protocol Heparin Sodium (Porcine) (Heparin Sodium,Porcine 5,000 Unit/Ml Vial) 7,500 unit 80 unit/kg (7500 unit) IVPUSH PROTOCOL BOLUS PRN; Protocol PRN Reason: 80 unit/kg - Heparin Protocol Heparin Sodium/Sodium Chloride (Heparin Sodium,Porcine/1/2ns) 25,000 unit in 250 mls @ 0 mls/hr IVCONT .Q0M AKTIE; Protocol Home Medications ?Medication ?Instructions ?Recorded ?Confirmed ?Last Taken ?Type carbamazepine 100 mg chewable 300 mg PO BID 04/13/20 12/12/24 04/21/24 History tablet citalopram 40 mg tablet 40 mg PO DAILY 04/13/20 12/12/24 04/21/24 History clonazepam 1 mg tablet 1 mg PO TID 04/13/20 12/12/24 04/21/24 History quetiapine 100 mg tablet 100 mg PO BEDTIME 04/13/20 12/12/24 04/21/24 History phenytoin sodium extended 100 mg 200 mg PO BID 04/06/22 12/12/24 04/21/24 History capsule nitroglycerin 0.4 mg sublingual 0.4 - 0.8 mg sublingual DAILY PRN 02/18/24 12/12/24 04/21/24 History tablet Chest Pain tramadol 50 mg tablet 50 mg PO Q8H PRN Pain 02/18/24 12/12/24 04/21/24 History Physical Exam Vital Signs: Vital Signs: Last Vital Signs Pulse 60 12/17/24 11:16 Resp 16 12/17/24 11:16 BP 108/54 L 12/17/24 11:16 Pulse Ox 96 12/17/24 11:16 O2 Del Method Room Air 12/17/24 11:16 BMI result Body Mass Index 33.3 GENERAL APPEARANCE: in no acute distress, pleasant. NECK: no carotid bruit, no jugular venous distention. SKIN: no suspicious lesions, warm and dry. HEART: no murmurs, regular rate and rhythm. LUNGS: clear to auscultation bilaterally. ABDOMEN: soft, nontender. EXTREMITIES: no edema. PERIPHERAL PULSES: equal. NEUROLOGIC: No gross deficits, AAO X 3 Objective Labs and Meds 12/17/24 11:36 12/17/24 11:36 Lab results: Laboratory Results - last 24 hr 12/17/24 11:36 WBC 6.1 RBC 4.00 L Hgb 12.6 L Hct 36.4 L MCV 91.0 MCH 31.5 MCHC 34.6 RDW 12.9 Plt Count 142 L MPV 10.6 Immature Gran % (Auto) 0.3 Neut % (Auto) 65.2 Lymph % (Auto) 21.8 Charles % (Auto) 7.8 Eos % (Auto) 4.4 H Baso % (Auto) 0.5 Lymph # (Auto) 1.3 Charles # (Auto) 0.5 Eos # (Auto) 0.3 Baso # (Auto) 0.0 Abs Immat Gran (auto) 0.02 Absolute Neuts (auto) 4.0 Absolute Nucleated RBC 0.000 Nucleated RBC % (auto) 0.0 Sodium 139 Potassium 4.5 Chloride 109 H Carbon Dioxide 24 Anion Gap 11 L BUN 18 H Creatinine 1.24 Estim Creat Clear Calc 54.2 Estimated GFR 57 Random Glucose 124 H Calcium 8.3 L Troponin I High Sens < 2.7 D B-Natriuretic Peptide 111 H Imaging Radiologist's impression: Impressions Chest X-Ray 12/17/24 11:52 IMPRESSION: No active pulmonary disease. Electronically signed by: Marcial Mills MD 12/17/2024 12:09 PM EDT Assessment and Plan (1) Unstable angina: Status: Acute Plan Pleasant 74 year gentleman who is presenting for unstable angina. Currently pain-free. He is only complaint is headache since he got nitroglycerin. He will get some Tylenol for that. Start him on heparin drip. Continue Plavix. Continue atorvastatin 80 mg and ezetimibe 10 mg daily. We will transfer him to [facility] for cardiac catheterization potentially tomorrow. He will be NPO after midnight. If he gets PCI then options will be to desensitize him from aspirin verses starting him on Eliquis. Thank you for allowing me to participate in the care of your patient. Please feel free to contact me if you have any questions. Procedures Date of Service Date of Service: 12/17/24
[2024-12-17 13:39] LABS: Troponin-I High Sensitivity < 2.7 ng/L (<3.5-35.0)
[2024-12-17 13:57] LABS: Hematocrit 37.9 % (42.0-52.0); Hemoglobin 12.9 g/dl (14.0-18.0); Mean Corpuscular HGB Conc 34.0 g/dl (31.0-36.0); Mean Corpuscular Hemoglobin 31.2 pg (27.0-33.0); Mean Corpuscular Volume 91.5 fL (80.0-98.0); NRBC Abs Auto 0.000 X10*3/uL (0.0-0.012); NRBC Pct Auto 0.0 /100WBC (0.0-0.2); Platelet Count 146 X10*3/uL (160-400); Red Blood Count 4.14 X10*6/uL (4.60-5.80); White Blood Count 6.1 X10*3/uL (4.8-10.8)
[2024-12-17 14:00] VITALS: BP 117/62; PULSE 59; RESP 16; O2SAT 95
[2024-12-17] MEDS: Heparin Sodium,Porcine/1/2NS 25,000 UNIT/250 ML IV.SOLN 10 UNIT IVCONT (14:03)
[2024-12-17 14:04] LABS: INTERNATIONAL NORM RATIO 1.0 (0.9-1.1); Prothrombin Time 11.5 SEC (10.9-12.4)
--- NOTE | 2024-12-17 14:04 | PC.NURSE ---
PTT drawn prior to start of heparin gtt, currently pending in lab. Heparin gtt started @ 1400, next PTT draw at 2000 today
[2024-12-17 14:06] LABS: PTT Heparin Drip 26.7 SEC (53-77.9)
--- NOTE | 2024-12-17 14:23 | PC.NURSE ---
Fannie from pharmacy messaged requesting to have med rec completed. She will add patient to her list.
[2024-12-17 15:28] VITALS: BP 135/66; PULSE 60; RESP 12; TEMP 36.6; O2SAT 99
--- NOTE | 2024-12-17 17:26 | PC.NURSE ---
RE Med Rec - spoke to pt w/ bobbin painter Geovany, patient has no idea what meds he takes a home. Pharmacy med rec tech Fannie made aware via tiger.
[2024-12-17 18:00] VITALS: BP 120/60; PULSE 64; RESP 16; O2SAT 96
--- NOTE | 2024-12-17 18:20 | PC.NURSE ---
Called pt's daughter Stefan to inform her pt is going to be transferred to [facility], has bed there currently
--- NOTE | 2024-12-17 18:39 | PC.NURSE ---
Attempted to give RN to RN report to Mile at [facility], unavailable to take report at this time d/t being in the midst of admission, will call back when she is able to.
--- NOTE | 2024-12-17 18:47 | PC.NURSE ---
Addendum entered by Kat Hall RN 12/25/24 13:10: Pt left w/ heparin gtt running @ 10mls/hr w/ EMS. Original Note: RN to RN report given to Mile at [facility], all questions answered, patient to be transferred when EMS arrives.
[2024-12-17 19:05] VITALS: BP 120/60; PULSE 64; RESP 16; TEMP 36.7; O2SAT 96
== END 2024-12-17 19:07 | disposition short-term general hospital (02) ==
PROVIDERS: Emergency Provider Emergency Medicine; PCP Internal Medicine
DX: R07.9 Chest pain, unspecified (principal); I20.0 Unstable angina; I11.0 Hypertensive heart disease with heart failure; I50.9 Heart failure, unspecified; Z79.899 Other long term (current) drug therapy
CPT/HCPCS: 36415; 71045; 80048; 83880; 84484; 85025; 85027; 85610; 85730; 93005; 96374; 99285; 99291; J1644

== ENCOUNTER → 2024-12-17 11:11 | Outpatient (BNV) | payer MEDICARE, MEDICAID, SELFPAY | PROVIDERS: Emergency Provider Emergency Medicine; PCP Internal Medicine; Visit Provider Radiology Diagnostic Radiology | DX: R07.9 Chest pain, unspecified (principal) | CPT/HCPCS: 71045 ==

== ENCOUNTER → 2024-12-17 11:38 | Outpatient (BNV) | payer MEDICARE, MEDICAID, SELFPAY | PROVIDERS: Emergency Provider Emergency Medicine; PCP Internal Medicine; Visit Provider Internal Medicine Cardiovascular Disease | DX: I20.0 Unstable angina (principal) | CPT/HCPCS: 93010; 99284 ==

== ENCOUNTER → 2024-12-18 23:59 | Outpatient (BNV) | payer MEDICARE, MEDICAID, SELFPAY | PROVIDERS: PCP Internal Medicine; Visit Provider Internal Medicine Cardiovascular Disease | DX: I20.0 Unstable angina (principal) | CPT/HCPCS: 93458; 99152 ==

== ENCOUNTER 2024-12-24 10:30 | Emergency (ER) | payer MEDICARE, MEDICAID, SELFPAY ==
--- NOTE | ~2024-12-24 | XR_ITS ---
EXAMINATION: XR CHEST CLINICAL INFORMATION: cough COMPARISON: 12/17/2024, 09/04/2024. TECHNIQUE: 2 views of the chest were obtained. FINDINGS: The cardiac, hilar, and mediastinal contours are normal. The lungs are clear bilaterally. There is no pneumothorax or pleural effusion. There is no focal osseous or soft tissue abnormality. There are mild degenerative changes in the bilateral shoulder joints and spine. XR/XR chest 2V IMPRESSION: No active pulmonary disease. Electronically signed by: Marcial Mills MD 12/24/2024 12:07 PM EDT
[2024-12-24 10:39] VITALS: BP 115/53; PULSE 53; RESP 16; TEMP 36.9; O2SAT 98; BMI 34.9
--- NOTE | 2024-12-24 10:42 | ED_ITS ---
HPI - General Adult General Chief complaint: Upper Respiratory Symptoms Stated complaint: anxiety Time Seen by Provider: 12/24/24 11:24 Source: patient and family ( and daughter) Mode of arrival: ambulatory Limitations: no limitations History of Present Illness ED Provider: Dr. Huseyin Simon HPI narrative: 74-year-old male with a history of hypertension, coronary artery disease, angina, depression, obstructive sleep apnea, solitary kidney, seizures who presents to the emergency department for evaluation of right shoulder pain, cough, shortness of breath and dyspnea on exertion since , 12/19/2024 (5 days prior to evaluation). Patient was seen in the emergency department on 12/17/2024 for chest pain which was felt to be secondary to coronary artery disease. Patient was transferred to [facility] and had a cardiac catheterization done on 12/18/2024 and he was discharged on 12/19/2024. According to the family, there no significant coronary artery disease that required an intervention but they do not know what the discharge diagnosis. The patient states that while he was at [facility] he developed a cough. He states that he has an intermittent nonproductive cough. He also states he is having intermittent right posterior shoulder pain. He describes his pain is a sharp pain which is 7/10. The pain will last for 15-20 minutes and then resolved. He gets 2-3 episodes per day. The pain is not worse with movement of his shoulder or with breathing. The pain is not related to exertion and can come on at rest. Family has noted that the patient has dyspnea on exertion and shortness of breath at rest but the patient denies this. The patient denied chest pain, nausea, vomiting, pain in his neck, jaw or jaw. He also denied fever, chills. The family states that the patient does get palpitations and becomes anxious and confused at times. The following was obtained from the [facility] discharge note by Dr. Trixie Pepe on 12/17/2024: He presented to the outside hospital with chest pain concerning for angina. Serial troponin was negative EKG without any acute ST changes Given his significant cardiac history and chest pain concerning for angina started on heparin drip for ACS protocol and transferred here for cardiac cath Remained hemodynamically stable. Treated as per ACS protocol with heparin drip, Plavix metoprolol and statin Seen by cardiology underwent cardiac cath?no new obstructive lesions, old stents are patent no interventions needed?recommended to continue with current therapy and was cleared from cardiology standpoint for discharge later in the evening Related Data Home Medications ?Medication ?Instructions ?Recorded ?Confirmed carbamazepine 100 mg chewable 300 mg PO BID 04/13/20 0 12/12/24 tablet citalopram 40 mg tablet 40 mg PO DAILY 04/13/2009/03 clonazepam 1 mg tablet 1 mg PO TID 04/13/20 5 quetiapine 100 mg tablet 100 mg PO BEDTIME 04/13/20 0 12/12/24 phenytoin sodium extended 100 mg 200 mg PO BID 2 12/12/24 capsule nitroglycerin 0.4 mg sublingual 0.4 - 0.8 mg sublingua l DAILY PRN 02/18/24 12/12/24 tablet Chest Pain tramadol 50 mg tablet 50 mg PO Q8H PRN Pain 12/12/24 Previous Rx's ?Medication ?Instructions ?Recorded metoprolol succinate 25 mg 25 mg PO DAILY 90 days #90 tabs 05/01/24 tablet,extended release 24 hr alfuzosin 10 mg tablet,extended 10 mg PO DAILY 90 days #90 tabs 07/04/24 release 24 hr Aeromist Nebulizer #1 ea 07/17/24 nebulizers (AeroEclipse II #1 ea 07/19/24 Nebulizer) montelukast 10 mg tablet 10 mg PO BEDTIME 30 days #30 tabs 08/08/24 (Singulair) atorvastatin 80 mg tablet 80 mg PO BEDTIME #90 tabs albuterol sulfate 2.5 mg/3 mL 2.5 mg (3 mL) inhalation Q6H PRN 09/17/24 (0.083 %) solution for nebulization shortness of breat h or wheezing 30 days #180 mL levalbuterol HCl 1.25 mg/3 mL 1.25 mg (3 mL) inhalatio n BID 90 09/18/24 solution for nebulization days #540 mL fluticasone fur. 200 mcg-umeclid 1 inh inhalation RALPH Y 30 days #60 10/07/24 62.5 mcg-vilant 25 mcg ea inhalat.powder (Trelegy Ellipta) umeclidinium 62.5 mcg-vilanterol 1 inh inhalation RALPH Y 60 days #60 11/14/24 25 mcg/actuation powdr for ea inhalation (Anoro Ellipta) cholecalciferol (vitamin D3) 25 25 mcg PO DAILY 90 day s #90 caps 12/12/24 mcg (1,000 unit) capsule clopidogrel 75 mg tablet 75 mg PO DAILY 90 days #90 t abs 12/12/24 ezetimibe 10 mg tablet 10 mg PO DAILY 90 days #90 t abs 12/12/24 sennosides 8.6 mg-docusate sodium 1 tab-cap PO BID #18 0 tabs 12/12/24 50 mg tablet (Senexon-S) amoxicillin 500 mg capsule 1,000 mg (2 x 500 mg) PO TI D 5 12/24/24 days #30 caps doxycycline hyclate 100 mg tablet 100 mg PO Q12H 5 day s #10 tabs 12/24/24 Allergies Allergy/AdvReac Type Severity Reaction Status Date / Time aspirin (ASPIRIN) Allergy Intermediate ITCHING Verified 12/24/24 10:42 fish oil Allergy Intermediate itchiness Verified 12/24/24 10:42 Review of Systems 2 Review of Systems: Yes all other systems are reviewed and are negative [facility] Past Medical History [facility] Narrative: Social history: He lives with his and his daughter. His daughter is his ERP SPECIALIST. They are both here in the emergency department with the patient. Medical History Partial small bowel obstruction Hearing loss Encounter for Medicare annual wellness exam Cardiac arrest due to underlying cardiac condition Solitary kidney, acquired Mild recurrent major depression Cough BPH (benign prostatic hyperplasia) CAD (coronary artery disease) Lower back pain Asthma Hypertension Seizures Heart attack Afib High cholesterol Surgical History History of left nephrectomy History of colonoscopy H/O heart artery stent Family History Family History Father No problems noted. Mother Cancer Diabetes Social History Social History Household Members: Spouse and Children Housing: Apartment Do you presently have visiting nurse or other home services: No Alcohol intake: former Patient Tobacco Use Status: Never used Tobacco Smoked in Last 30 Days: No e-Cigarette/Vaping Use: Never Used Second Hand Smoke Exposure: No Use of substances other than those prescribed or required for medical reasons: No Advance Directives: Yes Advance Directives Information Provided: Yes Advance Directives on File: No Do you have a plan to hurt others: No Plan service: No Current occupational status: retired Cognitive needs: No Hearing needs: Yes Vision needs: Yes Physical Exam ED Vital Signs: Vital Signs - 24 hr 12/24/24 10:39 12/24/24 11:37 12/24/24 11:37 Temperature 98.5 F Pulse Rate 53 55 Respiratory Rate 16 18 Blood Pressure 115/53 L 117/63 Pulse Oximetry 98 96 96 Oxygen Delivery Method Room Air Room Air Room Air 12/24/24 13:43 Temperature Pulse Rate 60 Respiratory Rate 20 Blood Pressure 116/60 Pulse Oximetry 93 Oxygen Delivery Method Room Air BMI result Body Mass Index 34.9 Vital signs were normal except for low heart rate of 53 Exam: General: Awake, alert in no distress Head: Normocephalic, atraumatic EENT: PERRL, Lids normal, sclera normal, conjunctiva normal, nose normal , ears normal, throat without erythema or exudates Neck: Supple, no adenopathy Lung: breath sounds symmetric, no wheezing, rales or rhonchi Chest: symmetric movement, nontender Heart: regular rate and rhythm, normal S1, S2 no murmurs or rubs Abdomen: soft, non-tender, nondistended, normal bowel sounds Back: no vertebral tenderness, no CVAT Extremities: no deformities, moves all extremities symmetrically. Right wrist has a small puncture wound over the radial artery, patient has normal pulses of the right wrist. The right upper extremities neurovascularly intact. There is no puncture wound in the patient's groin area. Patient has no tenderness palpation over his right trapezius muscle or scapular area, has full range of motion of his right upper extremity without any discomfort. Neuro: Awake, alert, oriented, normal speech, cranial nerves intact, moves all extremities symmetrically Psych: Pleasant, cooperative Course Course Course Narrative: 12/24/24 1043 KELSI Holden This is a Rapid Medical Examination (RME) performed by R. Raimonde PA-C in triage. Full HPI, ROS, assessment and treatment plan per primary provider in the Main ED. Hx: 74 nyo M here for eval of cough w/ chest discomfort. productive of white sputum. assoc STEIN and shoulder pain. PE/vitals: well appearing, NAD Plan: ekg, cxr, labs Medical Decision Making Medical Decision Making MDM Narrative: 74-year-old male with a history of hypertension, coronary artery disease, angina, depression, obstructive sleep apnea, solitary kidney, seizures who presents to the emergency department for evaluation of right shoulder pain, cough, shortness of breath and dyspnea on exertion since , 12/19/2024 (5 days prior to evaluation). Patient was seen in the emergency department on 12/17/2024 for chest pain which was felt to be secondary to coronary artery disease. Patient was transferred to [facility] and had a cardiac catheterization done on 12/18/2024 and he was discharged on 12/19/2024. According to the family, there no significant coronary artery disease that required an intervention but they do not know what the discharge diagnosis. The patient states that while he was at [facility] he developed a cough. He states that he has an intermittent nonproductive cough. He also states he is having intermittent right posterior shoulder pain. He describes his pain is a sharp pain which is 7/10. The pain will last for 15-20 minutes and then resolved. He gets 2-3 episodes per day. The pain is not worse with movement of his shoulder or with breathing. The pain is not related to exertion and can come on at rest. Family has noted that the patient has dyspnea on exertion and shortness of breath at rest but the patient denies this. The patient denied chest pain, nausea, vomiting, pain in his neck, jaw or jaw. He also denied fever, chills. The family states that the patient does get palpitations and becomes anxious and confused at times. Vital signs revealed a low heart rate of 53 otherwise unremarkable. Physical examination was normal. Differential diagnosis: ?Includes but is not limited to myocardial infarction, myocardial ischemia, pericarditis, congestive heart failure, pneumonia, bronchitis, viral syndrome, neurovascular compromise of the right upper extremity, right shoulder musculoskeletal pain Course: 12:35 My interpretation patient's laboratory evaluation as follows: Normocytic anemia with an H&H of 13 and 37.9-this is chronic. Elevated chloride 111. Elevated ALT 45. High sensitive troponin I was detectable at 3.8 but not elevated. Repeat is due at 13:15 hours. COVID-19, RSV and influenza tests are pending Chest x-ray revealed no acute disease 12 EKG did reveal new Q-wave inversions V1 through V6. Patient has no chest pain or right shoulder pain at this time. Repeat troponin is due at 13:15 hours. We will continue to monitor the patient. 14:37 Repeat troponin was flat at 3.4, which is reassuring suggesting that he has not had a myocardial infarction as the cause of his symptoms. I did discuss this with the patient and the patient's family. Concerned that the patient may have an atypical pneumonia versus bronchitis as the cause of his symptoms, therefore I prescribed amoxicillin 1000 mg 3 times a day for 5 days and doxycycline 100 mg twice a day for 5 days. He was advised to take Tylenol for pain or fever. He is advised to continue taking his other medications as prescribed. He was given printed and verbal instructions and discharged home. Patient states that he does not have a flight attendant/inflight manager since his flight attendant/inflight manager is no longer practicing in his asking to be referred to Cardiology at this institution. I did give him Dr. Art's number and told him the contact the office to see if they can take him on as a new patient. Admission/Observation Consideration of admission/observation: Escalation of care including admission/observation considered (Yes) Lab Data MDM Lab Attestation statement: I reviewed the patient's lab results. 12/24/24 11:16 12/24/24 11:16 Labs: Lab Results 12/24/24 12/24/24 Range/Units 11:16 13:18 WBC 6.1 (4.8-10.8) X10*3/uL RBC 4.12 L (4.60-5.80) X10*6/uL Hgb 13.1 L (14.0-18.0) g/dl Hct 37.7 L (42.0-52.0) % MCV 91.5 (80.0-98.0) fL MCH 31.8 (27.0-33.0) pg MCHC 34.7 (31.0-36.0) g/dl RDW 13.1 (11.0-16.0) % Plt Count 164 (160-400) X10*3/uL MPV 10.6 (9.4-12.4) fL Immature Gran % (Auto) 0.2 (0.0-0.4) % Neut % (Auto) 61.6 (45-73) % Lymph % (Auto) 31.1 (20-40) % [place] % (Auto) 5.8 (2-11) % Eos % (Auto) 0.8 (0-4) % Baso % (Auto) 0.5 (0-2) % Lymph # (Auto) 1.9 (1.2-4.9) X10*3/uL [place] # (Auto) 0.4 (0.1-1.2) X10*3/uL Eos # (Auto) 0.1 (0.0-0.4) X10*3/uL Baso # (Auto) 0.0 (0.0-0.2) X10*3/uL Abs Immat Gran (auto) 0.01 (0.00-0.03) X10*3/uL Absolute Neuts (auto) 3.7 (2.0-8.3) x10*3/uL Absolute Nucleated RBC 0.000 (0.0-0.012) X10*3/uL Nucleated RBC % (auto) 0.0 (0.0-0.2) /100WBC Sodium 143 (135-145) mmol/L Potassium 4.2 (3.3-5.1) mmol/L Chloride 111 H (96-108) mmol/L Carbon Dioxide 25 (22-29) mmol/L Anion Gap 11 L (12-20) BUN 12 (9-16) mg/dL Creatinine 1.19 (0.5-1.4) mg/dL Estim Creat Clear Calc 56.0 Estimated GFR 59 Random Glucose 114 (60-115) mg/dL Calcium 8.8 D (8.4-10.2) mg/dL Magnesium 2.4 (1.6-2.6) mg/dL Total Bilirubin 0.2 (0.0-1.0) mg/dL AST 33 (5-37) U/L ALT 45 H (0-40) U/L Alkaline Phosphatase 128 H (39-117) U/L Troponin I High Sens 3.8 3.4 (<3.5-35.0) ng/L B-Natriuretic Peptide 159 H (<100) pg/mL Total Protein 6.9 (6.5-8.0) g/dL Albumin 4.0 (3.5-5.0) g/dL Influenza Type A (PCR) NEGATIVE (Negative) Influenza Type B (PCR) NEGATIVE (Negative) RSV RNA Qual (PCR) NEGATIVE (Negative) SARS-CoV-2 RNA (RT-PCR) NEGATIVE (Negative) Independent Interpretation I performed an independent interpretation of an: Plain X-Ray Interpretation: My interpretation patient's two view chest x-ray is as follows: No acute disease My interpretation patient's 12 EKG done on 12/24/2024 at 10:55 hours is as follows: Sinus bradycardia with a rate of 55, normal SD interval, QRS duration QTC interval, no ST segment elevation, no ST segment depression, inverted T- waves V1 through V6 5 which is new compared to 12/17/2024. Radiology Impression Discussion of test interpretation with radiology: I have reviewed the radiologist's reading. Radiologist Impression: XR chest 2V IMPRESSION: No active pulmonary disease. Electronically signed by: Marcial Mills MD 12/24/2024 12:07 PM EDT Independent Historian Clinical information obtained from an independent historian. History obtained from or confirmed by: Other ( and daughter) External Record Review External record reviewed: Inpatient record ([facility] discharge summary) Prescription Management I considered prescription management with: Antibiotic (Amoxicillin and doxycycline) Chronic Conditions Patient?s care impacted by: Hypertension and Other (Coronary artery disease) Discharge Plan Discharge Clinical Impression: Acute bronchitis, Acute pain of right shoulder, Acute dyspnea Patient Disposition: Home, Self-Care Instructions: Acute Bronchitis (ED) Additional Instructions: Your blood work was normal which is reassuring. The marker of heart attack (troponin) was normal and your repeat 2 hour troponin was also normal suggesting that your right shoulder pain is not caused by heart attack pain. Your chest x-ray did not reveal any evidence for pneumonia. Your COVID-19, influenza and RSV tests were negative. At this time, I believe that your symptoms are due to an infection of your breathing tubes (bronchitis). This can sometimes be caused by a virus or or a bacteria. At this time I am going to treat you for bacterial bronchitis with 2 different antibiotics. Take amoxicillin 1000 mg 3 times a day for 5 days. Take doxycycline 100 mg, 2 times a day for 5 days Take Tylenol (acetaminophen) 500 mg pills, 2 pills every 6 hours as needed for pain or fever. Follow-up with your doctor in 2 days. Please return to the emergency department if your symptoms get worse or if you develop any symptoms that are concerning to you. Dr. Art is our on-call cardiology doctor, please call his group to see if they can take you on as a new patient for management of your heart disease. Prescriptions: New amoxicillin 500 mg capsule 1,000 mg PO TID 5 Days Qty: 30 0RF doxycycline hyclate 100 mg tablet 100 mg PO Q12H 5 Days Qty: 10 0RF No Action (DME) Aeromist Nebulizer See Rx Instructions .Route .MEDSUPPLY Qty: 1 0RF Rx Instructions: As directed (DME) nebulizers [AeroEclipse II Nebulizer] [facility] [place], [place] See Rx Instructions .Route Qty: 1 0RF Rx Instructions: As directed atorvastatin 80 mg tablet 80 mg PO BEDTIME Qty: 90 3RF albuterol sulfate 2.5 mg /3 mL (0.083 %) solution for nebulization 2.5 mg inhalation Q6H PRN (Reason: shortness of breath or wheezing) 30 Days Qty: 180 0RF levalbuterol HCl 1.25 mg/3 mL solution for nebulization 1.25 mg inhalation BID 90 Days Qty: 540 3RF Trelegy Ellipta 200-62.5-25 mcg blister with device 1 inh inhalation DAILY 30 Days Qty: 60 12RF umeclidinium-vilanterol [Anoro Ellipta] 62.5-25 mcg/actuation blister with device 1 inh inhalation DAILY 60 Days Qty: 60 0RF tramadol 50 mg tablet 50 mg PO Q8H PRN (Reason: Pain) nitroglycerin 0.4 mg tablet, sublingual 0.4 - 0.8 mg sublingual DAILY PRN (Reason: Chest Pain) carbamazepine 100 mg tablet,chewable 300 mg PO BID clonazepam 1 mg tablet 1 mg PO TID quetiapine 100 mg tablet 100 mg PO BEDTIME citalopram 40 mg tablet 40 mg PO DAILY phenytoin sodium extended 100 mg capsule 200 mg PO BID alfuzosin 10 mg tablet extended release 24 hr 10 mg PO DAILY 90 Days Qty: 90 2RF montelukast [Singulair] 10 mg tablet 10 mg PO BEDTIME 30 Days Qty: 30 11RF metoprolol succinate 25 mg tablet extended release 24 hr 25 mg PO DAILY 90 Days Qty: 90 3RF cholecalciferol (vitamin D3) 25 mcg (1,000 unit) capsule 25 mcg PO DAILY 90 Days Qty: 90 1RF clopidogrel 75 mg tablet 75 mg PO DAILY 90 Days Qty: 90 0RF ezetimibe 10 mg tablet 10 mg PO DAILY 90 Days Qty: 90 1RF sennosides-docusate sodium [Senexon-S] 8.6-50 mg tablet 1 tab-cap PO BID Qty: 180 0RF Referrals: cardology [Other] Matthias Art MD [Physician, Cardiology] Referral Note: Coronary artery disease, recent cardiac catheterization at [facility] with no significant lesions, diagnosed with angina. States that he needs a new flight attendant/inflight manager therefore advised to contact your group Print Language: Polish
--- NOTE | 2024-12-24 10:43 | ECG_ITS ---
Test Reason : chest pain Blood Pressure : */* mmHG Vent. Rate : 55 BPM Atrial Rate : 55 BPM P-R Int : 180 ms QRS Dur : 78 ms QT Int : 434 ms P-R-T Axes : 19 24 10 degrees QTcB Int : 415 ms Probable sinus rhythm T wave abnormality, consider anterior ischemia Abnormal ECG When compared with ECG of 17-Dec-2024 11:14, Inverted T waves have replaced nonspecific T wave abnormality in Anterior leads Referred By: Melani Flores Electronically Signed By: JOSE C GARCIA
[2024-12-24 11:19] LABS: MANUAL DIFF FLAG NO
[2024-12-24 11:23] LABS: Hematocrit 37.7 % (42.0-52.0); Hemoglobin 13.1 g/dl (14.0-18.0); Imm Gran Abs Auto 0.01 X10*3/uL (0.00-0.03); Imm Gran Pct Auto 0.2 % (0.0-0.4); Lymphocytes Absolute Auto 1.9 X10*3/uL (1.2-4.9); Mean Corpuscular HGB Conc 34.7 g/dl (31.0-36.0); Mean Corpuscular Hemoglobin 31.8 pg (27.0-33.0); Mean Corpuscular Volume 91.5 fL (80.0-98.0); NRBC Abs Auto 0.000 X10*3/uL (0.0-0.012); NRBC Pct Auto 0.0 /100WBC (0.0-0.2); Platelet Count 164 X10*3/uL (160-400); Red Blood Count 4.12 X10*6/uL (4.60-5.80); White Blood Count 6.1 X10*3/uL (4.8-10.8)
[2024-12-24 11:37] VITALS: BP 117/63; PULSE 55; RESP 18; O2SAT 96
[2024-12-24 11:40] LABS: Alanine Aminotransferase 45 U/L (0-40); Albumin Level 4.0 g/dL (3.5-5.0); Alkaline Phosphatase 128 U/L (39-117); Anion Gap 11 (12-20); Aspartate Amino Transferase 33 U/L (5-37); Blood Urea Nitrogen 12 mg/dL (9-16); Calcium 8.8 mg/dL (8.4-10.2); Carbon Dioxide 25 mmol/L (22-29); Chloride 111 mmol/L (96-108); Creatinine Clr Calc Pharmacy 56.0; Estimated Glomerular Filt Rate 59; Magnesium 2.4 mg/dL (1.6-2.6); Potassium 4.2 mmol/L (3.3-5.1); Sodium 143 mmol/L (135-145); Total Protein 6.9 g/dL (6.5-8.0)
[2024-12-24 11:43] LABS: Troponin-I High Sensitivity 3.8 ng/L (<3.5-35.0)
--- NOTE | 2024-12-24 12:00 | PC.NURSE ---
Addendum entered by Kasie Lrener RN 12/24/24 12:02: Patient is a 74-year-old male with a history of hypertension, coronary artery disease, angina, depression, obstructive sleep apnea, solitary kidney, seizures who presents to the emergency department for evaluation of right shoulder pain, cough, shortness of breath and dyspnea on exertion since , 12/19/2024 (5 days prior to evaluation). Patient was seen recently in this facility for chest pain for which he was sent to [facility] for cardiac cath previous cath noted with stents to LAD and RCA. Cardiac cath showed no significant disease and patient was discharged on where he developed the above symptoms. Alert and oriented, Slovenian speaking and an gas plumber utilized. Lungs clear bilat. Respirations even and non-labored at rest. Abdome soft, distended, non-tender with positive bowel sounds. Positive pedal pulses with no edema. Original Note: Medical History Partial small bowel obstruction Hearing loss Encounter for Medicare annual wellness exam Cardiac arrest due to underlying cardiac condition Solitary kidney, acquired Mild recurrent major depression Cough BPH (benign prostatic hyperplasia) CAD (coronary artery disease) Lower back pain Asthma Hypertension Seizures Heart attack Afib High hang
[2024-12-24 12:11] LABS: B Type Natriuretic Peptide 159 pg/mL (<100)
--- OUTSIDE RECORDS SUMMARY | 2024-12-24 12:25 | XMS_ITS | Clinical Summary ---
Author Organization [facility] Address [address] [address] Phone Care Team Providers Care Kit Planner Name Role Phone Deidre Hunter MD Primary Care Provider [phone] Allergies Active Allergy Reactions Criticality Noted Date [...] Office Visit [facility] [address] [address] Denise Moreno ARNP Chronic kidney [...] Office Visit [facility] [address] [address] Denise Moreno ARNP [address] [address] Health Maintenance Due Date Last [...] Creatinine, Ur 99.1 Not Estab. mg/dL [facility] Protein, Ur 16.2 Not Estab. mg/dL [facility] Urine Protein/Creatin ine Ratio 163 0 - 200 mg/g creat [facility] Urine Urine specimen obtained by clean catch procedure / Unknown 11/08/2024 9:00 AM EDT 11/08/2024 [facility] Moreno [facility] LAB URINE ORDERABLES Final Result Performing Organization Address City/[facility] Co de Phone Number [employer] [address] [place] [address] * Urine Albumin / Creatinine Ratio (11/08/2024 9:00 AM EDT) Albumin, Urine <3.0 Not Estab. ug/mL [facility] Albumin/Creatin ine Ratio <3 0 - 29 mg/g creat [facility] Comment: Normal: 0 - 29 Moderately increased: 30 - 300 Severely increased: >300 Urine Urine specimen obtained by clean catch procedure / Unknown 11/08/2024 9:00 AM EDT 11/08/2024 Denise Moreno [facility] LAB URINE ORDERABLES Final Result Performing Organization Address City/[facility]/ZIP Co de Phone Number [employer] [facility] [address] [place] [address] * (ABNORMAL) CBC (11/08/2024 9:00 AM EDT) WBC 5.8 3.4 - 10.8 x10E3/uL [facility] RBC 4.11(L) 4.14 - 5.80 x10E6/uL [facility] Hemoglobin 12.9(L) 13.0 - 17.7 g/dL [facility] Hematocrit 39.2 37.5 - 51.0 % [facility] MCV 95 79 - 97 fL [facility] MCH 31.4 26.6 - 33.0 pg [facility] MCHC 32.9 31.5 - 35.7 g/dL [facility] RDW 13.6 11.6 - 15.4 % [facility] Platelets 162 150 - 450 x10E3/uL [facility] 11/08/2024 9:00 AM EDT 11/08/2024 [facility] LAB BLOOD ORDERABLES Final Result [facility] [address] [place] [address] * PTH, intact (11/08/2024 9:00 AM EDT) PTH 50 15 - 65 pg/mL [facility] Blood Venous blood / Unknown 11/08/2024 9:00 AM EDT 11/08/20[facility] Final Result [facility] [address] [place] [address] * (ABNORMAL) Renal function panel (11/08/2024 9:00 AM EDT) Glucose 98 70 - 99 mg/dL [facility] BUN 27 8 - 27 mg/dL [facility] Creatinine 1.18 0.76 - 1.27 mg/dL [facility] eGFR CKD-EPI CR 2020 64 >59 mL/min/1.7 3 [facility] BUN/Creatinine Ratio 23 10 - 24 [facility] Sodium 140 134 - 144 mmol/L [facility] Potassium 4.4 3.5 - 5.2 mmol/L [facility] Chloride 108(H) 96 - 106 mmol/L [facility] Bicarbonate (CO2) 18(L) 20 - 29 mmol/L [facility] Calcium 8.5(L) 8.6 - 10.2 mg/dL [facility] Albumin 4.0 3.8 - 4.8 g/dL [facility] Phosphorus 4.0 2.8 - 4.1 mg/dL [facility] Blood Venous blood / Unknown 11/08/2024 9:00 AM EDT 11/08/2024 Denise Moreno [facility] LAB BLOOD ORDERABLES Final Result [facility] [address] [place] [address] from Last 3 Months Insurance [place] [id number] Medicaid [place] Medicare Care Teams Kit Planner Relationship Specialty Start Date End Date Deidre Hunter MD [address] [place], [place] PCP - General 06/22/20
[2024-12-24 12:44] LABS: Resp Syncy Virus RNA Qual PCR NEGATIVE (Negative); SARS COV2 PCR INHOUSE NEGATIVE (Negative)
[2024-12-24 13:41] LABS: Troponin-I High Sensitivity 3.4 ng/L (<3.5-35.0)
[2024-12-24 13:43] VITALS: BP 116/60; PULSE 60; RESP 20; O2SAT 93
[2024-12-24 14:41] VITALS: BP 117/59; PULSE 54; RESP 19; TEMP 36.6; O2SAT 98
[2024-12-24 14:47] VITALS: BP 117/59; PULSE 54; RESP 19; TEMP 36.6; O2SAT 98
== END 2024-12-24 14:48 | disposition home or self-care (01) ==
PROVIDERS: Physician Assistant Medical; Emergency Provider Emergency Medicine Emergency Medical Services; PCP Internal Medicine
DX: J20.9 Acute bronchitis, unspecified (principal); R06.00 Dyspnea, unspecified; R05.9 Cough, unspecified; R07.9 Chest pain, unspecified; M25.511 Pain in right shoulder; R06.02 Shortness of breath; I10 Essential (primary) hypertension; I25.10 Atherosclerotic heart disease of native coronary artery without angina pectoris; G40.909 Epilepsy, unspecified, not intractable, without status epilepticus; Z79.899 Other long term (current) drug therapy
CPT/HCPCS: 36415; 71046; 80053; 83735; 83880; 84484; 85025; 87637; 93005; 99283; 99285

== ENCOUNTER → 2024-12-24 10:43 | Outpatient (BNV) | payer MEDICARE, MEDICAID, SELFPAY | PROVIDERS: Emergency Provider Emergency Medicine Emergency Medical Services; PCP Internal Medicine; Visit Provider Internal Medicine | DX: R07.9 Chest pain, unspecified (principal) | CPT/HCPCS: 93010 ==

== ENCOUNTER → 2024-12-24 10:43 | Outpatient (BNV) | payer MEDICARE, MEDICAID, SELFPAY | PROVIDERS: Emergency Provider Emergency Medicine Emergency Medical Services; PCP Internal Medicine; Visit Provider Radiology Diagnostic Radiology | DX: R05.9 Cough, unspecified (principal) | CPT/HCPCS: 71046 ==

== ENCOUNTER 2025-01-01 13:25 | Outpatient (AMB) | payer MEDICARE, MEDICAID, SELFPAY ==
[2025-01-01 13:29] VITALS: BP 108/58; O2SAT 96; BMI 33.1
--- NOTE | 2025-01-01 13:29 | MHC.PC.OV ---
Vital Signs 01/01/25 13:29 Height 5 ft 5 in Weight 199 lb BMI 33.1 BP 108/58 L Blood Pressure Location Lt brachial Position Sitting Pulse Oximetry (%) 96 Oxygen Delivery Method Room Air [place] [facility] [place] Bronchitis Health Informatics Advisor Required: No Accompanied by: Spouse Allergies aspirin (ASPIRIN) Allergy (Intermediate, Verified 01/01/25 13:52) ITCHING fish oil Allergy (Intermediate, Verified 01/01/25 13:52) itchiness Medication List - Last Reconciled 01/01/25 by Deidre Zepeda MD [Aeromist Nebulizer As directed] albuterol sulfate 2.5 mg (3 mL) inhalation Q6H PRN 30 days alfuzosin ER 10 mg PO DAILY 90 days atorvastatin 80 mg PO BEDTIME carbamazepine 300 mg PO BID cholecalciferol (vitamin D3) 25 mcg PO DAILY 90 days citalopram 40 mg PO DAILY clonazepam 1 mg PO TID clopidogrel 75 mg PO DAILY 90 days ezetimibe 10 mg PO DAILY 90 days bnkotsetdmx-yudjaugqx-jjxlbwjf 200-62.5-25 mcg (Trelegy Ellipta) 1 inh inhalation DAILY 30 days levalbuterol HCl 1.25 mg (3 mL) inhalation BID 90 days metoprolol succinate ER 25 mg PO DAILY 90 days montelukast (Singulair) 10 mg PO BEDTIME 30 days nebulizers (AeroEclipse II Nebulizer) As directed nitroglycerin 0.4 - 0.8 mg sublingual DAILY PRN phenytoin sodium extended 200 mg PO BID quetiapine 100 mg PO BEDTIME sennosides-docusate sodium 8.6-50 mg (Senexon-S) 1 tab-cap PO BID tramadol 50 mg PO Q8H PRN umeclidinium-vilanterol 62.5-25 mcg/actuation (Anoro Ellipta) 1 inh inhalation DAILY 60 days Tobacco use date assessed: 07/04/24 Dental Screening Dental Screen Date: 07/04/24 HPI HPI Comments History of Present Illness Details The patient is a 74-year-old male presenting for hospital discharge follow-up due to acute bronchitis that feels markedly improved except for dizziness and some lingering cough. Will prescribe Mucinex. He also has prediabetes, seizures, coronary artery disease and unstable angina. Has not had a seizure in a while and follow by Neurology. Started low-carbohydrate diet for his prediabetes and denies any polyuria, polydipsia or unintentional weight loss. Has had some chest pain and unstable angina and coronary artery disease are follow by cardiology. He has a history of asthma, managed by Dr. Lopez, with doxycycline prescribed and a follow-up in February. [facility] Medical History Partial small bowel obstruction Hearing loss Encounter for Medicare annual wellness exam Cardiac arrest due to underlying cardiac condition Solitary kidney, acquired Mild recurrent major depression Cough BPH (benign prostatic hyperplasia) CAD (coronary artery disease) Lower back pain Asthma Hypertension Seizures Heart attack Afib High cholesterol Surgical History History of left nephrectomy History of colonoscopy H/O heart artery stent Family History Father No problems noted. Mother Cancer Diabetes Social History Household Members: Spouse and Children Housing: Apartment Do you presently have visiting nurse or other home services: No Alcohol intake: former Patient Tobacco Use Status: Never used Tobacco e-Cigarette/Vaping Use: Never Used Second Hand Smoke Exposure: No service: No Current occupational status: retired Cognitive needs: No Hearing needs: Yes Vision needs: Yes Questionnaire Thrive Questionnaire Date Thrive assessed: 12/12/24 I am a: Patient What is your living situation today?: I have a steady place to live Within the past 12 months, did the food you bought not last and you didn't have the money to get more?: I choose not to answer this question Within the past 12 months, did you worry whether your food would run out before you got money to buy more?: I choose not to answer this question Do you have trouble paying for medicines?: No Do you have trouble getting transportation to medical appointments?: No Do you have trouble paying your heating and electricity bill?: No Do you have trouble taking care of your child, family member or friend?: No Do you have trouble with day-to-day activities such as bathing, preparing meals, shopping, managing finances, etc.?: No Are you currently unemployed and looking for a job?: I choose not to answer this question Are you interested in more education?: I choose not to answer this question Please select the resources that you would like help with: None Currently or been in a relationship where the following occur: I choose not to answer THRIVE Score: 0 CARLOS A-7 AMB Questionnaire CARLOS A-7 Date CARLOS A - 7 assessed: 07/04/24 Source: Developed by Drs. Tony Sun, Shivani Diez, Anup Florez and colleagues, with an educational edwina from [employer]. Review of Systems Const All systems reviewed & are unremarkable except as noted in HPI and below Card Denies chest pain at rest, Denies chest pain with activity, Denies edema, Denies irregular heart rhythm, Denies claudication, Denies dyspnea, Denies dyspnea on exertion, Denies orthopnea, Denies paroxysmal nocturnal dyspnea and Denies slow heart rate Resp Denies cough, Denies dyspnea and Denies dyspnea on exertion GI Denies abdominal pain, Denies change in bowel habits, Denies excessive flatus, Denies nausea and Denies vomiting Denies urinary hesitancy, Denies urinary incontinence and Denies urinary urgency Neuro Denies lack of coordination Physical exam (Primary Care) Vital Signs: Last Vital Signs BP 108/58 L 01/01/25 13:29 Pulse Ox 96 01/01/25 13:29 Oxygen Delivery Method Room Air 01/01/25 13:29 BMI result Body Mass Index 33.1 Tobacco/Smoking Status: Tobacco use Status Tobacco use date assessed 07/04/24 01/01/25 13:39 Patient Tobacco Use Status Never used Tobacco 01/01/25 13:39 Tobacco use type 12/12/24 10:34 e-Cigarette/Vaping Use Never Used 01/01/25 13:39 Thrive Assessment: Date of Thrive Assessment Date Thrive assessed 12/12/24 01/01/25 13:39 Currently or been in a relationship where the following occur: I choose not to answer Resp Effort & Inspection: normal respiratory effort Auscultation: clear to auscultation bilaterally Cardio Jugular venous distension: no JVD Rate: regular rate Rhythm: regular rhythm Heart sounds: S1 normal heart sound present and S2 normal heart sound present Extrem General: Yes full ROM Coding Level of Care Code Est Pt Level 4 (07524) Complex EM visit Add On G2211 Diagnoses Acute bronchitis J20.9 Seizures R56.9 Impaired glucose tolerance R73.02 Unstable angina I20.0 CAD (coronary artery disease) I25.10 Mild recurrent major depression F33.0 Time Spent (min) 22 Assessment & Plan Assessment & Plan (1) Acute bronchitis: Code(s): J20.9 - Acute bronchitis, unspecified Category: Medical (2) Seizures: Comment: last 2020-sees Dr. Poole Code(s): R56.9 - Unspecified convulsions Category: Medical (3) Impaired glucose tolerance: Code(s): R73.02 - Impaired glucose tolerance (oral) Category: Medical (4) Unstable angina: Code(s): I20.0 - Unstable angina Category: Medical (5) CAD (coronary artery disease): Code(s): I25.10 - Atherosclerotic heart disease of [place] coronary artery without angina pectoris Category: Medical (6) Mild recurrent major depression: Code(s): F33.0 - Major depressive disorder, recurrent, mild Category: Medical Plan The patient was instructed to complete the antibiotic course and observe for any ongoing dizziness, with a cardiology referral planned for further assessment. For asthma, follow-up with Dr. Lopez is scheduled. Dietary changes were advised for prediabetes management, emphasizing reduced sugar and carbohydrate intake, with monitoring for signs of poor glucose control. Patient was informed and verbally consented to the use of an ambient scribe for clinic note documentation during this visit. Orders: Referrals Cardiology Referral I20.0 - Unstable angina, I25.10 - Atherosclerotic heart disease of [place] coronary artery without angina pectoris Medications: New guaifenesin ER (Mucinex) 600 mg PO BID 10 tabs 0RF 5 days
--- OUTSIDE RECORDS SUMMARY | 2025-01-01 13:58 | XMS_ITS | Clinical Summary ---
Author Organization [facility] Address [address] [address] Phone Care Team Providers Care Channel Marketing Manager Name Role Phone Deidre Hunter MD Primary Care Provider [phone] Allergies Active Allergy Reactions Criticality Noted Date [...] Office Visit [facility] [address] [address] Denise Moreno ARNP Chronic kidney [...] Office Visit [facility] [address] [address] Denise Moreno ARNP [address] [address] Health Maintenance Due Date Last [...] Creatinine, Ur 99.1 Not Estab. mg/dL [facility] Protein, Ur 16.2 Not Estab. mg/dL [facility] Urine Protein/Creatin ine Ratio 163 0 - 200 mg/g creat [facility] Urine Urine specimen obtained by clean catch procedure / Unknown 11/08/2024 9:00 AM EDT 11/08/2024 [facility] Moreno [facility] LAB URINE ORDERABLES Final Result Performing Organization Address City/[facility] Co de Phone Number [facility]Daily[facility] [address] [place] [address] * Urine Albumin / Creatinine Ratio (11/08/2024 9:00 AM EDT) Albumin, Urine <3.0 Not Estab. ug/mL [facility] Albumin/Creatin ine Ratio <3 0 - 29 mg/g creat [facility] Comment: Normal: 0 - 29 Moderately increased: 30 - 300 Severely increased: >300 Urine Urine specimen obtained by clean catch procedure / Unknown 11/08/2024 9:00 AM EDT 11/08/2024 Denise Moreno [facility] LAB URINE ORDERABLES Final Result Performing Organization Address City/[facility]/ZIP Co de Phone Number [employer] [facility] [address] [place] [address] * (ABNORMAL) CBC (11/08/2024 9:00 AM EDT) WBC 5.8 3.4 - 10.8 x10E3/uL [facility] RBC 4.11(L) 4.14 - 5.80 x10E6/uL [facility] Hemoglobin 12.9(L) 13.0 - 17.7 g/dL [facility] Hematocrit 39.2 37.5 - 51.0 % [facility] MCV 95 79 - 97 fL [facility] MCH 31.4 26.6 - 33.0 pg [facility] MCHC 32.9 31.5 - 35.7 g/dL [facility] RDW 13.6 11.6 - 15.4 % [facility] Platelets 162 150 - 450 x10E3/uL [facility] 11/08/2024 9:00 AM EDT 11/08/2024 [facility] LAB BLOOD ORDERABLES Final Result [facility] [address] [place] [address] * PTH, intact (11/08/2024 9:00 AM EDT) PTH 50 15 - 65 pg/mL [facility] Blood Venous blood / Unknown 11/08/2024 9:00 AM EDT 11/08/2024 [facility] Final Result [facility] [address] [place] [address] * (ABNORMAL) Renal function panel (11/08/2024 9:00 AM EDT) Glucose 98 70 - 99 mg/dL [facility] BUN 27 8 - 27 mg/dL [facility] Creatinine 1.18 0.76 - 1.27 mg/dL [facility] eGFR CKD-EPI CR 2020 64 >59 mL/min/1.7 3 [facility] BUN/Creatinine Ratio 23 10 - 24 [facility] Sodium 140 134 - 144 mmol/L [facility] Potassium 4.4 3.5 - 5.2 mmol/L [facility] Chloride 108(H) 96 - 106 mmol/L [facility] Bicarbonate (CO2) 18(L) 20 - 29 mmol/L [facility] Calcium 8.5(L) 8.6 - 10.2 mg/dL [facility] Albumin 4.0 3.8 - 4.8 g/dL [facility] Phosphorus 4.0 2.8 - 4.1 mg/dL [facility] Blood Venous blood / Unknown 11/08/2024 9:00 AM EDT 11/08/2024 Denise Moreno [facility] LAB BLOOD ORDERABLES Final Result [facility] [address] [place] [address] from Last 3 Months Insurance [place] [id number] Medicaid [place] Medicare Care Teams Channel Marketing Manager Relationship Specialty Start Date End Date Deidre Hunter MD [address] [place], [place] PCP - General 06/22/20
== END 2025-01-01 14:07 | disposition home or self-care (01) ==
LOC: HO.HMCH 13:26
PROVIDERS: PCP Internal Medicine; Visit Provider Internal Medicine
DX: J20.9 Acute bronchitis, unspecified (principal); R56.9 Unspecified convulsions; I25.10 Atherosclerotic heart disease of native coronary artery without angina pectoris; F33.0 Major depressive disorder, recurrent, mild

== ENCOUNTER → 2025-01-01 13:25 | Outpatient (BNVA) | payer MEDICARE, MEDICAID, SELFPAY | PROVIDERS: PCP Internal Medicine; Visit Provider Internal Medicine | DX: J20.9 Acute bronchitis, unspecified (principal); R56.9 Unspecified convulsions; R73.02 Impaired glucose tolerance (oral); I25.10 Atherosclerotic heart disease of native coronary artery without angina pectoris; F33.0 Major depressive disorder, recurrent, mild | CPT/HCPCS: 99212 ==

== ENCOUNTER → 2025-01-13 23:59 | Outpatient (BNV) | payer MEDICARE, MEDICAID, SELFPAY | PROVIDERS: PCP Internal Medicine; Visit Provider Internal Medicine | DX: I25.110 Atherosclerotic heart disease of native coronary artery with unstable angina pectoris (principal); I11.0 Hypertensive heart disease with heart failure; I50.9 Heart failure, unspecified | CPT/HCPCS: G0180 ==

== ENCOUNTER 2025-01-27 10:29 | Outpatient (AMB) | payer MEDICARE, MEDICAID, SELFPAY ==
--- NOTE | 2025-01-27 10:46 | A.OFFVIS_ITS ---
Vital Signs 01/27/25 10:48 Height 5 ft 5 in Weight 202 lb 6.15 oz BMI 33.7 BP 118/70 Blood Pressure Location Lt brachial Position Sitting Pulse 55 Pulse Source Monitor Intake Visit [facility] [place] followup dx: unstable angina Intake Note: [facility] [place] f/up Assistant Basketball Coach Required: No Assistant Basketball Coach Services: Assistant Basketball Coach Offered & Declined Assistant Basketball Coach Name: daughter/eritrean Accompanied by: mauricio Allergies aspirin (ASPIRIN) Allergy (Intermediate, Verified 01/01/25 13:52) ITCHING fish oil Allergy (Intermediate, Verified 01/01/25 13:52) itchiness Medication List - Last Reconciled 01/27/25 by Rm Pinto MD [Aeromist Nebulizer As directed] albuterol sulfate 2.5 mg (3 mL) inhalation Q6H PRN 30 days alfuzosin ER 10 mg PO DAILY 90 days atorvastatin 80 mg PO BEDTIME carbamazepine 300 mg PO BID cholecalciferol (vitamin D3) 25 mcg PO DAILY 90 days citalopram 40 mg PO DAILY clonazepam 1 mg PO TID clopidogrel 75 mg PO DAILY 90 days ezetimibe 10 mg PO DAILY 90 days utzkpyonpwn-eomihcdhk-ommbxaqz 200-62.5-25 mcg (Trelegy Ellipta) 1 inh inhalation DAILY 30 days guaifenesin ER (Mucinex) 600 mg PO BID 5 days guaifenesin ER (Mucinex) 600 mg PO Q12H PRN 5 days levalbuterol HCl 1.25 mg (3 mL) inhalation BID 90 days metoprolol succinate ER 25 mg PO DAILY 90 days montelukast (Singulair) 10 mg PO BEDTIME 30 days nebulizers (AeroEclipse II Nebulizer) As directed nitroglycerin 0.4 - 0.8 mg sublingual DAILY PRN phenytoin sodium extended 200 mg (2 x 100 mg) PO BID 90 days quetiapine 100 mg PO BEDTIME sennosides-docusate sodium 8.6-50 mg (Senexon-S) 1 tab-cap PO BID tramadol 50 mg PO Q8H PRN 30 days umeclidinium-vilanterol 62.5-25 mcg/actuation (Anoro Ellipta) 1 inh inhalation DAILY 60 days HPI Comments Details: Pleasant 74 year gentleman who is here for follow-up. He was seen in the hospital when he presented with chest discomfort and bilateral shoulder discomfort. These symptoms were similar to his previous presentation with ACS when he had PCI done to LAD. After discussion he was transferred to [facility] underwent cardiac catheterization which showed patent stent in the LAD with mild ISR. No significant disease anywhere to explain chest discomfort at rest. He was subsequently discharged back home. He has been on chronic Plavix therapy and he is unable to take aspirin due to some allergic issues in the past. I had a detailed discussion with his daughter Wendy in the past and it appears he had seizures with aspirin and apparently the daughter also had similar problem with aspirin in the past. We have avoided aspirin in him due to these reasons. [facility] Medical History Partial small bowel obstruction Hearing loss Encounter for Medicare annual wellness exam Cardiac arrest due to underlying cardiac condition Solitary kidney, acquired Mild recurrent major depression Cough BPH (benign prostatic hyperplasia) CAD (coronary artery disease) Lower back pain Asthma Hypertension Seizures Heart attack Afib High cholesterol Surgical History History of left nephrectomy History of colonoscopy H/O heart artery stent Family History Father No problems noted. Mother Cancer Diabetes Social History Household Members: Spouse and Children Housing: Apartment Do you presently have visiting nurse or other home services: No Alcohol intake: former Patient Tobacco Use Status: Never used Tobacco e-Cigarette/Vaping Use: Never Used Second Hand Smoke Exposure: No service: No Current occupational status: retired Cognitive needs: No Hearing needs: Yes Vision needs: Yes Review of Systems Const Denies chills, Denies fatigue, Denies fever(s), Denies frequent falls, Denies weakness, Denies weight gain and Denies weight loss ENT Denies dizziness Card Denies chest pain, Denies leg edema, Denies lightheadedness, Denies palpitations, Denies dyspnea and Denies dyspnea on exertion Resp Denies cough, Denies dyspnea and Denies dyspnea on exertion GI Denies hematochezia Musc Denies abnormal gait, Denies muscle weakness, Denies numbness, Denies radiating pain into limb and Denies tingling Neuro Denies abnormal gait, Denies dizziness, Denies frequent falls, Denies numbness, Denies tingling and Denies weakness Endo Denies fatigue and Denies palpitations Physical Exam Vital Signs: Last Vital Signs Pulse 55 01/27/25 10:48 BP 118/70 01/27/25 10:48 BMI result Body Mass Index 33.7 Last Vital Signs Pulse 60 12/17/24 11:16 Resp 16 12/17/24 11:16 BP 108/54 L 12/17/24 11:16 Pulse Ox 96 12/17/24 11:16 O2 Del Method Room Air 12/17/24 11:16 BMI result Body Mass Index 33.3 GENERAL APPEARANCE: in no acute distress, pleasant. NECK: no carotid bruit, no jugular venous distention. SKIN: no suspicious lesions, warm and dry. HEART: no murmurs, regular rate and rhythm. LUNGS: clear to auscultation bilaterally. ABDOMEN: soft, nontender. EXTREMITIES: no edema. PERIPHERAL PULSES: equal. NEUROLOGIC: No gross deficits, AAO X 3 Office Procedures EKG Details: Sinus bradycardia 55 beats per minute, nonspecific T-wave changes, QTC 420 milliseconds. [id number], Complete Assessment & Plan Assessment & Plan (1) Hypertension: Code(s): I10 - Essential (primary) hypertension Category: Medical Qualifiers: Hypertension type: unspecified Qualified Code(s): I10 - Essential (primary) hypertension (2) CAD (coronary artery disease): Comment: [facility] Code(s): I25.10 - Atherosclerotic heart disease of [place] coronary artery without angina pectoris Category: Medical Qualifiers: Coronary Disease-Associated Artery/Lesion type: [place] artery [place] vs. transplanted heart: [place] heart Associated angina: angina presence unspecified Qualified Code(s): I25.10 - Atherosclerotic heart disease of [place] coronary artery without angina pectoris Plan [age] year gentleman who is here for follow-up. He has known history of coronary disease with previous LAD PCI in the past. He is on Plavix chronically because he had an aspirin allergy in the past. It appears he had seizures which are readily reported with aspirin. In any case he is currently on Plavix which should be continued. He underwent cardiac catheterization which did not show any significant coronary disease to explain his symptoms. He is complaining of some dizziness which is a vertigo like feeling. I have advised him to use meclizine as needed and I am sending a script for him to the pharmacy. Blood pressure is well controlled. Otherwise clinically stable. No further chest discomfort since he has left the hospital. Thank you for allowing me to participate in the care of your patient. Please feel free to contact me if you have any questions. Medications: New meclizine (Dramamine (meclizine)) 25 mg PO DAILY PRN 30 tabs 0RF motion sickness R42 - Dizziness and giddiness Coding Level of Care Code Est Pt Level 4 (72362) Diagnoses Hypertension, unspecified type I10 Hypertension type: unspecified Coronary artery disease involving [place] coronary artery of [place] heart, angina presence unspecified I25.10 Coronary Disease-Associated Artery/Lesion type: [place] artery [place] vs. transplanted heart: [place] heart Associated angina: angina presence unspecified CPT Codes EKG - CPT: 55037-[id number], Complete ([id number])
[2025-01-27 10:48] VITALS: BP 118/70; PULSE 55; BMI 33.7
--- OUTSIDE RECORDS SUMMARY | 2025-01-27 11:30 | XMS_ITS | Clinical Summary ---
Author Organization [facility] Address [address] [address] Phone Care Team Providers Care Log Carrier Operator Name Role Phone Deidre Hunter MD Primary Care Provider [phone] Allergies Active Allergy Reactions Criticality Noted Date [...] Office Visit [facility] [address] [address] Denise Moreno ARNP Chronic kidney [...] Office Visit [facility] [address] [address] Denise Moreno ARNP [address] [address] Health Maintenance Due Date Last [...] Creatinine, Ur 99.1 Not Estab. mg/dL [facility] Protein, Ur 16.2 Not Estab. mg/dL [facility] Urine Protein/Creatin ine Ratio 163 0 - 200 mg/g creat [facility] Urine Urine specimen obtained by clean catch procedure / Unknown 11/08/2024 9:00 AM EDT 11/08/2024 [facility] Moreno [facility] URINE ORDERABLES Final Result Performing Organization Address City/[facility] Co de Phone Number [facility] [address] [place] [address] * Urine Albumin / Creatinine Ratio (11/08/2024 9:00 AM EDT) Albumin, Urine <3.0 Not Estab. ug/mL [facility] Albumin/Creatin ine Ratio <3 0 - 29 mg/g creat [facility] Comment: Normal: 0 - 29 Moderately increased: 30 - 300 Severely increased: >300 Urine Urine specimen obtained by clean catch procedure / Unknown 11/08/2024 9:00 AM EDT 11/08/2024 Denise Moreno [facility] URINE ORDERABLES Final Result Performing Organization Address City/[facility]/ZIP Co de Phone Number [employer] [facility] [address] [place] [address] * (ABNORMAL) CBC (11/08/2024 9:00 AM EDT) WBC 5.8 3.4 - 10.8 x10E3/uL [facility] RBC 4.11(L) 4.14 - 5.80 x10E6/uL [facility] Hemoglobin 12.9(L) 13.0 - 17.7 g/dL [facility] Hematocrit 39.2 37.5 - 51.0 % [facility] MCV 95 79 - 97 fL [facility] MCH 31.4 26.6 - 33.0 pg [facility] MCHC 32.9 31.5 - 35.7 g/dL [facility] RDW 13.6 11.6 - 15.4 % [facility] Platelets 162 150 - 450 x10E3/uL [facility] 11/08/2024 9:00 AM EDT 11/08/2024 [facility]OD ORDERABLES [facility] [address] [place] [address] * PTH, intact (11/08/2024 9:00 AM EDT) PTH 50 15 - 65 pg/mL [facility] Blood Venous blood / Unknown 11/08/2024 9:00 AM EDT 11/08/20[facility] Final Result [facility] [address] [place] [address] * (ABNORMAL) Renal function panel (11/08/2024 9:00 AM EDT) Glucose 98 70 - 99 mg/dL [facility] BUN 27 8 - 27 mg/dL [facility] Creatinine 1.18 0.76 - 1.27 mg/dL [facility] eGFR CKD-EPI CR 2020 64 >59 mL/min/1.7 3 [facility] BUN/Creatinine Ratio 23 10 - 24 [facility] Sodium 140 134 - 144 mmol/L [facility] Potassium 4.4 3.5 - 5.2 mmol/L [facility] Chloride 108(H) 96 - 106 mmol/L [facility] Bicarbonate (CO2) 18(L) 20 - 29 mmol/L [facility] Calcium 8.5(L) 8.6 - 10.2 mg/dL [facility] Albumin 4.0 3.8 - 4.8 g/dL [facility] Phosphorus 4.0 2.8 - 4.1 mg/dL [facility] Blood Venous blood / Unknown 11/08/2024 9:00 AM EDT 11/08/2024 Denise Moreno [facility] BLOOD ORDERABLES Final Result [facility] [address] [place] [address] from Last 3 Months [place] [id number] Medicaid [place] Medicare Care Teams Log Carrier Operator Relationship Specialty Start Date End Date Deidre Hunter MD [address] [place], [place] PCP - General 06/22/20
--- OUTSIDE RECORDS SUMMARY | 2025-02-17 20:00 | XMS_ITS | Clinical Summary ---
Author Organization Unknown Care Team Providers Care [facility] Name Role Phone CIRA ALANIZ MD, TIFFANIE Unavailable Unavailable GRACIE RN, IDA Unavailable Unavaila dieter REYNA ([facility]) [facility] - PT, JOE Unavailable Unavailable PRITESH ([facility]) [facility] - FIELD EXAMINER, KIANNA Unavailable Un available Payers Payer Name Policy Type Policy Number Effective Date Expira tion Date MEDICARE - [facility] - [id number] Problems Condition Name Condition Details Condition Category Status Onset Date Resolution Date Last Treatment Date Treating Clinician Comments 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 Active 06-12 00:00: 00 HYPERTENSIVE HEART DISEASE WITH HEART FAILURE Active 06-12 00:00: 00 HEART FAILURE, UNSPECIFIED Active 06-12 00:00: 00 EPILEPSY, UNSP, NOT INTRACTABLE, WITHOUT STATUS EPILEPTICUS Active 06-12 00:00: 00 UNSPECIFIED MOOD [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 Active 06-12 00:00: 00 OTHER SPECIFIED CHRONIC OBSTRUCTIVE PULMONARY DISEASE Active 06-12 00:00: 00 BENIGN PROSTATIC HYPERPLASIA WITHOUT LOWER URINRY TRACT SYMP Active 06-12 00:00: 00 OBESITY, UNSPECIFIED Active 06-12 00:00: 00 DEPRESSION, UNSPECIFIED Active 06-12 00:00: 00 OLD MYOCARDIAL INFARCTION Active 06-12 00:00: 00 HYPERLIPIDEM IA, UNSPECIFIED Active 06-12 00:00: 00 PRESENCE OF CORONARY ANGIOPLASTY IMPLANT AND GRAFT Active 06-12 00:00: 00 ACQUIRED ABSENCE OF KIDNEY Active 06-12 00:00: 00 ADVERTISING INTERNSHIP (CURRENT) USE OF ANTITHROMBOT ICS/ANTIPLAT ELETS Active 06-12 00:00: 00 ADVERTISING INTERNSHIP (CURRENT) USE OF INHALED STEROIDS Active 06-12 00:00: 00 Allergies, Adverse Reactions, Alerts Allergy Name Allergy Type Status Severity Reaction(s) Onset Date Inactive Date Treating Clinician Comments ASPIRIN Propensity to adverse reactions Active 2024-12 12:32:4 6 IODINE Propensity to adverse reactions Active 2024-12 12:32:5 3 Medications Ordered Medication Name Filled Medication Name Start Date Stop Date Current Medication? Ordering Clinician Indication Dosage Frequency Signature (SIG) Comments Components Trelegy Ellipta 200 mcg-62.5 mcg-25 mcg powder for inhalation 12-16 00:00: 00 Yes [id number] 1 inhalat ion DAILY 1 inhalation DAILY (route: inhalation ) Med Classific ation: Respirato ry Therapy Agents alfuzosin ER 10 mg tablet,exte nded release 24 hr 12-13 00:00: 00 Yes [id number] Per instruc tions EVERY DAY Per instructio ns EVERY DAY (route: oral) Med Classific ation: Genitouri nary Therapy carbamazepi ne 100 mg chewable tablet 12-13 00:00: 00 Yes [id number] Per instruc tions TWICE A DAY 90 DAYS Per instructio ns TWICE A DAY 90 DAYS (route: oral) Med Classific ation: Central Nervous System Agents ezetimibe 10 mg tablet 12-13 00:00: 00 Yes [id number] Per instruc tions EVERY DAY Per instructio ns EVERY DAY (route: oral) Med Classific ation: Cardiovas cular Therapy Agents metoprolol succinate ER 25 mg tablet,exte nded release 24 hr 12-13 00:00: 00 Yes [id number] Per instruc tions EVERY DAY Per instructio ns EVERY DAY (route: oral) Med Classific ation: Cardiovas cular Therapy Agents levalbutero l 1.25 mg/3 mL solution for nebulizatio n 12-12 00:00: 00 Yes [id number] Per instruc tions 2 TIMES A DAY FOR 90 DAYS Per instructio ns 2 TIMES A DAY FOR 90 DAYS (route: inhalation ) Med Classific ation: Respirato ry Therapy Agents clopidogrel 75 mg tablet 12-06 00:00: 00 Yes [id number] Per instruc tions DAILY FOR 90 DAYS Per instructio ns DAILY FOR 90 DAYS (route: oral) Med Classific ation: Hematolog ical Agents clonazepam 1 mg tablet 11-26 00:00: 00 Yes [id number] Per instruc tions THREE TIMES A DAY NEEDED FOR 30 DAYS Per instructio ns THREE TIMES A DAY NEEDED FOR 30 DAYS (route: oral) Med Classific ation: Central Nervous System Agents Vitamin D3 25 mcg (1,000 unit) capsule 11-26 00:00: 00 Yes [id number] Per instruc tions EVERY DAY Per instructio ns EVERY DAY (route: oral) Med Classific ation: Electroly te Balance-N utritiona l Products atorvastati n 80 mg tablet 12-21 00:00: 00 Yes [id number] 1 tablet DAILY 1 tablet DAILY (route: oral) Med Classific ation: Cardiovas cular Therapy Agents Celexa 40 mg tablet 12-21 00:00: 00 Yes [id number] 1 tablet DAILY 1 tablet DAILY (route: oral) Med Classific ation: Central Nervous System Agents Dilantin Extended 100 mg capsule 12-21 00:00: 00 Yes [id number] 2 capsule 2 TIMES DAILY 2 capsule 2 TIMES DAILY (route: oral) Med Classific ation: Central Nervous System Agents Lasix 20 mg tablet 12-21 00:00: 00 Yes [id number] 1 tablet DAILY 1 tablet DAILY (route: oral) Med Classific ation: Cardiovas cular Therapy Agents nitroglycer in 0.4 mg sublingual tablet 12-21 00:00: 00 Yes [id number] 1 tablet NEEDED 1 tablet NEEDED (route: sublingual ) Med Classific ation: Cardiovas cular Therapy Agents ProAir RespiClick 90 mcg/actuati on breath activated 12-21 00:00: 00 Yes [id number] 1 puff NEEDED 1 puff NEEDED (route: inhalation ) Med Classific ation: Respirato ry Therapy Agents Senna Lax 8.6 mg tablet 12-21 00:00: 00 Yes [id number] 1 tablet NEEDED 1 tablet NEEDED (route: oral) Med Classific ation: Gastroint estinal Therapy Agents Tylenol 325 mg tablet 12-21 00:00: 00 Yes [id number] 2 tablet NEEDED 2 tablet NEEDED (route: oral) Med Classific ation: Analgesic , Anti-infl ammatory or Antipyret ic amoxicillin 500 mg tablet 12-24 00:00: 00 12-29 23:59 :00 No [id number] 2 tablet 3 TIMES DAILY 2 tablet 3 TIMES DAILY (route: oral) Med Classific ation: Anti-Infe ctive Agents doxycycline hyclate 100 mg capsule 12-24 00:00: 00 12-29 23:59 :00 No [id number] 1 capsule 2 TIMES DAILY 1 capsule 2 TIMES DAILY (route: oral) Med Classific ation: Anti-Infe ctive Agents Immunizations Ordered Immunization Name Filled Immunization Name Date Status Comments Refusal Reason COVID-19, COVID-19 2024-12-21 00:00:00 Vital Signs Vital Name Observation Time Observation Value Commen ts Temperature 2025-01-25 11:54:00.000 97.4 [degF] Temperature 2025-01-21 14:06:00.000 97.8 [degF] Temperature 2025-01-14 12:56:00.000 98 [degF] Temperature 2025-01-13 14:31:00.000 97.3 [degF] Temperature 2025-01-09 14:36:00.000 97.4 [degF] Temperature 2025-01-07 10:46:00.000 97.4 [degF] Temperature 2025-01-06 13:19:00.000 97.3 [degF] Temperature 2025-01-04 12:10:00.000 97.4 [degF] Temperature 2025-01-02 11:27:00.000 97.8 [degF] Temperature 2025-01-02 10:37:00.000 97.4 [degF] Temperature 2024-12-26 12:13:00.000 97.8 [degF] Temperature 2024-12-26 11:45:00.000 98.1 [degF] Temperature 2024-12-21 09:41:00.000 98 [degF] BMI (%) 2024-12-21 09:41:00.000 29 kg/m2 Height 2024-12-21 09:41:00.000 69 [in_us] Pulse 2025-01-25 11:54:00.000 68 /min Pulse 2025-01-21 14:06:00.000 61 /min Pulse 2025-01-14 12:56:00.000 60 /min Pulse 2025-01-13 14:32:00.000 61 /min Pulse 2025-01-09 14:36:00.000 60 /min Pulse 2025-01-07 10:46:00.000 68 /min Pulse 2025-01-06 13:45:00.000 60 /min Pulse 2025-01-04 12:10:00.000 66 /min Pulse 2025-01-02 11:27:00.000 65 /min Pulse 2025-01-02 10:37:00.000 64 /min Pulse 2024-12-26 12:13:00.000 53 /min Pulse 2024-12-26 11:45:00.000 60 /min Pulse 2024-12-21 09:41:00.000 62 /min O2 Saturation (%) 2025-01-25 11:56:00.000 98 % O2 Saturation (%) 2025-01-21 14:06:00.000 96 % O2 Saturation (%) 2025-01-14 12:56:00.000 98 % O2 Saturation (%) 2025-01-06 13:19:00.000 98 % O2 Saturation (%) 2025-01-02 11:27:00.000 95 % O2 Saturation (%) 2024-12-26 11:45:00.000 98 % O2 Saturation (%) 2024-12-21 09:43:00.000 97 % Respirations 2025-01-25 11:54:00.000 18 /min Respirations 2025-01-21 14:06:00.000 18 /min Respirations 2025-01-13 14:31:00.000 16 /min Respirations 2025-01-09 14:36:00.000 18 /min Respirations 2025-01-07 10:46:00.000 18 /min Respirations 2025-01-06 13:19:00.000 18 /min Respirations 2025-01-04 12:10:00.000 18 /min Respirations 2025-01-02 11:27:00.000 16 /min Respirations 2025-01-02 10:37:00.000 18 /min Respirations 2024-12-26 12:13:00.000 17 /min Respirations 2024-12-21 09:41:00.000 18 /min Weight (lbs) 2025-01-25 11:55:00.000 200 [lb_av] Weight (lbs) 2025-01-21 14:06:00.000 200 [lb_av] Weight (lbs) 2025-01-14 12:56:00.000 196 [lb_av] Weight (lbs) 2025-01-06 13:19:00.000 191 [lb_av] Weight (lbs) 2025-01-02 11:27:00.000 199 [lb_av] Weight (lbs) 2024-12-21 09:41:00.000 200 [lb_av] Systolic Blood Pressure 2025-01-25 11:54:00.000 102 mm [Hg] Systolic Blood Pressure 2025-01-21 14:06:00.000 118 mm [Hg] Systolic Blood Pressure 2025-01-14 12:56:00.000 110 mm [Hg] Systolic Blood Pressure 2025-01-13 14:31:00.000 119 mm [Hg] Systolic Blood Pressure 2025-01-09 14:36:00.000 132 mm [Hg] Systolic Blood Pressure 2025-01-07 10:46:00.000 112 mm [Hg] Systolic Blood Pressure 2025-01-06 13:19:00.000 102 mm [Hg] Systolic Blood Pressure 2025-01-04 12:10:00.000 110 mm [Hg] Systolic Blood Pressure 2025-01-02 11:27:00.000 110 mm [Hg] Systolic Blood Pressure 2025-01-02 10:37:00.000 108 mm [Hg] Systolic Blood Pressure 2024-12-26 12:13:00.000 106 mm [Hg] Systolic Blood Pressure 2024-12-26 11:45:00.000 102 mm [Hg] Systolic Blood Pressure 2024-12-21 09:41:00.000 138 mm [Hg] Diastolic Blood Pressure 2025-01-25 11:54:00.000 62 mm [Hg] Diastolic Blood Pressure 2025-01-21 14:06:00.000 60 mm [Hg] Diastolic Blood Pressure 2025-01-14 12:56:00.000 62 mm [Hg] Diastolic Blood Pressure 2025-01-13 14:31:00.000 58 mm [Hg] Diastolic Blood Pressure 2025-01-09 14:36:00.000 68 mm [Hg] Diastolic Blood Pressure 2025-01-07 10:46:00.000 66 mm [Hg] Diastolic Blood Pressure 2025-01-06 13:19:00.000 60 mm [Hg] Diastolic Blood Pressure 2025-01-04 12:10:00.000 62 mm [Hg] Diastolic Blood Pressure 2025-01-02 11:27:00.000 70 mm [Hg] Diastolic Blood Pressure 2025-01-02 10:37:00.000 58 mm [Hg] Diastolic Blood Pressure 2024-12-26 12:13:00.000 54 mm [Hg] Diastolic Blood Pressure 2024-12-26 11:45:00.000 60 mm [Hg] Diastolic Blood Pressure 2024-12-21 09:41:00.000 68 mm [Hg] Plan of Treatment Planned Activity Planned Date Details Comments Future Scheduled Test SKILLED NU RSE TO EVALUATE PATIENT, IDENTIFY PRIMARY AND CO-MORBID CONDITIONS CODED PER CODING GUIDELINES, AND DEVELOP PATIENT SPECIFIC PLAN OF CARE THAT INCLUDES PATIENT GOAL FOR HOME HEALTH. [code = SKILLED NURSE TO EVALUATE PATIENT, IDENTIFY PRIMARY AND CO-MORBID CONDITIONS CODED PER CODING GUIDELINES, AND DEVELOP PATIENT SPECIFIC PLAN OF CARE THAT INCLUDES PATIENT GOAL FOR HOME HEALTH.] Future Scheduled Test SKILLED NU RSE FOR O/A, TEACHING, AND MANAGEMENT OF CAD W/OH, HTN, HLD. [code = SKILLED NURSE FOR O/A, TEACHING, AND MANAGEMENT OF CAD W/OH, HTN, HLD.] Future Scheduled Test SKILLED NU RSE FOR O/A, TEACHING AND MANAGEMENT OF BPH FOR EARLY IDENTIFICATION OF EXACERBATION OF DISEASE PROCESS [code = SKILLED NURSE FOR O/A, TEACHING AND MANAGEMENT OF BPH FOR EARLY IDENTIFICATION OF EXACERBATION OF DISEASE PROCESS] Future Scheduled Test SKILLED NU RSE FOR O/A OF RESPIRATORY SYSTEM TO IDENTIFY CHANGES ASSOCIATED WITH EXACERBATION AND TO PROVIDE SKILLED TEACHING ON MANAGEMENT OF ASTHMA DISEASE PROCESS. [code = SKILLED NURSE FOR O/A OF RESPIRATORY SYSTEM TO IDENTIFY CHANGES ASSOCIATED WITH EXACERBATION AND TO PROVIDE SKILLED TEACHING ON MANAGEMENT OF ASTHMA DISEASE PROCESS.] Future Scheduled Test PHYSICAL T HERAPIST TO EVALUATE PATIENT FOR EXERCISE [code = PHYSICAL THERAPIST TO EVALUATE PATIENT FOR EXERCISE] Future Scheduled Test SKILLED NU RSE TO INSTRUCT ON SAFETY MEASURES TO PREVENT INJURY SECONDARY TO SEIZURE DISORDER/IMPAIRED NEUROLOGICAL STATUS. [code = SKILLED NURSE TO INSTRUCT ON SAFETY MEASURES TO PREVENT INJURY SECONDARY TO SEIZURE DISORDER/IMPAIRED NEUROLOGICAL STATUS.] Future Scheduled Test SKILLED NU RSE FOR O/A AND SKILLED TEACHING RELATED TO ALTERED SKIN INTEGRITY [code = SKILLED NURSE FOR O/A AND SKILLED TEACHING RELATED TO ALTERED SKIN INTEGRITY ] Future Scheduled Test SKILLED NU RSE TO INSTRUCT PATIENT/CAREGIVER ON COPD TO INCLUDE TEACHING AND SELF-MANAGEMENT RELATED TO COPD DISEASE PROCESS, SIGNS AND SYMPTOMS, AND COMPLICATIONS. [code = SKILLED NURSE TO INSTRUCT PATIENT/CAREGIVER ON COPD TO INCLUDE TEACHING AND SELF-MANAGEMENT RELATED TO COPD DISEASE PROCESS, SIGNS AND SYMPTOMS, AND COMPLICATIONS.] Future Scheduled Test SKILLED NU RSE FOR O/A, TEACHING AND SELF-MANAGEMENT RELATED TO HEART FAILURE. INSTRUCT PATIENT/CAREGIVER ON SIGNS AND SYMPTOMS OF EXACERBATION TO REPORT AND IMPORTANCE OF OBTAINING AND RECORDING DAILY WEIGHT AND/OR MEASUREMENTS. SN OR TRAINED PATIENT/CAREGIVER TO OBTAIN WEIGHT DAILY AND WEIGHT GAIN OF 2 LBS OVERNIGHT OR 5 LBS IN 1 WEEK TO BE REPORTED TO PHYSICIAN/PROVIDER. IF UNABLE TO WEIGH PATIENT, SN OR TRAINED PATIENT/CAREGIVER TO OBTAIN MEASUREMENT OF CALF IN CM DAILY AND REPORT AN INCREASE OF 2 CM TO PHYSICIAN/PROVIDER. [code = SKILLED NURSE FOR O/A, TEACHING AND SELF-MANAGEMENT RELATED TO HEART FAILURE. INSTRUCT PATIENT/CAREGIVER ON SIGNS AND SYMPTOMS OF EXACERBATION TO REPORT AND IMPORTANCE OF OBTAINING AND RECORDING DAILY WEIGHT AND/OR MEASUREMENTS. SN OR TRAINED PATIENT/CAREGIVER TO OBTAIN WEIGHT DAILY AND WEIGHT GAIN OF 2 LBS OVERNIGHT OR 5 LBS IN 1 WEEK TO BE REPORTED TO PHYSICIAN/PROVIDER. IF UNABLE TO WEIGH PATIENT, SN OR TRAINED PATIENT/CAREGIVER TO OBTAIN MEASUREMENT OF CALF IN CM DAILY AND REPORT AN INCREASE OF 2 CM TO PHYSICIAN/PROVIDER.] Future Scheduled Test PATIENT STEIN S A RISK OF HOSPITALIZATION AND ED USE. SKILLED NURSE TO ESTABLISH SUPPORT MEASURES TO MINIMIZE RISK OF HOSPITALIZATION AND ED USE, AND INSTRUCT PATIENT/CAREGIVER ON METHODS TO REDUCE AVOIDABLE HOSPITALIZATION AND ED USE. [code = PATIENT HAS A RISK OF HOSPITALIZATION AND ED USE. SKILLED NURSE TO ESTABLISH SUPPORT MEASURES TO MINIMIZE RISK OF HOSPITALIZATION AND ED USE, AND INSTRUCT PATIENT/CAREGIVER ON METHODS TO REDUCE AVOIDABLE HOSPITALIZATION AND ED USE.] Future Scheduled Test SKILLED NU RSE TO PROVIDE INSTRUCTION TO PATIENT/CAREGIVER RELATED TO DISCHARGE PLANNING. [code = SKILLED NURSE TO PROVIDE INSTRUCTION TO PATIENT/CAREGIVER RELATED TO DISCHARGE PLANNING.] Future Scheduled Test SKILLED NU RSE TO PERFORM ENVIRONMENTAL SAFETY RISK ASSESSMENT AND FALL RISK ASSESSMENT AND PROVIDE INSTRUCTION TO IMPLEMENT ENVIRONMENTAL SAFETY AND FALL PREVENTION STRATEGIES THROUGHOUT THE CERTIFICATION PERIOD. SKILLED NURSE WILL MAINTAIN SITUATIONAL AWARENESS AND WILL NOTIFY CLINICAL ROBOTICS ENGINEER AND PHYSICIAN/PROVIDER WITH ANY CHANGE IN CONDITION. [code = SKILLED NURSE TO PERFORM ENVIRONMENTAL SAFETY RISK ASSESSMENT AND FALL RISK ASSESSMENT AND PROVIDE INSTRUCTION TO IMPLEMENT ENVIRONMENTAL SAFETY AND FALL PREVENTION STRATEGIES THROUGHOUT THE CERTIFICATION PERIOD. SKILLED NURSE WILL MAINTAIN SITUATIONAL AWARENESS AND WILL NOTIFY CLINICAL ROBOTICS ENGINEER AND PHYSICIAN/PROVIDER WITH ANY CHANGE IN CONDITION.] Future Scheduled Test SKILLED NU RSE FOR OBSERVATION AND ASSESSMENT OF PATIENTS PAIN LEVEL AND EFFECTIVENESS OF PAIN MANAGEMENT REGIMEN. SKILLED NURSE TO INSTRUCT PATIENT/CAREGIVER REGARDING PHARMACOLOGIC AND NON-PHARMACOLOGIC PAIN CONTROL MEASURES. SKILLED NURSE TO REPORT TO PHYSICIAN IF PAIN LEVEL IS OUTSIDE OF ESTABLISHED PARAMETERS. [code = SKILLED NURSE FOR OBSERVATION AND ASSESSMENT OF PATIENTS PAIN LEVEL AND EFFECTIVENESS OF PAIN MANAGEMENT REGIMEN. SKILLED NURSE TO INSTRUCT PATIENT/CAREGIVER REGARDING PHARMACOLOGIC AND NON-PHARMACOLOGIC PAIN CONTROL MEASURES. SKILLED NURSE TO REPORT TO PHYSICIAN IF PAIN LEVEL IS OUTSIDE OF ESTABLISHED PARAMETERS.] Future Scheduled Test SKILLED NU RSE TO ASSESS PATIENT'S SKIN INTEGRITY AND INSTRUCT PATIENT/CAREGIVER ON MEASURES TO PREVENT PRESSURE ULCERS. [code = SKILLED NURSE TO ASSESS PATIENT'S SKIN INTEGRITY AND INSTRUCT PATIENT/CAREGIVER ON MEASURES TO PREVENT PRESSURE ULCERS.] Future Scheduled Test SKILLED NU RSE TO PROVIDE ASSESSMENT AND TEACHING/REINFORCEMENT OF MANAGEMENT OF DEPRESSION INCLUDING DISEASE PROCESS, MEDICATION MANAGEMENT, COPING SKILLS AND IDENTIFY CHANGES ASSOCIATED WITH DEPRESSIVE DISORDERS FOR EARLY INTERVENTION. [code = SKILLED NURSE TO PROVIDE ASSESSMENT AND TEACHING/REINFORCEMENT OF MANAGEMENT OF DEPRESSION INCLUDING DISEASE PROCESS, MEDICATION MANAGEMENT, COPING SKILLS AND IDENTIFY CHANGES ASSOCIATED WITH DEPRESSIVE DISORDERS FOR EARLY INTERVENTION.] Future Scheduled Test SKILLED NU RSE TO REVIEW PATIENT MEDICATIONS (PRESCRIPTION/OTC). INSTRUCT PATIENT/CAREGIVER ON ALL MEDICATIONS INCLUDING PURPOSE, WHEN TO TAKE, IMPORTANCE OF MEDICATION ADHERENCE, MONITORING OF EFFECTIVENESS, ADVERSE DRUG REACTIONS, POSSIBLE SIDE EFFECTS, AND WHEN TO NOTIFY AGENCY OR PHYSICIAN/PROVIDER OF ANY CONCERNS. [code = SKILLED NURSE TO REVIEW PATIENT MEDICATIONS (PRESCRIPTION/OTC). INSTRUCT PATIENT/CAREGIVER ON ALL MEDICATIONS INCLUDING PURPOSE, WHEN TO TAKE, IMPORTANCE OF MEDICATION ADHERENCE, MONITORING OF EFFECTIVENESS, ADVERSE DRUG REACTIONS, POSSIBLE SIDE EFFECTS, AND WHEN TO NOTIFY AGENCY OR PHYSICIAN/PROVIDER OF ANY CONCERNS.] Future Scheduled Test PHYSICAL T HERAPIST TO EVALUATE PATIENT SECONDARY TO FUNCTIONAL DEFICITS/SAFETY CONCERNS. PHYSICAL THERAPY TO ESTABLISH /UPGRADE/DOWNGRADE THERAPEUTIC EXERCISE PROGRAM AND INSTRUCT PATIENT/CAREGIVER ON EXERCISE PRECAUTIONS WITH WRITTEN HOME PROGRAM. MAY INCLUDE AAROM, AROM, RROM APPROPRIATE TO IMPROVE FUNCTIONAL STRENGTH AND RANGE OF MOTION. PHYSICAL THERAPY TO INSTRUCT PATIENT/CAREGIVER ON GAIT TRAINING TECHNIQUES USING APPROPRIATE ASSISTIVE DEVICE, PROPER BODY MECHANICS TO IMPROVE MOBILITY, AND PREVENT INJURY OF PATIENT AND/OR CAREGIVER. PHYSICAL THERAPY TO ASSESS AND RECOMMEND HOME SAFETY ADAPTATIONS AND EDUCATE PATIENT /CAREGIVER ON FALL PREVENTION STRATEGIES. PHYSICAL THERAPY TO INSTRUCT PATIENT/CAREGIVER ON BALANCE AND BALANCE STRATEGIES TO IMPROVE SAFE MOBILITY AND REDUCE RISK FOR FALL AND INJURY SUMMARY OF THERAPY EVAL/ASSESSMENT FINDINGS AND REASON(S) SKILLS OF A THERAPIST ARE INDICATED: PATIENT REFERRED DUE TO RIGHT SHOULDER PAIN RULING OUT OH DIAGNOSED WITH BRONCHITIS AND ACUTE DYSPNEA. PAST MEDICAL HISTORY INCLUDES CAD, LOSS OF HEARING, HYPERTENSION, OH, SEIZURES, TBI. PATIENCE BASELINE WAS INDEPENDENT WITHOUT ASSISTIVE DEVICE. PATIENTS GOAL IS TO RETURN TO INDEPENDENT LEVEL. HE IS ALERT IN ORIENTATED TIMES 4. STANDS 5 FT 5 IN TALL WITH A WEIGHT OF 209 LB. COMPLAINTS OF RIGHT SHOULDER PAIN REACHING 7/10. HAS FRONT-WHEELED WALKER. REQUIRES ASSISTANCE TIMES ONE FOR ADL AND IADL CARE. RESTING VITAL SIGNS WITHIN NORMAL LIMITS. SLIGHTLY DECREASED HEART RATE AT 53. SENSATION INTACT TO LIGHT TOUCH. REPORTS TINGLING AND LEFT LOWER EXTREMITY AND RIGHT HAND LAST NIGHT CURRENTLY NOT PRESENT. REVIEWED ALL SIGNS AND SYMPTOMS OF CARDIAC DISTRESS. PATIENTS POSTURE IS GROSSLY FORWARD FLEX WITH ROUND SHOULDERS. RANGE OF MOTION AND EXTREMITIES TIMES FOUR WITHIN FUNCTIONAL LIMITS. STRENGTH IS FAIR PLUS GRADE AND BILATERAL LOWER EXTREMITIES. AMBULATING WITHOUT ASSISTIVE DEVICE TO FRONT WHEEL WALKER FURNITURE IN WALL WALKING PRN. 6 MINUTE TEST TOLERATED ONE MINUTE PRIOR TO SHORTNESS OF BREATH. RECOMMEND SHORT-TERM HOME THERAPY FOR CARDIAC PROGRAM LOWER EXTREMITY STRENGTHENING FALL PREVENTION CAREGIVER TRAINING. PATIENT DAUGHTER PRESENT FOR EVALUATION. FAMILY AGREE WITH PLAN OF CARE. [code = PHYSICAL THERAPIST TO EVALUATE PATIENT SECONDARY TO FUNCTIONAL DEFICITS/SAFETY CONCERNS. PHYSICAL THERAPY TO ESTABLISH /UPGRADE/DOWNGRADE THERAPEUTIC EXERCISE PROGRAM AND INSTRUCT PATIENT/CAREGIVER ON EXERCISE PRECAUTIONS WITH WRITTEN HOME PROGRAM. MAY INCLUDE AAROM, AROM, RROM APPROPRIATE TO IMPROVE FUNCTIONAL STRENGTH AND RANGE OF MOTION. PHYSICAL THERAPY TO INSTRUCT PATIENT/CAREGIVER ON GAIT TRAINING TECHNIQUES USING APPROPRIATE ASSISTIVE DEVICE, PROPER BODY MECHANICS TO IMPROVE MOBILITY, AND PREVENT INJURY OF PATIENT AND/OR CAREGIVER. PHYSICAL THERAPY TO ASSESS AND RECOMMEND HOME SAFETY ADAPTATIONS AND EDUCATE PATIENT /CAREGIVER ON FALL PREVENTION STRATEGIES. PHYSICAL THERAPY TO INSTRUCT PATIENT/CAREGIVER ON BALANCE AND BALANCE STRATEGIES TO IMPROVE SAFE MOBILITY AND REDUCE RISK FOR FALL AND INJURY SUMMARY OF THERAPY EVAL/ASSESSMENT FINDINGS AND REASON(S) SKILLS OF A THERAPIST ARE INDICATED: PATIENT REFERRED DUE TO RIGHT SHOULDER PAIN RULING OUT OH DIAGNOSED WITH BRONCHITIS AND ACUTE DYSPNEA. PAST MEDICAL HISTORY INCLUDES CAD, LOSS OF HEARING, HYPERTENSION, OH, SEIZURES, TBI. PATIENCE BASELINE WAS INDEPENDENT WITHOUT ASSISTIVE DEVICE. PATIENTS GOAL IS TO RETURN TO INDEPENDENT LEVEL. HE IS ALERT IN ORIENTATED TIMES 4. STANDS 5 FT 5 IN TALL WITH A WEIGHT OF 209 LB. COMPLAINTS OF RIGHT SHOULDER PAIN REACHING 7/10. HAS FRONT-WHEELED WALKER. REQUIRES ASSISTANCE TIMES ONE FOR ADL AND IADL CARE. RESTING VITAL SIGNS WITHIN NORMAL LIMITS. SLIGHTLY DECREASED HEART RATE AT 53. SENSATION INTACT TO LIGHT TOUCH. REPORTS TINGLING AND LEFT LOWER EXTREMITY AND RIGHT HAND LAST NIGHT CURRENTLY NOT PRESENT. REVIEWED ALL SIGNS AND SYMPTOMS OF CARDIAC DISTRESS. PATIENTS POSTURE IS GROSSLY FORWARD FLEX WITH ROUND SHOULDERS. RANGE OF MOTION AND EXTREMITIES TIMES FOUR WITHIN FUNCTIONAL LIMITS. STRENGTH IS FAIR PLUS GRADE AND BILATERAL LOWER EXTREMITIES. AMBULATING WITHOUT ASSISTIVE DEVICE TO FRONT WHEEL WALKER FURNITURE IN WALL WALKING PRN. 6 MINUTE TEST TOLERATED ONE MINUTE PRIOR TO SHORTNESS OF BREATH. RECOMMEND SHORT-TERM HOME THERAPY FOR CARDIAC PROGRAM LOWER EXTREMITY STRENGTHENING FALL PREVENTION CAREGIVER TRAINING. PATIENT DAUGHTER PRESENT FOR EVALUATION. FAMILY AGREE WITH PLAN OF CARE.] Goal Patient Goal - TO REMAIN EMERALD E Goal Provider Goal - A PLAN OF CARE WILL BE ESTABLISHED THAT MEETS PATIENT'S LONG TERM NEEDS AND INCLUDES PATIENT GOAL FOR HOME HEALTH. Goal Provider Goal - PATIENT/CAREGIVER WILL VERBALIZE/DEMONSTRATE MANAGEMENT OF CARDIAC DISEASE PROCESS AND EXACERBATIONS WILL BE IDENTIFIED AND PROMPTLY REPORTED THROUGHOUT THE CERTIFICATION PERIOD. Goal Provider Goal - PATIENT/CAREGIVER WILL VERBALIZE UNDERSTANDING OF GENITOURINARY DISEASE PROCESS, AND EXACERBATIONS OF GENITOURINARY DISEASE WILL BE PROMPTLY IDENTIFIED FOR EARLY INTERVENTION THROUGHOUT THE CERTIFICATION PERIOD. Goal Provider Goal - PATIENT/CAREGIVER WILL VERBALIZE/DEMONSTRATE MANAGEMENT OF RESPIRATORY DISEASE PROCESS. CHANGES IN RESPIRATORY STATUS WILL BE IDENTIFIED AND REPORTED TO PHYSICIAN FOR PROMPT INTERVENTION THROUGHOUT THE CERTIFICATION PERIOD. Goal Provider Goal - A PHYSICAL THERAPY EVALUATION TO BE COMPLETED WITH RECOMMENDATIONS AND/OR WRITTEN PLAN OF TREATMENT ESTABLISHED FOR PHYSICIANS SIGNATURE. Goal Provider Goal - PATIENT/CAREGIVER WILL VERBALIZE/DEMONSTRATE SEIZURE PRECAUTIONS AND CARE OF PATIENT TO PROMOTE SAFETY AND PREVENT INJURY BY THE END OF THE CERTIFICATION PERIOD. Goal Provider Goal - PATIENT/CAREGIVER WILL VERBALIZE/DEMONSTRATE UNDERSTANDING OF TEACHING RELATED TO ALTERED SKIN INTEGRITY BY END OF CERTIFICATION PERIOD. Goal Provider Goal - PATIENT/CAREGIVER WILL VERBALIZE/DEMONSTRATE KNOWLEDGE AND MANAGEMENT OF COPD BY END OF EPISODE. Goal Provider Goal - PATIENT/CAREGIVER WILL VERBALIZE/DEMONSTRATE KNOWLEDGE AND MANAGEMENT OF HEART FAILURE DISEASE PROCESS BY END OF EPISODE. Goal Provider Goal - PATIENT WILL HAVE SUPPORT MEASURES ESTABLISHED TO PREVENT HOSPITALIZATION AND ED USE AND PATIENT/CAREGIVER WILL VERBALIZE/DEMONSTRATE METHODS TO REDUCE AVOIDABLE HOSPITALIZATION AND ED USE BY END OF EPISODE. Goal Provider Goal - PATIENT/CAREGIVER WILL VERBALIZE UNDERSTANDING OF DISCHARGE PLANNING INSTRUCTIONS BY DATE OF DISCHARGE. Goal Provider Goal - PATIENT/CAREGIVER WILL VERBALIZE/DEMONSTRATE EFFECTIVE ENVIRONMENTAL SAFETY AND FALL PREVENTION STRATEGIES, WILL REMAIN SAFE IN THE COMMUNITY, AND WILL BE FREE OF DANGER TO SELF AND OTHERS THROUGHOUT THE CERTIFICATION PERIOD. Goal Provider Goal - PATIENT/CAREGIVER WILL DEMONSTRATE UNDERSTANDING OF PHARMACOLOGIC AND NONPHARMACOLOGIC PAIN CONTROL MEASURES AND PATIENT WILL HAVE IMPROVEMENT IN PAIN INTERFERING WITH ACTIVITY EVIDENCED BY PAIN AT A LEVEL THAT IS ACCEPTABLE TO THE PATIENT AND PAIN LEVEL WITHIN ESTABLISHED PARAMETERS BY END OF CERTIFICATION PERIOD. Goal Provider Goal - PATIENT/CAREGIVER WILL VERBALIZE UNDERSTANDING OF PRESSURE ULCER PREVENTION BY END OF THE EPISODE. Goal Provider Goal - PATIENT/CAREGIVER WILL VERBALIZE/DEMONSTRATE UNDERSTANDING OF THE MANAGEMENT OF DEPRESSION THROUGHOUT THE CERTIFICATION PERIOD AND SYMPTOMS ARE IDENTIFIED AND MANAGED TO MAINTAIN PATIENT SAFETY IN THE HOME. Goal Provider Goal - PATIENT/CAREGIVER WILL VERBALIZE UNDERSTANDING OF EDUCATION PROVIDED ON MEDICATIONS BY THE END OF THE CERTIFICATION PERIOD. Goal Provider Goal - PHYSICAL THERAPY EVALUATION TO BE COMPLETED WITH RECOMMENDATIONS AND/OR WRITTEN TREATMENT PLAN OF CARE ESTABLISHED FOR THE PHYSICIANS SIGNATURE PATIENT/CAREGIVER WILL PERFORM THERAPEUTIC EXERCISE/S AND DEMONSTRATE PARTICIPATION IN A HOME PROGRAM. PATIENT/CAREGIVER WILL DEMONSTRATE IMPROVED GAIT TECHNIQUES TO MINIMIZE RISK OF INJURY. PATIENT/CAREGIVER WILL DEMONSTRATE/VERBALIZE UNDERSTANDING OF RECOMMENDATIONS TO INCREASE SAFETY IN THE HOME AND FALL PREVENTION. PATIENT/CAREGIVER WILL DEMONSTRATE IMPROVED BALANCE AND REDUCE THE RISK OF FALLS AND INJURY. Progress Notes Progress Notes <paragraph>[Visit Date: 2024 by SAMIA NEAL RN]:</paragraph><paragraph>SNV 01/21/25 ABNORMAL VITALS: VSS WITHIN SET PARAMETERS FALLS: [place] MEDICATION CHANGES: DENIES MEDICATION CHANGES OBSERVATION AND ASSESSMENT PROVIDED: PATIENT'S SPOUSE PRESENT DURING VISIT, AOX3, SPSNISH SPEAKING, FORGETFUL, VERY PLEASANT, NO ACUTE DISTRESS NOTED. DENIES ANY RECENT SEIZURE ACTIVITY. NEEDS FREQUENT REDIRECTION TO STAY ON TASK/TOPIC OF CONVERSATION. LSCTA, RRR, DENIES CP/PALPITATIONS/FATIGUE, NO PERIPHERAL EDEMA NOTED DURING VISIT. WEIGHT 200 LBS DURING VISIT AFTER LUNCH, DENIES WEIGHT GAIN. NON-COMPLIANCE WITH DAILY WEIGHTS. LBM 01/21, DENIES SS OF UTI, SKIN IS INTACT, SM SCAB ON LEFT FOREARM. PATIENT AND CAREGIVER OFFERS NO QUESTIONS OR CONCERNS. EDUCATION: EDUCATED ON DAILY WEIGHTS AND TO KEEP LOG, INSTRUCTED TO CONTACT [facility] IF WEIGHT GAIN OF 2-3LBS/DAY OR 5LBS/WEEK, COUGH, ORTHOPNEA, SOB, FATIGUE. EDUCATED ON FOLLOWING LOW SODIUM DIET TO PREVENT FLUID RETENTION. EDUCATED ON CLONAZEPAM USE, DOSAGE AND SIDE EFFECTS SUCH DROWSINESS, DIZZINESS, TIREDNESS, LOSS OF COORDINATION, OR INCREASED SALIVA PRODUCTION, INSTRUCTED TO REST AFTER TAKING MEDICATION TO PREVENT FALLS. INTERVENTIONS NEEDED AT NEXT VISIT: CARDIOPULMONARY ASSESSMENT COMMUNICATION WITH MD: NOT NEEDED AT THIS TIME NEXT MD APPOINTMENT:NONE SCHEDULED AT THIS TIME PT AND CAREGIVER INSTRUCTED TO CALL [facility] WITH ANY QUESTIONS OR CONCERNS AND/OR CHANGES IN CONDITION. CAREGIVER AND VERBALIZED UNDERSTANDING</paragraph> Encounters Start Date/Time End Date/Time Encounter Type Admission Type Attending [facility] Facility Care Department Encounter ID Discharge Date Discharge Status Discharge Condition Discharge Reason Percent Goals Met 2024-12-21 00:00:00 2025-02-18 00:00:00 Outpatient NEW ADMISSION IDA BOWMAN [facility] [id number] 62.86
== END 2025-01-27 11:05 | disposition home or self-care (01) ==
LOC: HO.HCS 10:30
PROVIDERS: PCP Internal Medicine; Visit Provider Internal Medicine Cardiovascular Disease
DX: I10 Essential (primary) hypertension (principal); I25.10 Atherosclerotic heart disease of native coronary artery without angina pectoris
CPT/HCPCS: 93010; 99214

== ENCOUNTER → 2025-01-27 10:29 | Outpatient (BNVA) | payer MEDICARE, MEDICAID, SELFPAY | PROVIDERS: PCP Internal Medicine; Visit Provider Internal Medicine Cardiovascular Disease | DX: I25.10 Atherosclerotic heart disease of native coronary artery without angina pectoris (principal); I10 Essential (primary) hypertension; R00.1 Bradycardia, unspecified; R94.31 Abnormal electrocardiogram [ECG] [EKG] | CPT/HCPCS: 93005; 99212 ==

== ENCOUNTER 2025-02-11 08:40 | Outpatient (AMB) | payer MEDICARE, MEDICAID, SELFPAY ==
[2025-02-11 08:45] VITALS: BP 110/54; PULSE 59; O2SAT 96; BMI 33.2
--- NOTE | 2025-02-11 08:45 | A.OFFVIS_ITS ---
Vital Signs 02/11/25 08:45 Height 5 ft 5 in Weight 199 lb 8.293 oz BMI 33.2 BP 110/54 L Blood Pressure Location Lt brachial Position Sitting Pulse 59 Pulse Source Pulse Oximeter Pulse Oximetry (%) 96 Oxygen Delivery Method Room Air Intake Visit Reasons: asthma Allergies aspirin (ASPIRIN) Allergy (Intermediate, Verified 02/11/25 08:48) ITCHING fish oil Allergy (Intermediate, Verified 02/11/25 08:48) itchiness HPI Comments Details: The patient is a 74-year-old gentleman with the cardiac history status post PCI presenting with worsening respiratory symptoms. A few years ago she was given a diagnosis of asthma. He has been on multiple inhalers. He has had multiple evaluations in the ER and also at urgent care for his asthma symptoms. The been hard to control. He has a nebulizer machine that he uses daily for symptoms. Was also placed on Anoro. He has never had allergy testing. He has a dog at home. Denies any other allergic exposures that he is aware of. The patient does have some ongoing wheezing right now on exam. In addition to the wheezing he does have cough. The cough episodes can be dramatic to the point of syncope. Moderate to severe. Right now he is feeling a little better after going to an urgent care and getting a prescription for prednisone. The patient also been having sleep apnea symptoms. Significant daytime drowsiness with an [place] score 11/24. His is concerned because of significant snoring. He needs to have a sleep study. Specially with cardiac history. He will undergo PFTs sleep study and blood work including allergy testing. Will follow-up after the studies. 10/04/2024 the patient is here for pulmonary follow-up visit. Overall the patient is doing better. He did have a chest x-ray demonstrating a opacity in the right lung suggesting bronchopneumonia. He was treated with antibiotics. He also switch Trelegy. The patient overall is feeling better. He is no longer requiring his rescue inhaler. He is still having some sleep apnea symptoms. Has an elevated [place] score of 11/24 we daytime drowsiness. Positive snoring. He is scheduled to undergo a sleep study soon. Will follow-up with the results. For now he will continue with current therapy. We did review vaccines which she will have to update. In the meantime he will return in 4-6 months with a chest x-ray and also if he does have sleep apnea and needs to be treated he will bring CPAP with him. 02/11/2025 the patient is here for pulmonary follow-up visit. Since we last spoke he did develop some left-sided chest is comfort. He was evaluated in the ER did have some EKG changes. No cardiac damage patient cardiac enzymes. However, he did undergo a cardiac catheterization at [facility]. No evidence of any coronary artery disease that required intervention. Therefore the patient was discharged with medical treatment. Clinically he is doing better. Although after he was discharged from [facility] he ended up with bronchitis. [id number] medications with sufficient. The patient is back to his baseline. He continues uses respiratory therapy as prescribed. We did review his chest x-ray without any acute disease that he had in 12/24/2024. Also reviewed his EKG with the T- wave inversions. The patient does have reflux disease we talked about esophageal spasms also can correlate similar symptoms. We did talk about the reflux diet specially since he does have dyspepsia at times. The patient also has some daytime drowsiness. [place] score 8/24. We did talk about his sleep study that he had back in October. The patient does have a very mild degree of sleep apnea primarily when he sleeps on his back. The patient will be performing positional therapy sleeping on his sides which he does not have any evidence of any apnea. He did not have any significant hypoxia or tachycardia either during the sleep study which is reassuring. So therefore, will hold off on a PAP therapy although if he does not respond to the positional therapy or if he develops increasing cardiovascular risk factors then we can really consider PAP therapy at that time. Will follow-up in a year's time if any issues arise he will call for an earlier assessment. 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 Mother Cancer Diabetes Social History Household Members: Spouse and Children Housing: Apartment Do you presently have visiting nurse or other home services: No Alcohol intake: former Patient Tobacco Use Status: Never used Tobacco e-Cigarette/Vaping Use: Never Used Second Hand Smoke Exposure: No service: No Current occupational status: retired Cognitive needs: No Hearing needs: Yes Vision needs: Yes Review of Systems Const Denies chills, Denies fatigue, Denies fever(s), Denies weight gain and Denies weight loss Eyes Reports no additional complaints ENT Denies dizziness Card Denies chest pain, Denies leg edema, Denies lightheadedness, Denies palpitations, Denies dyspnea on exertion, Denies orthopnea and Denies other Resp Denies cough, Denies dyspnea on exertion and Reports wheezing GI Denies hematochezia and Denies change in stool character Musc Denies muscle weakness, Denies numbness, Denies radiating pain into limb and Denies tingling Skin/Breast Denies rash Neuro Denies dizziness, Denies numbness and Denies tingling Endo Denies fatigue and Denies palpitations Melvin/Lymph Reports no additional complaints Aller/Immun Reports wheezing Physical Exam Vital Signs: Last Vital Signs Pulse 59 02/11/25 08:45 BP 110/54 L 02/11/25 08:45 Pulse Ox 96 02/11/25 08:45 Oxygen Delivery Method Room Air 02/11/25 08:45 BMI result Body Mass Index 33.2 Last Vital Signs Temp 97.2 F 04/24/24 07:31 Pulse 65 04/24/24 07:31 Resp 16 04/24/24 07:31 BP 132/60 04/24/24 09:02 Pulse Ox 96 04/24/24 07:31 O2 Del Method Room Air 04/24/24 07:31 BMI result Body Mass Index 33.4 Const General: comfortable, no acute distress and alert Orientation/consciousness: patient oriented x3 HEENT Head: Yes normocephalic Neck Neck: Yes supple Chest Chest palpation & inspection: normal inspection of the chest Resp Effort & Inspection: normal respiratory effort Auscultation: no wheezes and diminished lung sounds Cardio Heart sounds: S1 normal heart sound present and S2 normal heart sound present GI Palpation (GI): Soft to palpation Skin General skin exam: no rashes or lesions noted Neuro General: patient oriented x3 and moves all extremities Extrem General: No cyanosis Assessment & Plan Assessment & Plan (1) Asthma: Code(s): J45.909 - Unspecified asthma, uncomplicated Category: Medical Qualifiers: Asthma complication type: uncomplicated Asthma persistence: persistent Asthma severity: severe Qualified Code(s): J45.50 - Severe persistent asthma, uncomplicated (2) DINESH (obstructive sleep apnea): Code(s): G47.33 - Obstructive sleep apnea (adult) (pediatric) Category: Medical Plan Trelegy 200 daily CEE as needed Xopenex nebs Singulair at night posiitional DINESH therapy Doxycycline F/U 12 months Medications: New doxycycline hyclate 100 mg PO BID 20 caps 0RF 10 days Coding Level of Care Code Est Pt Level 4 (81296) Complex EM visit Add On G2211 Diagnoses Severe persistent asthma without complication J45.50 Asthma complication type: uncomplicated Asthma persistence: persistent Asthma severity: severe DINESH (obstructive sleep apnea) G47.33 Time Spent (min) 17
--- OUTSIDE RECORDS SUMMARY | 2025-02-11 09:26 | XMS_ITS | Clinical Summary ---
Author Organization [facility] Address [address] [address] Phone Care Team Providers Care Carbon Paper Coating Supervisor Name Role Phone Deidre Hunter MD Primary Care Provider [phone] Allergies Active Allergy Reactions Criticality Noted Date [...] Visit [facility] [address] [id number] Denise Moreno ARNP [address] [address] Health Maintenance Due Date Last [...] this topic Insurance [place] Medicare Care Teams Carbon Paper Coating Supervisor Relationship Specialty Start Date End Date Deidre Hunter MD [address] [place] PCP - General 06/22/20
--- OUTSIDE RECORDS SUMMARY | 2025-02-17 20:00 | XMS_ITS | Clinical Summary ---
Author Organization Unknown Care Team Providers Care Ship Rigger Name Role Phone CIRA ALANIZ MD, TIFFANIE Unavailable Unavailable GRACIE RN, IDA Unavailable Unavaila ble MARIBELL ([facility]) [facility] - PT, JOE Unavailable Unavailable JOEY PENNINGTON, SERVICE TESTER, VLADIMIR Unavaila ble Darius JONAS ([facility]) [facility] - TRAUMA COORDINATOR, KIANNA Unavailable Un available Payers Payer Name Policy Type Policy Number Effective Date Expira tion Date MEDICARE - 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) USE OF INHALED STEROIDS Active 06-12 [...] powder for inhalation 12-16 00:00: 00 Yes [id number] 1 inhalat ion DAILY 1 inhalation DAILY (route: inhalation ) Med Classific ation: Respirato ry Therapy Agents alfuzosin ER 10 mg tablet,exte nded release 24 hr 12-13 00:00: 00 Yes [id number] Per instruc tions EVERY DAY Per instructio ns EVERY DAY (route: oral) Med Classific ation: Genitouri nary Therapy carbamazepi ne 100 mg chewable tablet 12-13 00:00: 00 Yes [id number] Per instruc tions TWICE A DAY 90 DAYS Per instructio ns TWICE A DAY 90 DAYS (route: oral) Med Classific ation: Central Nervous System Agents ezetimibe 10 mg tablet 12-13 00:00: 00 Yes [id number] Per instruc tions EVERY DAY Per instructio ns EVERY DAY (route: oral) Med Classific ation: Cardiovas cular Therapy Agents metoprolol succinate ER 25 mg tablet,exte nded release 24 hr 12-13 00:00: 00 Yes [id number] Per instruc tions EVERY DAY Per instructio ns EVERY DAY (route: oral) Med Classific ation: Cardiovas cular Therapy Agents levalbutero l 1.25 mg/3 mL solution for nebulizatio n 12-12 00:00: 00 Yes [id number] Per instruc tions 2 TIMES A DAY FOR 90 DAYS Per instructio ns 2 TIMES A DAY FOR 90 DAYS (route: inhalation ) Med Classific ation: Respirato ry Therapy Agents clopidogrel 75 mg tablet 12-06 00:00: 00 Yes [id number] Per instruc tions DAILY FOR 90 DAYS Per instructio ns DAILY FOR 90 DAYS (route: oral) Med Classific ation: Hematolog ical Agents clonazepam 1 mg tablet 11-26 00:00: 00 Yes [id number] Per instruc tions THREE TIMES A DAY NEEDED FOR 30 DAYS Per instructio ns THREE TIMES A DAY NEEDED FOR 30 DAYS (route: oral) Med Classific ation: Central Nervous System Agents Vitamin D3 25 mcg (1,000 unit) capsule 11-26 00:00: 00 Yes [id number] Per instruc tions EVERY DAY Per instructio ns EVERY DAY (route: oral) Med Classific ation: Electroly te Balance-N utritiona l Products atorvastati n 80 mg tablet 12-21 00:00: 00 Yes [id number] 1 tablet DAILY 1 tablet DAILY (route: oral) Med Classific ation: Cardiovas cular Therapy Agents Celexa 40 mg tablet 12-21 00:00: 00 Yes [id number] 1 tablet DAILY 1 tablet DAILY (route: oral) Med Classific ation: Central Nervous System Agents Dilantin Extended 100 mg capsule 12-21 00:00: 00 Yes [id number] 2 capsule 2 TIMES DAILY 2 capsule 2 TIMES DAILY (route: oral) Med Classific ation: Central Nervous System Agents Lasix 20 mg tablet 12-21 00:00: 00 Yes [id number] 1 tablet DAILY 1 tablet DAILY (route: oral) Med Classific ation: Cardiovas cular Therapy Agents nitroglycer in 0.4 mg sublingual tablet 12-21 00:00: 00 Yes [id number] 1 tablet NEEDED 1 tablet NEEDED (route: sublingual ) Med Classific ation: Cardiovas cular Therapy Agents ProAir RespiClick 90 mcg/actuati on breath activated 12-21 00:00: 00 Yes [id number] 1 puff NEEDED 1 puff NEEDED (route: inhalation ) Med Classific ation: Respirato ry Therapy Agents Senna Lax 8.6 mg tablet 12-21 00:00: 00 Yes [id number] 1 tablet NEEDED 1 tablet NEEDED (route: oral) Med Classific ation: Gastroint estinal Therapy Agents Tylenol 325 mg tablet 12-21 00:00: 00 Yes [id number] 2 tablet NEEDED 2 tablet NEEDED (route: oral) Med Classific ation: Analgesic , Anti-infl ammatory or Antipyret ic amoxicillin 500 mg tablet 12-24 00:00: 00 12-29 23:59 :00 No [id number] 2 tablet 3 TIMES DAILY 2 tablet 3 TIMES DAILY (route: oral) Med Classific ation: Anti-Infe ctive Agents doxycycline hyclate 100 mg capsule 12-24 00:00: 00 12-29 23:59 :00 No [id number] 1 capsule 2 TIMES DAILY 1 capsule 2 TIMES DAILY (route: oral) Med Classific ation: Anti-Infe ctive Agents meclizine 25 mg tablet 02-05 00:00: 00 Yes [id number] 1 tablet NEEDED 1 tablet NEEDED (route: oral) Med Classific ation: Gastroint estinal Therapy Agents Immunizations Ordered Immunization Name Filled Immunization Name Date Status Comments Refusal Reason COVID-19, COVID-19 2024-12-21 00:00:00 Vital Signs Vital Name Observation Time Observation Value Commen ts Temperature 2025-02-06 11:56:00.000 98 [degF] Temperature 2025-02-05 12:07:00.000 97.4 [degF] Temperature 2025-01-30 12:30:00.000 97.4 [degF] Temperature 2025-01-28 13:07:00.000 97.4 [degF] Temperature 2025-01-25 11:54:00.000 97.4 [degF] Temperature 2025-01-21 [...] kg/m2 Height 2024-12-21 09:41:00.000 69 [in_us] Pulse 2025-02-06 11:56:00.000 60 /min Pulse 2025-02-05 12:07:00.000 66 /min Pulse 2025-01-30 12:30:00.000 60 /min Pulse 2025-01-28 13:07:00.000 66 /min Pulse 2025-01-25 11:54:00.000 68 /min Pulse 2025-01-21 [...] 2024-12-21 09:41:00.000 62 /min O2 Saturation (%) 2025-02-06 11:56:00.000 97 % O2 Saturation (%) 2025-02-05 12:12:00.000 97 % O2 Saturation (%) 2025-01-30 12:30:00.000 97 % O2 Saturation (%) 2025-01-28 13:09:00.000 98 % O2 Saturation (%) 2025-01-25 11:56:00.000 98 % O2 Saturation (%) 2025-01-21 14:06:00.000 96 % O2 Saturation (%) 2025-01-14 12:56:00.000 98 % O2 Saturation (%) 2025-01-06 13:19:00.000 98 % O2 Saturation (%) 2025-01-02 11:27:00.000 95 % O2 Saturation (%) 2024-12-26 11:45:00.000 98 % O2 Saturation (%) 2024-12-21 09:43:00.000 97 % Respirations 2025-02-06 11:56:00.000 18 /min Respirations 2025-02-05 12:07:00.000 18 /min Respirations 2025-01-30 12:30:00.000 18 /min Respirations 2025-01-28 13:07:00.000 18 /min Respirations 2025-01-25 11:54:00.000 18 /min Respirations 2025-01-21 14:06:00.000 18 /min Respirations 2025-01-13 14:31:00.000 16 /min Respirations 2025-01-09 14:36:00.000 18 /min Respirations 2025-01-07 10:46:00.000 18 /min Respirations 2025-01-06 13:19:00.000 18 /min Respirations 2025-01-04 12:10:00.000 18 /min Respirations 2025-01-02 11:27:00.000 16 /min Respirations 2025-01-02 10:37:00.000 18 /min Respirations 2024-12-26 12:13:00.000 17 /min Respirations 2024-12-21 09:41:00.000 18 /min Weight (lbs) 2025-02-06 11:57:00.000 200 [lb_av] Weight (lbs) 2025-01-30 12:46:00.000 200 [lb_av] Weight (lbs) 2025-01-28 13:09:00.000 201 [lb_av] Weight (lbs) 2025-01-25 11:55:00.000 200 [lb_av] Weight (lbs) 2025-01-21 14:06:00.000 200 [lb_av] Weight (lbs) 2025-01-14 12:56:00.000 196 [lb_av] Weight (lbs) 2025-01-06 13:19:00.000 191 [lb_av] Weight (lbs) 2025-01-02 11:27:00.000 199 [lb_av] Weight (lbs) 2024-12-21 09:41:00.000 200 [lb_av] Systolic Blood Pressure 2025-02-06 11:56:00.000 120 mm [Hg] Systolic Blood Pressure 2025-02-05 12:07:00.000 112 mm [Hg] Systolic Blood Pressure 2025-01-30 12:30:00.000 108 mm [Hg] Systolic Blood Pressure 2025-01-28 13:07:00.000 104 mm [Hg] Systolic Blood Pressure 2025-01-25 11:54:00.000 102 mm [...] 09:41:00.000 138 mm [Hg] Diastolic Blood Pressure 2025-02-06 11:56:00.000 68 mm [Hg] Diastolic Blood Pressure 2025-02-05 12:07:00.000 62 mm [Hg] Diastolic Blood Pressure 2025-01-30 12:30:00.000 60 mm [Hg] Diastolic Blood Pressure 2025-01-28 13:07:00.000 64 mm [Hg] Diastolic Blood Pressure 2025-01-25 11:54:00.000 [...] FOR O/A, TEACHING, AND MANAGEMENT OF CAD W/WY, HTN, HLD. 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 [code = SKILLED NURSE TO PERFORM ENVIRONMENTAL SAFETY RISK ASSESSMENT AND FALL RISK ASSESSMENT AND PROVIDE INSTRUCTION TO IMPLEMENT ENVIRONMENTAL SAFETY AND FALL PREVENTION STRATEGIES THROUGHOUT THE CERTIFICATION PERIOD. SKILLED NURSE WILL MAINTAIN SITUATIONAL AWARENESS AND WILL NOTIFY CLINICAL RETAIL DEPARTMENT SUPERVISOR AND PHYSICIAN/PROVIDER WITH ANY CHANGE IN CONDITION.] Future Scheduled Test SKILLED NU RSE FOR OBSERVATION AND ASSESSMENT OF PATIENT S PAIN LEVEL AND EFFECTIVENESS OF PAIN MANAGEMENT REGIMEN. SKILLED NURSE TO INSTRUCT PATIENT/CAREGIVER REGARDING PHARMACOLOGIC AND NON-PHARMACOLOGIC PAIN CONTROL MEASURES. SKILLED NURSE TO REPORT TO PHYSICIAN IF PAIN LEVEL IS OUTSIDE OF ESTABLISHED PARAMETERS. [code = SKILLED NURSE FOR OBSERVATION AND ASSESSMENT OF PATIENT S PAIN LEVEL AND EFFECTIVENESS OF PAIN MANAGEMENT [...] DUE TO RIGHT SHOULDER PAIN RULING OUT WY DIAGNOSED WITH BRONCHITIS AND ACUTE DYSPNEA. PAST MEDICAL HISTORY INCLUDES CAD, LOSS OF HEARING, HYPERTENSION, WY, SEIZURES, TBI. PATIENCE BASELINE WAS INDEPENDENT WITHOUT [...] DUE TO RIGHT SHOULDER PAIN RULING OUT WY DIAGNOSED WITH BRONCHITIS AND ACUTE DYSPNEA. PAST MEDICAL HISTORY INCLUDES CAD, LOSS OF HEARING, HYPERTENSION, WY, SEIZURES, TBI. PATIENCE BASELINE WAS INDEPENDENT WITHOUT [...] CARE WILL BE ESTABLISHED THAT MEETS PATIENT'S RESIDENTIAL NEEDS AND INCLUDES PATIENT GOAL FOR HOME [...] AND/OR WRITTEN PLAN OF TREATMENT ESTABLISHED FOR PHYSICIAN S SIGNATURE. Goal Provider Goal - PATIENT/CAREGIVER WILL [...] TREATMENT PLAN OF CARE ESTABLISHED FOR THE PHYSICIAN S SIGNATURE PATIENT/CAREGIVER WILL PERFORM THERAPEUTIC EXERCISE/S AND DEMONSTRATE PARTICIPATION IN A HOME PROGRAM. PATIENT/CAREGIVER WILL DEMONSTRATE IMPROVED GAIT TECHNIQUES TO MINIMIZE RISK OF INJURY. PATIENT/CAREGIVER WILL DEMONSTRATE/VERBALIZE UNDERSTANDING OF RECOMMENDATIONS TO INCREASE SAFETY IN THE HOME AND FALL PREVENTION. PATIENT/CAREGIVER WILL DEMONSTRATE IMPROVED BALANCE AND REDUCE THE RISK OF FALLS AND INJURY. Encounters Start Date/Time End Date/Time Encounter Type Admission Type Attending [facility] Care Department Encounter ID Discharge Date Discharge Status Discharge Condition Discharge Reason Percent Goals Met 2024-12-21 00:00:00 2025-02-18 00:00:00 Outpatient NEW ADMISSION VLADIMIR COOK [facility] [id number] 62.86
== END 2025-02-11 09:11 | disposition home or self-care (01) ==
LOC: HO.HPS 08:41
PROVIDERS: PCP Internal Medicine; Visit Provider Hospitalist
DX: J45.50 Severe persistent asthma, uncomplicated (principal); G47.33 Obstructive sleep apnea (adult) (pediatric)
CPT/HCPCS: 99214; G2211

== ENCOUNTER → 2025-02-11 08:40 | Outpatient (BNVA) | payer MEDICARE, MEDICAID, SELFPAY | PROVIDERS: PCP Internal Medicine; Visit Provider Hospitalist | DX: J45.50 Severe persistent asthma, uncomplicated (principal); G47.33 Obstructive sleep apnea (adult) (pediatric) | CPT/HCPCS: 99212 ==

== ENCOUNTER 2025-02-25 08:57 | Outpatient (AMB) | payer MEDICARE, MEDICAID, SELFPAY ==
--- NOTE | 2025-02-25 09:32 | MHC.OFFVIS ---
Intake Visit Reasons: 6m Allergies aspirin (ASPIRIN) Allergy (Intermediate, Verified 02/11/25 08:48) ITCHING fish oil Allergy (Intermediate, Verified 02/11/25 08:48) itchiness Medication List - Last Reconciled 02/25/25 by Ro Poole MD [[employer]ist Nebulizer As directed] albuterol sulfate 2.5 mg (3 mL) inhalation Q6H PRN 30 days alfuzosin ER 10 mg PO DAILY 90 days atorvastatin 80 mg PO BEDTIME carbamazepine 300 mg PO BID cholecalciferol (vitamin D3) 25 mcg PO DAILY 90 days citalopram 40 mg PO DAILY 90 days clonazepam 1 mg PO TID clopidogrel 75 mg PO DAILY 90 days doxycycline hyclate 100 mg PO BID 10 days ezetimibe 10 mg PO DAILY 90 days okzygzcbkgj-mnmmdbrgm-cgekjxaq 200-62.5-25 mcg (Trelegy Ellipta) 1 inh inhalation DAILY 30 days guaifenesin ER (Mucinex) 600 mg PO Q12H PRN 5 days levalbuterol HCl 1.25 mg (3 mL) inhalation BID 90 days meclizine (Dramamine (meclizine)) 25 mg PO DAILY PRN metoprolol succinate ER 25 mg PO DAILY 90 days montelukast (Singulair) 10 mg PO BEDTIME 30 days nebulizers (AeroEclipse II Nebulizer) As directed nitroglycerin 0.4 - 0.8 mg sublingual DAILY PRN phenytoin sodium extended 200 mg (2 x 100 mg) PO BID 90 days quetiapine 100 mg PO BEDTIME sennosides-docusate sodium 8.6-50 mg (Senexon-S) 1 tab-cap PO BID tramadol 50 mg PO Q8H PRN 30 days umeclidinium-vilanterol 62.5-25 mcg/actuation (Anoro Ellipta) 1 inh inhalation DAILY 60 days HPI Comments Details: The patient is a 74-year-old gentleman with progressive right hand weakness from severe ulnar neuropathy, confirmed on NCV/EMG .. He does not want surgery for it and will learn to live with it. Has has a sz disorder with 1-2 seizures since last visit. He says his mouth feels tight. He takes his medication which calms him and it goes away. No loss of consciousness. No tongue bite or incontinence. No missed doses of medication. Has been getting pain in both hands, often when sleeping and waking him up. No numbness or tingling. No weakness. Few headaches. Taking tramadol as needed which helps. Mood is still depressed and does not like to leave the house. Occasionally goes to taoism with . Will listen to [employer] music.?Complaining of forgetfulness. Still quite depressed. He is mostly in bed or watching Youtube. Does not like to go out. He does not like to socialize. Only goes out with family. His 24-hour ambulatory EEG was abnormal with recurrent epileptiform discharges in the frontal regions consistent with a primary generalized epilepsy. His heart situation has been stable. He has refused to follow up with the psychologist or psychiatrist. Constipation at times. Has auditory hallucinations of baby crying. He has cardiac history, status post PCI presenting with worsening respiratory symptoms. A few years ago he was given a diagnosis of asthma. He has been on multiple inhalers. The cough episodes can be dramatic to the point of syncope. Moderate to severe. Right now he is feeling a little better after going to an urgent care and getting a prescription for prednisone. The patient also been having sleep apnea symptoms. He did undergo a cardiac catheterization at [facility]. No evidence of any coronary artery disease that required intervention. He has reflux disease we talked about esophageal spasms also can correlate similar symptoms. We did talk about the reflux diet specially since he does have dyspepsia at times. The patient also has some daytime drowsiness. [facility] Medical History Partial small bowel obstruction Hearing loss Encounter for Medicare annual wellness exam Cardiac arrest due to underlying cardiac condition Solitary kidney, acquired Mild recurrent major depression Cough BPH (benign prostatic hyperplasia) CAD (coronary artery disease) Lower back pain Asthma Hypertension Seizures Heart attack Afib High cholesterol Surgical History History of left nephrectomy History of colonoscopy H/O heart artery stent Family History Father No problems noted. Mother Cancer Diabetes Social History Household Members: Spouse and Children Housing: Apartment Do you presently have visiting nurse or other home services: No Alcohol intake: former Patient Tobacco Use Status: Never used Tobacco e-Cigarette/Vaping Use: Never Used Second Hand Smoke Exposure: No service: No Current occupational status: retired Cognitive needs: No Hearing needs: Yes Vision needs: Yes Review of Systems Const Details: General/Constitutional:? Change in appetitedenies.? Fatiguedenies.? Feverdenies.? Weight gaindenies.? Weight lossdenies. ???Sleep:? Difficulty getting to sleepdenies.? Difficulty maintaining sleepdenies?.? Daytime sleepinessdenies. ???Respiratory:? Shortness of breathdenies.? Chest paindenies. ???Cardiovascular:? Chest pain at restadmits.? Chest pain with exertionadmits.? Dizzinessdenies.? Fluid accumulation in the legsdenies.? Irregular heartbeatdenies.? Palpitationsdenies. ???Gastrointestinal:? Constipationdenies.? Diarrheadenies.? Difficulty swallowingdenies.? Heartburndenies.? Nauseadenies. ???Genitourinary:? Frequent urinationdenies.? Urgencydenies.? Incontinencedenies. ???Musculoskeletal:? Neck paindenies.? Back paindenies.? Joint stiffnessdenies.? Sciaticadenies. ???Neurologic:? Difficulty swallowingdenies.? Balance difficultydenies.? Coordinationnormal.? Difficulty speakingdenies.? Dizzinessdenies.? Faintingdenies.? Gait abnormalitydenies.? Headacheadmits.? Loss of strengthdenies.? Loss of use of extremitydenies.? Low back paindenies.? Memory lossdenies.? Seizuresadmits.? Ticsdenies.? Tingling/Numbnessdenies.? Transient loss of visiondenies.? Tremordenies. ???Psychiatric:? Anxietydenies.? Auditory/visual hallucinationsdenies.? Delusionsdenies.? Depressed moodadmits.? Stressorsdenies.? Suicidal thoughtsdenies. Physical Exam Neuro Other: General Examination: GENERAL APPEARANCE:??normal,?in no acute distress.?HEART:??S1, S2 normal,?no murmurs.?LUNGS:??clear anteriorly and posteriorly.?MUSCULOSKELETAL:??normal.?EXTREMITIES:??no edema.?PSYCH:??alert, oriented,?cognitive function intact,?cooperative with exam.? Mini Mental Status Exam: Level of Consciousness:??Alert.?Orientation:??Knows correct year, month, date, day and season,?Knows correct city, county and state. Knows correct location and floor.?Registration:??Able to register 3 objects.?Attention:??Serial 7's performed accurately.?Recall:??Able to recall 3 out of 3 objects.?Language:??Normal spontaneous speech, fluency, repetition,naming, comprehension, reading and writing.?Total Score:??30/30.? Neurological: Abnormal neurological findings:??Atrophy of right hand ylnar innervated intrinsic hand muscles. 4/5 right, and 5-/5 left finger spread wealness, thumb opposition R > L.?Mental Status:??alert and oriented X 3,?Normal attention, orientation, memory and affect.?Cranial Nerves:??Pupils are equal, round and reactive to light. Fundoscopy shows normal disc bilaterally. External occular muscles are intact. Visual mcallister are full, no ptosis. Face is symmetrical, no facial weakness or droop. Facial sensations are normal. Tongue protrudes in midline. Palate elevates symmetrically. Shoulder shrugging is normal..?Motor Examination:??Normal muscle tone, bulk and strength,?No fasciculations,?No drift of the extended upper extremities,?Deep tendon reflexes are 2+?,?Plantars are flexor?.?Straight Leg Raising:??90 degrees.?Sensory Exam:??Normal light touch, temperature, pinprick, vibration and joint-position sensations?,?Rhomberg sign is absent.?Coordination:??no ataxia,?no titubation,?zduxao-xz-ymbk, mymi-lhdi-ptgm test and rapid alternating movements were normal.?Gait Exam:??Within normal limits.?Cerebellar Signs:??Znuaka-sf-ukkv and cryv-dz-lwlh is normal,?no dysdiadochokinesia?.?Extrapyramidal System:??No tremor, rigidity with normal facial expressions,?No bradykinesia, no bradyphrenia. Normal arm swing and posture. No propulsion or retropulsion.?Speech:??Normal,?no dysphasia or dysarthria..? Assessment & Plan Assessment & Plan (1) Seizures: Comment: last 2020-sees Dr. Poole Code(s): R56.9 - Unspecified convulsions Category: Medical (2) Lower back pain: Code(s): M54.5 - Low back pain Category: Medical Qualifiers: Chronicity: acute Back pain laterality: right Sciatica presence: without sciatica Qualified Code(s): M54.5 - Low back pain (3) Ulnar neuropathy: Comment: 09/21/20 NCV/EMG UE Normal motor and sensory nerve conduction velocities in the upper extremities except for a severe compression in the right ulnar nerve at the elbow. Normal EMG in the rght C5-T1 innervated muscles. 07/02/24 NCV/EMG: Mild CTS on left unchanged from before. Severe right ulnar neuropathy due to compression at the elbow and denervation of the ulnar innervated hand muscles. Code(s): G56.20 - Lesion of ulnar nerve, unspecified upper limb Category: Medical Plan Continue current Sz meds. Protect elbow from pressure. Declined Ulnar nerve transposition. Coding Level of Care Code Est Pt Level 4 (13915) Diagnoses Seizures R56.9 Acute right-sided low back pain without sciatica M54.5 Chronicity: acute Back pain laterality: right Sciatica presence: without sciatica Ulnar neuropathy G56.20
--- OUTSIDE RECORDS SUMMARY | 2025-02-25 11:05 | XMS_ITS | Clinical Summary ---
Author Organization [facility] Address [address] [phone] Phone Care Team Providers Care Biophysics Professor Name Role Phone Deidre Hunter MD Primary Care Provider [phone] Allergies Active Allergy Reactions Criticality Noted Date [...] Visit [facility] [address] [phone] Denise Moreno ARNP [address] [phone] Health Maintenance Due Date Last [...] this topic Insurance Medicaid [place] Medicare Medicaid [place] Medicare Care Teams Biophysics Professor Relationship Specialty Start Date End Date Deidre Hunter MD [address] [place] PCP - General 06/22/20
== END 2025-02-25 09:48 | disposition home or self-care (01) ==
LOC: HO.HSM 08:58
PROVIDERS: PCP Internal Medicine; Visit Provider Psychiatry & Neurology Neurology
DX: R56.9 Unspecified convulsions (principal); M54.50 Low back pain, unspecified; G56.20 Lesion of ulnar nerve, unspecified upper limb
CPT/HCPCS: 99214

== ENCOUNTER → 2025-02-25 08:57 | Outpatient (BNVA) | payer MEDICARE, MEDICAID, SELFPAY | PROVIDERS: PCP Internal Medicine; Visit Provider Psychiatry & Neurology Neurology | DX: G56.21 Lesion of ulnar nerve, right upper limb (principal); M54.50 Low back pain, unspecified; R56.9 Unspecified convulsions | CPT/HCPCS: 99212 ==

== ENCOUNTER 2025-04-22 07:25 | Outpatient (REF) | payer MEDICARE, MEDICAID, SELFPAY ==
--- OUTSIDE RECORDS SUMMARY | 2025-04-22 07:28 | XMS_ITS | Clinical Summary ---
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 5 Active atorvastatin (LIPITOR) 80 mg tablet Take 1 tablet (80 mg total) by mouth at bedtime. 5 Active carBAMazepine (TEGretol) 100 mg chewable tablet CHEW 3 TABLETS BY MOUTH TWICE A DAY 90 DAYS 5 Active Vitamin D3 25 mcg (1,000 unit) capsule TOME 1 C PSULA POR V A ORAL TODOS LOS D 5 Active citalopram (CeleXA) 40 mg tablet Take 1 tablet (40 mg total) by mouth 1 (one) time each day. for 90 days 5 Active clonazePAM (KlonoPIN) 1 mg tablet take 1 tablet by mouth three times a day as needed for 30 days 5 Active clopidogreL (PLAVIX) 75 mg tablet Take 1 tablet (75 mg total) by mouth 1 (one) time each day. for 90 days 5 Active ezetimibe (ZETIA) 10 mg tablet Take 1 tablet (10 mg total) by mouth 1 (one) time each day. 5 Active Trelegy Ellipta 200-62.5-25 mcg inhaler Inhale 1 puff (200 mcg total) by mouth 1 (one) time each day. 5 Active levalbuterol (XOPENEX) 1.25 mg/3 mL nebulizer solution USE 1 VIAL VIA NEBULIZER 2 TIMES A DAY FOR 90 DAYS 5 Active meclizine (ANTIVERT) 25 mg tablet TAKE 1 TABLET BY MOUTH DAILY NEEDED FOR MOTION SICKNESS 5 Active metoprolol succinate (TOPROL-XL) 25 mg 24 hr tablet Take 1 tablet (25 mg total) by mouth 1 (one) time each day. 5 Active montelukast (SINGULAIR) 10 mg tablet Take 1 tablet (10 mg total) by mouth at bedtime. 5 Active phenytoin (DILANTIN) 100 mg ER capsule Take 2 capsules (200 mg total) by mouth 2 (two) times a day. 5 Active QUEtiapine (SEROquel) 100 mg tablet Take 1 tablet (100 mg total) by mouth at bedtime. 5 Active Senexon-S 8.6-50 mg per tablet TAKE 1 TABLET BY MOUTH TWICE A DAY NOT COVERED 5 Active traMADoL (ULTRAM) 50 mg tablet TAKE 1 TABLET BY MOUTH EVERY 8 HOURS NEEDED FOR PAIN FOR 30 DAYS 5 Active Anoro Ellipta 62.5-25 mcg/actuation inhaler TAKE 1 PUFF INHALED DAILY FOR 60 DAYS 5 Active Active Problems Problem Noted Date Diagnosed Date Basal cell carcinoma of right postauricular brody on 03/10/2025 Encounters Date Type Department Care Team Description 03/10/2025 11:30 AM EDT Consult Plastic & Reconstructive Surgery - [address] [phone] Stella Dodge PA Basal cell carcinoma of right postauricular region (Primary Dx); Current use of longterm anticoagulation from Last 3 Months Social History Tobacco Use Types Packs/Day Years Used Date Smoking Tobacco: Never Smokeless Tobacco: Never Tobacco Cessation:Counseling Given: Not Answered Alcohol Use Standard Drinks/Week Comments Never 0 (1 standard drink = 0.6 oz pur e alcohol) Sex and Gender Information Value Date Recorded Sex Assigned at Not on file Legal Sex Male 3:59 AM EST Gender Identity Not on file Sexual Orientation Not on file Obstetrics History Last Filed Vital Signs Vital Sign Reading Time Taken Comments Blood Pressure 125/66 03/10/2025 11:28 AM EDT Pulse 61 03/10/2025 11:28 AM EDT Temperature - - Respiratory Rate - - Oxygen Saturation - - Inhaled Oxygen Concentration - - Weight 90.8 kg (200 lb 3.2 oz) 03/10/2025 11:28 AM EDT Height 163.2 cm (5' 4.25 ) 03/10/2025 11:28 AM E DT Body Mass Index 34.1 03/10/2025 11:28 AM EDT Plan of Treatment Scheduled Procedures Name Priority Associated Diagnoses Date/Ti me EXCISION LESION FACE SCALP Basal cell carcinoma of right postauricular region REPAIR LACERATION Basal cell carcinoma of right postauricular region Health Maintenance Due Date Last Done Comments DTaP,Tdap,and Td Vaccines (1 - Tdap) 1969 Pneumococcal Vaccine: 50+ Ye ars (1 of 1 - PCV) 1998 Zoster Vaccines (1 of 2) 1998 RSV Immunization Adult Patie nts (1 - 1-dose 75+ series) 2023 Depression Screening 06/12/2024 COVID-19 Vaccine ( - 2023-2 5 season) 2025 Influenza Vaccine (#1) 2025 Cholesterol Screening (Lipid Panel) 02/13/2025 Falls Risk Assessment 02/13/2025 Hepatitis C Screening 02/13/2025 Medicare Annual Wellness Visit 02/13/2025 Social Influencers of Health Screening 02/13/2025 HIB Vaccines Aged Out No longer eligi ble based on patient's age to complete this topic HPV Vaccines Aged Out No longer eligi ble based on patient's age to complete this topic Hepatitis A Vaccines Aged Out No long er eligible based on patient's age to complete this topic Hepatitis B Vaccines Aged Out No long er eligible based on patient's age to complete this topic IPV Vaccines Aged Out No longer eligi ble based on patient's age to complete this topic MMR Vaccines Aged Out No longer eligi ble based on patient's age to complete this topic Meningococcal ACWY Vaccine Aged Out N o longer eligible based on patient's age to complete this topic Meningococcal B Vaccine Aged Out No l onger eligible based on patient's age to complete this topic RSV Immunization Patients Un mary 20 months Aged Out No longer eligible b ased on patient's age to complete this topic Varicella Vaccines Aged Out No longer eligible based on patient's age to complete this topic Goals Goal Patient Goal Type Associated Problems Recent Progress Patient-Stated? Author Autogenerat ed Goal Care Plan Autogenerated Problem No Stella Dodge PA Additional Health Concerns Active Problems Noted Date Diagnosed Date Autogenerated Problem 03/10/2025 Insurance [place] - [place]ARE
[2025-04-22 08:10] LABS: Alanine Aminotransferase 43 U/L (0-40); Albumin Level 3.8 g/dL (3.5-5.0); Alkaline Phosphatase 121 U/L (39-117); Anion Gap 11 (12-20); Aspartate Amino Transferase 40 U/L (5-37); Blood Urea Nitrogen 24 mg/dL (9-16); Calcium 8.4 mg/dL (8.4-10.2); Carbon Dioxide 21 mmol/L (22-29); Chloride 113 mmol/L (96-108); Estimated Glomerular Filt Rate 48; Potassium 4.3 mmol/L (3.3-5.1); Sodium 141 mmol/L (135-145); Total Protein 6.8 g/dL (6.5-8.0)
== END 2025-04-22 07:26 | disposition home or self-care (01) ==
LOC: HO.LAB 07:25
PROVIDERS: Visit Provider Internal Medicine
DX: R73.02 Impaired glucose tolerance (oral) (principal)
CPT/HCPCS: 36415; 80053

== ENCOUNTER 2025-05-26 10:27 | Outpatient (AMB) | payer MEDICARE, MEDICAID, SELFPAY ==
[2025-05-26 10:45] VITALS: BP 100/52; PULSE 60; BMI 33.7
--- NOTE | 2025-05-26 10:45 | MHC.OFFVIS ---
Vital Signs 05/26/25 10:45 Height 5 ft 5 in Weight 202 lb 6.15 oz BMI 33.7 BP 100/52 L Blood Pressure Location Lt brachial Position Sitting Pulse 60 Pulse Source Pulse Oximeter Intake Visit Reasons: 4 mth f/up Metal Trim Erector Required: No Worm Picker: Worm Picker Present Allergies aspirin (ASPIRIN) Allergy (Intermediate, Verified 05/26/25 10:50) ITCHING fish oil Allergy (Intermediate, Verified 05/26/25 10:50) itchiness Medication List - Last Reconciled 05/26/25 by SHARON OchoaC [Aeromist Nebulizer As directed] albuterol sulfate 2.5 mg (3 mL) inhalation Q6H PRN 30 days alfuzosin ER 10 mg PO DAILY 90 days atorvastatin 80 mg PO BEDTIME carbamazepine 300 mg PO BID cholecalciferol (vitamin D3) 25 mcg PO DAILY 90 days citalopram 40 mg PO DAILY 90 days clonazepam 1 mg PO TID PRN 30 days clopidogrel 75 mg PO DAILY 90 days ezetimibe 10 mg PO DAILY 90 days xsxcoiksarb-cdqjabzvz-znpcztwr 200-62.5-25 mcg (Trelegy Ellipta) 1 inh inhalation DAILY 30 days levalbuterol HCl 1.25 mg (3 mL) inhalation BID 90 days meclizine 25 mg PO DAILY PRN metoprolol succinate ER 25 mg PO DAILY 90 days montelukast (Singulair) 10 mg PO BEDTIME 30 days nebulizers (AeroEclipse II Nebulizer) As directed nitroglycerin 0.4 - 0.8 mg sublingual DAILY PRN phenytoin sodium extended 200 mg (2 x 100 mg) PO BID 90 days quetiapine 100 mg PO BEDTIME 90 days sennosides-docusate sodium 8.6-50 mg (Senexon-S) 1 tab-cap PO BID tramadol 50 mg PO Q8H PRN 30 days umeclidinium-vilanterol 62.5-25 mcg/actuation (Anoro Ellipta) 1 inh inhalation DAILY 60 days HPI HPI 4 mth f/up: Details: The patient is a 75 year old male presenting for follow up of coronary artery disease. He has remote stenting of the left anterior descending artery and right coronary artery. A cardiac catheterization on 12/18/2024 for chest discomfort revealed a patent LAD stent with mild in-stent restenosis, a patent right coronary artery stent, and 40% diagonal stenosis. An echocardiogram from 12/18/2024 showed a normal ejection fraction of 60-65% with no regional wall motion abnormalities, normal diastolic function, and no significant valve abnormalities. His last EKG on 01/27/2025 showed sinus bradycardia at a rate of 55 with nonspecific T-wave abnormalities. The patient reports feeling depressed due to family issues. His daughter states that stress or depression can trigger seizures. Associated with seizure activity, he sometimes experiences a heart pain, which resolves with one or two sublingual NTG pills. He experienced an episode yesterday after receiving stressful news. He does not experience chest pain with exertion. Regarding physical activity, he is mostly home but sometimes goes to [employer] or shops, engaging in light activities. Past medical history is significant for hypertension, hyperlipidemia, sleep apnea, impaired fasting glucose, asthma, and seizures. He has a known allergy to aspirin. His daughter reports that his asthma is controlled and that he is compliant with his medications.His current medications include atorvastatin, clopidogrel, Zetia, and metoprolol and other noncardiac medications. Daughter is present and assisting with translation at their request. [facility] Medical History (Updated 05/26/25 @ 11:22 by Melissa García NP-C) Partial small bowel obstruction Hearing loss Encounter for Medicare annual wellness exam Cardiac arrest due to underlying cardiac condition Solitary kidney, acquired Mild recurrent major depression Cough BPH (benign prostatic hyperplasia) CAD (coronary artery disease) Lower back pain Asthma Hypertension Seizures Heart attack Afib High cholesterol Surgical History (Updated 05/26/25 @ 11:29 by Melissa García, JALEN-C) History of left nephrectomy History of colonoscopy H/O heart artery stent Family History Father No problems noted. Mother Cancer Diabetes Social History Household Members: Spouse and Children Housing: Apartment Do you presently have visiting nurse or other home services: No Alcohol intake: former Patient Tobacco Use Status: Never used Tobacco e-Cigarette/Vaping Use: Never Used Second Hand Smoke Exposure: No service: No Current occupational status: retired Cognitive needs: No Hearing needs: Yes Vision needs: Yes Review of Systems Const Details: has seizures periodically - when stressed All systems reviewed & are unremarkable except as noted in HPI and below ENT Denies dizziness Card Details: gets CP when stressed - takes 1 NTG Reports chest pain, Reports chest pain at rest, Denies chest pain with activity, Denies rapid heart rate, Denies pedal edema, Denies edema, Denies leg edema, Denies lightheadedness, Denies palpitations, Denies dyspnea, Denies dyspnea on exertion and Denies orthopnea Resp Denies cough, Denies dyspnea and Denies dyspnea on exertion GI Denies hematochezia and Denies change in stool character Musc Denies abnormal gait, Reports limited range of motion, Reports muscle cramps, Denies muscle weakness, Denies numbness, Denies radiating pain into limb, Denies stiffness and Denies tingling Neuro Denies abnormal gait, Denies dizziness, Denies numbness and Denies tingling Endo Denies palpitations Physical Exam Vital Signs: Last Vital Signs Pulse 60 05/26/25 10:45 BP 100/52 L 05/26/25 10:45 BMI result Body Mass Index 33.7 Const General: cooperative, healthy appearing, comfortable and no acute distress Orientation/consciousness: patient oriented x3 Neck Neck: Yes normal visual inspection Resp Effort & Inspection: normal respiratory effort Auscultation: clear to auscultation bilaterally, no rales, no rhonchi and no wheezes Cardio Rate: regular rate Rhythm: regular rhythm Heart sounds: S1 normal heart sound present, S2 normal heart sound present, no gallops, no murmurs and no rubs Neuro General: patient oriented x3 Extrem General: Yes normal to inspection, No no pedal edema and No calf tenderness Psych Appearance: grossly normal Mental Status: mental status grossly normal Speech and movement: Normal speech and movement present Assessment & Plan Assessment & Plan (1) CAD (coronary artery disease): Code(s): I25.10 - Atherosclerotic heart disease of [place] coronary artery without angina pectoris Category: Medical Qualifiers: Coronary Disease-Associated Artery/Lesion type: [place] artery [place] vs. transplanted heart: [place] heart Associated angina: angina presence unspecified Qualified Code(s): I25.10 - Atherosclerotic heart disease of [place] coronary artery without angina pectoris Plan: History of CAD with remote RCA and LAD stents. Recent reports of chest discomfort leading to cardiac catheterization showing patent stents. He was continued on medical management for stable CAD. He is not on aspirin due to allergy. He is on Plavix. Continue atorvastatin and Zetia with ideal LDL goal less than 70. Continue metoprolol. Signs and symptoms of angina reviewed. (2) Hypertension: Code(s): I10 - Essential (primary) hypertension Category: Medical Qualifiers: Hypertension type: unspecified Qualified Code(s): I10 - Essential (primary) hypertension Plan: Blood pressure goal less than 130/80. Well controlled at this time. Continue metoprolol. (3) Stented coronary artery: Comment: RCA, lad stents Code(s): Z95.5 - Presence of coronary angioplasty implant and graft Category: Surgical Plan: As above (4) S/P cardiac cath: Comment: 12/18/2024, patent RCA and LAD stents, mild in stent restenosis of LAD, 40% diagonal stenosis. Code(s): Z98.890 - Other specified postprocedural states Category: Surgical Plan: Medical management Plan I discussed with the patient and his daughter that his heart seems stable at this time. I confirmed that he is on all the appropriate medications for his heart condition and that no changes are needed today. I encouraged him to try to stay physically active and instructed them to notify us of any new or concerning heart symptoms. I have arranged for him to get labs today and will have him follow up with Dr. Pinto in about four months. Patient Instructions: - Continue to take your heart medicines as prescribed, as we are not making any changes today. - Try to stay physically active as you are able. - Please let us know if you have any new or worrying heart symptoms. Patient was informed and verbally consented to the use of an ambient scribe for clinic note documentation during this visit. Visit time spent on chart review, interview, assessment, orders, documentation. Coding Level of Care Code Est Pt Level 4 (01094) Add On Problem Visit Only Diagnoses Coronary artery disease involving [place] coronary artery of [place] heart, angina presence unspecified I25.10 Coronary Disease-Associated Artery/Lesion type: [place] artery [place] vs. transplanted heart: [place] heart Associated angina: angina presence unspecified Hypertension, unspecified type I10 Hypertension type: unspecified Stented coronary artery Z95.5 S/P cardiac cath Z98.890 Time Spent (min) 28
== END 2025-05-26 11:10 | disposition home or self-care (01) ==
LOC: HO.HCS 10:28
PROVIDERS: PCP Internal Medicine; Visit Provider Nurse Practitioner Family
DX: I25.10 Atherosclerotic heart disease of native coronary artery without angina pectoris (principal); I10 Essential (primary) hypertension; Z95.5 Presence of coronary angioplasty implant and graft; Z98.890 Other specified postprocedural states
CPT/HCPCS: 99214; G2211

== ENCOUNTER → 2025-05-26 10:27 | Outpatient (BNVA) | payer MEDICARE, MEDICAID, SELFPAY | PROVIDERS: PCP Internal Medicine; Visit Provider Nurse Practitioner Family | DX: I25.10 Atherosclerotic heart disease of native coronary artery without angina pectoris (principal); I10 Essential (primary) hypertension; Z95.5 Presence of coronary angioplasty implant and graft | CPT/HCPCS: 99212 ==